=== PATIENT | male | born 1950 | race Caucasian/White ===

== ENCOUNTER → 2019-04-09 | Outpatient (CLI) | payer MEDICARE ==
--- NOTE | 2019-04-11 16:40 | PE ---
Nuclear medicine PET/CT HISTORY: Esophageal carcinoma, subsequent Patient received 12.4 mCi F-18 FDG intravenously in delayed scanning was performed from skull base to the mid thighs. Localization and attenuation correction CT scan was performed. Correlation to prior nuclear medicine PET/CT 01/12/2019 Neck and chest: There is multifocal punctate foci of increased attenuation present at the level of th e distal esophagus extending into the proximal stomach, there is associated soft tissue thickening at this level similar to prior exam. There is mild hypermetabolic uptake present at the level of the di stal esophagus and proximal stomach which is decreased as compared to prior exam, SUV is 4.1. There is no evident lung mass. No pleural or pericardial effusion. There are coronary artery calcific ations present. There is evidence of old granulomatous disease as on prior. No mediastinal, axillary, or hilar adenopathy, no supraclavicular adenopathy. Previously identified mediastinal no mild uptake has diminished in size and activity. ABDOMEN: Findings are stable. No suspicious hypermetabolic uptake. No evident liver mass or retroperi toneal adenopathy. Portal node seen on prior exam immediately adjacent to the lesser curvature of the stomach measures approximately 17 mm but does not show associated hypermetabolic uptake. There is no ascites. Osseous structures are stable. IMPRESSION: Positive treatment response
== END | disposition home or self-care (01) ==
LOC: RADPETMAIN 09:25
PROVIDERS: ATTEND Internal Medicine Hematology & Oncology
DX: C15.5 Malignant neoplasm of lower third of esophagus (principal); Z92.21 Personal history of antineoplastic chemotherapy
CPT/HCPCS: 78815; A9552

== ENCOUNTER → 2019-10-28 | Outpatient (CLI) | payer MEDICARE ==
--- NOTE | 2019-10-31 10:10 | PE ---
EXAMINATION TYPE: PET CT fusion skull to thigh DATE OF EXAM: 10/28/2019 CLINICAL HISTORY: 69 year-old male restaging esophageal cancer initially diagnosed in November 2018 status post chemoradiation in February 2019 and surgery April 2019. TECHNIQUE: Following the intravenous administration of 9.1 mCi of F-18 FDG, whole body images are p erformed from the skull base to the midthigh. Images are reviewed on the computer in the coronal, ax ial, and sagittal planes. Reconstructed rotating images are created on independent workstation and r eviewed on the computer. A localization and attenuation correction CT is performed in conjunction w ith the PET scan. Glucose level: 94 mg/dL COMPARISON: 04/09/2019 and 01/12/2019 FINDINGS: PET: Physiologic FDG uptake within the neck. Interval esophagectomy with gastric pull-through procedure. Scattered nonenlarged mediastinal lymph n odes measure up to 8 mm and show no abnormal uptake. Just above the level of the GE junction, focal area of moderate uptake is noted, max SUV 4.1 versus 4 .1, previously as well. Otherwise, physiologic FDG uptake within the chest. New focal volume loss and subpleural opacity posterior right lower lobe likely posttreatment change; no discrete FDG uptake. Average liver SUV 1.6. New postsurgical change along the epigastrium. Some mild uptake in this region likely postsurgical, m ax SUV 2.6. Dotted increased uptake along the course of the ureters compatible with excreting FDG. Otherwise, physiologic FDG uptake within the abdomen and pelvis. ATTENUATION CORRECTION CT: Moderate mucosal thickening ethmoid air cells. Mild within the left maxillary sinus. There seems to b e some fluid trapped within the inferior left mastoid air cells. No cervical lymphadenopathy by CT si ze criteria. Heart upper limits of normal in size without pericardial effusion. Extensive LAD calcifications are n oted. Aortic root is ectatic at 3.8 cm. Ascending aorta borderline ectatic at 3.6 cm. Conventional ar ch vessel branching anatomy. No cervical lymphadenopathy by CT size criteria. Calcified left hilar ly mph nodes compatible with prior granulomatous disease. No pleural effusion. Multiple calcified granulomas within the spleen. No dilated small bowel, free fluid, or free air. Sca ttered mild to moderate stool. No pericolonic inflammatory change. No mesenteric or retroperitoneal l ymphadenopathy. Mild circumferential bladder wall thickening. Prostate gland is enlarged measuring 6.0 cm wide. Phleb olith in the right side of the pelvis. No abnormal fluid collection the pelvis or pelvic lymphadenopa thy. Bones: Mild degenerative changes at the hips. Degenerative bridging bony ankylosis left SI joint. Fac et arthropathy and degenerative disc disease lower lumbar spine. No osseous destructive process. IMPRESSION: 1. Interval esophagectomy with gastric pull-through procedure. 2. Focal area of moderate FDG uptake just above the level of the GE junction, max SUV 4.1 versus 4.1, previously as well. Findings may relate to postsurgical change. Given the presence of this activity along the same region seen on prior PET/CT, consider short interval follow-up. 3. Otherwise, no evidence for metastatic disease. 4. New focal volume loss and opacity along the subpleural region of the posterior right lower lobe co uld represent posttreatment change. Correlate to exclude any symptoms of developing pneumonia. 5. Circumferential bladder wall thickening could represent chronic bladder hypertrophy or cystitis. P rostatomegaly at 6.0 cm wide.
== END | disposition home or self-care (01) ==
LOC: RADPETMAIN 09:41
PROVIDERS: ATTEND Internal Medicine Hematology & Oncology
DX: R91.8 Other nonspecific abnormal finding of lung field (principal); C15.5 Malignant neoplasm of lower third of esophagus; N40.0 Benign prostatic hyperplasia without lower urinary tract symptoms; Z90.49 Acquired absence of other specified parts of digestive tract; N32.89 Other specified disorders of bladder
CPT/HCPCS: 78815; A9552

== ENCOUNTER → 2020-04-27 | Outpatient (CLI) | payer MEDICARE ==
--- NOTE | 2020-04-27 11:55 | PE ---
EXAMINATION TYPE: PET CT fusion skull to thigh DATE OF EXAM: 04/27/2020 COMPARISON: Prior PET CTs October 28, 2019 and older studies. HISTORY: Distal esophageal cancer diagnosed November 2018 with surgery May 13, 2019, history of radi ation and chemotherapy prior to surgery. TECHNIQUE: Following the intravenous administration of 11.82 mCi of F-18 FDG, whole body images are performed from the skull base to the midthigh. Images are reviewed on the computer in the coronal, a xial, and sagittal planes. Reconstructed rotating images are created on independent workstation and reviewed on the computer. A noncontrast CT is performed in conjunction with the PET scan. SCAN: Subsequent Scan FINDINGS: SKULL BASE AND NECK: No new areas of suspicious hypermetabolic uptake. CHEST, MEDIASTINUM, AND HILAR REGION: Redemonstration of surgical changes from total esophagectomy an d gastric pull-up procedure. No new areas of suspicious hypermetabolic uptake. ABDOMEN AND PELVIS: No new areas of suspicious hypermetabolic uptake. Normal excretion is present. OSSEOUS STRUCTURES: No new areas of suspicious hypermetabolic uptake. OTHER CT: Mild calcified plaque bilateral carotid bulb level redemonstrated. Calcified left hilar lymph nodes or granulomas again seen. Scattered calcifications throughout the sp christopher. Findings consistent with product of old granulomatous disease. There is moderate coronary arter y calcification redemonstrated. Occasional scattered pelvic phleboliths. Slight scoliotic curvature. Moderate disc space narrowing L5-S1 level with vacuum disc phenomenon. IMPRESSION: No new areas of abnormal hypermetabolic uptake to suggest recurrent active neoplasm.
== END | disposition home or self-care (01) ==
LOC: RADPETMAIN 08:43
PROVIDERS: ATTEND Internal Medicine Hematology & Oncology
DX: C15.5 Malignant neoplasm of lower third of esophagus (principal)
CPT/HCPCS: 78815; A9552

== ENCOUNTER → 2021-04-19 | Outpatient (CLI) | payer MEDICARE ==
--- NOTE | 2021-04-19 13:05 | PE ---
EXAMINATION TYPE: PET CT fusion skull to thigh DATE OF EXAM: 04/19/2021 COMPARISON: Prior PET/CT April 27 2020 and older studies HISTORY: Distal esophageal cancer diagnosed November 2018 with surgery May 13, 2019, history of radi ation and chemotherapy prior to surgery. TECHNIQUE: Following the intravenous administration of 13.20 mCi of F-18 FDG, whole body images are performed from the skull base to the midthigh. Images are reviewed on the computer in the coronal, a xial, and sagittal planes. Reconstructed rotating images are created on independent workstation and reviewed on the computer. A localization and attenuation correction CT is performed in conjunction with the PET scan. Blood glucose level equals 87. SCAN: Subsequent Scan FINDINGS: SKULL BASE AND NECK: No new areas of suspicious hypermetabolic uptake. CHEST, MEDIASTINUM, AND HILAR REGION: Redemonstration of surgical changes from total esophagectomy an d gastric pull-up procedure. Mild uptake near the diaphragmatic hiatus and surgical clips axial image 149, Max SUV is 2.67. No additional areas of new abnormal hypermetabolic uptake. ABDOMEN AND PELVIS: No new areas of suspicious hypermetabolic uptake. Normal excretion is redemonstra jose including prominence just above left iliac vessel. OSSEOUS STRUCTURES: No new areas of suspicious hypermetabolic uptake. OTHER CT: Calcified left hilar lymph nodes or granulomas again seen. Scattered calcifications throughout the sp christopher are redemonstrated. Findings consistent with product of old granulomatous disease. There is mode rate coronary artery calcification redemonstrated. Occasional scattered pelvic phleboliths. Anterior upper abdominal midline defect redemonstrated. Slight scoliotic curvature redemonstrated. Moderate disc space narrowing L5-S1 level with vacuum disc phenomenon is redemonstrated. IMPRESSION: Only area of concern is new mild hypermetabolic uptake near surgical clips at level of di aphragmatic hiatus in the gastric pull-up. Consider direct visualization or short-term PET/CT follow- up in 3-6 months time to reassess.
== END | disposition home or self-care (01) ==
LOC: RADPETMAIN 09:33
PROVIDERS: ATTEND Internal Medicine Hematology & Oncology
DX: Z08 Encounter for follow-up examination after completed treatment for malignant neoplasm (principal); C15.5 Malignant neoplasm of lower third of esophagus; Z92.21 Personal history of antineoplastic chemotherapy; Z92.3 Personal history of irradiation
CPT/HCPCS: 78815; A9552

== ENCOUNTER → 2021-11-01 | Outpatient (CLI) | payer MEDICARE ==
--- NOTE | 2021-11-01 15:52 | PE ---
EXAMINATION TYPE: PET CT fusion skull to thigh DATE OF EXAM: 11/01/2021 COMPARISON: Prior PET/CT April 19, 2021 and older studies HISTORY: Distal esophageal cancer diagnosed November 2018 with surgery May 13, 2019, history of radi ation and chemotherapy prior to surgery. TECHNIQUE: Following the intravenous administration of 12.65 mCi of F-18 FDG, whole body images are performed from the skull base to the midthigh. Images are reviewed on the computer in the coronal, a xial, and sagittal planes. Reconstructed rotating images are created on independent workstation and reviewed on the computer. A localization and attenuation correction CT is performed in conjunction with the PET scan. Blood glucose level equals 92 SCAN: Subsequent Scan FINDINGS: SKULL BASE AND NECK: No new areas of suspicious hypermetabolic uptake. CHEST, MEDIASTINUM, AND HILAR REGION: Redemonstration of surgical changes from total esophagectomy an d gastric pull-up procedure. Mild uptake near the diaphragmatic hiatus and surgical clips axial image 135 slightly more prominent from most recent PET/CT where there is moderate wall thickening just abo ve the sutures, Max SUV is 3.54 versus 2.67 on prior. No additional areas of new abnormal hypermetabolic uptake. ABDOMEN AND PELVIS: No new areas of suspicious hypermetabolic uptake. Normal excretion is redemonstra jose including some uptake along the course of the bilateral ureters redemonstrated. OSSEOUS STRUCTURES: No new areas of suspicious hypermetabolic uptake. OTHER CT: Calcified anterior left hilar lymph nodes or benign granulomas again seen. Scattered calcifications t hroughout the spleen are redemonstrated. Findings consistent with product of old granulomatous diseas e. There is moderate to severe coronary artery calcification redemonstrated. Occasional scattered pelvic phleboliths. Anterior upper abdominal midline defect redemonstrated. Mild ly enlarged prostate bulging on bladder base redemonstrated. Slight scoliotic curvature redemonstrated. Moderate disc space narrowing L5-S1 level with vacuum disc phenomenon is redemonstrated. IMPRESSION: Only area of concern remains slightly more prominent mild hypermetabolic uptake area near surgical clips at level of diaphragmatic hiatus in the gastric pull-up. Consider direct visualizatio n to further evaluate.
== END | disposition home or self-care (01) ==
LOC: RADPETMAIN 09:39
PROVIDERS: ATTEND Internal Medicine Hematology & Oncology
DX: C15.5 Malignant neoplasm of lower third of esophagus (principal)
CPT/HCPCS: 78815; A9552

== ENCOUNTER → 2022-11-07 | Outpatient (CLI) | payer MEDICARE ==
--- NOTE | 2022-11-10 05:52 | PE ---
EXAMINATION TYPE: PET CT fusion skull to thigh DATE OF EXAM: 11/07/2022 COMPARISON: Most recent PET CT November 01, 2021 and older studies HISTORY: Esophageal cancer progress study. Originally diagnosed in 2019 completed radiation treatmen t February 2019. TECHNIQUE: Following the intravenous administration of 12.44 mCi of F-18 FDG, whole body images are performed from the skull base to the midthigh. Images are reviewed on the computer in the coronal, a xial, and sagittal planes. Reconstructed rotating images are created on independent workstation and reviewed on the computer. A localization and attenuation correction CT is performed in conjunction with the PET scan. Blood glucose level equals 85. SCAN: Subsequent Scan FINDINGS: SKULL BASE AND NECK: No new areas of suspicious hypermetabolic uptake. CHEST, MEDIASTINUM, AND HILAR REGION: Redemonstration of surgical changes from total esophagectomy an d gastric pull-up procedure. No abnormal hypermetabolic uptake near the sutures just above the diaphr agm on current study. No new areas of new abnormal hypermetabolic uptake. ABDOMEN AND PELVIS: No new areas of suspicious hypermetabolic uptake. Normal excretion is redemonstra jose including slightly more prominent uptake along the course of the bilateral ureters redemonstrated . OSSEOUS STRUCTURES: No new areas of suspicious hypermetabolic uptake. OTHER CT: Calcified anterior left hilar lymph nodes or benign granulomas again seen. Scattered calcifications t hroughout the spleen are redemonstrated. Findings consistent with product of old granulomatous diseas e. There is moderate to severe coronary artery calcification redemonstrated. Occasional scattered pelvic phleboliths. Anterior upper abdominal midline defect redemonstrated. Enla rged prostate bulging on bladder base redemonstrated. Slight scoliotic curvature redemonstrated. Moderate disc space narrowing L5-S1 level with vacuum disc phenomenon is redemonstrated. IMPRESSION: No abnormal hypermetabolic uptake to suggest active residual neoplasm or new metastatic n eoplasm on current study.
== END | disposition home or self-care (01) ==
LOC: RADPETMAIN 09:27
PROVIDERS: ATTEND Internal Medicine Hematology & Oncology
DX: C15.5 Malignant neoplasm of lower third of esophagus (principal); Z92.3 Personal history of irradiation
CPT/HCPCS: 78815; A9552

== ENCOUNTER 2024-01-01 14:59 | Inpatient (IN) | payer MEDICARE ==
[2024-01-01] MEDS ORDERED: NITROGLYCERIN SL TABS 0.4 MG TAB SUBLINGUAL PRN (15:11)
--- NOTE | 2024-01-01 15:11 | ED ---
General Adult HPI - General Chief complaint: Arrhythmia/Palpitations Stated complaint: Chest pain Time Seen by Provider: 01/01/24 15:04 Source: patient, EMS, RN notes reviewed Mode of arrival: EMS Limitations: no limitations - History of Present Illness Initial comments: Patient is a 73-year-old male present to the emergency department as a transfer from [place]. Patient was seen there with chest tightness. 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 Patient is on chemotherapy for this. Patient was there a couple days ago diagnosed with pneumonia and returned today with worsening symptoms. Patient found to have elevated troponin and EKG changes as he was sent here. Chest discomfort is described as tightness. Patient did receive administered Zosyn prior to transfer. Cultures were done. Patient is on heparin drip. - Related Data Allergies Allergy/AdvReac Type Severity Reaction Status Date / Time No Known Allergies Allergy Verified 01/01/24 15:04 Review of Systems ROS Statement: Those systems with pertinent positive or pertinent negative responses have been documented in the HPI. ROS Other: All systems not noted in ROS Statement are negative. Constitutional: Denies: fever Eyes: Denies: eye pain Respiratory: Reports: dyspnea Cardiovascular: Reports: chest pain Past Medical History Past Medical History: Cancer Additional Past Medical History / Comment(s): esophageal cancer, pre stage of leukemia Smoking Status: Former smoker Past Alcohol Use History: None Reported Past Drug Use History: None Reported General Exam Limitations: no limitations General appearance: alert, in no apparent distress Head exam: Present: normocephalic Eye exam: Present: normal appearance Neck exam: Present: normal inspection Respiratory exam: Present: normal lung sounds bilaterally Cardiovascular Exam: Present: regular rate, normal rhythm, normal heart sounds Expanded Peripheral pulses: 2+: Radial (R), Radial (L), Posterior Tibialis (R), Posterior Tibialis (L) GI/Abdominal exam: Present: soft. Absent: tenderness Extremities exam: Present: normal inspection Neurological exam: Present: alert Psychiatric exam: Present: normal affect, normal mood Skin exam: Present: normal color Course Vital Signs 01/01/24 15:00 Temperature 100 F H Pulse Rate 91 Respiratory 18 Rate Blood Pressure 114/73 O2 Sat by Pulse 98 Oximetry EKG Findings - EKG Results: EKG: interpreted by ERMD (Inferior ST elevation), sinus rhythm, normal axis, normal QRS Medical Decision Making - Medical Decision Making Was pt. sent in by a medical professional or institution (, [facility], [employer], urgent care, hospital, or long-term...) When possible be specific @ -Patient was sent from [place] Did you speak to anyone other than the patient for history (EMS, parent, family, police, friend...)? What history was obtained from this source @ -I did speak with transferring physician Dr. Mercado as well as transportation crew with [employer] Did you review nursing and triage notes (agree or disagree)? Why? @ -I reviewed and agree with nursing and triage notes Were old charts reviewed (outside hosp., previous admission, EMS record, old EKG, old radiological studies, urgent care reports/EKG's, long-term records)? Report findings @ -Chart reviewed from [facility] Differential Diagnosis (chest pain, altered mental status, abdominal pain women, abdominal pain men, vaginal bleeding, weakness, fever, dyspnea, syncope, headache, dizziness, GI bleed, back pain, seizure, CVA, palpatations, mental health, musculoskeletal)? @ -[facility] differential chest differential Chest Pain: Stable Angina, Unstable Angina, STEMI, NSTEMI Aortic Dissection, Pneumothorax, Musculoskeletal, Esophageal Spasm GERD, Cholecystitis, Pancreatitis, Zoster, this is not meant to be an all-inclusive list. EKG interpreted by me (3pts min.). @ -As above X-rays interpreted by me (1pt min.). @ -None done CT interpreted by me (1pt min.). @ -None done U/S interpreted by me (1pt. min.). @ -None done What testing was considered but not performed or refused? (CT, X-rays, U/S, labs)? Why? @ -None What meds were considered but not given or refused? Why? @ -None Did you discuss the management of the patient with other professionals (professionals i.e. , [facility], [employer], lab, RT, psych nurse, child welfare social worker, electrical appliance servicer, teacher, electronic warfare officer, geriatric case manager)? Give summary @ -Case also discussed with Dr. Vincent who is in the emergency department and will take patient to [facility]. Case also discussed with Dr. Andrade who will admit covering hospital call Was smoking cessation discussed for >3mins.? @ -No Was critical care preformed (if so, how long)? @ -20 minutes critical care Were there social determinants of health that impacted care today? How? (Homelessness, low income, unemployed, alcoholism, drug addiction, transportation, low edu. Level, literacy, decrease access to med. care, group home, rehab)? @ -No Was there de-escalation of care discussed even if they declined (Discuss DNR or withdrawal of care, Hospice)? DNR status @ -No What co-morbidities impacted this encounter? (DM, HTN, Smoking, COPD, CAD, Cancer, CVA, ARF, Chemo, Hep., AIDS, mental health diagnosis, sleep apnea, morbid obesity)? @ -Leukemia on chemotherapy Was patient admitted / discharged? Hospital course, mention meds given and route, prescriptions, significant lab abnormalities, going to OR and other pertinent info. @ -Patient presents as a transfer from [place] with concern for neutropenic pneumonia as well as myocardial infarction. Patient is going to the [facility] at this time Undiagnosed new problem with uncertain prognosis? @ -No Drug Therapy requiring intensive monitoring for toxicity (Heparin, Nitro, Insulin, Cardizem)? @ -Heparin drip Were any procedures done? @ -No Diagnosis/symptom? @ -Neutropenic pneumonia. Myocardial infarction Acute, or Chronic, or Acute on Chronic? @ -Acute, acute Uncomplicated (without systemic symptoms) or Complicated (systemic symptoms)? @ -Default Side effects of treatment? @ -No Exacerbation, Progression, or Severe Exacerbation? @ -No Poses a threat to life or bodily function? How? (Chest pain, USA, CT, pneumonia, PE, COPD, DKA, ARF, appy, cholecystitis, CVA, Diverticulitis, Homicidal, Suicidal, threat to staff... and all critical care pts) @ -Threat to pulmonary and cardiac function as well as life Disposition Clinical Impression: Myocardial infarct, Neutropenia, Pneumonia Disposition: ADMITTED IP TO THIS [facility] Condition: Critical Is patient prescribed a controlled substance at d/c from ED?: No Referrals: None,Stated [REFERRING] - 1-2 days Time of Disposition: 15:09
[2024-01-01] MEDS ORDERED: PNEUMONIA PROTOCOL UTILIZED 1 EACH MISC PO PRN (15:14)
[2024-01-01] MEDS ORDERED: VERAPAMIL 2.5 MG/ML 2 ML AMP ONE (15:15)
[2024-01-01] MEDS ORDERED: LIDOCAINE 1% INJ 10MG/ML (20 ML MDV) ONE (15:15)
[2024-01-01] MEDS ORDERED: fentaNYL (PF) 50 MCG/ML 2 ML AMP ONE (15:28)
[2024-01-01] MEDS: VERAPAMIL SYRINGE (5 MG/10 ML) INTRAARTER ONE (15:28)
[2024-01-01] MEDS: LIDOCAINE 1% INJ 10MG/ML (30 ML VIAL-PF) SQ ONE (15:28)
[2024-01-01] MEDS ORDERED: HEPARIN SODIUM 1,000 UN/ML (10ML VL) ONE (15:29)
[2024-01-01 15:30] LABS: Partial Thromboplastin Time 28.5 sec (22.0-30.0)
[2024-01-01] MEDS: fentaNYL (PF) 50 MCG/ML 2 ML AMP IVP ONE (15:30)
[2024-01-01] MEDS: MIDAZOLAM 2 MG/2 ML VIAL IVP ONE ×2 (15:30→15:48)
[2024-01-01] MEDS: HEPARIN SODIUM 1,000 UN/ML (10ML VL) IVP ONE (15:36)
[2024-01-01] MEDS: IOPAMIDOL-370 200ML BTL INJ ONE (16:01)
[2024-01-01] MEDS: SODIUM CHLORIDE 0.9% 1,000 ML IV ONE (16:02)
[2024-01-01] MEDS ORDERED: RX INFO: IV CONTRAST WAS GIVEN 1 EACH MISC MISCELLANE PRN ×2 (16:50→16:52)
--- NOTE | 2024-01-01 17:14 | P.CRDCN ---
History of Present Illness Consult date: 01/01/24 History of present illness: HISTORY OF PRESENTING ILLNESS Octavio is a 73-year-old male with past medical history of esophageal cancer s/p surgery. Since beginning of 2023, patient has been diagnosed for AML and is under chemotherapy treatment with Dr. Simon. He denies any prior cardiovascular history. Patient presented to [facility] with substernal chest pressure on Thursday. At that time he was discharged from the ER as his ECG and troponin were within normal range. This morning he presented to [facility] again with substernal chest pressure-like symptoms. This time he had elevation of troponin with high-sensitivity troponin measured at 1000. His ECG showed subtle ST elevations in lead III with reciprocal changes in V1 and V2. Due to these findings, patient was transferred to [facility]. I was notified by ER physician at [facility] about this transfer. I advised that if patient has STEMI he should be given tPA. ER physician did not think tPA was appropriate as patient is chest pain-free. Patient was also found to have neutropenia with WBC count of 0.4. For his neutropenic fever he was initially being referred to [facility] but because of signs of cardiac ischemia NSTEMI, he was transferred to [facility]. Patient was immediately evaluated when arrived at [facility] ER. Repeat ECG showed subtle ST elevations in lead III with reciprocal changes in V1 and V2. Bedside echocardiogram showed preserved LV systolic function with subtle basal inferior wall hypokinesia. His hemoglobin was 12, platelet 190. His creatinine was 1.1. A chest x-ray did not show significant pulmonary congestion. He did not appear in congestive heart failure. He was in normal sinus rhythm. Denies any prior history of stroke. He denies any concerns of bleeding diathesis. He denies any history of smoking, recreational drug use marijuana use or alcohol use REVIEW OF SYSTEMS 14 point review of system is negative except what is mentioned above in HPI. PHYSICAL EXAMINATION Vital signs reviewed. Head: Normocephalic. Eyes: Sclerae nonicteric. Neck: Brisk carotid upstroke, no jugular venous distention. Lungs: Clear to auscultation. Heart: Regular rate and rhythm, S1-S2, no S3, no murmur or rub. Abdomen: Soft nontender, positive bowel sounds. Extremities: No edema, intact distal pulses. Neuro: Alert, oritented, no focal deficits. Detailed neuro exam was not performed. ASSESSMENT Inferior STEMI AML on chemotherapy Prior history of esophageal cancer s/p surgery PLAN Plan for cardiac catheterization procedure. Risk factors including stroke NM and emergent need for cardiac surgery because of vascular cardiac injury was discussed. Patient agreed to all these risk factors and wanted to proceed with a cardiac catheterization procedure. Further recommendations to follow cath results Kavon Vincent MD, FACC, RPVI Thank you for allowing [facility] to participate in this patient's care. Feel free to reach out in case of any followup questions. Past Medical History Past Medical History: Cancer Additional Past Medical History / Comment(s): esophageal cancer, pre stage of leukemia Smoking Status: Former smoker Past Alcohol Use History: None Reported Past Drug Use History: None Reported Medications and Allergies Allergies Allergy/AdvReac Type Severity Reaction Status Date / Time No Known Allergies Allergy Verified 01/01/24 15:04 Physical Exam Vitals: Vital Signs Temp Pulse Pulse Resp BP Pulse Ox 01/01/24 15:04 74 01/01/24 15:00 100 F H 91 18 114/73 98 Intake and Output 01/01/24 01/01/24 01/01/24 06:59 14:59 22:59 Intake Total 100 Balance 100 Intake: IV 100 Other: Weight 86.183 kg Results Cardiac Enzymes 01/01/24 Range/Units 15:12 Troponin I 1.210 H* (0.000-0.034) ng/mL Coagulation 01/01/24 Range/Units 15:12 APTT 28.5 (22.0-30.0) sec Current Medications Generic Name Dose Route Start Last Admin Trade Name Freq PRN Reason Stop Dose Admin Aspirin 325 mg 01/02/24 09:00 Aspirin 325 Mg Tab PO DAILY VERN Heparin Sodium/Sodium Chloride 250 mls @ 10 mls/hr 01/01/24 15:15 25,000 unit/ Sodium Chloride IV .Q24H VERN Protocol 11.603 UNITS/KG/HR Azithromycin 500 mg/ Sodium 250 mls @ 250 mls/hr 01/02/24 09:00 Chloride IVPB 01/03/24 09:59 DAILY VERN Protocol Piperacillin Sod/Tazobactam 100 mls @ 25 mls/hr 01/01/24 16:00 Sod 3.375 gm/ Sodium Chloride IVPB 01/06/24 16:01 Q8HR [facility] Protocol Sodium Chloride 1,000 mls @ 75 mls/hr 01/01/24 16:20 Saline 0.9% IV 01/02/24 00:21 .[id number] [facility] Miscellaneous Information 1 each 01/01/24 15:14 Pneumonia Protocol Utilized 1 Each Misc PO ONCE PRN Per Protocol Miscellaneous Information 1 each 01/01/24 16:50 Rx Info: Iv Contrast Was Given 1 Each Misc MISCELLANE 01/03/24 16:50 DAILY PRN Per Protocol Miscellaneous Information 1 each 01/01/24 16:52 Rx Info: Iv Contrast Was Given 1 Each Misc MISCELLANE 01/03/24 16:53 DAILY PRN Per Protocol Nitroglycerin 0.4 mg 01/01/24 15:11 Nitroglycerin Sl Tabs 0.4 Mg Tab SUBLINGUAL Q5M PRN Chest Pain Intake and Output 01/01/24 01/01/24 01/01/24 06:59 14:59 22:59 Intake Total 100 Balance 100 Intake: IV 100 Other: Weight 86.183 kg Patient Weight 01/02/24 06:59 Weight 86.183 kg
--- NOTE | 2024-01-01 17:30 | P.CARDCATH ---
Date of Procedure: 01/01/24 Description of Procedure: DIAGNOSTIC CORONARY ANGIOGRAPHY and LEFT HEART CATH REPORT PROCEDURES PERFORMED: Left heart catheterization Selective coronary angiography Moderate conscious sedation 25 mins [Ultrasound assisted] Right radial access INDICATION: [Unstable angina] CONSENT: I have explained the procedural steps of above-mentioned procedures in layman's terms to the patient. I discussed the risks (including but not limited to stroke, emergent vascular or cardiac surgery or ), benefits and alternative therapies for the above-mentioned procedure. I discussed the risks of sedation/analgesia and blood product administration (if indicated). The patient has indicated understanding and acceptance of these risks. Conscious Sedation: Patient's ECG, heart rate, blood pressure, pulse oximetry were monitored throughout the duration of procedure under my direct supervision. [2] mg Versed and [50] mg Fentanyl were used for induction of moderate conscious sedation. Total duration of moderate concious sedation [25] minutes. Technical details Access: Right radial access Contrast used: Isovue 80 mL Radiation: Cumulative air kerma 270 mGy Blood thinners: 4000 units IV heparin intraoperatively. Blood loss: Less than 20 mL Complications: None PROCEDURE: After explaining the risks, benefits and alternatives of the above mentioned procedures in detail to the patient, informed consent was obtained. Patient was taken to the catheterization lab, prepped and draped in usual sterile fashion using universal precuations. Barbow and elder test were performed to confirm adequate perfusion to fingers. Ultrasound was used to identify the radial artery. 1% lidocaine was infiltrated over the right radial artery. A 6-[place] sheath was placed and secured in the right radial artery using modified Seldinger technique. The sheath was flushed and 5 mg verapamil was administered intra-arterially. J tipped wire was advanced under fluoroscopic guidance. Due to significant tortuosity in the subclavian artery, the J-wire had a tendency of slipping into right internal mammary artery. The JR4 catheter was advanced over the J-wire to direct the wire and the aorta. There was significant tortuosity at the junction of right subclavian artery and the aortic arch. With the help of the JR4 catheter, the wire was maneuvered into the ascending aorta. Once the wire tip reached aortic root 4000 units of IV heparin was given. Over the wire JR4 diagnostic catheter was advanced. The wire in place the catheter was manipulated to cross the aortic valve and entered into LV under fluoroscopy guidance. The wire was removed and the catheter was flushed. LV pressures were obtained and pullback was performed under fluoroscopy. Catheter was manipulated to selectively engage the right coronary ostium. Right coronary angiography was performed in different angiographic projections. The JR4 diagnostic catheter was exchanged for a JL3.5 diagnostic catheter over the J-wire. The 5 [place] JL 3.5 diagnostic catheter could not enter ascending aorta and was getting stuck at the junction of right subclavian artery and aortic arch. The catheter was removed and exchanged for a CLS guide 3.5. The guide was advanced over the wire to selectively engage the left coronary ostium. The wire was removed, catheter was flushed and manipulated under fluoroscopy to selectively engaged the left coronary ostium. Left coronary angioplasty was performed in different angiographic projections. Catheter was removed over the wire. Radial sheath was flushed. The right radial sheath was removed and a TR band was placed with excellent patent hemostasis was achieved. The patient tolerated the procedure well. Patient was transported back to the post catheterization holding area in stable condition. Angiographic images were reviewed in detail. HEMODYNAMICS: Aortic Pressure: 92/47 mmHg. LV pressure: 94/5 mmHg. LVEDP 9 mmHg. There was no significant gradient across the aortic valve. SELECTIVE CORONARY ARTERIOGRAPHY: LEFT MAIN: Left main is large caliber and medium length. It bifurcates into LAD and LCx. No significant disease angiographically. LEFT ANTERIOR DESCENDING CORONARY ARTERY: LAD is a large caliber vessel which wraps around to the apex. Proximal and mid LAD appears angiographically normal with mild luminal irregularities. Distal LAD has 20 to 30% eccentric disease with mild luminal regularities. LAD gives rise to small diagonal branches appears angiographically normal. LEFT CIRCUMFLEX CORONARY ARTERY: It is co-dominant vessel. LCx is large caliber vessel. Proximal LCx has mild luminal irregularities. It gives rise to a large OM1 branch. Origin of OM is very tortuous and appears to have 20% ostial disease. After giving OM1 branch, mid LCx is large caliber and appears angiographically normal. Distally it gives small OM branches and PL branch. PL branch is a small 1.5 mm vessel and appears to have 100% occlusion in the proximal portion with YANIV 0 flow. RIGHT CORONARY ARTERY: Co-dominant vessel. RCA is moderate caliber vessel. Proximal and mid RCA appears angiographically normal. Distally RCA gives PDA branch which appears angiographically normal. Proximal RCA gives a large RV marginal branch which appears angiographically normal. IMPRESSION: Inferior STEMI 100% occlusion of small 1.5 mm posterolateral branch with YANIV 0 flow. This vessel is small and very distal not amenable for intervention. Normal LVEDP PLAN: Aggressive risk factor modification per most recent ACC/AHA guidelines. 125 cc/h for 4 hours normal saline Aspirin 81 mg Lipitor 40 mg IV heparin for 48 hours for medical management. Ideally we would like to do dual antiplatelet therapy with aspirin and Plavix. Patient is currently going through chemotherapy for AML and is at increased risk of having anemia and bleeding with dual antiplatelet therapy. For now we will continue patient on aspirin 81 mg daily. Performing Physician Kavon Vincent MD, FACC, RPVI Thank you for allowing [facility] to participate in this patient's care. Feel free to reach out in case of any followup questions.
[2024-01-01 18:31] LABS: INR 1.1 (<1.2); Prothrombin Time 11.8 sec (10.0-12.5)
[2024-01-01] MEDS: AZITHROMYCIN 500 MG in SODIUM CHLORIDE 0.9% 250 ML IVPB STA (18:53)
[2024-01-01] MEDS: PIPERACILLIN-TAZOBACTAM 3.375 GM in SODIUM CHLORIDE 0.9% 100 ML IVPB SCH (18:53)
[2024-01-01] MEDS: carvediloL 3.125 MG TAB PO SCH (18:54)
[2024-01-01] MEDS: SODIUM CHLORIDE 0.9% 1,000 ML IV SCH (18:54)
[2024-01-01] MEDS: HEPARIN SOD,PORK IN 0.45% NACL 25,000 UNIT in 0.45% NACL 1 250ML.BAG IV SCH (18:55)
[2024-01-01 19:37] LABS: HGB 11.7 gm/dL (13.0-17.5); Hypochromasia Slight; MCHC 30.9 g/dL (31.0-37.0); MCV 93.9 fL (80.0-100.0); Mean Platelet Volume 8.3; Platelet Count 207 k/uL (150-450); RBC 4.04 m/uL (4.30-5.90); RDW 15.5 % (11.5-15.5)
[2024-01-01 20:22] LABS: Poikilocytosis (M) Present
[2024-01-01 20:25] LABS: WBC 0.8 k/uL (3.8-10.6)
[2024-01-01] MEDS: ATORVASTATIN 40 MG TAB PO SCH (20:26)
[2024-01-02] MEDS: HEPARIN SODIUM 1,000 UN/ML (10ML VL) IV PRN (01:47)
[2024-01-02] MEDS: PIPERACILLIN-TAZOBACTAM 3.375 GM in SODIUM CHLORIDE 0.9% 100 ML IVPB SCH (03:05)
[2024-01-02] MEDS: ACETAMINOPHEN TAB 325 MG TAB PO PRN (03:08)
[2024-01-02 03:11] LABS: INR 1.1 (<1.2); Prothrombin Time 12.2 sec (10.0-12.5)
[2024-01-02] MEDS: ASPIRIN 81 MG PO SCH (07:41)
[2024-01-02] MEDS: HEPARIN SOD,PORK IN 0.45% NACL 25,000 UNIT in 0.45% NACL 1 250ML.BAG IV SCH (07:53)
[2024-01-02] MEDS ORDERED: ASPIRIN 325 MG TAB PO SCH (09:00)
[2024-01-02] MEDS: AZITHROMYCIN 500 MG in SODIUM CHLORIDE 0.9% 250 ML IVPB SCH (10:15)
[2024-01-02 11:24] LABS: Anisocytosis Slight; HCT 37.4 % (39.0-53.0); MCH 29.3 pg (25.0-35.0); MCV 91.6 fL (80.0-100.0); Mean Platelet Volume 8.2; Platelet Count 180 k/uL (150-450); RBC 4.08 m/uL (4.30-5.90); RDW 16.1 % (11.5-15.5)
[2024-01-02 12:20] LABS: Lymphocytes # (M) 0.52 k/uL (1.0-4.8); Monocytes # (M) 0.22 k/uL (0-1.0); Neutrophils # (M) 0.26 k/uL (1.3-7.7); Neutrophils % (M) 26 %; Nucleated Red Blood Cells 0 /100 WBC (0-0); Total Cells Counted 100
[2024-01-02 12:21] LABS: Anisocytosis (M) Present; Crenated RBC Present; Poikilocytosis (M) Present
--- NOTE | 2024-01-02 13:30 | P.HPIM ---
History of Present Illness H&P Date: 01/02/24 History of present illness; patient is 73-year-old gentleman with past medical history significant for esophageal cancer, AML who was a transfer from [facility] for chest pain. Patient initially presented to [facility] on Thursday with similar symptoms of chest pain, at that time patient was evaluated, since EKG was not concerning and tropes were negative, patient was discharged home on antibiotics for pneumonia. Patient again presented to [facility] with chest pain this morning at which time his tropes were elevated and patient was transferred to [facility] for emergent cardiac cath Initial lab work done in the ER showed WBC 2.8, hemoglobin 9.7, platelet count 207, EKG done in the ER showed ST segment elevation in lead III and T wave inversion in V1 and V2 Patient admitted to internal medicine service REVIEW OF SYSTEMS: CONSTITUTIONAL: No fever, no malaise, no fatigue. HEENT: No recent visual problems or hearing problems. Denied any sore throat. CARDIOVASCULAR: As mentioned above PULMONARY: No shortness of breath, no cough, no hemoptysis. GASTROINTESTINAL: No diarrhea, no nausea, no vomiting, no abdominal pain. NEUROLOGICAL: No headaches, no weakness, no numbness. HEMATOLOGICAL: Denies any bleeding or petechiae. GENITOURINARY: Denies any burning micturition, frequency, or urgency. MUSCULOSKELETAL/RHEUMATOLOGICAL: Denies any joint pain, swelling, or any muscle pain. ENDOCRINE: Denies any polyuria or polydipsia. The rest of the 14-point review of systems is negative. PHYSICAL EXAMINATION: GENERAL: The patient is alert and oriented x3, not in any acute distress. Well developed, well nourished. HEENT: Pupils are round and equally reacting to light. EOMI. No scleral icterus. No conjunctival pallor. Normocephalic, atraumatic. No pharyngeal erythema. No thyromegaly. CARDIOVASCULAR: S1 and S2 present. No murmurs, rubs, or gallops. PULMONARY: Chest is clear to auscultation, no wheezing or crackles. ABDOMEN: Soft, nontender, nondistended, normoactive bowel sounds. No palpable organomegaly. MUSCULOSKELETAL: No joint swelling or deformity. EXTREMITIES: No cyanosis, clubbing, or pedal edema. NEUROLOGICAL: Gross neurological examination did not reveal any focal deficits. SKIN: No rashes. Assessment and plan Acute ST elevation [place] Bacterial pneumonia Neutropenia AML History of esophageal cancer Monitor vital signs Monitor CBC Monitor CMP Continue telemetry monitoring Continue aspirin, Lipitor Continue pharmacy to dose heparin Continue Coreg Continue Zosyn and azithromycin S/p cardiac cath showing 100% occlusion of small 1.5 mm posterolateral branch with YANIV 0 flow. This vessel is small and very distal not amenable for intervention. Cardiology following, recommend medical management Consult hematology oncology for neutropenia Consult ID Labs and medication were reviewed.. Continue same treatment. Continue with symptomatic treatment. Resume home medication. Monitor labs and vitals. DVT and GI prophylaxis. Further recommendations as per clinical course of the patient Dictation was produced using [employer] dictation software. please excuse any grammatical, word or spelling errors. Past Medical History Past Medical History: Cancer, Prostate Disorder Additional Past Medical History / Comment(s): esophageal cancer, pre stage of leukemia History of Any Multi-Drug Resistant Organisms: None Reported Smoking Status: Never smoker Past Alcohol Use History: None Reported Past Drug Use History: None Reported Medications and Allergies Home Medications Medication Instructions Recorded Confirmed Type Acyclovir [Zovirax] 400 mg PO BID 01/01/24 01/01/24 History Azacitidine(Unknown Dose) 1 dose IV DIRECTED 01/01/24 01/01/24 History Fluticasone Nasal [place] [Flonase 2 spr EA NOSTRIL DAILY 01/01/24 01/01/24 History Nasal Lamont] Loratadine [Claritin] 10 mg PO DAILY 01/01/24 01/01/24 History Multivitamins, Thera [Multivitamin 1 tab PO DAILY 01/01/24 01/01/24 History (formulary)] Ondansetron [Zofran] 4 mg PO Q4H PRN 01/01/24 01/01/24 History Pantoprazole [Protonix] 40 mg PO DAILY 01/01/24 01/01/24 History Posaconazole 300 mg PO DAILY 01/01/24 01/01/24 History Tamsulosin [Flomax] 0.4 mg PO DAILY 01/01/24 01/01/24 History Venetoclax [Venclexta] 100 mg PO DIRECTED 01/01/24 01/01/24 History Allergies Allergy/AdvReac Type Severity Reaction Status Date / Time No Known Allergies Allergy Verified 01/01/24 15:04 Physical Exam Vitals: Vital Signs Temp Pulse Pulse Pulse Resp BP BP 01/02/24 07:27 99.2 F 81 18 107/56 01/02/24 04:45 98.5 F 01/02/24 03:37 100.3 F H 89 14 117/57 01/01/24 23:39 100.1 F H 99 20 125/74 01/01/24 20:06 96 121/75 01/01/24 20:00 96 01/01/24 19:23 99.5 F 95 16 118/69 01/01/24 19:15 99 126/72 01/01/24 18:52 103 H 122/77 01/01/24 18:39 98.3 F 101 H 18 131/77 01/01/24 17:36 98 16 135/72 01/01/24 17:06 96 16 01/01/24 16:51 98 16 01/01/24 16:36 96 16 01/01/24 16:21 96 16 133/75 01/01/24 15:04 74 01/01/24 15:00 100 F H 91 18 114/73 Pulse Ox 01/02/24 07:27 97 01/02/24 04:45 01/02/24 03:37 93 L 01/01/24 23:39 95 01/01/24 20:06 95 01/01/24 20:00 01/01/24 19:23 96 01/01/24 19:15 93 L 01/01/24 18:52 96 01/01/24 18:39 97 01/01/24 17:36 96 01/01/24 17:06 96 01/01/24 16:51 96 01/01/24 16:36 96 01/01/24 16:21 96 01/01/24 15:04 01/01/24 15:00 98 Intake and Output 01/01/24 01/02/24 01/02/24 22:59 06:59 14:59 Intake Total 320 67.833 148 Output Total 200 Balance 120 67.833 148 Intake: IV 200 30 Invasive Line 1 10 Invasive Line 2 10 Invasive Line 3 10 Intake, IV Titration 67.833 Amount Heparin Sod,Pork in 0.45% 67.833 NaCl 25,000 unit In 0.45 % NaCl 1 250ml.bag @ 11. 603 UNITS/KG/HR 10 mls/hr IV .Q24H [facility] Rx#: [id number] Oral 120 118 Output: Urine 200 Other: Weight 86.183 kg 88.8 kg Results CBC & Chem 7: 01/01/24 19:15 Labs: Abnormal Lab Results - Last 24 Hours (Table) 01/01/24 01/01/24 01/01/24 Range/Units 15:12 19:15 19:15 WBC 0.8 L* (3.8-10.6) k/uL RBC 4.04 L (4.30-5.90) m/uL Hgb 11.7 L (13.0-17.5) gm/dL Hct 38.0 L (39.0-53.0) % MCHC 30.9 L (31.0-37.0) g/dL Troponin I 1.210 H* 0.649 H* (0.000-0.034) ng/mL Thrombosis Risk Factor Assmnt - Choose All That Apply Any of the Below Risk Factors Present?: No Each Risk Factor Represents 3 Points: Age 75 years or older Thrombosis Risk Factor Assessment Total Risk Factor Score: 3 Thrombosis Risk Factor Assessment Level: Moderate Risk
--- NOTE | 2024-01-02 13:39 | XR ---
EXAMINATION TYPE: XR chest 2V DATE OF EXAM: 01/02/2024 6:47 AM CLINICAL INDICATION:Male, 73 years old with history of pneumonia; [facility] COMPARISON: None TECHNIQUE: XR chest 2V. Frontal and lateral views of the chest.. FINDINGS: Lines/Tubes/Devices: EKG leads overlie the chest. No indwelling lines are seen. Heart/mediastinum: Heart size upper normal. The aorta appears tortuous, a finding usually associated with either atherosclerosis or systemic hypertension. Pulmonary vascularity: Not increased, Lungs/Pleura: Lungs appear hyperinflated with coarsening of interstitium suggesting possible backgrou nd COPD. Minimal bibasilar scarring or atelectasis. No consolidation, sizable effusion, or pneumothor ax is seen. Musculoskeletal: Mild degenerative changes without evidence of acute bony pathology. Other findings: None. IMPRESSION: No focal lung consolidation is seen. Follow-up as clinically warranted.
--- NOTE | 2024-01-02 14:01 | CA ---
Transthoracic Echo Report Name: Bruce Merrill Age: 73 Gender: M : 1950 Exam Date: 01/02/2024 09:54 Exam Location: [facility] Ht (in): 73 Wt (lb): 190 Ordering Physician: Kavon Vincent MD ([email or web address]) Attending/Referring Phys: Wood Piler Anum Aceves RDCS Procedure CPT: Indications: STEMI, ques inf wall hypokinesia Cardiac Hx: Technical Quality: Good Contrast 1: Total Dose (mL): Contrast 2: Total Dose (mL): MEASUREMENTS (Male / Female) Normal Values 2D ECHO LV Diastolic Diameter PLAX 4.5 cm 4.2 - 5.9 / 3.9 - 5.3 cm LV Systolic Diameter PLAX 3.1 cm IVS Diastolic Thickness 1.2 cm 0.6 - 1.0 / 0.6 - 0.9 cm LVPW Diastolic Thickness 1.2 cm 0.6 - 1.0 / 0.6 - 0.9 cm LV Relative Wall Thickness 0.5 RV Internal Dim ED PLAX 2.1 cm LA Systolic Diameter LX 2.6 cm 3.0 - 4.0 / 2.7 - 3.8 cm LV Diastolic Volume MOD BP 109.0 cm??? 67 - 155 / 56 - 104 cm??? LV Systolic Volume MOD BP 41.5 cm??? 22 - 58 / 19 - 49 cm??? LV Ejection Fraction MOD BP 61.9 % >= 55 % LV Cardiac Index MOD BP 2555.2 cm???/min???m??? LV Diastolic Volume MOD 4C 136.0 cm??? LV Systolic Volume MOD 4C 42.3 cm??? LV Ejection Fraction MOD 4C 68.9 % LV Cardiac Index MOD 4C 3546.9 cm???/min???m??? LV Diastolic Length 4C 8.3 cm LV Systolic Length 4C 6.7 cm LV Diastolic Volume MOD 2C 82.0 cm??? LV Systolic Volume MOD 2C 38.7 cm??? LV Ejection Fraction MOD 2C 52.8 % LV Cardiac Index MOD 2C 1637.5 cm???/min???m??? LV Diastolic Length 2C 7.7 cm LV Systolic Length 2C 7.1 cm M-MODE Aortic Root Diameter MM 3.9 cm LA Systolic Diameter MM 2.7 cm LA Ao Ratio MM 0.7 AV Cusp Separation MM 2.5 cm DOPPLER AI Peak Velocity 441.0 cm/s AI Peak Gradient 77.8 mmHg AI Pressure Half Time 484.1 ms Mitral E Point Velocity 101.5 cm/s Mitral A Point Velocity 83.7 cm/s Mitral E to A Ratio 1.2 MV Deceleration Time 283.1 ms MV E' Velocity 5.5 cm/s Mitral E to MV E' Ratio 18.4 TR Peak Velocity 230.9 cm/s TR Peak Gradient 21.3 mmHg Right Ventricular Systolic Press 31.4 mmHg FINDINGS Left Ventricle Left ventricular ejection fraction is estimated at 55-60 %. Mildly increased septal wall thickness. Left ventricular cavity size normal. Small basal inferoseptal wall hypokinesia Right Ventricle Normal right ventricular size and function. Right ventricular systolic pressure within normal limits. Right Atrium Mild right atrial dilatation. Left Atrium Mild left atrial dilatation. Mitral Valve Structurally normal mitral valve. Mild mitral regurgitation. Aortic Valve Trileaflet aortic valve. Mild aortic regurgitation. No aortic stenosis. Tricuspid Valve Structurally normal tricuspid valve. Mild tricuspid regurgitation. Pulmonic Valve Structurally normal pulmonic valve. Trace pulmonic regurgitation. No pulmonic stenosis. Pericardium No pericardial or pleural effusion. Aorta Mildly dilated aortic annulus, 3.9cm. CONCLUSIONS Left ventricular ejection fraction is estimated at 55-60 %. Small basal inferoseptal wall hypokinesia. Concentric LVH Mild biatrial dilatation Mild aortic regurgitation, mild MR No Pericardial effusion Previewed by: Dr Kavon Vincent (Electronically Signed) Final Date: 02 January 2024 14:00
[2024-01-02] MEDS: TAMSULOSIN 0.4 MG CAP.ER.24H PO SCH (14:18)
--- NOTE | 2024-01-02 15:25 | P.CONS ---
History of Present Illness - Reason for Consult Consult date: 01/02/24 leukemia Requesting physician: Sage Andrade - Chief Complaint chest pain - History of Present Illness Mr. 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 Presented to OSH ED, found to have elevated troponins and transferred to [facility] ER where he was found to have ST elevations, went to catheterization laboratory technician. We were consulted for leukemia. Was febrile as well, 100 deg here in ED after having blood cultures drawn and given antibiotics at OSH ED. Also pancytopenic, with severe neutropenia. Onc History: Bruce follows with Dr. Simon. He presented with RUQ pain while visiting son in [place], he had EGD on 12/12/18 revealing distal Esophageal partially obstructing mass at 36-37 cm frim incisors, lesion ended above GE junction. Biop sy revealed Invasive Adenocarcinoma , poorly differentiated, with signet ring features. The patient was seen at Thoracic surgery at [facility] (Dr Sweeney), PET scan done on 12/29/18 revealed marked uptake of 10.1 in distal Esophagus, a lelt tracheal LN (1cm) with SUV of 3.1 was also noted. He had EUS at [facility] revealed T3N2 disease. Case was discussed at Multidisciplinary Thoracic tumor board, Neoadjuvant Chemoradiation advised. The patient denies Dysphagia, able to tolerate regular diet, no anoexia or weight loss. 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 Father had Prostate cancer. 03/17/19: Tolerating concurrent Radiation/Chemotherapy well, fully active, no dysphagia. 05/04/19: Completed concurrent therapy, well tolerated. 06/09/19: Had Esophagectomy 05/07/19: No residual Ca, [address] + (1-4). He now has wound vac, tired, eating regular diet 07/26/19: Feels well, much stronger after iron infusion, will go to [place] for winter soon. 11/02/19: Doing well, daining weight, no dysphagia, chest pain or SOB, fully active. 01/31/20: Feels well, no dysphagia or odynophagia, no abdominal pain or weight loss. 05/08/20: Feels well, asymptomatic. 11/06/20: Feels well, totally asymptomatic, fully active 04/23/21: Feels well, asymptomatic. Mild uptake (SUV 2.76) at surgical anstamosis 11/05/21: Feels well, will have ventral hernia Sx at [facility] soon. Had MRCP at [facility] Aug 2021: cystic lesion in Pancreas not suspicious. PET Scan (11/08) negative. 05/09/22: Feels well, asymptomatic, had ventral hernia repain at [facility]. 11/12/22: Feels well, asymptomatic, had hital hernia repair at [facility] > good clinical results 09/02/23: was diagnosed with High grade MDS (RAEB-2) after he was foun to have pancytopenia following R thigh cellulitis. CBC revealed pancytopenia > he was evaluated at [facility], had Bone marrow study on 08/14/23 revealing Myeloid neoplasm with 15% blasts, he is requiring transfusion support. Will meet with Dr Kaufman on 09/08/23 to discuss therapeutic options. NGS study pending Had abnormal PET Scan: Mediastinal LN Bx revealed necrotic LN W/O neoplasm. 10/07/23: Seen by CYNTHIA Ngo in office. Patient has been receiving weekly blood draws at [facility] ordered by vehicle washer Dr. Kaufman at [facility]. Patient stated that his uric acid on Thursday was in the low 8 range but cannot recall the exact value. Labs have been requested from [facility]. Patient was instructed by Dr. Kaufman to begin allopurinol on day 1 of treatment, however due to elevated uric acid instructed patient to begin allopurinol 300 mg daily today. Patient instructed on warning signs and symptoms that would prompt further evaluation. Will redraw tumor lysis labs next Thursday at [facility]. Patient has already been prescribed antifungal and antiviral medications. 10/12/23: C1D1 of V/V 10/27/23: Tolerated Ventoclax/Vidaza well, feels stronger, denies any side effects 11/09/23: C2D1 of V/V 11/24/23: Seen by Dr. Simon. Doing well. BMB results discussed, good response. Continue with treatment as scheduled 12/07/23: C3D1 of V/V 12/22/23: Seen by CYNTHIA Ngo in office. Doing well. Patient continues on prophylactic medications. Will start patient on allopurinol 300 mg daily days 1 through 14 for each cycle as uric acid 7.5. Continue regimen without dose adjustments. Past Medical History Past Medical History: Cancer, Prostate Disorder Additional Past Medical History / Comment(s): esophageal cancer, pre stage of leukemia History of Any Multi-Drug Resistant Organisms: None Reported Smoking Status: Never smoker Past Alcohol Use History: None Reported Past Drug Use History: None Reported Medications and Allergies Home Medications Medication Instructions Recorded Confirmed Type Acyclovir [Zovirax] 400 mg PO BID 01/01/24 01/01/24 History Azacitidine(Unknown Dose) 1 dose IV DIRECTED 01/01/24 01/01/24 History Fluticasone Nasal [place] [Flonase 2 spr EA NOSTRIL DAILY 01/01/24 01/01/24 History Nasal [place]] Loratadine [Claritin] 10 mg PO DAILY 01/01/24 01/01/24 History Multivitamins, Thera [Multivitamin 1 tab PO DAILY 01/01/24 01/01/24 History (formulary)] Ondansetron [Zofran] 4 mg PO Q4H PRN 01/01/24 01/01/24 History Pantoprazole [Protonix] 40 mg PO DAILY 01/01/24 01/01/24 History Posaconazole 300 mg PO DAILY 01/01/24 01/01/24 History Tamsulosin [Flomax] 0.4 mg PO DAILY 01/01/24 01/01/24 History Venetoclax [Venclexta] 100 mg PO DIRECTED 01/01/24 01/01/24 History Allergies Allergy/AdvReac Type Severity Reaction Status Date / Time No Known Allergies Allergy Verified 01/01/24 15:04 Physical Exam Vitals: Vital Signs Temp Pulse Pulse Pulse Resp BP BP 01/02/24 07:27 99.2 F 81 18 107/56 01/02/24 04:45 98.5 F 01/02/24 03:37 100.3 F H 89 14 117/57 01/01/24 23:39 100.1 F H 99 20 125/74 01/01/24 20:06 96 121/75 01/01/24 20:00 96 01/01/24 19:23 99.5 F 95 16 118/69 01/01/24 19:15 99 126/72 01/01/24 18:52 103 H 122/77 01/01/24 18:39 98.3 F 101 H 18 131/77 01/01/24 17:36 98 16 135/72 01/01/24 17:06 96 16 01/01/24 16:51 98 16 01/01/24 16:36 96 16 01/01/24 16:21 96 16 133/75 01/01/24 15:04 74 01/01/24 15:00 100 F H 91 18 114/73 Pulse Ox 01/02/24 07:27 97 01/02/24 04:45 01/02/24 03:37 93 L 01/01/24 23:39 95 01/01/24 20:06 95 01/01/24 20:00 01/01/24 19:23 96 01/01/24 19:15 93 L 01/01/24 18:52 96 01/01/24 18:39 97 01/01/24 17:36 96 01/01/24 17:06 96 01/01/24 16:51 96 01/01/24 16:36 96 01/01/24 16:21 96 01/01/24 15:04 01/01/24 15:00 98 Intake and Output 01/01/24 01/02/24 01/02/24 22:59 06:59 14:59 Intake Total 320 67.833 148 Output Total 200 Balance 120 67.833 148 Intake: IV 200 30 Invasive Line 1 10 Invasive Line 2 10 Invasive Line 3 10 Intake, IV Titration 67.833 Amount Heparin Sod,Pork in 0.45% 67.833 NaCl 25,000 unit In 0.45 % NaCl 1 250ml.bag @ 11. 603 UNITS/KG/HR 10 mls/hr IV .Q24H [facility] Rx#: [id number] Oral 120 118 Output: Urine 200 Other: Voiding Method Toilet Weight 86.183 kg 88.8 kg Patient is sitting up in the chair, in no acute distress, no respiratory distress, on room air, regular heart rate. No jaundice. Mucosa moist. Results CBC & Chem 7: 01/02/24 11:11 Labs: Abnormal Lab Results - Last 24 Hours (Table) 01/01/24 01/01/24 01/01/24 Range/Units 15:12 19:15 19:15 WBC 0.8 L* (3.8-10.6) k/uL RBC 4.04 L (4.30-5.90) m/uL Hgb 11.7 L (13.0-17.5) gm/dL Hct 38.0 L (39.0-53.0) % MCHC 30.9 L (31.0-37.0) g/dL Troponin I 1.210 H* 0.649 H* (0.000-0.034) ng/mL Chest x-ray: report reviewed Assessment and Plan Assessment: 1. STEMI 2. AML 3. Severe neutropenia due to chemotherapy 4. Neutropenic fever Plan: Mr. Merrill is a very pleasant 73-year-old gentleman with a history of esophageal cancer status post chemo RT followed by resection in 2018, subsequently developed AML in 08/2023 status post 3 cycles of venetoclax with videza, who is here for chest pain. Found to have fevers, neutropenia, and elevated troponin. Transferred to [facility] where he was found to have a STEMI, went to the Appeals Nurse. We were consulted for febrile neutropenia and his history of AML with p ancytopenia. -Monitor CBC, transfusion as needed, has mild anemia and normal plt now so no need for transfusions however if Hgb/plt drop will need irradiated PRBC and platelets to maintain Hgb >7, plt >50 while on AC -Antibiotics, await cultures from outside ER -ID consult -No G-CSF -Hold chemotherapy, he was scheduled to start cycle 4 on 01/04/2024, however pt/ state that this was to be delayed by [address] Kaufman at to allow his neutropenia to recover; now also needs to be held for neutropenic fever Discussed with patient and his and they are agreeable to plan. All of their questions were answered.
--- NOTE | 2024-01-02 16:04 | P.PN ---
Subjective Progress Note Date: 01/02/24 Progress note January 02, 2024 Patient is doing well from cardiovascular standpoint today. Report that he has not had any chest pains chest pressure like he presented to the hospital with. He does report some chest pain when he takes a deep breath. BP 115/61, heart rates 94 bpm, CXR shows no significant congestion or consolidation in the lung chung with mild scarring ECG from today morning does appear to look better as compared to the one from yesterday especially lead III with less ST elevation. HISTORY OF PRESENTING ILLNESS Octavio is a 73-year-old male with past medical history of esophageal cancer s/p surgery. Since beginning of 2023, patient has been diagnosed for AML and is under chemotherapy treatment with Dr. Simon. He denies any prior cardiovascular history. Patient presented to [place] ER with substernal chest pressure on Thursday. At that time he was discharged from the ER as his ECG and troponin were within normal range. This morning he presented to [place] ER again with substernal chest pressure-like symptoms. This time he had elevation of troponin with high-sensitivity troponin measured at 1000. His ECG showed subtle ST elevations in lead III with reciprocal changes in V1 and V2. Due to these findings, patient was transferred to [facility]. I was notified by ER physician at [place] about this transfer. I advised that if patient has STEMI he should be given tPA. ER physician did not think tPA was appropriate as patient is chest pain-free. Patient was also found to have neutropenia with WBC count of 0.4. For his neutropenic fever he was initially being referred to [facility] but because of signs of cardiac ischemia NSTEMI, he was transferred to [facility]. Patient was immediately evaluated when arrived at [facility] ER. Repeat ECG showed subtle ST elevations in lead III with reciprocal changes in V1 and V2. Bedside echocardiogram showed preserved LV systolic function with subtle basal inferior wall hypokinesia. His hemoglobin was 12, platelet 190. His creatinine was 1.1. A chest x-ray did not show significant pulmonary congestion. He did not appear in congestive heart failure. He was in normal sinus rhythm. Denies any prior history of stroke. He denies any concerns of bleeding diathesis. He denies any history of smoking, recreational drug use marijuana use or alcohol use REVIEW OF SYSTEMS 14 point review of system is negative except what is mentioned above in HPI. PHYSICAL EXAMINATION Vital signs reviewed. Head: Normocephalic. Eyes: Sclerae nonicteric. Neck: Brisk carotid upstroke, no jugular venous distention. Lungs: Clear to auscultation. Heart: Regular rate and rhythm, S1-S2, no S3, no murmur or rub. Abdomen: Soft nontender, positive bowel sounds. Extremities: No edema, intact distal pulses. Neuro: Alert, oritented, no focal deficits. Detailed neuro exam was not performed. ASSESSMENT Inferior STEMI 100% occlusion of small 1.5 mm posterolateral branch with YANIV 0 flow. This vessel is small and very distal not amenable for intervention. Neutropenia AML on chemotherapy Prior history of esophageal cancer s/p surgery Cardiac testing ' Echocardiogram showed an EF of 55 to 60%, small area of basal inferoseptal wall hypokinesia, mild concentric LVH, mild MR no pericardial effusion PLAN Continue medical management with 48 hours of IV heparin which will complete tomorrow morning. Continue aspirin 81 mg daily. Ideally I would like to start him on aspirin and Plavix for at least 6 months for his recent STEMI. His hemoglobin is stable with no concerns of bleeding. Will appreciate hematology oncology input on starting dual antiplatelet therapy. Continue Lipitor, coreg 3.125 mg BID Kavon Vincent MD, FACC, RPVI Thank you for allowing [facility] to participate in this patient's care. Feel free to reach out in case of any followup questions. Objective - Vital Signs Vital signs: Vital Signs Temp 98.2 F 01/02/24 12:33 Pulse 94 01/02/24 12:33 Resp 18 01/02/24 12:33 BP 115/61 01/02/24 12:33 Pulse Ox 94 L 01/02/24 12:33 FiO2 Intake & Output 01/01/24 01/02/24 01/02/24 18:59 06:59 18:59 Intake Total 320 67.833 403.155 Output Total 200 Balance 120 67.833 403.155 Weight 86.183 kg 88.8 kg Intake: IV 200 30 Invasive Line 1 10 Invasive Line 2 10 Invasive Line 3 10 Intake, IV Titration 67.833 137.155 Amount Heparin Sod,Pork in 0.45% 67.833 137.155 NaCl 25,000 unit In 0.45 % NaCl 1 250ml.bag @ 11. 603 UNITS/KG/HR 10 mls/hr IV .Q24H [facility] Rx#: [id number] Oral 120 236 Output: Urine 200 Other: Voiding Method Toilet # Voids 2 - Labs CBC & Chem 7: 01/02/24 11:11 Labs: Abnormal Lab Results - Last 24 Hours (Table) 01/01/24 01/01/24 01/01/24 Range/Units 15:12 19:15 19:15 WBC 0.8 L* (3.8-10.6) k/uL RBC 4.04 L (4.30-5.90) m/uL Hgb 11.7 L (13.0-17.5) gm/dL Hct 38.0 L (39.0-53.0) % MCHC 30.9 L (31.0-37.0) g/dL RDW (11.5-15.5) % Neutrophils # (Manual) (1.3-7.7) k/uL Lymphocytes # (Manual) (1.0-4.8) k/uL Troponin I 1.210 H* 0.649 H* (0.000-0.034) ng/mL 01/02/24 Range/Units 11:11 WBC 1.0 L* (3.8-10.6) k/uL RBC 4.08 L (4.30-5.90) m/uL Hgb 12.0 L (13.0-17.5) gm/dL Hct 37.4 L (39.0-53.0) % MCHC (31.0-37.0) g/dL RDW 16.1 H (11.5-15.5) % Neutrophils # (Manual) 0.26 L* (1.3-7.7) k/uL Lymphocytes # (Manual) 0.52 L (1.0-4.8) k/uL Troponin I (0.000-0.034) ng/mL
--- NOTE | 2024-01-02 18:47 | P.CNPUL ---
History of Present Illness Consult date: 01/02/24 Reason for consult: dyspnea, chest pain History of present illness: This is a 73-year-old male patient with history of AML and previous history of esophageal adenocarcinoma post resection with gastric wall with subsequent chemoradiation therapy. The patient got transferred to us from an outside hospital for suspected acute myocardial infarction. The patient had positive troponins. EKG also showed ST segment changes. The patient was taken to an emergent cardiac catheterization for suspected acute ST segment elevation myocardial infarction. The patient was found to have ST segment elevation in the inferior leads. Echocardiogram showed a preserved LV function and there was concern of a possible anteroseptal wall hypokinesis. At that point, the cardiac catheterization showed 100% occlusion of the small 1.5 mm posterior lateral bra nch and this was not amenable for intervention. The patient had normal left ventricular end-diastolic pressure. The patient was subjected to dual antiplatelet therapy including aspirin and Plavix. Currently the patient is free of any chest pain. On room air oxygen. He is blood work is showing n eutropenia with a white cell count of 1 with a hemoglobin of 12.0 and a platelet count of 180. Coagulation profile is essentially within normal limits. Chemistry is still pending. Chest x-ray showed some scarring in the lung bases lungs being hyperinflated. No focal consolidation or airspace disease. Echocardiogram done this morning showed a preserved LV function with a normal ejection fraction and small basal inferior septal wall hypokinesis. No significant valvular heart disease. Mild aortic regurgitation mild regurgitation was noted. At this point in time, the patient is on room air oxygen. He was covered with broad-spectrum antibiotics suspecting a pneumonia. Clinically however, the patient has no significant cough sputum production chest tightness or wheezing. He is currently running a temperature of 100.3 max with subsequent drop in the temperature down to 99.9. Cultures were sent and the results are still pending for now. In terms of his AML, the patient is currentl y on a combination of venetoclax/Vidaza Review of Systems Constitutional: Reports fatigue, Reports fever Eyes: denies as per HPI, denies blurred vision, denies bulging eye, denies decreased vision, denies diplopia, denies discharge, denies dry eye, denies irritation, denies itching, denies pain, denies photophobia, denies loss of per ipheral vision, denies loss of vision, denies tunnel vision/blind spots Ears: deny: decreased hearing, ear discharge, earache, tinnitus Ears, nose, mouth and throat: Reports as per HPI Breasts: absent: as per HPI, gynecomastia Cardiovascular: Reports chest pain Respiratory: Reports as per HPI Gastrointestinal: Reports heartburn, Reports indigestion Genitourinary: Reports as per HPI Musculoskeletal: Reports as per HPI Musculoskeletal: absent: ankle pain, ankle stiffness, ankle swelling, as per HPI, elbow pain, elbow stiffness, elbow swelling, foot pain, foot stiffness, foot swelling, hand pain, hand stiffness, hand swelling, hip pain, hip stiffness, hip swelling, knee pain, knee stiffness, knee swelling, shoulder pain, shoulder stiffness, shoulder swelling, wrist pain, wrist stiffness, wrist swelling Integumentary: Reports as per HPI Neurological: Reports as per HPI Psychiatric: Reports as per HPI Endocrine: Reports as per HPI Hematologic/Lymphatic: Reports as per HPI Allergic/Immunologic: Reports as per HPI Past Medical History Past Medical History: Cancer, Prostate Disorder Additional Past Medical History / Comment(s): esophageal cancer, AML History of Any Multi-Drug Resistant Organisms: None Reported Smoking Status: Never smoker Past Alcohol Use History: None Reported Past Drug Use History: None Reported Medications and Allergies Home Medications Medication Instructions Recorded Confirmed Type Acyclovir [Zovirax] 400 mg PO BID 01/01/24 01/01/24 History Azacitidine(Unknown Dose) 1 dose IV DIRECTED 01/01/24 01/01/24 History Fluticasone Nasal [place] [Flonase 2 spr EA NOSTRIL DAILY 01/01/24 01/01/24 History Nasal [place]] Loratadine [Claritin] 10 mg PO DAILY 01/01/24 01/01/24 History Multivitamins, Thera [Multivitamin 1 tab PO DAILY 01/01/24 01/01/24 History (formulary)] Ondansetron [Zofran] 4 mg PO Q4H PRN 01/01/24 01/01/24 History Pantoprazole [Protonix] 40 mg PO DAILY 01/01/24 01/01/24 History Posaconazole 300 mg PO DAILY 01/01/24 01/01/24 History Tamsulosin [Flomax] 0.4 mg PO DAILY 01/01/24 01/01/24 History Venetoclax [Venclexta] 100 mg PO DIRECTED 01/01/24 01/01/24 History Allergies Allergy/AdvReac Type Severity Reaction Status Date / Time No Known Allergies Allergy Verified 01/01/24 15:04 Physical Exam Vitals: Vital Signs Temp Pulse Pulse Resp BP Pulse Ox 01/02/24 18:10 99.9 F H 01/02/24 16:54 99.9 F H 81 18 130/68 94 L 01/02/24 12:33 98.2 F 94 18 115/61 94 L 01/02/24 07:27 99.2 F 81 18 107/56 97 01/02/24 04:45 98.5 F 01/02/24 03:37 100.3 F H 89 14 117/57 93 L 01/01/24 23:39 100.1 F H 99 20 125/74 95 01/01/24 20:06 96 121/75 95 01/01/24 20:00 96 01/01/24 19:23 99.5 F 95 16 118/69 96 01/01/24 19:15 99 126/72 93 L 01/01/24 18:52 103 H 122/77 96 Intake and Output 01/02/24 01/02/24 01/02/24 06:59 14:59 22:59 Intake Total 67.833 403.155 163.012 Balance 67.833 403.155 163.012 Intake: IV 30 Invasive Line 1 10 Invasive Line 2 10 Invasive Line 3 10 Intake, IV Titration 67.833 137.155 45.012 Amount Heparin Sod,Pork in 0.45% 67.833 137.155 45.012 NaCl 25,000 unit In 0.45 % NaCl 1 250ml.bag @ 11. 603 UNITS/KG/HR 10 mls/hr IV .Q24H [facility] Rx#: [id number] Oral 236 118 Other: Voiding Method Toilet # Voids 2 Weight 88.8 kg GENERAL: The patient is alert and oriented x3, not in any acute distress. Well developed, well nourished. HEENT: Pupils are round and equally reacting to light. EOMI. No scleral icterus. No conjunctival pallor. Normocephalic, atraumatic. No pharyngeal erythema. No thyromegaly. CARDIOVASCULAR: S1 and S2 present. No murmurs, rubs, or gallops. PULMONARY: Chest is clear to auscultation, no wheezing or crackles. ABDOMEN: Soft, nontender, nondistended, normoactive bowel sounds. No palpable organomegaly. MUSCULOSKELETAL: No joint swelling or deformity. EXTREMITIES: No cyanosis, clubbing, or pedal edema. NEUROLOGICAL: Gross neurological examination did not reveal any focal deficits. SKIN: No rashes. Results - Laboratory Findings CBC and BMP: 01/02/24 11:11 PT/INR, D-dimer PT 12.2 sec (10.0-12.5) 01/02/24 00:37 INR 1.1 (<1.2) 01/02/24 00:37 Abnormal lab findings: Abnormal Labs 01/01/24 01/01/24 01/01/24 15:12 19:15 19:15 WBC 0.8 L* RBC 4.04 L Hgb 11.7 L Hct 38.0 L MCHC 30.9 L RDW Neutrophils # (Manual) Lymphocytes # (Manual) Troponin I 1.210 H* 0.649 H* 01/02/24 11:11 WBC 1.0 L* RBC 4.08 L Hgb 12.0 L Hct 37.4 L MCHC RDW 16.1 H Neutrophils # (Manual) 0.26 L* Lymphocytes # (Manual) 0.52 L Troponin I - Diagnostic Findings Chest x-ray: image reviewed Assessment and Plan Plan: Acute ST segment elevation myocardial infarction involving the inferior wall. Cardiac catheterization was completed and the patient was found to have 100% occlusion of a small 1.5 mm posterior lateral branch with a YANIV 0 flow. No intervention was done and the patient was started on a combination of aspirin and Plavix. Currently free of any chest pain. Hemodynamically stable. Echocardiogram shows a preserved LV function. Neutropenic fever, currently under investigation AML, currently on a combination of venetoclax/Vidaza and the patient is also receiving posaconazole 300 mg p.o. daily and Zovirax 5 mg p.o. twice a day. Neutropenia Previous history of esophageal adenocarcinoma s/p resection followed by chemoradiation therapy Chronic radiation change in lung base bilaterally Plan Obtain blood cultures Monitor white cell count The patient is scheduled to undergo another cycle of treatment with venetoclax and Vidaza and upon hematology oncology recommendations to be delayed by another 2 weeks to allow his neutropenia to recover Continue posaconazole Continue Valtrex IV Zosyn and Zithromax for now Check procalcitonin level Continue aspirin and Plavix Continue Coreg Hemodynamically stable Will continue to follow ID consultation
[2024-01-02] MEDS: POSACONAZOLE 100 MG PO SCH ×2 (19:29)
[2024-01-02] MEDS: ACYCLOVIR 200 MG CAP PO SCH (19:59)
[2024-01-02] MEDS ORDERED: ACYCLOVIR 400 MG/10 ML CUP PO SCH (21:00)
--- NOTE | 2024-01-02 22:53 | P.CONS ---
History of Present Illness - Reason for Consult Consult date: 01/02/24 - History of Present Illness Patient is a 73-year-old male with a past medical history significant for esophageal cancer currently on neoadjuvant chemotherapy and recent diagnosis of AML patient currently presented to the [facility] for evaluation of chest tightness symptoms started the day of presentation to the hospital the patient also have a cough mild to moderate intensity mostly dry in nature denies any hemoptysis denies any nausea no vomiting no abdominal pain and no diarrhea patient apparently was noticed to have elevated troponin subsequently transferred to [facility] at this facility the patient did have a low-grade fever of 100.3 F and the patient noticed to have low white count 0.8 patient did have urine for Legionella antigen that was negative chest x-ray no focal lung consolidation seen no UA has been done patient has been started on Zosyn infectious disease was consulted for further management of antibiotic therapy Past Medical History Past Medical History: Cancer, Prostate Disorder Additional Past Medical History / Comment(s): esophageal cancer, pre stage of leukemia History of Any Multi-Drug Resistant Organisms: None Reported Smoking Status: Never smoker Past Alcohol Use History: None Reported Past Drug Use History: None Reported Medications and Allergies Home Medications Medication Instructions Recorded Confirmed Type Acyclovir [Zovirax] 400 mg PO BID 01/01/24 01/01/24 History Azacitidine(Unknown Dose) 1 dose IV DIRECTED 01/01/24 01/01/24 History Fluticasone Nasal Floyd [Flonase 2 spr EA NOSTRIL DAILY 01/01/24 01/01/24 History Nasal Floyd] Loratadine [Claritin] 10 mg PO DAILY 01/01/24 01/01/24 History Multivitamins, Thera [Multivitamin 1 tab PO DAILY 01/01/24 01/01/24 History (formulary)] Ondansetron [Zofran] 4 mg PO Q4H PRN 01/01/24 01/01/24 History Pantoprazole [Protonix] 40 mg PO DAILY 01/01/24 01/01/24 History Posaconazole 300 mg PO DAILY 01/01/24 01/01/24 History Tamsulosin [Flomax] 0.4 mg PO DAILY 01/01/24 01/01/24 History Venetoclax [Venclexta] 100 mg PO DIRECTED 01/01/24 01/01/24 History Allergies Allergy/AdvReac Type Severity Reaction Status Date / Time No Known Allergies Allergy Verified 01/01/24 15:04 Physical Exam Vitals: Vital Signs Temp Pulse Pulse Pulse Resp BP BP 01/02/24 07:27 99.2 F 81 18 107/56 01/02/24 04:45 98.5 F 01/02/24 03:37 100.3 F H 89 14 117/57 01/01/24 23:39 100.1 F H 99 20 125/74 01/01/24 20:06 96 121/75 01/01/24 20:00 96 01/01/24 19:23 99.5 F 95 16 118/69 01/01/24 19:15 99 126/72 01/01/24 18:52 103 H 122/77 01/01/24 18:39 98.3 F 101 H 18 131/77 01/01/24 17:36 98 16 135/72 01/01/24 17:06 96 16 01/01/24 16:51 98 16 01/01/24 16:36 96 16 01/01/24 16:21 96 16 133/75 01/01/24 15:04 74 01/01/24 15:00 100 F H 91 18 114/73 Pulse Ox 01/02/24 07:27 97 01/02/24 04:45 01/02/24 03:37 93 L 01/01/24 23:39 95 01/01/24 20:06 95 01/01/24 20:00 01/01/24 19:23 96 01/01/24 19:15 93 L 01/01/24 18:52 96 01/01/24 18:39 97 01/01/24 17:36 96 01/01/24 17:06 96 01/01/24 16:51 96 01/01/24 16:36 96 01/01/24 16:21 96 01/01/24 15:04 01/01/24 15:00 98 Intake and Output 01/01/24 01/02/24 01/02/24 22:59 06:59 14:59 Intake Total 320 67.833 148 Output Total 200 Balance 120 67.833 148 Intake: IV 200 30 Invasive Line 1 10 Invasive Line 2 10 Invasive Line 3 10 Intake, IV Titration 67.833 Amount Heparin Sod,Pork in 0.45% 67.833 NaCl 25,000 unit In 0.45 % NaCl 1 250ml.bag @ 11. 603 UNITS/KG/HR 10 mls/hr IV .Q24H [facility] Rx#: [id number] Oral 120 118 Output: Urine 200 Other: Voiding Method Toilet Weight 86.183 kg 88.8 kg Results CBC & Chem 7: 01/02/24 11:11 Labs: Abnormal Lab Results - Last 24 Hours (Table) 01/01/24 01/01/24 01/01/24 Range/Units 15:12 19:15 19:15 WBC 0.8 L* (3.8-10.6) k/uL RBC 4.04 L (4.30-5.90) m/uL Hgb 11.7 L (13.0-17.5) gm/dL Hct 38.0 L (39.0-53.0) % MCHC 30.9 L (31.0-37.0) g/dL Troponin I 1.210 H* 0.649 H* (0.000-0.034) ng/mL Assessment and Plan Plan: 1patient with presented to the hospital with chest pain and this patient noted to have elevated troponin patient also have a low-grade fever some her respiratory symptoms concerning for possible pneumonia however chest x-ray was negative for any consolidation patient abdominal soft on clinical examination no evidence of any cellulitis or joint swelling 2we will check a urine culture check a influenza as well as COVID PCR 3-continue with empiric Zosyn while waiting for the culture to finalize We will follow on clinical condition and cultures to further adjust medication if needed Thank you for this consultation we will follow the patient along with you Dictation was produced using [employer] dictation software. please excuse any grammatical, word or spelling errors. Time with Patient: Greater than 30
[2024-01-03 02:36] LABS: Appearance,Urine Turbid (Clear); Bilirubin,Urine Negative (Negative); Blood,Urine Trace (Negative); Color,Urine Light Yellow; Glucose,Urine (UA) Negative (Negative); Ketones,Urine Negative (Negative); Leukocyte Esterase,Urine Negative (Negative); Nitrite,Urine Negative (Negative); PH, Urine 5.5 (5.0-8.0); Protein,Urine 1+ (Negative); Specific Gravity,Urine 1.019 (1.001-1.035); Urobilinogen,Urine 0.2 mg/dL (<2.0)
[2024-01-03 02:37] LABS: Amorphous Sediment,Urine Few /hpf; RBC,Urine 5 /hpf (0-5); Uric Acid Crystals,Urine Moderate /hpf; WBC,Urine 3 /hpf (0-5)
[2024-01-03 02:38] LABS: Bacteria,Urine Occasional /hpf; Granular Casts,Urine 1 /lpf (0); Hyaline Casts,Urine 2 /lpf (0-2)
[2024-01-03 08:29] LABS: Chol/HDL Ratio 1.82 Ratio; LDL Cholesterol,Calculated 39.9 mg/dL (0.0-131.0); VLDL Calculation 12.38 mg/dL (5.00-40.00)
[2024-01-03 09:56] LABS: ALT 41 U/L (4-49); AST 28 U/L (17-59); African American GFR (CKD) >90 (>60 ml/min/1.73 sqM); Albumin 2.5 g/dL (3.5-5.0); Alkaline Phosphatase 171 U/L (38-126); Anion Gap 9 mmol/L; Blood Urea Nitrogen 15 mg/dL (9-20); Calcium 7.8 mg/dL (8.4-10.2); Carbon Dioxide 20 mmol/L (22-30); Chloride 106 mmol/L (98-107); Glucose 123 mg/dL (74-99); Non-African American GFR(CKD) 86 (>60 ml/min/1.73 sqM); Potassium 3.2 mmol/L (3.5-5.1); Sodium 135 mmol/L (137-145); Total Bilirubin 0.7 mg/dL (0.2-1.3); Total Protein 4.9 g/dL (6.3-8.2)
[2024-01-03 10:01] LABS: Anisocytosis Slight; HCT 33.2 % (39.0-53.0); HGB 10.6 gm/dL (13.0-17.5); MCH 29.2 pg (25.0-35.0); MCHC 32.1 g/dL (31.0-37.0); Mean Platelet Volume 8.8; Platelet Count 184 k/uL (150-450); RBC 3.65 m/uL (4.30-5.90); WBC 1.7 k/uL (3.8-10.6)
[2024-01-03 10:34] LABS: C Reactive Protein 31.9 mg/dL (<1.0)
[2024-01-03 10:39] LABS: Band Neutrophils % 3 %; Lymphocytes # (M) 0.85 k/uL (1.0-4.8); Monocytes # (M) 0.29 k/uL (0-1.0); Neutrophils % (M) 30 %; Nucleated Red Blood Cells 0 /100 WBC (0-0); Total Cells Counted 100
[2024-01-03] MEDS: POTASSIUM CHLORIDE ER 20 MEQ TAB.ER PO STA (11:41)
--- NOTE | 2024-01-03 12:21 | P.PN ---
Subjective Progress Note Date: 01/03/24 This is a 73-year-old male patient with history of AML and previous history of esophageal adenocarcinoma post resection with gastric wall with subsequent chemoradiation therapy. The patient got transferred to us from an outside hospital for suspected acute myocardial infarction. The patient had positive troponins. EKG also showed ST segment changes. The patient was taken to an emergent cardiac catheterization for suspected acute ST segment elevation myocardial infarction. The patient was found to have ST segment elevation in the inferior leads. Echocardiogram showed a preserved LV function and there was concern of a possible anteroseptal wall hypokinesis. At that point, the cardiac catheterization showed 100% occlusion of the small 1.5 mm posterior lateral branch and this was not amenable for intervention. The patient had normal left ventricular end-diastolic pressure. The patient was subjected to dual antiplatelet therapy including aspirin and Plavix. Currently the patient is sushila e of any chest pain. On room air oxygen. He is blood work is showing neutropenia with a white cell count of 1 with a hemoglobin of 12.0 and a platelet count of 180. Coagulation profile is essentially within normal limits. Chemistry is still pending. Chest x-ray showed some scarring in the lung bases lungs being hyperinflated. No focal consolidation or airspace disease. Echocardiogram done this morning showed a preserved LV function with a normal ejection fraction and small basal inferior septal wall hypokinesis. No significant valvular heart disease. Mild aortic regurgitation mild reg urgitation was noted. At this point in time, the patient is on room air oxygen. He was covered with broad-spectrum antibiotics suspecting a pneumonia. Clinically however, the patient has no significant cough sputum production chest tightness or wheezing. He is currently running a temperature of 100.3 max with subsequent drop in the temperature down to 99.9. Cultures were sent and the results are still pending for now. In terms of his AML, the patient is currently on a combination of venetoclax/Vidaza I am seeing the patient for a follow-up. The patient is doing well. No specific complaints. His white cell count is improved compared to yesterday is currently up to 1.7. Note that his procalcitonin level was elevated and based on that the patient was started on broad-spectrum antibiotics. Cultures are still pending for now. Currently he is afebrile although the patient was spi shana temperatures earlier. Pulse ox 95% on room air oxygen. No chest pain. No respiratory distress. Hemoglobin is at 10.6 with a platelet count of 184. Electrolytes are all within normal limits and a potassium level needs to be replaced at 3.2. BUN is 15 with a creatinine of 0.8. UA was negative for any infection. The viral screen was negative. Objective - Vital Signs Vital signs: Vital Signs Temp 98.9 F 01/03/24 09:04 Pulse 77 01/03/24 09:04 Resp 16 01/03/24 09:04 BP 117/67 01/03/24 09:04 Pulse Ox 95 01/03/24 09:04 FiO2 Intake & Output 01/02/24 01/03/24 01/03/24 18:59 06:59 18:59 Intake Total 566.167 250.000 240 Balance 566.167 250.000 240 Weight 89.4 kg Intake: IV 30 Invasive Line 1 10 Invasive Line 2 10 Invasive Line 3 10 Intake, IV Titration 182.167 250.000 Amount Heparin Sod,Pork in 0.45% 182.167 250.000 NaCl 25,000 unit In 0.45 % NaCl 1 250ml.bag @ 11. 603 UNITS/KG/HR 10 mls/hr IV .Q24H [facility] Rx#: [id number] Oral 354 240 Other: Voiding Method Toilet Toilet # Voids 2 - Exam GENERAL: The patient is alert and oriented x3, not in any acute distress. Well developed, well nourished. HEENT: Pupils are round and equally reacting to light. EOMI. No scleral icterus. No conjunctival pallor. Normocephalic, atraumatic. No pharyngeal erythema. No thyromegaly. CARDIOVASCULAR: S1 and S2 present. No murmurs, rubs, or gallops. PULMONARY: Chest is clear to auscultation, no wheezing or crackles. ABDOMEN: Soft, nontender, nondistended, normoactive bowel sounds. No palpable organomegaly. MUSCULOSKELETAL: No joint swelling or deformity. EXTREMITIES: No cyanosis, clubbing, or pedal edema. NEUROLOGICAL: Gross neurological examination did not reveal any focal deficits. - Labs CBC & Chem 7: 01/03/24 09:27 01/03/24 09:27 Labs: Abnormal Lab Results - Last 24 Hours (Table) 01/01/24 01/02/24 01/02/24 Range/Units 15:12 11:11 14:17 WBC 1.0 L* (3.8-10.6) k/uL RBC 4.08 L (4.30-5.90) m/uL Hgb 12.0 L (13.0-17.5) gm/dL Hct 37.4 L (39.0-53.0) % RDW 16.1 H (11.5-15.5) % Neutrophils # (Manual) 0.26 L* (1.3-7.7) k/uL Lymphocytes # (Manual) 0.52 L (1.0-4.8) k/uL APTT (22.0-30.0) sec HDL Cholesterol 63.70 H (40.00-60.00) mg/dL Procalcitonin 3.74 H (0.02-0.09) ng/mL Urine Protein (Negative) Urine Blood (Negative) Uric Acid Crystals (None) /hpf Amorphous Sediment (None) /hpf Urine Bacteria (None) /hpf 01/02/24 01/03/24 01/03/24 Range/Units 18:47 01:14 01:30 WBC (3.8-10.6) k/uL RBC (4.30-5.90) m/uL Hgb (13.0-17.5) gm/dL Hct (39.0-53.0) % RDW (11.5-15.5) % Neutrophils # (Manual) (1.3-7.7) k/uL Lymphocytes # (Manual) (1.0-4.8) k/uL APTT 30.2 H 35.8 H (22.0-30.0) sec HDL Cholesterol (40.00-60.00) mg/dL Procalcitonin (0.02-0.09) ng/mL Urine Protein 1+ H (Negative) Urine Blood Trace H (Negative) Uric Acid Crystals Moderate H (None) /hpf Amorphous Sediment Few H (None) /hpf Urine Bacteria Occasional H (None) /hpf Assessment and Plan Plan: Acute ST segment elevation myocardial infarction involving the inferior wall. Cardiac catheterization was completed and the patient was found to have 100% occlusion of a small 1.5 mm posterior lateral branch with a YANIV 0 flow. No intervention was done and the patient was started on a combination of aspirin and Plavix. Currently free of any chest pain. Hemodynamically stable. Echocardiogram shows a preserved LV function. Neutropenic fever, currently under investigation, white cell count is improving and is currently up to 1.7 AML, currently on a combination of venetoclax/Vidaza and the patient is also receiving posaconazole 300 mg p.o. daily and Zovirax 5 mg p.o. twice a day. 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
--- NOTE | 2024-01-03 12:35 | P.PN ---
Subjective Progress Note Date: 01/03/24 patient is 73-year-old gentleman with past medical history significant for esophageal cancer, AML who was a transfer from [facility] for chest pain. Patient initially presented to [facility] on Thursday with similar symptoms of chest pain, at that time patient was evaluated, since EKG was not concerning and tropes were negative, patient was discharged home on antibiotics for pneumonia. Patient again presented to [facility] with chest pain this morning at which time his tropes were elevated and patient was transferred to [facility] for emergent cardiac cath Initial lab work done in the ER showed WBC 2.8, hemoglobin 9.7, platelet count 207, EKG done in the ER showed ST segment elevation in lead III and T wave inversion in V1 and V2 Patient admitted to internal medicine service 01/02. Patient seen and examined. Continues to be afebrile. Denies any shortness of breath. REVIEW OF SYSTEMS: CONSTITUTIONAL: No fever, no malaise,. CARDIOVASCULAR: No chest pain, no palpitations, no syncope. PULMONARY: No shortness of breath, no cough, GASTROINTESTINAL: No diarrhea, no nausea, no vomiting, no abdominal pain. NEUROLOGICAL: No headaches, no weakness, PHYSICAL EXAMINATION: GENERAL: The patient is alert and oriented x3, not in any acute distress. Well developed, well nourished. HEENT: Pupils are round and equally reacting to light. EOMI. No scleral icterus. No conjunctival pallor. Normocephalic, atraumatic. No pharyngeal erythema. No thyromegaly. CARDIOVASCULAR: S1 and S2 present. No murmurs, rubs, or gallops. PULMONARY: Chest is clear to auscultation, no wheezing or crackles. ABDOMEN: Soft, nontender, nondistended, normoactive bowel sounds. No palpable organomegaly. MUSCULOSKELETAL: No joint swelling or deformity. EXTREMITIES: No cyanosis, clubbing, or pedal edema. NEUROLOGICAL: Gross neurological examination did not reveal any focal deficits. SKIN: No rashes. Assessment and plan Acute ST elevation PA Bacterial pneumonia Neutropenia AML History of esophageal cancer Monitor vital signs Monitor CBC Monitor CMP Continue telemetry monitoring Continue aspirin, Lipitor Continue pharmacy to dose heparin Continue Coreg Continue Zosyn and azithromycin S/p cardiac cath showing 100% occlusion of small 1.5 mm posterolateral branch with YANIV 0 flow. This vessel is small and very distal not amenable for intervention. Cardiology following, recommend medical management Hematology oncology following, recommended holding off chemotherapy,however if Hgb/plt drop will need irradiated PRBC and platelets to maintain Hgb >7, plt >50 while on AC ID following Pulmonary following Labs and medication were reviewed.. Continue same treatment. Continue with symptomatic treatment. Resume home medication. Monitor labs and vitals. DVT and GI prophylaxis. Further recommendations as per clinical course of the patient Dictation was produced using [employer] dictation software. please excuse any grammatical, word or spelling errors. Objective - Vital Signs Vital signs: Vital Signs Temp 98.9 F 01/03/24 09:04 Pulse 77 01/03/24 09:04 Resp 16 01/03/24 09:04 BP 117/67 01/03/24 09:04 Pulse Ox 95 01/03/24 09:04 FiO2 Intake & Output 01/02/24 01/03/24 01/03/24 18:59 06:59 18:59 Intake Total 566.167 250.000 250 Balance 566.167 250.000 250 Weight 89.4 kg Intake: IV 30 10 Invasive Line 1 10 10 Invasive Line 2 10 Invasive Line 3 10 Intake, IV Titration 182.167 250.000 Amount Heparin Sod,Pork in 0.45% 182.167 250.000 NaCl 25,000 unit In 0.45 % NaCl 1 250ml.bag @ 11. 603 UNITS/KG/HR 10 mls/hr IV .Q24H [facility] Rx#: [id number] Oral 354 240 Other: Voiding Method Toilet Toilet Toilet # Voids 2 - Labs CBC & Chem 7: 01/03/24 09:27 01/03/24 09:27 Labs: Abnormal Lab Results - Last 24 Hours (Table) 01/01/24 01/02/24 01/02/24 Range/Units 15:12 11:11 14:17 WBC 1.0 L* (3.8-10.6) k/uL RBC 4.08 L (4.30-5.90) m/uL Hgb 12.0 L (13.0-17.5) gm/dL Hct 37.4 L (39.0-53.0) % RDW 16.1 H (11.5-15.5) % Neutrophils # (Manual) 0.26 L* (1.3-7.7) k/uL Lymphocytes # (Manual) 0.52 L (1.0-4.8) k/uL APTT (22.0-30.0) sec HDL Cholesterol 63.70 H (40.00-60.00) mg/dL Procalcitonin 3.74 H (0.02-0.09) ng/mL Urine Protein (Negative) Urine Blood (Negative) Uric Acid Crystals (None) /hpf Amorphous Sediment (None) /hpf Urine Bacteria (None) /hpf 01/02/24 01/03/24 01/03/24 Range/Units 18:47 01:14 01:30 WBC (3.8-10.6) k/uL RBC (4.30-5.90) m/uL Hgb (13.0-17.5) gm/dL Hct (39.0-53.0) % RDW (11.5-15.5) % Neutrophils # (Manual) (1.3-7.7) k/uL Lymphocytes # (Manual) (1.0-4.8) k/uL APTT 30.2 H 35.8 H (22.0-30.0) sec HDL Cholesterol (40.00-60.00) mg/dL Procalcitonin (0.02-0.09) ng/mL Urine Protein 1+ H (Negative) Urine Blood Trace H (Negative) Uric Acid Crystals Moderate H (None) /hpf Amorphous Sediment Few H (None) /hpf Urine Bacteria Occasional H (None) /hpf 01/03/24 01/03/24 Range/Units 09:27 09:27 WBC 1.7 L (3.8-10.6) k/uL RBC 3.65 L (4.30-5.90) m/uL Hgb 10.6 L (13.0-17.5) gm/dL Hct 33.2 L (39.0-53.0) % RDW 16.0 H (11.5-15.5) % Neutrophils # (Manual) (1.3-7.7) k/uL Lymphocytes # (Manual) (1.0-4.8) k/uL APTT 30.2 H (22.0-30.0) sec HDL Cholesterol (40.00-60.00) mg/dL Procalcitonin (0.02-0.09) ng/mL Urine Protein (Negative) Urine Blood (Negative) Uric Acid Crystals (None) /hpf Amorphous Sediment (None) /hpf Urine Bacteria (None) /hpf
--- NOTE | 2024-01-03 13:33 | P.PN ---
Subjective Progress Note Date: 01/03/24 Principal diagnosis: Reason for follow-up is febrile neutropenia Patient is a 73-year-old male with a past medical history significant for esophageal cancer currently on neoadjuvant chemotherapy and recent diagnosis of AML patient initially presented to outside facility concerning for chest pain and cough noticed to have elevated troponin for the patient was transferred to [facility] also have a low-grade fever chest x-ray negative. On today's evaluation that is 01/03/2024,the patient did have improvement in his fever pattern last temperature was 99.9 last evening and the patient is afebrile since then, patient is on room air not requiring supplemental oxygen and denies any shortness of breath no chest pain or cough.Patient denies having any nausea or vomiting, no abdominal pain and no diarrhea has been reported. Patient white count is up to 1.7, creatinine 0.84 CRP is 31.9 procalcitonin 3.74 urine is negative influenza RSV COVID testing was negative Objective - Vital Signs Vital signs: Vital Signs Temp 98.8 F 01/03/24 11:00 Pulse 61 01/03/24 11:00 Resp 18 01/03/24 11:00 BP 105/63 01/03/24 11:00 Pulse Ox 95 01/03/24 11:00 FiO2 Intake & Output 01/02/24 01/03/24 01/03/24 18:59 06:59 18:59 Intake Total 566.167 250.000 395.917 Balance 566.167 250.000 395.917 Weight 89.4 kg Intake: IV 30 10 Invasive Line 1 10 10 Invasive Line 2 10 Invasive Line 3 10 Intake, IV Titration 182.167 250.000 27.917 Amount Heparin Sod,Pork in 0.45% 182.167 250.000 27.917 NaCl 25,000 unit In 0.45 % NaCl 1 250ml.bag @ 11. 603 UNITS/KG/HR 10 mls/hr IV .Q24H [facility] Rx#: [id number] Oral 354 358 Other: Voiding Method Toilet Toilet Toilet # Voids 2 - Exam GENERAL DESCRIPTION: An elderly male up in the chair in no distress RESPIRATORY SYSTEM: Unlabored breathing , decreased breath sounds at bases HEART: S1 S2 regular rate and rhythm , ABDOMEN: Soft , no tenderness EXTREMITIES: No edema feet - Labs CBC & Chem 7: 01/03/24 09:27 01/03/24 09:27 Labs: Abnormal Lab Results - Last 24 Hours (Table) 01/01/24 01/02/24 01/02/24 Range/Units 15:12 14:17 18:47 WBC (3.8-10.6) k/uL RBC (4.30-5.90) m/uL Hgb (13.0-17.5) gm/dL Hct (39.0-53.0) % RDW (11.5-15.5) % Neutrophils # (Manual) (1.3-7.7) k/uL Lymphocytes # (Manual) (1.0-4.8) k/uL APTT 30.2 H (22.0-30.0) sec Sodium (137-145) mmol/L Potassium (3.5-5.1) mmol/L Carbon Dioxide (22-30) mmol/L Glucose (74-99) mg/dL Calcium (8.4-10.2) mg/dL Alkaline Phosphatase (38-126) U/L C-Reactive Protein (<1.0) mg/dL Total Protein (6.3-8.2) g/dL Albumin (3.5-5.0) g/dL HDL Cholesterol 63.70 H (40.00-60.00) mg/dL Procalcitonin 3.74 H (0.02-0.09) ng/mL Urine Protein (Negative) Urine Blood (Negative) Uric Acid Crystals (None) /hpf Amorphous Sediment (None) /hpf Urine Bacteria (None) /hpf 01/03/24 01/03/24 01/03/24 Range/Units 01:14 01:30 09:27 WBC 1.7 L (3.8-10.6) k/uL RBC 3.65 L (4.30-5.90) m/uL Hgb 10.6 L (13.0-17.5) gm/dL Hct 33.2 L (39.0-53.0) % RDW 16.0 H (11.5-15.5) % Neutrophils # (Manual) 0.50 L (1.3-7.7) k/uL Lymphocytes # (Manual) 0.85 L (1.0-4.8) k/uL APTT 35.8 H (22.0-30.0) sec Sodium (137-145) mmol/L Potassium (3.5-5.1) mmol/L Carbon Dioxide (22-30) mmol/L Glucose (74-99) mg/dL Calcium (8.4-10.2) mg/dL Alkaline Phosphatase (38-126) U/L C-Reactive Protein (<1.0) mg/dL Total Protein (6.3-8.2) g/dL Albumin (3.5-5.0) g/dL HDL Cholesterol (40.00-60.00) mg/dL Procalcitonin (0.02-0.09) ng/mL Urine Protein 1+ H (Negative) Urine Blood Trace H (Negative) Uric Acid Crystals Moderate H (None) /hpf Amorphous Sediment Few H (None) /hpf Urine Bacteria Occasional H (None) /hpf 01/03/24 01/03/24 Range/Units 09:27 09:27 WBC (3.8-10.6) k/uL RBC (4.30-5.90) m/uL Hgb (13.0-17.5) gm/dL Hct (39.0-53.0) % RDW (11.5-15.5) % Neutrophils # (Manual) (1.3-7.7) k/uL Lymphocytes # (Manual) (1.0-4.8) k/uL APTT 30.2 H (22.0-30.0) sec Sodium 135 L (137-145) mmol/L Potassium 3.2 L (3.5-5.1) mmol/L Carbon Dioxide 20 L (22-30) mmol/L Glucose 123 H (74-99) mg/dL Calcium 7.8 L (8.4-10.2) mg/dL Alkaline Phosphatase 171 H (38-126) U/L C-Reactive Protein 31.9 H (<1.0) mg/dL Total Protein 4.9 L (6.3-8.2) g/dL Albumin 2.5 L (3.5-5.0) g/dL HDL Cholesterol (40.00-60.00) mg/dL Procalcitonin (0.02-0.09) ng/mL Urine Protein (Negative) Urine Blood (Negative) Uric Acid Crystals (None) /hpf Amorphous Sediment (None) /hpf Urine Bacteria (None) /hpf Assessment and Plan (1) Febrile neutropenia Current Visit: Yes Status: Acute Code(s): D70.9 - NEUTROPENIA, UNSPECIFIED; R50.81 - FEVER PRESENTING WITH CONDITIONS CLASSIFIED ELSEWHERE SNOMED Code(s): 503203407 Plan: 1patient with presented to the hospital with chest pain and this patient noted to have elevated troponin patient also have a low-grade fever some her respiratory symptoms concerning for possible pneumonia however chest x-ray was negative for any consolidation patient abdominal soft on clinical examination no evidence of any cellulitis or joint swelling 2patient did have a negative influenza as well as COVID PCR, urine for Legionella antigen negative did have elevated CRP and a procalcitonin 3-patient to continue with empiric Zosyn while waiting for the culture to finalize Question concern answered Dictation was produced using [employer] dictation software. please excuse any grammatical, word or spelling errors. Time with Patient: Less than 30
[2024-01-03] MEDS: CLOPIDOGREL 75 MG TAB PO SCH (16:20)
[2024-01-03] MEDS: LACTOBACILLUS ACIDOPHILUS/PECT 1 EACH CAPSULE PO SCH (16:20)
--- NOTE | 2024-01-03 20:08 | P.PN ---
Subjective Progress Note Date: 01/03/24 Progress note January 02, 2024 Patient is doing well from cardiovascular standpoint today. Report that he has not had any chest pains chest pressure like he presented to the hospital with. He does report some chest pain when he takes a deep breath. BP 115/61, heart rates 94 bpm, CXR shows no significant congestion or consolidation in the lung chung with mild scarring ECG from today morning does appear to look better as compared to the one from yesterday especially lead III with less ST elevation. January 03, 2024 BP 118/62, heart rate 90 bpm, sinus rhythm Patient's WBC is improving to 1.7. Hemoglobin is stable around 10. No signs of active bleeding on IV heparin. HISTORY OF PRESENTING ILLNESS Octavio is a 73-year-old male with past medical history of esophageal cancer s/p surgery. Since beginning of 2023, patient has been diagnosed for AML and is under chemotherapy treatment with Dr. Simon. He denies any prior cardiovascular history. Patient presented to [facility] with substernal c hest pressure on Thursday. At that time he was discharged from the ER as his ECG and troponin were within normal range. This morning he presented to [facility] again with substernal chest pressure-like symptoms. This time he had elevation of troponin with high-sensitivity troponin measured at 1000. His ECG showed subtle ST elevations in lead III with reciprocal changes in V1 and V2. Due to these findings, patient was transferred to [facility]. I was notified by ER physician at [facility] about this transfer. I advised that if patient has STEMI he should be given tPA. ER physician did not think tPA was appropriate as patient is chest pain-free. Patient was also found to have neutropenia with WBC count of 0.4. For his neutropenic fever he was initially being referred to [facility] but because of signs of cardiac ischemia NSTEMI, he was transferred to [facility]. Patient was immediately evaluated when arrived at [facility]. Repeat ECG showed subtle ST elevations in lead III with reciprocal changes in V1 and V2. Bedside echocardiogram showed preserved LV systolic function with subtle basal inferior wall hypokinesia. His hemoglobin was 12, platelet 190. His creatinine was 1.1. A chest x-ray did not show significant pulmonary congestion. He did not appear in congestive heart failure. He was in normal s inus rhythm. Denies any prior history of stroke. He denies any concerns of bleeding diathesis. He denies any history of smoking, recreational drug use marijuana use or alcohol use REVIEW OF SYSTEMS 14 point review of system is negative except what is mentioned above in HPI. PHYSICAL EXAMINATION Vital signs reviewed. Head: Normocephalic. Eyes: Sclerae nonicteric. Neck: Brisk carotid upstroke, no jugular venous distention. Lungs: Clear to auscultation. Heart: Regular rate and rhythm, S1-S2, no S3, no murmur or rub. Abdomen: Soft nontender, positive bowel sounds. Extremities: No edema, intact distal pulses. Neuro: Alert, oritented, no focal deficits. Detailed neuro exam was not performed. ASSESSMENT Inferior STEMI 100% occlusion of small 1.5 mm posterolateral branch with YANIV 0 flow. This vessel is small and very distal not amenable for intervention. Neutropenia AML on chemotherapy Prior history of esophageal cancer s/p surgery Cardiac testing ' Echocardiogram showed an EF of 55 to 60%, small area of basal inferoseptal wall hypokinesia, mild concentric LVH, mild MR no pericardial effusion PLAN Patient has completed 48 hours of IV heparin. I will discontinue IV heparin and start him on dual antiplatelet therapy. Would appreciate recommendations from hematology oncology team to to make sure they are okay with dual antiplatelet therapy considering his history of AML. Continue Lipitor, coreg 3.125 mg BID Patient is stable from cardiovascular standpoint. Anticipate discharge in next 24 hours. Objective - Vital Signs Vital signs: Vital Signs Temp 98.6 F 01/03/24 17:33 Pulse 71 01/03/24 16:19 Resp 18 01/03/24 16:19 BP 132/72 01/03/24 16:19 Pulse Ox 95 01/03/24 16:19 FiO2 Intake & Output 01/03/24 01/03/24 01/04/24 06:59 18:59 06:59 Intake Total 250.000 523.917 Balance 250.000 523.917 Weight 89.4 kg Intake: IV 20 Invasive Line 1 20 Intake, IV Titration 250.000 27.917 Amount Heparin Sod,Pork in 0.45% 250.000 27.917 NaCl 25,000 unit In 0.45 % NaCl 1 250ml.bag @ 11. 603 UNITS/KG/HR 10 mls/hr IV .Q24H [facility] Rx#: [id number] Oral 476 Other: Voiding Method Toilet Toilet # Voids 2 - Labs CBC & Chem 7: 01/03/24 09:27 01/03/24 09:27 Labs: Abnormal Lab Results - Last 24 Hours (Table) 01/01/24 01/02/24 01/03/24 Range/Units 15:12 14:17 01:14 WBC (3.8-10.6) k/uL RBC (4.30-5.90) m/uL Hgb (13.0-17.5) gm/dL Hct (39.0-53.0) % RDW (11.5-15.5) % Neutrophils # (Manual) (1.3-7.7) k/uL Lymphocytes # (Manual) (1.0-4.8) k/uL APTT 35.8 H (22.0-30.0) sec Sodium (137-145) mmol/L Potassium (3.5-5.1) mmol/L Carbon Dioxide (22-30) mmol/L Glucose (74-99) mg/dL Calcium (8.4-10.2) mg/dL Alkaline Phosphatase (38-126) U/L C-Reactive Protein (<1.0) mg/dL Total Protein (6.3-8.2) g/dL Albumin (3.5-5.0) g/dL HDL Cholesterol 63.70 H (40.00-60.00) mg/dL Procalcitonin 3.74 H (0.02-0.09) ng/mL Urine Protein (Negative) Urine Blood (Negative) Uric Acid Crystals (None) /hpf Amorphous Sediment (None) /hpf Urine Bacteria (None) /hpf 01/03/24 01/03/24 01/03/24 Range/Units 01:30 09:27 09:27 WBC 1.7 L (3.8-10.6) k/uL RBC 3.65 L (4.30-5.90) m/uL Hgb 10.6 L (13.0-17.5) gm/dL Hct 33.2 L (39.0-53.0) % RDW 16.0 H (11.5-15.5) % Neutrophils # (Manual) 0.50 L (1.3-7.7) k/uL Lymphocytes # (Manual) 0.85 L (1.0-4.8) k/uL APTT (22.0-30.0) sec Sodium 135 L (137-145) mmol/L Potassium 3.2 L (3.5-5.1) mmol/L Carbon Dioxide 20 L (22-30) mmol/L Glucose 123 H (74-99) mg/dL Calcium 7.8 L (8.4-10.2) mg/dL Alkaline Phosphatase 171 H (38-126) U/L C-Reactive Protein 31.9 H (<1.0) mg/dL Total Protein 4.9 L (6.3-8.2) g/dL Albumin 2.5 L (3.5-5.0) g/dL HDL Cholesterol (40.00-60.00) mg/dL Procalcitonin (0.02-0.09) ng/mL Urine Protein 1+ H (Negative) Urine Blood Trace H (Negative) Uric Acid Crystals Moderate H (None) /hpf Amorphous Sediment Few H (None) /hpf Urine Bacteria Occasional H (None) /hpf 01/03/24 01/03/24 Range/Units 09:27 16:56 WBC (3.8-10.6) k/uL RBC (4.30-5.90) m/uL Hgb (13.0-17.5) gm/dL Hct (39.0-53.0) % RDW (11.5-15.5) % Neutrophils # (Manual) (1.3-7.7) k/uL Lymphocytes # (Manual) (1.0-4.8) k/uL APTT 30.2 H 42.6 H (22.0-30.0) sec Sodium (137-145) mmol/L Potassium (3.5-5.1) mmol/L Carbon Dioxide (22-30) mmol/L Glucose (74-99) mg/dL Calcium (8.4-10.2) mg/dL Alkaline Phosphatase (38-126) U/L C-Reactive Protein (<1.0) mg/dL Total Protein (6.3-8.2) g/dL Albumin (3.5-5.0) g/dL HDL Cholesterol (40.00-60.00) mg/dL Procalcitonin (0.02-0.09) ng/mL Urine Protein (Negative) Urine Blood (Negative) Uric Acid Crystals (None) /hpf Amorphous Sediment (None) /hpf Urine Bacteria (None) /hpf
[2024-01-04 09:51] LABS: ALT 70 U/L (4-49); AST 60 U/L (17-59); African American GFR (CKD) >90 (>60 ml/min/1.73 sqM); Albumin 2.4 g/dL (3.5-5.0); Alkaline Phosphatase 193 U/L (38-126); Anion Gap 5 mmol/L; Blood Urea Nitrogen 12 mg/dL (9-20); Carbon Dioxide 21 mmol/L (22-30); Chloride 111 mmol/L (98-107); Glucose 139 mg/dL (74-99); Non-African American GFR(CKD) >90 (>60 ml/min/1.73 sqM); Potassium 3.1 mmol/L (3.5-5.1); Sodium 137 mmol/L (137-145); Total Bilirubin 0.6 mg/dL (0.2-1.3)
[2024-01-04 09:53] LABS: Anisocytosis Slight; HCT 33.9 % (39.0-53.0); HGB 10.8 gm/dL (13.0-17.5); MCH 29.1 pg (25.0-35.0); MCHC 31.9 g/dL (31.0-37.0); MCV 91.4 fL (80.0-100.0); Mean Platelet Volume 8.8; Platelet Count 177 k/uL (150-450); RBC 3.71 m/uL (4.30-5.90); RDW 16.1 % (11.5-15.5); WBC 2.4 k/uL (3.8-10.6)
[2024-01-04] MEDS: POTASSIUM CHLORIDE ER 20 MEQ TAB.ER PO SCH (11:49)
[2024-01-04 12:41] LABS: Band Neutrophils % 2 %; Lymphocytes # (M) 0.79 k/uL (1.0-4.8); Neutrophils % (M) 44 %; Nucleated Red Blood Cells 0 /100 WBC (0-0); Total Cells Counted 100
[2024-01-04 12:42] LABS: Crenated RBC Present; Poikilocytosis (M) Present
--- NOTE | 2024-01-04 13:01 | P.PN ---
Subjective Progress Note Date: 01/04/24 patient is 73-year-old gentleman with past medical history significant for esophageal cancer, AML who was a transfer from [facility] for chest pain. Patient initially presented to [facility] on Thursday with similar symptoms of chest pain, at that time patient was evaluated, since EKG was not concerning and tropes were negative, patient was discharged home on antibiotics for pneumonia. Patient again presented to [facility] with chest pain this morning at which time his tropes were elevated and patient was transferred to [facility] for emergent cardiac cath Initial lab work done in the ER showed WBC 2.8, hemoglobin 9.7, platelet count 207, EKG done in the ER showed ST segment elevation in lead III and T wave inversion in V1 and V2 Patient admitted to internal medicine service 01/02. Patient seen and examined. Continues to be afebrile. Denies any shortness of breath. 01/03. Patient seen and examined. Shortness of breath is improved. Denies any fever or chills. REVIEW OF SYSTEMS: CONSTITUTIONAL: No fever, no malaise,. CARDIOVASCULAR: No chest pain, no palpitations, no syncope. PULMONARY: No shortness of breath, no cough, GASTROINTESTINAL: No diarrhea, no nausea, no vomiting, no abdominal pain. NEUROLOGICAL: No headaches, no weakness, PHYSICAL EXAMINATION: GENERAL: The patient is alert and oriented x3, not in any acute distress. Well developed, well nourished. HEENT: Pupils are round and equally reacting to light. EOMI. No scleral icterus. No conjunctival pallor. Normocephalic, atraumatic. No pharyngeal erythema. No thyromegaly. CARDIOVASCULAR: S1 and S2 present. No murmurs, rubs, or gallops. PULMONARY: Chest is clear to auscultation, no wheezing or crackles. ABDOMEN: Soft, nontender, nondistended, normoactive bowel sounds. No palpable organomegaly. MUSCULOSKELETAL: No joint swelling or deformity. EXTREMITIES: No cyanosis, clubbing, or pedal edema. NEUROLOGICAL: Gross neurological examination did not reveal any focal deficits. SKIN: No rashes. Assessment and plan Acute ST elevation RI Bacterial pneumonia Neutropenia AML History of esophageal cancer Monitor vital signs Monitor CBC Monitor CMP Continue telemetry monitoring Continue aspirin, Plavix Lipitor Continue Coreg Continue Zosyn S/p cardiac cath showing 100% occlusion of small 1.5 mm posterolateral branch with YANIV 0 flow. This vessel is small and very distal not amenable for intervention. Cardiology following, recommend medical management Hematology oncology following, recommended holding off chemotherapy,however if Hgb/plt drop will need irradiated PRBC and platelets to maintain Hgb >7, plt >50 while on AC ID following Pulmonary following Labs and medication were reviewed.. Continue same treatment. Continue with symptomatic treatment. Resume home medication. Monitor labs and vitals. DVT and GI prophylaxis. Further recommendations as per clinical course of the patient Dictation was produced using [employer] dictation software. please excuse any grammatical, word or spelling errors. Objective - Vital Signs Vital signs: Vital Signs Temp 97.9 F 01/04/24 08:00 Pulse 63 01/04/24 08:00 Resp 20 01/04/24 08:00 BP 131/72 01/04/24 08:00 Pulse Ox 96 01/04/24 08:00 FiO2 Intake & Output 01/03/24 01/04/24 01/04/24 18:59 06:59 18:59 Intake Total 523.917 20 Balance 523.917 20 Intake: IV 20 20 Invasive Line 1 20 20 Intake, IV Titration 27.917 Amount Heparin Sod,Pork in 0.45% 27.917 NaCl 25,000 unit In 0.45 % NaCl 1 250ml.bag @ 11. 603 UNITS/KG/HR 10 mls/hr IV .Q24H [facility] Rx#: [id number] Oral 476 Other: Voiding Method Toilet Toilet # Voids 2 1 - Labs CBC & Chem 7: 01/04/24 09:03 01/04/24 09:03 Labs: Abnormal Lab Results - Last 24 Hours (Table) 01/03/24 01/03/24 01/04/24 Range/Units 09:27 16:56 09:03 WBC 2.4 L (3.8-10.6) k/uL RBC 3.71 L (4.30-5.90) m/uL Hgb 10.8 L (13.0-17.5) gm/dL Hct 33.9 L (39.0-53.0) % RDW 16.1 H (11.5-15.5) % APTT 42.6 H (22.0-30.0) sec Potassium (3.5-5.1) mmol/L Chloride (98-107) mmol/L Carbon Dioxide (22-30) mmol/L Glucose (74-99) mg/dL Calcium (8.4-10.2) mg/dL AST (17-59) U/L ALT (4-49) U/L Alkaline Phosphatase (38-126) U/L Total Protein (6.3-8.2) g/dL Albumin (3.5-5.0) g/dL Procalcitonin 2.70 H (0.02-0.09) ng/mL 01/04/24 Range/Units 09:03 WBC (3.8-10.6) k/uL RBC (4.30-5.90) m/uL Hgb (13.0-17.5) gm/dL Hct (39.0-53.0) % RDW (11.5-15.5) % APTT (22.0-30.0) sec Potassium 3.1 L (3.5-5.1) mmol/L Chloride 111 H (98-107) mmol/L Carbon Dioxide 21 L (22-30) mmol/L Glucose 139 H (74-99) mg/dL Calcium 8.0 L (8.4-10.2) mg/dL AST 60 H (17-59) U/L ALT 70 H (4-49) U/L Alkaline Phosphatase 193 H (38-126) U/L Total Protein 5.0 L (6.3-8.2) g/dL Albumin 2.4 L (3.5-5.0) g/dL Procalcitonin (0.02-0.09) ng/mL
--- NOTE | 2024-01-04 13:03 | P.PN ---
Subjective Progress Note Date: 01/04/24 HISTORY OF PRESENTING ILLNESS Octavio is a 73-year-old male with past medical history of esophageal cancer s/p surgery. Since beginning of 2023, patient has been diagnosed for AML and is under chemotherapy treatment with Dr. Simon. He denies any prior cardiovascular history. Patient presented to [facility] with substernal chest pressure on Thursday. At that time he was discharged from the ER as his ECG and troponin were within normal range. This morning he presented to [facility] ER again with substernal chest pressure-like symptoms. This time he had elevation of troponin with high-sensitivity troponin measured at 1000. His ECG showed subtle ST elevations in lead III with reciprocal changes in V1 and V2. Due to these findings, patient was transferred to [facility]. I was notified by ER physician at [facility] about this transfer. I advised that if patient has STEMI he should be given tPA. ER physician did not think tPA was appropriate as patient is chest pain-free. Patient was also found to have neutropenia with WBC count of 0.4. For his neutropenic fever he was initially being referred to [facility] but because of signs of cardiac ischemia NSTEMI, he was transferred to [facility]. Patient was immediately evaluated when arrived at [facility] ER. Repeat ECG showed subtle ST elevations in lead III with reciprocal changes in V1 and V2. Bedside echocardiogram showed preserved LV systolic function with subtle basal inferior wall hypokinesia. His hemoglobin was 12, platelet 190. His creatinine was 1.1. A chest x-ray did not show significant pulmonary congestion. He did not appear in congestive heart failure. He was in normal sinus rhythm. Denies any prior history of stroke. He denies any concerns of bleeding diathesis. He denies any history of smoking, recreational drug use marijuana use or alcohol use January 02, 2024 Patient is doing well from cardiovascular standpoint today. Report that he has not had any chest pains chest pressure like he presented to the hospital with. He does report some chest pain when he takes a deep breath. BP 115/61, heart rates 94 bpm, CXR shows no significant congestion or consolidation in the lung chung with mild scarring ECG from today morning does appear to look better as compared to the one from yesterday especially lead III with less ST elevation. January 03, 2024 BP 118/62, heart rate 90 bpm, sinus rhythm Patient's WBC is improving to 1.7. Hemoglobin is stable around 10. No signs of active bleeding on IV heparin. 01/03 Patient states that he had a good night. No chest pain no shortness of breath. Blood pressure 129/75, heart rate in the 60s, pulse ox 96% on room air. Repeat blood work reveals WBC 2.4, hemoglobin 10.8. Potassium 3.1 and has been replaced, creatinine 0.74. AST 60, ALT 70, alkaline phosphatase 193. Patient is followed by infectious disease regarding possible pneumonia on empiric Zosyn. Yesterday, IV heparin was discontinued and patient continued on dual antiplatelet therapy. Echocardiogram reveals EF of 55 to 60%. Concentric left ventricular hypertrophy. Mild aortic regurgitation, mild MR. PHYSICAL EXAMINATION Vital signs reviewed. Head: Normocephalic. Eyes: Sclerae nonicteric. Neck: Brisk carotid upstroke, no jugular venous distention. Lungs: Clear to auscultation. Heart: Regular rate and rhythm, S1-S2, no S3, no murmur or rub. Abdomen: Soft nontender, positive bowel sounds. Extremities: No edema, intact distal pulses. Neuro: Alert, oritented, no focal deficits. Detailed neuro exam was not performed. ASSESSMENT Inferior STEMI 100% occlusion of small 1.5 mm posterolateral branch with YANIV 0 flow. This vessel is small and very distal not amenable for intervention. Neutropenia AML on chemotherapy Prior history of esophageal cancer s/p surgery PLAN Would appreciate recommendations from hematology oncology team to to make sure they are okay with dual antiplatelet therapy considering his history of AML. Continue Lipitor, coreg 3.125 mg BID Patient is stable from cardiovascular standpoint. Follow-up with Dr. Vincent in 1 week. Nurse practitioner note has been reviewed, I agree with documented findings and plan of care. Patient was seen and examined. Objective - Vital Signs Vital signs: Vital Signs Temp 97.9 F 01/04/24 08:00 Pulse 63 01/04/24 08:00 Resp 20 01/04/24 08:00 BP 131/72 01/04/24 08:00 Pulse Ox 96 01/04/24 08:00 FiO2 Intake & Output 01/03/24 01/04/24 01/04/24 18:59 06:59 18:59 Intake Total 523.917 20 Balance 523.917 20 Intake: IV 20 20 Invasive Line 1 20 20 Intake, IV Titration 27.917 Amount Heparin Sod,Pork in 0.45% 27.917 NaCl 25,000 unit In 0.45 % NaCl 1 250ml.bag @ 11. 603 UNITS/KG/HR 10 mls/hr IV .Q24H [facility] Rx#: [id number] Oral 476 Other: Voiding Method Toilet Toilet # Voids 2 1 - Labs CBC & Chem 7: 01/04/24 09:03 01/04/24 09:03 Labs: Abnormal Lab Results - Last 24 Hours (Table) 01/03/24 01/03/24 01/03/24 Range/Units 09:27 09:27 09:27 WBC 1.7 L (3.8-10.6) k/uL RBC 3.65 L (4.30-5.90) m/uL Hgb 10.6 L (13.0-17.5) gm/dL Hct 33.2 L (39.0-53.0) % RDW 16.0 H (11.5-15.5) % Neutrophils # (Manual) 0.50 L (1.3-7.7) k/uL Lymphocytes # (Manual) 0.85 L (1.0-4.8) k/uL APTT 30.2 H (22.0-30.0) sec Sodium 135 L (137-145) mmol/L Potassium 3.2 L (3.5-5.1) mmol/L Carbon Dioxide 20 L (22-30) mmol/L Glucose 123 H (74-99) mg/dL Calcium 7.8 L (8.4-10.2) mg/dL Alkaline Phosphatase 171 H (38-126) U/L C-Reactive Protein 31.9 H (<1.0) mg/dL Total Protein 4.9 L (6.3-8.2) g/dL Albumin 2.5 L (3.5-5.0) g/dL Procalcitonin (0.02-0.09) ng/mL 01/03/24 01/03/24 Range/Units 09:27 16:56 WBC (3.8-10.6) k/uL RBC (4.30-5.90) m/uL Hgb (13.0-17.5) gm/dL Hct (39.0-53.0) % RDW (11.5-15.5) % Neutrophils # (Manual) (1.3-7.7) k/uL Lymphocytes # (Manual) (1.0-4.8) k/uL APTT 42.6 H (22.0-30.0) sec Sodium (137-145) mmol/L Potassium (3.5-5.1) mmol/L Carbon Dioxide (22-30) mmol/L Glucose (74-99) mg/dL Calcium (8.4-10.2) mg/dL Alkaline Phosphatase (38-126) U/L C-Reactive Protein (<1.0) mg/dL Total Protein (6.3-8.2) g/dL Albumin (3.5-5.0) g/dL Procalcitonin 2.70 H (0.02-0.09) ng/mL
--- NOTE | 2024-01-04 14:17 | P.PN ---
Subjective Progress Note Date: 01/04/24 Principal diagnosis: Neutropenic fever This is a 73-year-old male patient with history of AML and previous history of esophageal adenocarcinoma post resection with gastric wall with subsequent chemoradiation therapy. The patient got transferred to us from an outside hospital for suspected acute myocardial infarction. The patient had positive troponins. EKG also showed ST segment changes. The patient was taken to an emergent cardiac catheterization for suspected acute ST segment elevation myocardial infarction. The patient was found to have ST segment elevation in the inferior leads. Echocardiogram showed a preserved LV function and there was concern of a possible anteroseptal wall hypokinesis. At that point, the cardiac catheterization showed 100% occlusion of the small 1.5 mm posterior lateral branch and this was not amenable for intervention. The patient had normal left ventricular end-diastolic pressure. The patient was subjected to dual antiplatelet therapy including aspirin and Plavix. Currently the patient is free of any chest pain. On room air oxygen. He is blood work is showing neutropenia with a white cell count of 1 with a hemoglobin of 12.0 and a platelet count of 180. Coagulation profile is essentially within normal limits. Chemistry is still pending. Chest x-ray showed some scarring in the lung bases lungs being hyperinflated. No focal consolidation or airspace disease. Echocardiogram done this morning showed a preserved LV function with a normal ejection fraction and small basal inferior septal wall hypokinesis. No signi ficant valvular heart disease. Mild aortic regurgitation mild regurgitation was noted. At this point in time, the patient is on room air oxygen. He was covered with broad-spectrum antibiotics suspecting a pneumonia. Clinically however, the patient has no significant cough sputum production chest tightness or wheezing. He is currently running a temperature of 100.3 max with subsequent drop in the temperature down to 99.9. Cultures were sent and the results are still pending for now. In terms of his AML, the patient is currently on a combination of venetoclax/Vidaza I am seeing the patient for a follow-up. The patient is doing well. No specific complaints. His white cell count is improved compared to yesterday is currently up to 1.7. Note that his procalcitonin level was elevated and based on that the patient was started on broad-spectrum antibiotics. Cultures are still pending for now. Currently he is afebrile although the patient was spiking temperatures earlier. Pulse ox 95% on room air oxygen. No chest pain. No respiratory distress. Hemoglobin is at 10.6 with a platelet count of 184. Electrolytes are all within normal limits and a potassium level needs to be r eplaced at 3.2. BUN is 15 with a creatinine of 0.8. UA was negative for any infection. The viral screen was negative. Evaluated on 01/04/2024, patient is doing well, has no active pulmonary symptoms no cough no shortness of breath. Patient was admitted with acute ST elevation myocardial infarction and neutropenic fever patient was recently diagnosed with AML. His white count today is 2.4 hemoglobin is 10.8 platelets are 44,000, all improving. Basic metabolic profile is normal except for low potassium of 3.1. Posterior lateral branch. Patient is on chemotherapy for AML Objective - Vital Signs Vital signs: Vital Signs Temp 98 F 01/04/24 11:20 Pulse 63 01/04/24 11:20 Resp 20 01/04/24 11:20 BP 129/75 01/04/24 11:20 Pulse Ox 96 01/04/24 11:20 FiO2 Intake & Output 01/03/24 01/04/24 01/04/24 18:59 06:59 18:59 Intake Total 523.917 20 118 Balance 523.917 20 118 Intake: IV 20 20 Invasive Line 1 20 20 Intake, IV Titration 27.917 Amount Heparin Sod,Pork in 0.45% 27.917 NaCl 25,000 unit In 0.45 % NaCl 1 250ml.bag @ 11. 603 UNITS/KG/HR 10 mls/hr IV .Q24H [facility] Rx#: [id number] Oral 476 118 Other: Voiding Method Toilet Toilet # Voids 2 1 - Exam General: The patient is awake and alert, in no distress, and does not appear acutely ill. Skin: Skin is warm and dry and no rashes or lesions are noted. Eye: Pupils are equal, round and reactive to light, extra-ocular movements are intact; there is normal conjunctiva bilaterally. Ears, nose, mouth and throat: There are moist mucous membranes and no oral lesions. Neck: The neck is supple, there is no tenderness or JVD. Cardiovascular: There is a regular rate and rhythm. No murmur, rub or gallop is appreciated. Respiratory: Clear throughout no crackles rhonchi or wheezes Gastrointestinal: Soft, non-distended, non-tender abdomen without masses or organomegaly noted. There is no rebound or guarding present. Bowel sounds are unremarkable. Back: There is no tenderness to palpation in the midline. There is no obvious deformity. Musculoskeletal: Normal ROM, no tenderness, There is no pedal edema. There is no calf tenderness or swelling. No cords were appreciated. Neurological: CN II-XII intact, Cranial nerves III through XII are intact. There are no obvious motor or sensory deficits. Coordination appears grossly intact. Speech is normal. Psychiatric: Cooperative, appropriate mood & affect, normal judgment. - Labs CBC & Chem 7: 01/04/24 09:03 01/04/24 09:03 Labs: Abnormal Lab Results - Last 24 Hours (Table) 01/03/24 01/03/24 01/04/24 Range/Units 09:27 16:56 09:03 WBC 2.4 L (3.8-10.6) k/uL RBC 3.71 L (4.30-5.90) m/uL Hgb 10.8 L (13.0-17.5) gm/dL Hct 33.9 L (39.0-53.0) % RDW 16.1 H (11.5-15.5) % Neutrophils # (Manual) 1.10 L (1.3-7.7) k/uL Lymphocytes # (Manual) 0.79 L (1.0-4.8) k/uL APTT 42.6 H (22.0-30.0) sec Potassium (3.5-5.1) mmol/L Chloride (98-107) mmol/L Carbon Dioxide (22-30) mmol/L Glucose (74-99) mg/dL Calcium (8.4-10.2) mg/dL AST (17-59) U/L ALT (4-49) U/L Alkaline Phosphatase (38-126) U/L Total Protein (6.3-8.2) g/dL Albumin (3.5-5.0) g/dL Procalcitonin 2.70 H (0.02-0.09) ng/mL 01/04/24 Range/Units 09:03 WBC (3.8-10.6) k/uL RBC (4.30-5.90) m/uL Hgb (13.0-17.5) gm/dL Hct (39.0-53.0) % RDW (11.5-15.5) % Neutrophils # (Manual) (1.3-7.7) k/uL Lymphocytes # (Manual) (1.0-4.8) k/uL APTT (22.0-30.0) sec Potassium 3.1 L (3.5-5.1) mmol/L Chloride 111 H (98-107) mmol/L Carbon Dioxide 21 L (22-30) mmol/L Glucose 139 H (74-99) mg/dL Calcium 8.0 L (8.4-10.2) mg/dL AST 60 H (17-59) U/L ALT 70 H (4-49) U/L Alkaline Phosphatase 193 H (38-126) U/L Total Protein 5.0 L (6.3-8.2) g/dL Albumin 2.4 L (3.5-5.0) g/dL Procalcitonin (0.02-0.09) ng/mL Assessment and Plan Assessment: Impression: Acute ST elevation myocardial infarction, status postcardiac catheterization but no intervention Neutropenic fever AML currently on combination of venetoclax/Vidaza also receiving posaconazole 300 mg p.o. daily and Zovirax 5 mg p.o. twice a day. 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 Time with Patient: Less than 30
--- NOTE | 2024-01-05 07:12 | P.PN ---
Subjective Progress Note Date: 01/04/24 At today's visit patient is resting comfortably in bedside chair, spouse at bedside. Patient reports significant improvement in symptoms since admission. Denies chest pain shortness of breath. Patient is afebrile. White counts improving, today WBC 2.4, ANC 1.1. Hemoglobin 10.8, platelets 177,000 Objective - Vital Signs Vital signs: Vital Signs Temp 98 F 01/04/24 11:20 Pulse 63 01/04/24 11:20 Resp 20 01/04/24 11:20 BP 129/75 01/04/24 11:20 Pulse Ox 96 01/04/24 11:20 FiO2 Intake & Output 01/03/24 01/04/24 01/04/24 18:59 06:59 18:59 Intake Total 523.917 20 Balance 523.917 20 Intake: IV 20 20 Invasive Line 1 20 20 Intake, IV Titration 27.917 Amount Heparin Sod,Pork in 0.45% 27.917 NaCl 25,000 unit In 0.45 % NaCl 1 250ml.bag @ 11. 603 UNITS/KG/HR 10 mls/hr IV .Q24H [facility] Rx#: [id number] Oral 476 Other: Voiding Method Toilet Toilet # Voids 2 1 - Constitutional General appearance: Present: average body habitus, no acute distress - EENT Eyes: Present: anicteric sclerae, EOMI ENT: Present: hearing grossly normal - Respiratory Details: breathing is even and unlabored - Cardiovascular Details: well perfused - Neurologic Neurologic: Present: CNII-XII intact - Musculoskeletal Musculoskeletal: Present: strength equal bilaterally - Psychiatric Psychiatric: Present: A&O x's 3 - Labs CBC & Chem 7: 01/04/24 09:03 01/04/24 09:03 Labs: Abnormal Lab Results - Last 24 Hours (Table) 01/03/24 01/03/24 01/04/24 Range/Units 09:27 16:56 09:03 WBC 2.4 L (3.8-10.6) k/uL RBC 3.71 L (4.30-5.90) m/uL Hgb 10.8 L (13.0-17.5) gm/dL Hct 33.9 L (39.0-53.0) % RDW 16.1 H (11.5-15.5) % Neutrophils # (Manual) 1.10 L (1.3-7.7) k/uL Lymphocytes # (Manual) 0.79 L (1.0-4.8) k/uL APTT 42.6 H (22.0-30.0) sec Potassium (3.5-5.1) mmol/L Chloride (98-107) mmol/L Carbon Dioxide (22-30) mmol/L Glucose (74-99) mg/dL Calcium (8.4-10.2) mg/dL AST (17-59) U/L ALT (4-49) U/L Alkaline Phosphatase (38-126) U/L Total Protein (6.3-8.2) g/dL Albumin (3.5-5.0) g/dL Procalcitonin 2.70 H (0.02-0.09) ng/mL 01/04/24 Range/Units 09:03 WBC (3.8-10.6) k/uL RBC (4.30-5.90) m/uL Hgb (13.0-17.5) gm/dL Hct (39.0-53.0) % RDW (11.5-15.5) % Neutrophils # (Manual) (1.3-7.7) k/uL Lymphocytes # (Manual) (1.0-4.8) k/uL APTT (22.0-30.0) sec Potassium 3.1 L (3.5-5.1) mmol/L Chloride 111 H (98-107) mmol/L Carbon Dioxide 21 L (22-30) mmol/L Glucose 139 H (74-99) mg/dL Calcium 8.0 L (8.4-10.2) mg/dL AST 60 H (17-59) U/L ALT 70 H (4-49) U/L Alkaline Phosphatase 193 H (38-126) U/L Total Protein 5.0 L (6.3-8.2) g/dL Albumin 2.4 L (3.5-5.0) g/dL Procalcitonin (0.02-0.09) ng/mL Assessment and Plan (1) Febrile neutropenia Current Visit: Yes Status: Acute Code(s): D70.9 - NEUTROPENIA, UNSPECIFIED; R50.81 - FEVER PRESENTING WITH CONDITIONS CLASSIFIED ELSEWHERE SNOMED Code(s): 236296020 (2) Myocardial infarct Current Visit: Yes Status: Acute Code(s): I21.9 - ACUTE MYOCARDIAL INFARCTION, UNSPECIFIED SNOMED Code(s): 73627743 Plan: Mr. Merrill is a very pleasant 73-year-old gentleman with a history of esophageal cancer status post chemo RT followed by resection in 2019, subsequently developed AML in 08/2023 status post 3 cycles of venetoclax with videza, who is here for chest pain. Found to have fevers, neutropenia, and elevated troponin. Transferred to [facility] where he was found to have a STEMI, went to the Insurance Administrator. We were consulted for febrile neutropenia and his history of AML with pancytopenia. -Monitor CBC, transfusion as needed, has mild anemia and normal plt now so no need for transfusions however if Hgb/plt drop will need irradiated PRBC and platelets to maintain Hgb >7, plt >50 while on AC -Continues on antibiotics, ID following -No G-CSF at this time -Hold chemotherapy, he was scheduled to start cycle 4 on 01/04/2024, however pt/ state that this was to be delayed by [address] Kaufman at to allow his neutropenia to recover; now also needs to be held due to neutropenic fever -White counts improving, afebrile x 48 hrs -He has f/u with Dr. Kaufman on 01/15/24, with plans to restart tx on 01/17 Discussed with patient and his and they are agreeable to plan. All of their questions were answered.
--- NOTE | 2024-01-05 08:54 | P.PN ---
Subjective Progress Note Date: 01/04/24 Principal diagnosis: Reason for follow-up is febrile neutropenia Patient is a 73-year-old male with a past medical history significant for esophageal cancer currently on neoadjuvant chemotherapy and recent diagnosis of AML patient initially presented to outside facility concerning for chest pain and cough noticed to have elevated troponin for the patient was transferred to [facility] also have a low-grade fever chest x-ray negative. On today's evaluation that is 01/04/2024, the patient continues to be afebrile, the patient is on room air and breathing comfortably, the Pt denies having any chest pain or cough, the patient denies having any abdominal pain no vomiting or any diarrhea, mention feeling better. Patient white count is up to 2.4 creatinine 0.74 procalcitonin was 2.70 Objective - Vital Signs Vital signs: Vital Signs Temp 98 F 01/04/24 11:20 Pulse 63 01/04/24 11:20 Resp 20 01/04/24 11:20 BP 129/75 01/04/24 11:20 Pulse Ox 96 01/04/24 11:20 FiO2 Intake & Output 01/03/24 01/04/24 01/04/24 18:59 06:59 18:59 Intake Total 523.917 20 Balance 523.917 20 Intake: IV 20 20 Invasive Line 1 20 20 Intake, IV Titration 27.917 Amount Heparin Sod,Pork in 0.45% 27.917 NaCl 25,000 unit In 0.45 % NaCl 1 250ml.bag @ 11. 603 UNITS/KG/HR 10 mls/hr IV .Q24H [facility] Rx#: [id number] Oral 476 Other: Voiding Method Toilet Toilet # Voids 2 1 - Exam GENERAL DESCRIPTION: An elderly male up in the chair in no distress RESPIRATORY SYSTEM: Unlabored breathing , decreased breath sounds at bases HEART: S1 S2 regular rate and rhythm , ABDOMEN: Soft , no tenderness EXTREMITIES: No edema feet - Labs CBC & Chem 7: 01/04/24 09:03 01/04/24 09:03 Labs: Abnormal Lab Results - Last 24 Hours (Table) 01/03/24 01/03/24 01/04/24 Range/Units 09:27 16:56 09:03 WBC 2.4 L (3.8-10.6) k/uL RBC 3.71 L (4.30-5.90) m/uL Hgb 10.8 L (13.0-17.5) gm/dL Hct 33.9 L (39.0-53.0) % RDW 16.1 H (11.5-15.5) % Neutrophils # (Manual) 1.10 L (1.3-7.7) k/uL Lymphocytes # (Manual) 0.79 L (1.0-4.8) k/uL APTT 42.6 H (22.0-30.0) sec Potassium (3.5-5.1) mmol/L Chloride (98-107) mmol/L Carbon Dioxide (22-30) mmol/L Glucose (74-99) mg/dL Calcium (8.4-10.2) mg/dL AST (17-59) U/L ALT (4-49) U/L Alkaline Phosphatase (38-126) U/L Total Protein (6.3-8.2) g/dL Albumin (3.5-5.0) g/dL Procalcitonin 2.70 H (0.02-0.09) ng/mL 01/04/24 Range/Units 09:03 WBC (3.8-10.6) k/uL RBC (4.30-5.90) m/uL Hgb (13.0-17.5) gm/dL Hct (39.0-53.0) % RDW (11.5-15.5) % Neutrophils # (Manual) (1.3-7.7) k/uL Lymphocytes # (Manual) (1.0-4.8) k/uL APTT (22.0-30.0) sec Potassium 3.1 L (3.5-5.1) mmol/L Chloride 111 H (98-107) mmol/L Carbon Dioxide 21 L (22-30) mmol/L Glucose 139 H (74-99) mg/dL Calcium 8.0 L (8.4-10.2) mg/dL AST 60 H (17-59) U/L ALT 70 H (4-49) U/L Alkaline Phosphatase 193 H (38-126) U/L Total Protein 5.0 L (6.3-8.2) g/dL Albumin 2.4 L (3.5-5.0) g/dL Procalcitonin (0.02-0.09) ng/mL Assessment and Plan (1) Febrile neutropenia Current Visit: Yes Status: Acute Code(s): D70.9 - NEUTROPENIA, UNSPECIFIED; R50.81 - FEVER PRESENTING WITH CONDITIONS CLASSIFIED ELSEWHERE SNOMED Code(s): 511504719 Plan: 1patient with presented to the hospital with chest pain and this patient noted to have elevated troponin patient also have a low-grade fever some her respiratory symptoms concerning for possible pneumonia however chest x-ray was negative for any consolidation patient abdominal soft on clinical examination no evidence of any cellulitis or joint swelling 2patient did have a negative influenza as well as COVID PCR, urine for Legionella antigen negative did have elevated CRP and a procalcitonin 3-patient did have resolution of his fever, patient to continue with empiric Zosyn and monitor clinical course closely Dictation was produced using [employer] dictation software. please excuse any grammatical, word or spelling errors. Time with Patient: Less than 30
[2024-01-05 11:52] VITALS: BP 157/84; PULSE 61; RESP 20; TEMP 97.8
--- NOTE | 2024-01-05 11:54 | P.DS ---
Providers Date of admission: 01/01/24 15:13 Expected date of discharge: 01/05/24 Attending physician: Sage Andrade Consults: 01/01/24 15:11 Consult Physician Urgent Consulting Provider: Dominick Simon Consult Reason/Comments: Leukemia Do you want consulting provider notified?: Yes Consult Physician Urgent Consulting Provider: Silvia Jorgensen Consult Reason/Comments: Neutropenic, pneumonia Do you want consulting provider notified?: Yes Consult Physician Urgent Consulting Provider: Kavon Vincent Consult Reason/Comments: mi Do you want consulting provider notified?: Already Contacted 01/02/24 10:17 Consult Physician Routine Consulting Provider: Margareth Yancey Consult Reason/Comments: Neutropenia, pneumonia Do you want consulting provider notified?: Yes Primary care physician: Igor Lisa MD Hospital Course: Discharge diagnoses; Acute ST elevation [place] Bacterial pneumonia Neutropenia AML History of esophageal cancer Hospital course; patient is 73-year-old gentleman with past medical history significant for esophageal cancer, AML who was a transfer from [facility] for chest pain. Patient initially presented to [facility] on Thursday with similar symptoms of chest pain, at that time patient was evaluated, since EKG was not concerning and tropes were negative, patient was discharged home on antibiotics for pneumonia. Patient again presented to [facility] with chest pain this morning at which time his tropes were elevated and patient was transferred to [facility] for emergent cardiac cath Initial lab work done in the ER showed WBC 2.8, hemoglobin 9.7, platelet count 207, EKG done in the ER showed ST segment elevation in lead III and T wave inversion in V1 and V2 Patient admitted to internal medicine service 01/02. Patient seen and examined. Continues to be afebrile. Denies any shortness of breath. S/p cardiac cath showing 100% occlusion of small 1.5 mm posterolateral branch with YANIV 0 flow. This vessel is small and very distal not amenable for intervention. Cardiology following, recommend medical management 01/03. Patient seen and examined. Shortness of breath is improved. Denies any fever or chills. 01/04. Patient seen and examined. ID recommended starting patient on Avelox 400 mg daily for 5 more days. Cardiology recommend discharging patient on aspirin and Plavix. Hematology oncology were okay with keeping patient on dual antiplatelet medications. Outpatient follow-up with PCP and cardiology PHYSICAL EXAMINATION: GENERAL: The patient is alert and oriented x3, not in any acute distress. Well developed, well nourished. HEENT: Pupils are round and equally reacting to light. EOMI. No scleral icterus. No conjunctival pallor. Normocephalic, atraumatic. No pharyngeal erythema. No thyromegaly. CARDIOVASCULAR: S1 and S2 present. No murmurs, rubs, or gallops. PULMONARY: Chest is clear to auscultation, no wheezing or crackles. ABDOMEN: Soft, nontender, nondistended, normoactive bowel sounds. No palpable organomegaly. MUSCULOSKELETAL: No joint swelling or deformity. EXTREMITIES: No cyanosis, clubbing, or pedal edema. NEUROLOGICAL: Gross neurological examination did not reveal any focal deficits. SKIN: No rashes. Dictation was produced using [employer] dictation software. please excuse any grammatical, word or spelling errors. Patient Condition at Discharge: Good Plan - Discharge Summary Discharge Rx Participant: No New Discharge Prescriptions: New Aspirin 81 mg PO DAILY #30 tab Moxifloxacin HCl [Avelox] 400 mg PO DAILY 5 Days #5 tab carvediloL [Coreg] 3.125 mg PO BID-W/MEALS 30 Days #60 tab Nitroglycerin Sl Tabs [Nitrostat] 0.4 mg SUBLINGUAL Q5M PRN #30 tab PRN Reason: Chest Pain Clopidogrel [Plavix] 75 mg PO DAILY #30 tab Atorvastatin [Lipitor] 40 mg PO HS #30 tab Continue Tamsulosin [Flomax] 0.4 mg PO DAILY Pantoprazole [Protonix] 40 mg PO DAILY Multivitamins, Thera [Multivitamin (formulary)] 1 tab PO DAILY Loratadine [Claritin] 10 mg PO DAILY Venetoclax [Venclexta] 100 mg PO DIRECTED Azacitidine Infusion 159 mg IV DIRECTED Ondansetron [Zofran] 4 mg PO Q4H PRN PRN Reason: Nausea Fluticasone Nasal Lavelle [Flonase Nasal Lavelle] 2 spr EA NOSTRIL DAILY Posaconazole 300 mg PO DAILY Acyclovir [Zovirax] 400 mg PO BID Discharge Medication List Acyclovir [Zovirax] 400 mg PO BID 01/01/24 [History] Fluticasone Nasal Lavelle [Flonase Nasal Lavelle] 2 spr EA NOSTRIL DAILY 01/01/24 [History] Loratadine [Claritin] 10 mg PO DAILY 01/01/24 [History] Multivitamins, Thera [Multivitamin (formulary)] 1 tab PO DAILY 01/01/24 [History] Ondansetron [Zofran] 4 mg PO Q4H PRN 01/01/24 [History] Pantoprazole [Protonix] 40 mg PO DAILY 01/01/24 [History] Posaconazole 300 mg PO DAILY 01/01/24 [History] Tamsulosin [Flomax] 0.4 mg PO DAILY 01/01/24 [History] Venetoclax [Venclexta] 100 mg PO DIRECTED 01/01/24 [History] Azacitidine Infusion 159 mg IV DIRECTED 01/04/24 [History] Aspirin 81 mg PO DAILY #30 tab 01/05/24 [Rx] Atorvastatin [Lipitor] 40 mg PO HS #30 tab 01/05/24 [Rx] Clopidogrel [Plavix] 75 mg PO DAILY #30 tab 01/05/24 [Rx] Moxifloxacin HCl [Avelox] 400 mg PO DAILY 5 Days #5 tab 01/05/24 [Rx] Nitroglycerin Sl Tabs [Nitrostat] 0.4 mg SUBLINGUAL Q5M PRN #30 tab 01/05/24 [Rx] carvediloL [Coreg] 3.125 mg PO BID-W/MEALS 30 Days #60 tab 01/05/24 [Rx] Follow up Appointment(s)/Referral(s): Kavon Vincent MD [Medical Doctor] - 1 Week None,Stated [REFERRING] - 1-2 days Discharge Disposition: HOME SELF-CARE
[2024-01-05 12:12] LABS: HCT 34.1 % (39.0-53.0); HGB 10.9 gm/dL (13.0-17.5); Hypochromasia Slight; MCH 29.8 pg (25.0-35.0); MCHC 31.9 g/dL (31.0-37.0); MCV 93.5 fL (80.0-100.0); Mean Platelet Volume 8.3; Platelet Count 215 k/uL (150-450); RBC 3.64 m/uL (4.30-5.90); WBC 3.7 k/uL (3.8-10.6)
--- NOTE | 2024-01-05 12:53 | P.PN ---
Subjective Progress Note Date: 01/05/24 Principal diagnosis: Neutropenic fever This is a 73-year-old male patient with history of AML and previous history of esophageal adenocarcinoma post resection with gastric wall with subsequent chemoradiation therapy. The patient got transferred to us from an outside hospital for suspected acute myocardial infarction. The patient had positive troponins. EKG also showed ST segment changes. The patient was taken to an emergent cardiac catheterization for suspected acute ST segment elevation myocardial infarction. The patient was found to have ST segment elevation in the inferior leads. Echocardiogram showed a preserved LV function and there was concern of a possible anteroseptal wall hypokinesis. At that point, the cardiac catheterization showed 100% occlusion of the small 1.5 mm posterior lateral branch and this was not amenable for intervention. The patient had normal left ventricular end-diastolic pressure. The patient was subjected to dual antiplatelet therapy including aspirin and Plavix. Currently the patient is free of any chest pain. On room air oxygen. He is blood work is showing neutropenia with a white cell count of 1 with a hemoglobin of 12.0 and a platelet count of 180. Coagulation profile is essentially within normal limits. Chemistry is still pending. Chest x-ray showed some scarring in the lung bases lungs being hyperinflated. No focal consolidation or airspace disease. Echocardiogram done this morning showed a preserved LV function with a normal ejection fraction and small basal inferior septal wall hypokinesis. No signi ficant valvular heart disease. Mild aortic regurgitation mild regurgitation was noted. At this point in time, the patient is on room air oxygen. He was covered with broad-spectrum antibiotics suspecting a pneumonia. Clinically however, the patient has no significant cough sputum production chest tightness or wheezing. He is currently running a temperature of 100.3 max with subsequent drop in the temperature down to 99.9. Cultures were sent and the results are still pending for now. In terms of his AML, the patient is currently on a combination of venetoclax/Vidaza I am seeing the patient for a follow-up. The patient is doing well. No specific complaints. His white cell count is improved compared to yesterday is currently up to 1.7. Note that his procalcitonin level was elevated and based on that the patient was started on broad-spectrum antibiotics. Cultures are still pending for now. Currently he is afebrile although the patient was spiking temperatures earlier. Pulse ox 95% on room air oxygen. No chest pain. No respiratory distress. Hemoglobin is at 10.6 with a platelet count of 184. Electrolytes are all within normal limits and a potassium level needs to be r eplaced at 3.2. BUN is 15 with a creatinine of 0.8. UA was negative for any infection. The viral screen was negative. Evaluated on 01/04/2024, patient is doing well, has no active pulmonary symptoms no cough no shortness of breath. Patient was admitted with acute ST elevation myocardial infarction and neutropenic fever patient was recently diagnosed with AML. His white count today is 2.4 hemoglobin is 10.8 platelets are 44,000, all improving. Basic metabolic profile is normal except for low potassium of 3.1. Posterior lateral branch. Patient is on chemotherapy for AML Patient was evaluated today on 01/05/2024, patient is doing great, asymptomatic, feels almost back to his baseline. WBC count today is up to 3.7 hemoglobin 10.9 platelets are 215, patient is recovering nicely from his pancytopenia. Patient could be considered for discharge planning today, he has no active pulmonary symptoms, no nausea no vomiting no abdominal pain and no diarrhea Objective - Vital Signs Vital signs: Vital Signs Temp 97.8 F 01/05/24 11:03 Pulse 61 01/05/24 11:03 Resp 20 01/05/24 11:03 BP 157/84 01/05/24 11:03 Pulse Ox 97 01/05/24 11:03 FiO2 Intake & Output 01/04/24 01/05/24 01/05/24 18:59 06:59 18:59 Intake Total 298 118 Balance 298 118 Intake: Intake, IV Titration 180 Amount Piperacillin-Tazobactam 3 100 .375 gm In Sodium Chloride 0.9% 100 ml @ 25 mls/hr IVPB Q8H [facility] Rx#: [id number] Sodium Chloride 0.9% 1, 80 000 ml @ 0 mls/hr IV .STK -[facility] Rx#:[id number] Oral 118 118 Other: Voiding Method Toilet Toilet # Voids 1 - Exam General: The patient is awake and alert, in no distress, and does not appear acutely ill. Skin: Skin is warm and dry and no rashes or lesions are noted. Eye: Pupils are equal, round and reactive to light, extra-ocular movements are intact; there is normal conjunctiva bilaterally. Ears, nose, mouth and throat: There are moist mucous membranes and no oral lesions. Neck: The neck is supple, there is no tenderness or JVD. Cardiovascular: There is a regular rate and rhythm. No murmur, rub or gallop is appreciated. Respiratory: Clear throughout no crackles rhonchi or wheezes Gastrointestinal: Soft, non-distended, non-tender abdomen without masses or organomegaly noted. There is no rebound or guarding present. Bowel sounds are unremarkable. Back: There is no tenderness to palpation in the midline. There is no obvious deformity. Musculoskeletal: Normal ROM, no tenderness, There is no pedal edema. There is no calf tenderness or swelling. No cords were appreciated. Neurological: CN II-XII intact, Cranial nerves III through XII are intact. There are no obvious motor or sensory deficits. Coordination appears grossly intact. Speech is normal. Psychiatric: Cooperative, appropriate mood & affect, normal judgment. - Labs CBC & Chem 7: 01/05/24 11:28 01/04/24 09:03 Labs: Abnormal Lab Results - Last 24 Hours (Table) 01/05/24 Range/Units 11:28 WBC 3.7 L (3.8-10.6) k/uL RBC 3.64 L (4.30-5.90) m/uL Hgb 10.9 L (13.0-17.5) gm/dL Hct 34.1 L (39.0-53.0) % RDW 16.0 H (11.5-15.5) % Assessment and Plan Assessment: Impression: Acute ST elevation myocardial infarction, status postcardiac catheterization but no intervention Neutropenic fever AML currently on combination of venetoclax/Vidaza also receiving posaconazole 300 mg p.o. daily and Zovirax 5 mg p.o. twice a day. 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 Consider discharge planning if cleared by other consultants on the case. Will continue to follow. Time with Patient: Less than 30
[2024-01-05 13:02] LABS: Nucleated Red Blood Cells 0 /100 WBC (0-0)
[2024-01-05 13:08] LABS: Band Neutrophils % 4 %; Eosinophils # (M) 0.04 k/uL (0-0.7); Lymphocytes # (M) 1.15 k/uL (1.0-4.8); Metamyelocytes # (M) 0.11 k/uL (0); Metamyelocytes % 3 %; Monocytes # (M) 0.67 k/uL (0-1.0); Myelocytes # (M) 0.07 k/uL (0); Myelocytes % 2 %; Neutrophils % (M) 44 %; Total Cells Counted 200
== END 2024-01-05 15:17 | disposition home or self-care (01) | DRG 280 ==
LOC: EC 14:59 → 1SOBS 15:13 → 2SICU 15:24 → 3SCARD 16:05
PROVIDERS: ADMIT Internal Medicine; ATTEND Internal Medicine
PROC: B2111ZZ Fluoroscopy of Multiple Coronary Arteries using Low Osmolar Contrast (ICD-10-PCS; principal; 2024-01-01 15:11)
PROC: 4A023N7 Measurement of Cardiac Sampling and Pressure, Left Heart, Percutaneous Approach (ICD-10-PCS; principal; 2024-01-01 15:11)
DX: I21.19 ST elevation (STEMI) myocardial infarction involving other coronary artery of inferior wall (principal); J15.9 Unspecified bacterial pneumonia; C92.00 Acute myeloblastic leukemia, not having achieved remission; D61.818 Other pancytopenia; D70.1 Agranulocytosis secondary to cancer chemotherapy; T45.1X5A Adverse effect of antineoplastic and immunosuppressive drugs, initial encounter; I51.7 Cardiomegaly; R50.81 Fever presenting with conditions classified elsewhere; Z85.028 Personal history of other malignant neoplasm of stomach; Z85.01 Personal history of malignant neoplasm of esophagus; Z79.899 Other long term (current) drug therapy
CPT/HCPCS: 36415; 71046; 76937; 80053; 80061; 81001; 84145; 84484; 85025; 85610; 85730; 86140; 87449; 87636; 93306; 93458; 96374; 99285

== ENCOUNTER 2024-06-27 19:55 | Inpatient (IN) | payer MEDICARE ==
[2024-06-27] MEDS ORDERED: VANCOMYCIN IV PER PHARMACY 1 EACH MISC MISCELLANE PRN (19:59)
[2024-06-27] MEDS: CEFEPIME 2 GM in SODIUM CHLORIDE 0.9% 100 ML IVPB STA (20:13)
--- NOTE | 2024-06-27 20:14 | ED ---
General Adult HPI - General Chief complaint: Shortness of Breath Stated complaint: SOB Time Seen by Provider: 06/27/24 19:56 Source: patient, EMS Mode of arrival: EMS - History of Present Illness Initial comments: Patient is a 74 rhythm with past medical hx leukemia, currently undergoing chemotherapy presenting as a transfer from [facility] today for pancytopenia and neutropenic fever. Patient had reported there today due to abnormal outpatient labs where he was noted to have platelets at 11 and was noted to be neutropenic. Initially patient was post to get a blood transfusion as well as platelets however became febrile, temp 103 degrees, prior to blood products being given. An IV was unable to be obtained so patient was given a dose of IM Rocephin, oral Tylenol and sent to this emergency department. The patient states that he has had fatigue and some exertional shortness of breath recently but otherwise denies shortness of breath currently, current dizziness, headache, sore throat, cough, hemoptysis, abdominal pain, nausea vomiting or diarrhea, black or bloody stools. He does have small bruises on his the dorsal aspect of his hands, otherwise no gingival bleeding. Does note frequent nosebleeds last was last night. Is not currently on anticoagulation that was previously on Plavix up until 3 weeks ago due to history of CAD. Has noted some nasal congestion. Viral testing at referring facility was negative. A CT chest without contrast was performed did not show any obvious consolidations. - Related Data Home Medications Medication Instructions Recorded Confirmed Acyclovir [Zovirax] 400 mg PO BID 01/01/24 06/27/24 Fluticasone Nasal [place] [Flonase 2 spr EA NOSTRIL DAILY 01/01/24 06/27/24 Nasal [place]] Loratadine [Claritin] 10 mg PO DAILY 01/01/24 06/27/24 Multivitamins, Thera [Multivitamin 1 tab PO DAILY 01/01/24 06/27/24 (formulary)] Ondansetron [Zofran] 4 mg PO Q4H PRN 01/01/24 06/27/24 Pantoprazole [Protonix] 40 mg PO BID 01/01/24 06/27/24 Posaconazole 300 mg PO DAILY 01/01/24 06/27/24 Tamsulosin [Flomax] 0.4 mg PO DAILY 01/01/24 06/27/24 Atorvastatin [Lipitor] 40 mg PO DAILY 06/27/24 06/27/24 Potassium Chloride ER [K-Dur 10] 10 meq PO DAILY 06/27/24 06/27/24 Vit C/E/Zn/Coppr/Lutein/Zeaxan 1 cap PO DAILY 06/27/24 06/27/24 [Preservision Areds 2 Softgel] carvediloL [Coreg] 3.125 mg PO DAILY 06/27/24 06/27/24 Previous Rx's Medication Instructions Recorded Nitroglycerin Sl Tabs [Nitrostat] 0.4 mg SUBLINGUAL Q5M PRN #30 tab 01/05/24 Allergies Allergy/AdvReac Type Severity Reaction Status Date / Time No Known Allergies Allergy Verified 06/27/24 20:49 Review of Systems ROS Statement: Those systems with pertinent positive or pertinent negative responses have been documented in the HPI. ROS Other: All systems not noted in ROS Statement are negative. Past Medical History Past Medical History: Cancer, Prostate Disorder Additional Past Medical History / Comment(s): esophageal cancer, leukemia History of Any Multi-Drug Resistant Organisms: None Reported Past Surgical History: Heart Catheterization With Stent, Hernia Repair Additional Past Surgical History / Comment(s): gastric pull-through surgery Smoking Status: Never smoker Past Alcohol Use History: None Reported Past Drug Use History: None Reported General Exam - General Exam Comments Initial Comments: PE: CONSTITUTIONAL: No apparent distress, well appearing SKIN: Warm, dry, no jaundice, hives or petechiae. Few small bruises on the dorsal aspect of his hands, no large hematomas or petechiae EYES: Pupils are equally round, extraocular movements intact without nystagmus, clear conjunctiva, non-icteric sclera HENT: Normocephalic, atraumatic, moist mucus membranes, oropharynx clear without exudates, no tympanic erythema, no cervical lymphadenopathy NECK: , Full range of motion, normal appearance PULMONARY: Clear to auscultation without wheezes, rhonchi, or rales, normal excursion, no accessory muscle use and no stridor CARDIOVASCULAR: Regular rate, rhythm, normal S1 and S2. No appreciated murmurs, rubs or gallops. Strong radial pulses with intact distal perfusion. No lower extremity edema GASTROINTESTINAL: Soft, active bowel sounds throughout, non-tender, non- distended, no palpable masses, no rebound or guarding. No hepatosplenomegaly MUSCULOSKELETAL: Extremities have no gross deformity, no edema, redness, or swelling. No calf swelling NEUROLOGIC:_a/o x 3, GCS 15, normal mentation and speech. Moves all extremities x 4 without motor or sensory deficit PSYCHIATRIC:_normal mood and affect, thought process is clear and linear Course Vital Signs 06/27/24 06/27/24 06/27/24 19:56 22:55 23:20 Temperature 99.2 F 102.9 F H Pulse Rate 68 80 Respiratory 16 16 Rate Blood Pressure 102/55 125/70 O2 Sat by Pulse 98 98 Oximetry 06/27/24 06/27/24 06/27/24 23:25 23:35 23:55 Temperature 102.9 F H 102.6 F H 103.1 F H Pulse Rate 87 82 82 Respiratory 22 18 18 Rate Blood Pressure 145/75 142/75 145/75 O2 Sat by Pulse Oximetry EKG Findings - EKG Comments: EKG Findings:: Sinus rhythm, rate 65 bpm, HI interval 176, QRS duration 96 ms, QT/QTc 450/466 ms, normal axis, no ST elevations or depressions, no arrhythmia, QT interval noted to be prolonged Medical Decision Making - Medical Decision Making Was pt. sent in by a medical professional or institution (, PA, W[employer] INSPECTOR, urgent care, hospital, or fci...) When possible be specific Patient was sent in from [facility] Did you speak to anyone other than the patient for history (EMS, parent, family, police, friend...)? What history was obtained from this source Spoke with EMS personnel/patient's son Did you review nursing and triage notes (agree or disagree)? Why? @ -I reviewed and agree with nursing and triage notes Were old charts reviewed (outside hosp., previous admission, EMS record, old EKG, old radiological studies, urgent care reports/EKG's, fci records)? Report findings @ -Medical records reviewed, reviewed records sent with patient, CT chest without contrast was done which did not show any acute process, viral testing negative. Outpatient labs drawn this morning showed platelets of 11 Differential Diagnosis (chest pain, altered mental status, abdominal pain women, abdominal pain men, vaginal bleeding, weakness, fever, dyspnea, syncope, headache, dizziness, GI bleed, back pain, seizure, CVA, palpatations, mental health, musculoskeletal)? @Differential Fever: Pneumonia, viral URI, endocarditis, myocarditis, pericarditis, pulmonary embolism, neutropenic fever, this is not meant to be an all-inclusive list. EKG interpreted by me (3pts min.). @ -As above X-rays interpreted by me (1pt min.). @ -None done CT interpreted by me (1pt min.). @ -No evidence of large vessel or submassive PE, no lobar consolidations U/S interpreted by me (1pt. min.). @ -None done What testing was considered but not performed or refused? (CT, X-rays, U/S, labs)? Why? @ -None What meds were considered but not given or refused? Why? @ -None Did you discuss the management of the patient with other professionals (professionals i.e. , PA, [employer] INSPECTOR, lab, RT, psych nurse, group social worker, tax intern, teacher, medical scientific officer, caser up)? Give summary @ -No Was smoking cessation discussed for >3mins.? @ -No Was critical care preformed (if so, how long)? @ Yes , neutropenic fever, pancytopenia Were there social determinants of health that impacted care today? How? (Homelessness, low income, unemployed, alcoholism, drug addiction, transportation, low edu. Level, literacy, decrease access to med. care, senior living, rehab)? @ -No Was there de-escalation of care discussed even if they declined (Discuss DNR or withdrawal of care, Hospice)? @ -No What co-morbidities impacted this encounter? (DM, HTN, Smoking, COPD, CAD, Cancer, CVA, ARF, Chemo, Hep., AIDS, mental health diagnosis, sleep apnea, morbid obesity)? CAD, leukemia Was patient admitted / discharged? Hospital course, mention meds given and route, prescriptions, significant lab abnormalities, going to OR and other pertinent info. @Admission This is a pleasant 74-year-old gentleman presenting after being transferred from [facility] for pancytopenia and fever, concerns for neutropenic fever. Patient seen and assessed on arrival, well-appearing, comfortable in no acute distress. Physical exam as above. Blood culture was added given blood culture shortness, CRP, comprehensive labs, D-dimer given patient's history of cancer, shortness of breath and recently taken off of Plavix. Ordered cefepime vancomycin. Anticipate admissionon EKG so 1G magnesium was ordered. Potassium slightly low at 3.4, sodium 132 calcium 7.8, ionized calcium ordered as patient is receiving blood and could potentially require potassium replacmeent. Platelets 5, Hcg 6.7. Ordered 2 units PRBC and 1 unit platelets. D-dimer elevated, CT PE scan ordered. Updated patient and to findings thus far and plan of care, they are agreeable with plan, all questions answered. Case discussed with ANIVAL Salgado, kindly accepts patient for admission. Pt admitted in stable condition. CT PE study negative for PE, does show some increased mediastinal and right sided lymphadenopathy. Undiagnosed new problem with uncertain prognosis? @ -No Drug Therapy requiring intensive monitoring for toxicity (Heparin, Nitro, Insulin, Cardizem)? @ -No Were any procedures done? @ -No Diagnosis/symptom? @Febrile neutropenia, pancytopenia Acute, or Chronic, or Acute on Chronic? @ -Acute Uncomplicated (without systemic symptoms) or Complicated (systemic symptoms)? @ -Complicated Side effects of treatment? Yes, side effects of chemotherapy Exacerbation, Progression, or Severe Exacerbation? @ -No Poses a threat to life or bodily function? How? (Chest pain, USA, DC, pneumonia, PE, COPD, DKA, ARF, appy, cholecystitis, CVA, Diverticulitis, Homicidal, Suicidal, threat to staff... and all critical care pts) @Yes, could progress to sepsis and septic shock - Lab Data Result diagrams: 06/27/24 20:10 06/27/24 20:10 Lab Results 06/27/24 06/27/24 06/27/24 Range/Units 20:02 20:10 20:10 WBC 0.5 L* (3.8-10.6) k/uL RBC 1.97 L (4.30-5.90) m/uL Hgb 6.7 L* (13.0-17.5) gm/dL Hct 19.2 L* (39.0-53.0) % MCV 97.7 (80.0-100.0) fL MCH 34.1 (25.0-35.0) pg MCHC 34.9 (31.0-37.0) g/dL RDW 16.5 H (11.5-15.5) % Plt Count 5 L* (150-450) k/uL MPV 9.7 Neutrophils # [employer] INS[employer]OR Differential Comment Manual Slide Review Performed Anisocytosis Slight Macrocytosis Slight Ovalocytes Present PT (10.0-12.5) sec INR (<1.2) APTT (22.0-30.0) sec D-Dimer (<0.60) mg/L FEU Sodium 132 L (137-145) mmol/L Potassium 3.4 L (3.5-5.1) mmol/L Chloride 106 (98-107) mmol/L Carbon Dioxide 20 L (22-30) mmol/L Anion Gap 6 mmol/L BUN 22 H (9-20) mg/dL Creatinine 1.07 (0.66-1.25) mg/dL Est GFR (CKD-EPI)AfAm 78 (>60 ml/min/1.73 sqM) Est GFR (CKD-EPI)NonAf 68 (>60 ml/min/1.73 sqM) Glucose 117 H (74-99) mg/dL Plasma Lactic Acid Miguel (0.7-2.0) mmol/L Calcium 7.8 L (8.4-10.2) mg/dL Total Bilirubin 0.8 (0.2-1.3) mg/dL AST 24 (17-59) U/L ALT 26 (4-49) U/L Alkaline Phosphatase 111 (38-126) U/L C-Reactive Protein 16.7 H (<1.0) mg/dL Total Protein 5.5 L (6.3-8.2) g/dL Albumin 3.0 L (3.5-5.0) g/dL Urine Color Urine Appearance (Clear) Urine pH (5.0-8.0) Ur Specific [place] (1.001-1.035) Urine Protein (Negative) Urine Glucose (UA) (Negative) Urine Ketones (Negative) Urine Blood (Negative) Urine Nitrite (Negative) Urine Bilirubin (Negative) Urine Urobilinogen (<2.0) mg/dL Ur Leukocyte Esterase (Negative) Influenza Type A (PCR) (Not Detectd) Influenza Type B (PCR) (Not Detectd) RSV (PCR) (Not Detectd) SARS-CoV-2 (PCR) (Not Detectd) Blood Type O Positive Blood Type Confirm Blood Type Recheck No Previous Record Bld Type Recheck Status CABO Indicated Antibody Screen NEGATIVE Crossmatch See Detail Spec Expiration Date 06/30/2024 - 230106/27/24 06/27/24 06/27/24 Range/Units 20:10 20:10 20:21 WBC (3.8-10.6) k/uL RBC (4.30-5.90) m/uL Hgb (13.0-17.5) gm/dL Hct (39.0-53.0) % MCV (80.0-100.0) fL MCH (25.0-35.0) pg MCHC (31.0-37.0) g/dL RDW (11.5-15.5) % Plt Count (150-450) k/uL MPV Neutrophils # Differential Comment Manual Slide Review Anisocytosis Macrocytosis Ovalocytes PT 11.3 (10.0-12.5) sec INR 1.0 (<1.2) APTT 28.8 (22.0-30.0) sec D-Dimer 0.79 H (<0.60) mg/L FEU Sodium (137-145) mmol/L Potassium (3.5-5.1) mmol/L Chloride (98-107) mmol/L Carbon Dioxide (22-30) mmol/L Anion Gap mmol/L BUN (9-20) mg/dL Creatinine (0.66-1.25) mg/dL Est GFR (CKD-EPI)AfAm (>60 ml/min/1.73 sqM) Est GFR (CKD-EPI)NonAf (>60 ml/min/1.73 sqM) Glucose (74-99) mg/dL Plasma Lactic Acid Miguel 0.9 (0.7-2.0) mmol/L Calcium (8.4-10.2) mg/dL Total Bilirubin (0.2-1.3) mg/dL AST (17-59) U/L ALT (4-49) U/L Alkaline Phosphatase (38-126) U/L C-Reactive Protein (<1.0) mg/dL Total Protein (6.3-8.2) g/dL Albumin (3.5-5.0) g/dL Urine Color Urine Appearance (Clear) Urine pH (5.0-8.0) Ur Specific [place] (1.001-1.035) Urine Protein (Negative) Urine Glucose (UA) (Negative) Urine Ketones (Negative) Urine Blood (Negative) Urine Nitrite (Negative) Urine Bilirubin (Negative) Urine Urobilinogen (<2.0) mg/dL Ur Leukocyte Esterase (Negative) Influenza Type A (PCR) (Not Detectd) Influenza Type B (PCR) (Not Detectd) RSV (PCR) (Not Detectd) SARS-CoV-2 (PCR) (Not Detectd) Blood Type Blood Type Confirm O Positive Blood Type Recheck Bld Type Recheck Status Antibody Screen Crossmatch Spec Expiration Date 06/27/24 06/27/24 Range/Units 20:33 21:13 WBC (3.8-10.6) k/uL RBC (4.30-5.90) m/uL Hgb (13.0-17.5) gm/dL Hct (39.0-53.0) % MCV (80.0-100.0) fL MCH (25.0-35.0) pg MCHC (31.0-37.0) g/dL RDW (11.5-15.5) % Plt Count (150-450) k/uL MPV Neutrophils # Differential Comment Manual Slide Review Anisocytosis Macrocytosis Ovalocytes PT (10.0-12.5) sec INR (<1.2) APTT (22.0-30.0) sec D-Dimer (<0.60) mg/L FEU Sodium (137-145) mmol/L Potassium (3.5-5.1) mmol/L Chloride (98-107) mmol/L Carbon Dioxide (22-30) mmol/L Anion Gap mmol/L BUN (9-20) mg/dL Creatinine (0.66-1.25) mg/dL Est GFR (CKD-EPI)AfAm (>60 ml/min/1.73 sqM) Est GFR (CKD-EPI)NonAf (>60 ml/min/1.73 sqM) Glucose (74-99) mg/dL Plasma Lactic Acid Miguel (0.7-2.0) mmol/L Calcium (8.4-10.2) mg/dL Total Bilirubin (0.2-1.3) mg/dL AST (17-59) U/L ALT (4-49) U/L Alkaline Phosphatase (38-126) U/L C-Reactive Protein (<1.0) mg/dL Total Protein (6.3-8.2) g/dL Albumin (3.5-5.0) g/dL Urine Color Light Yellow Urine Appearance Clear (Clear) Urine pH 5.5 (5.0-8.0) Ur Specific [place] 1.018 (1.001-1.035) Urine Protein Trace H (Negative) Urine Glucose (UA) Negative (Negative) Urine Ketones Negative (Negative) Urine Blood Negative (Negative) Urine Nitrite Negative (Negative) Urine Bilirubin Negative (Negative) Urine Urobilinogen <2.0 (<2.0) mg/dL Ur Leukocyte Esterase Negative (Negative) Influenza Type A (PCR) Not Detected (Not Detectd) Influenza Type B (PCR) Not Detected (Not Detectd) RSV (PCR) Not Detected (Not Detectd) SARS-CoV-2 (PCR) Not Detected (Not Detectd) Blood Type Blood Type Confirm Blood Type Recheck Bld Type Recheck Status Antibody Screen Crossmatch Spec Expiration Date Disposition Clinical Impression: Febrile neutropenia, Mediastinal lymphadenopathy, Hilar lymphadenopathy, Pancreatic cyst Disposition: ADMITTED IP TO THIS [facility] Condition: Stable
[2024-06-27 20:24] LABS: Anisocytosis Slight; MCH 34.1 pg (25.0-35.0); MCHC 34.9 g/dL (31.0-37.0); MCV 97.7 fL (80.0-100.0); Macrocytosis Slight; Mean Platelet Volume 9.7; RBC 1.97 m/uL (4.30-5.90); RDW 16.5 % (11.5-15.5)
[2024-06-27 20:35] LABS: WBC 0.5 k/uL (3.8-10.6)
[2024-06-27 20:36] LABS: HCT 19.2 % (39.0-53.0); HGB 6.7 gm/dL (13.0-17.5)
[2024-06-27 20:39] LABS: Partial Thromboplastin Time 28.8 sec (22.0-30.0); Prothrombin Time 11.3 sec (10.0-12.5)
[2024-06-27 20:43] LABS: ALT 26 U/L (4-49); AST 24 U/L (17-59); African American GFR (CKD) 78 (>60 ml/min/1.73 sqM); Alkaline Phosphatase 111 U/L (38-126); Anion Gap 6 mmol/L; Blood Urea Nitrogen 22 mg/dL (9-20); Calcium 7.8 mg/dL (8.4-10.2); Carbon Dioxide 20 mmol/L (22-30); Chloride 106 mmol/L (98-107); Glucose 117 mg/dL (74-99); Non-African American GFR(CKD) 68 (>60 ml/min/1.73 sqM); Potassium 3.4 mmol/L (3.5-5.1); Sodium 132 mmol/L (137-145); Total Bilirubin 0.8 mg/dL (0.2-1.3); Total Protein 5.5 g/dL (6.3-8.2)
[2024-06-27 20:58] LABS: Ovalocytes Present; Platelet Count 5 k/uL (150-450)
[2024-06-27] MEDS: SODIUM CHLORIDE 0.9% 1,000 ML IV ONE (21:12)
[2024-06-27] MEDS: VANCOMYCIN 1,500 MG in SODIUM CHLORIDE 0.9% 500 ML 500 ML IVPB ONE (21:12)
[2024-06-27 21:18] LABS: C Reactive Protein 16.7 mg/dL (<1.0)
[2024-06-27 21:23] LABS: Appearance,Urine Clear (Clear); Bilirubin,Urine Negative (Negative); Blood,Urine Negative (Negative); Color,Urine Light Yellow; Glucose,Urine (UA) Negative (Negative); Ketones,Urine Negative (Negative); Leukocyte Esterase,Urine Negative (Negative); Nitrite,Urine Negative (Negative); PH, Urine 5.5 (5.0-8.0); Protein,Urine Trace (Negative); Specific Gravity,Urine 1.018 (1.001-1.035); Urobilinogen,Urine <2.0 mg/dL (<2.0)
[2024-06-27] MEDS ORDERED: NITROGLYCERIN SL TABS 0.4 MG TAB SUBLINGUAL PRN (21:50)
[2024-06-27] MEDS ORDERED: ONDANSETRON 4 MG TAB PO PRN (21:50)
[2024-06-27] MEDS ORDERED: ALPRAZolam 0.25 MG TAB PO PRN (21:52)
[2024-06-27] MEDS ORDERED: CALCIUM CARBONATE 500 MG CHEWABLE PO PRN (21:52)
[2024-06-27] MEDS ORDERED: HYDROmorphone 1 MG/ML 1 ML SYRINGE IVP PRN (21:52)
[2024-06-27] MEDS ORDERED: traMADol 50 MG TAB PO PRN (21:52)
[2024-06-27] MEDS ORDERED: NALOXONE 0.4 MG/ML 1 ML VIAL IV PRN (21:52)
[2024-06-27] MEDS ORDERED: MAG HYDROX/AL HYDROX/SIMETH 30 ML CUP PO PRN (21:52)
[2024-06-27] MEDS: POTASSIUM BICARBONATE/CIT AC 20 MEQ TABLET.EFF PO ONE (22:22)
[2024-06-27] MEDS: MAGNESIUM SULFATE-D5W PMX 1 GM in DEXTROSE/WATER 1 100ML.BAG IVPB ONE (22:23)
--- NOTE | 2024-06-27 22:44 | CT ---
EXAMINATION TYPE: CT chest angio for PE CT DLP: 311 mGycm, Automated exposure control for dose reduction was used. DATE OF EXAM: 06/27/2024 9:46 PM COMPARISON: Outside CT chest 01/01/2024. PET/CT 11/07/2022.. CLINICAL INDICATION:Male, 74 years old with history of shortness of breath, positive dimer, hx esopha geal CA; leukemia/fever TECHNIQUE/CONTRAST: CTA scan of the thorax is performed with IV Contrast, patient injected with 100ml mL of Isovue 370, M IP images are created and reviewed these are created on a separate workstation.. FINDINGS: Pulmonary Artery: There is no evidence for a filling defect within the pulmonary vasculature to sugge st acute pulmonary embolism. The main pulmonary artery measures at the upper limits of normal at 3.0 cm in transverse dimension Lungs/Pleura: Scattered areas of atelectasis/scarring in the right upper and right lower lobes. Calci fied granuloma is seen in the left upper lobe. No pleural effusions or pneumothorax.. Airway: Large airways are patent. Heart: Heart is within normal limits for size. Vasculature: No evidence of aortic aneurysm. Mediastinum: There is redemonstration of esophagectomy with gastric pull-up surgical changes. There i s a soft tissue mass/lymph node noted abutting the esophagus with calcifications. This overall seems similar in appearance when compared with the outside chest CT from 01/01/2024. Multiple enlarged lymph nodes are seen in the mediastinum and right hilum with the most conspicuous of these measuring 14 mm and 17 mm in short axis respectively. Granulomatous changes are seen within the left hilum. Musculoskeletal: No acute osseous abnormalities. Multilevel degenerative changes of the spine. Soft Tissues/lymph nodes: Unremarkable. Lower neck: No significant findings. Upper Abdomen: Granulomatous changes are noted within the spleen. There is a cystic focus seen at the body/tail junction measuring approximately 12 mm. Retrospectively this was visualized on the PET/CT in reference. This did not demonstrate significant FDG activity. IMPRESSION: 1. No evidence of pulmonary embolism. 2. Mediastinal and right hilar lymphadenopathy appears slightly more conspicuous when compared to the CT chest from 01/01/2024. Findings may be reactive or related to patient's known disease. Correlate w ith clinical evaluation. 3. 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 Correlate with any known disease otherwise further characterization with nonemergent MRCP/MRI pancreas with IV contrast is rec ommended. 4. Sequela of granulomatous disease in the thorax and visualized abdomen. 5. Postsurgical changes. [facility], , 06/27/2024 10:42 PM
[2024-06-27] MEDS: ACETAMINOPHEN TAB 325 MG TAB PO PRN (23:32)
[2024-06-28] MEDS: SODIUM CHLORIDE 0.9% 1,000 ML IV SCH (01:47)
[2024-06-28 06:47] LABS: Anisocytosis Slight; HCT 20.3 % (39.0-53.0); MCH 33.5 pg (25.0-35.0); MCV 98.7 fL (80.0-100.0); Macrocytosis Slight; Mean Platelet Volume 8.7; RBC 2.05 m/uL (4.30-5.90)
[2024-06-28] MEDS: VANCOMYCIN 1,500 MG in SODIUM CHLORIDE 0.9% 500 ML 500 ML IVPB SCH (06:48)
[2024-06-28 07:06] LABS: African American GFR (CKD) >90 (>60 ml/min/1.73 sqM); Anion Gap 8 mmol/L; Blood Urea Nitrogen 18 mg/dL (9-20); Calcium 7.9 mg/dL (8.4-10.2); Carbon Dioxide 22 mmol/L (22-30); Chloride 106 mmol/L (98-107); Glucose 116 mg/dL (74-99); Non-African American GFR(CKD) 78 (>60 ml/min/1.73 sqM); Potassium 3.5 mmol/L (3.5-5.1); Sodium 136 mmol/L (137-145)
[2024-06-28 07:07] LABS: HGB 6.9 gm/dL (13.0-17.5); Platelet Count 9 k/uL (150-450); WBC 0.3 k/uL (3.8-10.6)
[2024-06-28 07:47] LABS: Poikilocytosis (M) Present
[2024-06-28] MEDS: ATORVASTATIN 40 MG TAB PO SCH (09:23)
[2024-06-28] MEDS: PANTOPRAZOLE 40 MG TABLET PO SCH (09:23)
[2024-06-28] MEDS: MULTIVITAMINS, THERA 1 EACH TAB PO SCH (09:23)
[2024-06-28] MEDS: VIT A,C & E-LUTEIN-MINERALS 1 EACH TAB PO SCH (09:23)
[2024-06-28] MEDS: ACYCLOVIR 200 MG CAP PO SCH (09:23)
[2024-06-28] MEDS: POTASSIUM CHLORIDE ER 10 MEQ TAB.ER.PRT PO SCH (09:23)
[2024-06-28] MEDS: TAMSULOSIN 0.4 MG CAP.ER.24H PO SCH (09:23)
[2024-06-28] MEDS: carvediloL 3.125 MG TAB PO SCH (09:23)
[2024-06-28] MEDS: LORATADINE 10 MG TAB PO SCH (09:23)
[2024-06-28] MEDS: POSACONAZOLE 100 MG PO SCH (09:24)
[2024-06-28] MEDS: FLUTICASONE NASAL 50MCG/SPRAY 16GM BTL EA NOSTRIL SCH (11:59)
[2024-06-28 12:38] LABS: Anisocytosis Slight; HCT 21.6 % (39.0-53.0); HGB 7.7 gm/dL (13.0-17.5); MCH 33.4 pg (25.0-35.0); MCHC 35.6 g/dL (31.0-37.0); Mean Platelet Volume 7.9; RBC 2.29 m/uL (4.30-5.90); RDW 17.4 % (11.5-15.5)
[2024-06-28 12:44] LABS: Platelet Count 7 k/uL (150-450); WBC 0.3 k/uL (3.8-10.6)
[2024-06-28 12:47] LABS: ALT 25 U/L (4-49); AST 22 U/L (17-59); African American GFR (CKD) >90 (>60 ml/min/1.73 sqM); Albumin 2.7 g/dL (3.5-5.0); Alkaline Phosphatase 98 U/L (38-126); Anion Gap 7 mmol/L; Blood Urea Nitrogen 16 mg/dL (9-20); Calcium 7.6 mg/dL (8.4-10.2); Carbon Dioxide 22 mmol/L (22-30); Chloride 107 mmol/L (98-107); Glucose 113 mg/dL (74-99); Non-African American GFR(CKD) 89 (>60 ml/min/1.73 sqM); Potassium 3.6 mmol/L (3.5-5.1); Sodium 136 mmol/L (137-145); Total Bilirubin 1.1 mg/dL (0.2-1.3)
[2024-06-28 13:01] LABS: Anisocytosis (M) Present
--- NOTE | 2024-06-28 13:30 | P.HPIM ---
History of Present Illness H&P Date: 06/28/24 This is a 74-year-old male history of AML currently undergoing chemotherapy with his last transfusion 1 week ago. Patient was sent from [facility] secondary to pancytopenia and neutropenic fever. Patient reported there secondary to abnormal outpatient labs. Patient was initially going to get a blood transfusion however he did develop a fever of 103.1 and for that reason he was sent down to the hospital for further evaluation. Patient does report feeling some fatigue and exertional shortness of breath but otherwise no other acute complaints. He denies any nausea vomiting or diarrhea has not been having any black or bloody stools. Patient reports no cough shortness of breath. He does state that last night he did feel the fever and chills. Was recently on Plavix but was taken off of it 3 weeks ago. Blood work reveals a white blood cell count of 0.5, RBC 1.97, hemoglobin 6.7, platelet count of 5. Sodium level of 132, potassium 3.4, BUN of 22, creatinine 1.07. D-dimer was elevated at 0.79. Urinalysis is not suggestive of any infection. Viral panel was negative for influenza RSV and COVID. Septic workup started. He was given a 1 L fluid bolus. Chest CT angiography completed which reveals no evidence of pulmonary embolism. There is mediastinal and the right hilar lymphadenopathy appears slightly more conspicuous when compared to the CT chest from January 31, 2024. Cystic focus in the pancreas which may represent a sidebranch IPMN correlate with any known disease and further characterize with nonemergent MRCP/MRI pancreas with IV contrast is recommended. Sequela of granulomatous disease in the thorax and visualized abdomen. Postsurgical changes. There is no suspicious consolidation. patient had blood cultures taken and was started on empiric antibiotic coverage with IV cefepime IV vancomycin. He has been resumed on his oral acyclovir which is a home medication. He is admitted to the hospital under general medicine with a consult placed to oncology and infectious disease. Initially was admitted to the cardiac stepdown unit however he did rec eive blood products hemoglobin is now 7.7 no evidence for any active bleeding and patient can be downgraded to the oncology unit. REVIEW OF SYSTEMS: CONSTITUTIONAL: Reports fever, no malaise, no fatigue. HEENT: No recent visual problems or hearing problems. Denied any sore throat. CARDIOVASCULAR: No chest pain, orthopnea, PND, no palpitations, no syncope. PULMONARY: No shortness of breath, no cough, no hemoptysis. GASTROINTESTINAL: No diarrhea, no nausea, no vomiting, no abdominal pain. NEUROLOGICAL: No headaches, no weakness, no numbness. HEMATOLOGICAL: Denies any bleeding or petechiae. GENITOURINARY: Denies any burning micturition, frequency, or urgency. MUSCULOSKELETAL/RHEUMATOLOGICAL: Denies any joint pain, swelling, or any muscle pain. ENDOCRINE: Denies any polyuria or polydipsia. The rest of the 14-point review of systems is negative. PHYSICAL EXAMINATION: GENERAL: The patient is alert and oriented x3, not in any acute distress. Well developed, well nourished. HEENT: Pupils are round and equally reacting to light. EOMI. No scleral icterus. No conjunctival pallor. Normocephalic, atraumatic. No pharyngeal erythema. No thyromegaly. CARDIOVASCULAR: S1 and S2 present. No murmurs, rubs, or gallops. PULMONARY: Chest is clear to auscultation, no wheezing or crackles. ABDOMEN: Soft, nontender, nondistended, normoactive bowel sounds. No palpable organomegaly. MUSCULOSKELETAL: No joint swelling or deformity. EXTREMITIES: No cyanosis, clubbing, or pedal edema. NEUROLOGICAL: Gross neurological examination did not reveal any focal deficits. SKIN: No rashes. Assessment and plan Fever likely from severe neutropenia however need to rule out underlying infect ion/sepsis. Neutropenia secondary to chemotherapy History of AML currently undergoing chemotherapy History of coronary artery disease with prior PCI History of esophageal cancer Hypovolemic hyponatremia improving with IV fluids Hypokalemia GI prophylaxis Full Code Plan Resume appropriate home medications Continue normal saline Status post 2 units of PRBC and 1 unit of platelets Monitor Blood cell counts, Oncology and ID consultation Continue empiric antibiotics Check a procalcitonin level Down graded to the 5North The impression and plan of care has been dictated by Monica Kearney Nurse Practitioner as directed. Dr. Brad MD I have performed a history and physical examination and medical decision making of this patient, discussed the same with the dictator, and agree with the dictators assessment and plan as written, documented as a scribe. Based on total visit time, I have performed more than 50% of this visit. Past Medical History Past Medical History: Cancer, Prostate Disorder Additional Past Medical History / Comment(s): esophageal cancer, leukemia History of Any Multi-Drug Resistant Organisms: None Reported Past Surgical History: Heart Catheterization With Stent, Hernia Repair Additional Past Surgical History / Comment(s): gastric pull-through surgery Smoking Status: Never smoker Past Alcohol Use History: None Reported Past Drug Use History: None Reported Medications and Allergies Home Medications Medication Instructions Recorded Confirmed Type Acyclovir [Zovirax] 400 mg PO BID 01/01/24 06/27/24 History Fluticasone Nasal Rachel [Flonase 2 spr EA NOSTRIL DAILY 01/01/24 06/27/24 History Nasal Rachel] Loratadine [Claritin] 10 mg PO DAILY 01/01/24 06/27/24 History Multivitamins, Thera [Multivitamin 1 tab PO DAILY 01/01/24 06/27/24 History (formulary)] Ondansetron [Zofran] 4 mg PO Q4H PRN 01/01/24 06/27/24 History Pantoprazole [Protonix] 40 mg PO BID 01/01/24 06/27/24 History Posaconazole 300 mg PO DAILY 01/01/24 06/27/24 History Tamsulosin [Flomax] 0.4 mg PO DAILY 01/01/24 06/27/24 History Nitroglycerin Sl Tabs [Nitrostat] 0.4 mg SUBLINGUAL Q5M PRN #30 tab 01/05/24 06/27/24 Rx Atorvastatin [Lipitor] 40 mg PO DAILY 06/27/24 06/27/24 History Potassium Chloride ER [K-Dur 10] 10 meq PO DAILY 06/27/24 06/27/24 History Vit C/E/Zn/Coppr/Lutein/Zeaxan 1 cap PO DAILY 06/27/24 06/27/24 History [Preservision Areds 2 Softgel] carvediloL [Coreg] 3.125 mg PO DAILY 06/27/24 06/27/24 History Allergies Allergy/AdvReac Type Severity Reaction Status Date / Time No Known Allergies Allergy Verified 06/27/24 20:49 Physical Exam Vitals: Vital Signs Temp Pulse Resp BP Pulse Ox 06/28/24 11:30 99.4 F 61 16 120/69 97 06/28/24 10:30 99.6 F 70 18 110/69 98 06/28/24 09:58 99.9 F H 72 18 118/64 98 06/28/24 08:58 71 18 115/65 98 06/28/24 08:14 68 18 128/68 97 06/28/24 07:58 66 18 124/71 98 06/28/24 07:27 66 18 114/71 99 06/28/24 07:07 98.0 F 67 16 108/61 06/28/24 06:57 99.0 F 68 16 111/69 100 06/28/24 05:15 98.6 F 68 14 98/62 06/28/24 04:22 98.5 F 64 16 85/68 06/28/24 04:13 98.5 F 68 16 114/56 06/28/24 03:15 98 F 67 14 116/67 06/28/24 02:35 98.8 F 67 15 109/61 96 06/28/24 01:20 101.3 F H 77 18 106/51 96 06/27/24 23:55 103.1 F H 82 18 145/75 06/27/24 23:35 102.6 F H 82 18 142/75 06/27/24 23:25 102.9 F H 87 22 145/75 06/27/24 23:20 102.9 F H 06/27/24 22:55 80 16 125/70 98 06/27/24 19:56 99.2 F 68 16 102/55 98 Intake and Output 06/27/24 06/28/24 06/28/24 22:59 06:59 14:59 Intake Total 651 275 Balance 651 275 Intake: Blood Product 651 275 Platelet Pheresis Pas 341 Psoralen Unit [id number] Rc As-1 Unit 310 [id number] Rc Pheresis 2 As3 Unit 0 275 [id number] Other: # Voids 4 Weight 86.183 kg Results CBC & Chem 7: 06/28/24 12:24 06/28/24 12:24 Labs: Abnormal Lab Results - Last 24 Hours (Table) 06/27/24 06/27/24 06/27/24 Range/Units 20:02 20:10 20:10 WBC 0.5 L* (3.8-10.6) k/uL RBC 1.97 L (4.30-5.90) m/uL Hgb 6.7 L* (13.0-17.5) gm/dL Hct 19.2 L* (39.0-53.0) % RDW 16.5 H (11.5-15.5) % Plt Count 5 L* (150-450) k/uL D-Dimer (<0.60) mg/L FEU Sodium 132 L (137-145) mmol/L Potassium 3.4 L (3.5-5.1) mmol/L Carbon Dioxide 20 L (22-30) mmol/L BUN 22 H (9-20) mg/dL Glucose 117 H (74-99) mg/dL Calcium 7.8 L (8.4-10.2) mg/dL C-Reactive Protein 16.7 H (<1.0) mg/dL Total Protein 5.5 L (6.3-8.2) g/dL Albumin 3.0 L (3.5-5.0) g/dL Urine Protein (Negative) Crossmatch See Detail 06/27/24 06/27/24 06/28/24 Range/Units 20:10 21:13 05:34 WBC (3.8-10.6) k/uL RBC (4.30-5.90) m/uL Hgb (13.0-17.5) gm/dL Hct (39.0-53.0) % RDW (11.5-15.5) % Plt Count (150-450) k/uL D-Dimer 0.79 H (<0.60) mg/L FEU Sodium 136 L (137-145) mmol/L Potassium (3.5-5.1) mmol/L Carbon Dioxide (22-30) mmol/L BUN (9-20) mg/dL Glucose 116 H (74-99) mg/dL Calcium 7.9 L (8.4-10.2) mg/dL C-Reactive Protein (<1.0) mg/dL Total Protein (6.3-8.2) g/dL Albumin (3.5-5.0) g/dL Urine Protein Trace H (Negative) Crossmatch 06/28/24 Range/Units 05:34 WBC 0.3 L* (3.8-10.6) k/uL RBC 2.05 L (4.30-5.90) m/uL Hgb 6.9 L* (13.0-17.5) gm/dL Hct 20.3 L (39.0-53.0) % RDW 17.0 H (11.5-15.5) % Plt Count 9 L* D (150-450) k/uL D-Dimer (<0.60) mg/L FEU Sodium (137-145) mmol/L Potassium (3.5-5.1) mmol/L Carbon Dioxide (22-30) mmol/L BUN (9-20) mg/dL Glucose (74-99) mg/dL Calcium (8.4-10.2) mg/dL C-Reactive Protein (<1.0) mg/dL Total Protein (6.3-8.2) g/dL Albumin (3.5-5.0) g/dL Urine Protein (Negative) Crossmatch Assessment and Plan Time with Patient: Greater than 30
[2024-06-28] MEDS: CEFEPIME 2 GM in SODIUM CHLORIDE 0.9% 100 ML IVPB SCH (15:09)
--- NOTE | 2024-06-28 18:35 | P.CONS ---
History of Present Illness - Reason for Consult Consult date: 06/28/24 febrile neutropenia Requesting physician: Tara Estrada - Chief Complaint fever - History of Present Illness Patient is a 74 year old male with a history of esophageal cancer and MDS. He follows with Dr. Deepak Simon. Patient presented with RUQ pain while visiting son in [place], he had EGD on 12/12/18 revealing distal Esophageal partially obstructing mass at 36-37 cm frim incisors, lesion ended above GE junction. Biopsy revealed Invasive Adenocarcinoma , poorly dfferentiated, with signet ring features. The patient was seen at Thoracic surgery at [facility] (Dr Sweeney), PET scan done on 12/29/18 revealed marked uptake of 10.1 in distal Esophagus, a lelt tracheal LN (1cm) with SUV of 3.1 was also noted. He had EUS at [facility] which revealed T3N2 disease. Case was discussed at Multidisciplinary Thoracic tumor board, Neoadjuvant Chemoradiation advised. Had Esophagectomy 05/07/19: No residual Ca, [address] + (1-4). Earlier this year, patient was diagnosed with high grade MDS (RAEB-2) after he was found to have pancytopenia following right thigh cellulitis. CBC revealed pancytopenia > he was evaluated at [facility], had Bone marrow study on 08/14/23 revealing Myeloid neoplasm with 15% blasts. Met with Dr. Kaufman at [facility] who recommended Vidaza and venclexta. Patient has continued on the same, completeing last cycle on 06/07/24. Currently on his two weeks off of venclexta. Patient has been tolerating treatment well. Bone marrow biopsy obtained in 03/2024 showing complete response. Patient presented to the emergency room for fever. Tmax upon admission is 103.1. Patient reports he began to have a fever at home yesterday. He does report he began having a cough a couple weeks ago but cough has since improved. Denies nausea vomiting, skin changes, and urinary symptoms. Denies episodes of acute bleeding. His daily aspirin was held a couple weeks ago in clinic due to thrombocytopenia. Patient has been started on vancomycin and cefepime. Viral panel and urinalysis negative. Blood cultures pending. Upon admit WBC 0.5, hemoglobin 6.7, platelets 5000. Patient has received 2 units PRBCs, and 1 dose of platelets, repeat CBC showing hemoglobin 7.7, platelets 7000. D-dimer elevated at 0.79, CTA chest was subsequently obtained which was negative for pulmonary embolism. Mediastinal and right hilar lymphadenopathy appears slightly more conspicuous compared to prior CT chest in 01/01/2024. 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 Sequela of granulomatous disease in the thorax and visualized abdomen. Review of Systems 10 point ROS is negative except as stated in the HPI Past Medical History Past Medical History: Cancer, Prostate Disorder Additional Past Medical History / Comment(s): esophageal cancer, leukemia History of Any Multi-Drug Resistant Organisms: None Reported Past Surgical History: Heart Catheterization With Stent, Hernia Repair Additional Past Surgical History / Comment(s): gastric pull-through surgery Smoking Status: Never smoker Past Alcohol Use History: None Reported Past Drug Use History: None Reported Medications and Allergies Home Medications Medication Instructions Recorded Confirmed Type Acyclovir [Zovirax] 400 mg PO BID 01/01/24 06/27/24 History Fluticasone Nasal Wilson [Flonase 2 spr EA NOSTRIL DAILY 01/01/24 06/27/24 History Nasal Wilson] Loratadine [Claritin] 10 mg PO DAILY 01/01/24 06/27/24 History Multivitamins, Thera [Multivitamin 1 tab PO DAILY 01/01/24 06/27/24 History (formulary)] Ondansetron [Zofran] 4 mg PO Q4H PRN 01/01/24 06/27/24 History Pantoprazole [Protonix] 40 mg PO BID 01/01/24 06/27/24 History Posaconazole 300 mg PO DAILY 01/01/24 06/27/24 History Tamsulosin [Flomax] 0.4 mg PO DAILY 01/01/24 06/27/24 History Nitroglycerin Sl Tabs [Nitrostat] 0.4 mg SUBLINGUAL Q5M PRN #30 tab 01/05/24 06/27/24 Rx Atorvastatin [Lipitor] 40 mg PO DAILY 06/27/24 06/27/24 History Potassium Chloride ER [K-Dur 10] 10 meq PO DAILY 06/27/24 06/27/24 History Vit C/E/Zn/Coppr/Lutein/Zeaxan 1 cap PO DAILY 06/27/24 06/27/24 History [Preservision Areds 2 Softgel] carvediloL [Coreg] 3.125 mg PO DAILY 06/27/24 06/27/24 History Allergies Allergy/AdvReac Type Severity Reaction Status Date / Time No Known Allergies Allergy Verified 06/27/24 20:49 Physical Exam Vitals: Vital Signs Temp Pulse Resp BP Pulse Ox 06/28/24 11:30 99.4 F 61 16 120/69 97 06/28/24 10:30 99.6 F 70 18 110/69 98 06/28/24 09:58 99.9 F H 72 18 118/64 98 06/28/24 08:58 71 18 115/65 98 06/28/24 08:14 68 18 128/68 97 06/28/24 07:58 66 18 124/71 98 06/28/24 07:27 66 18 114/71 99 06/28/24 07:07 98.0 F 67 16 108/61 06/28/24 06:57 99.0 F 68 16 111/69 100 06/28/24 05:15 98.6 F 68 14 98/62 06/28/24 04:22 98.5 F 64 16 85/68 06/28/24 04:13 98.5 F 68 16 114/56 06/28/24 03:15 98 F 67 14 116/67 06/28/24 02:35 98.8 F 67 15 109/61 96 06/28/24 01:20 101.3 F H 77 18 106/51 96 06/27/24 23:55 103.1 F H 82 18 145/75 06/27/24 23:35 102.6 F H 82 18 142/75 06/27/24 23:25 102.9 F H 87 22 145/75 06/27/24 23:20 102.9 F H 06/27/24 22:55 80 16 125/70 98 06/27/24 19:56 99.2 F 68 16 102/55 98 Intake and Output 06/27/24 06/28/24 06/28/24 22:59 06:59 14:59 Intake Total 651 275 Balance 651 275 Intake: Blood Product 651 275 Platelet Pheresis Pas 341 Psoralen Unit [id number] Rc As-1 Unit 310 [id number] Rc Pheresis 2 As3 Unit 0 275 [id number] Other: # Voids 4 Weight 86.183 kg - Constitutional General appearance: average body habitus, no acute distress - EENT Eyes: anicteric sclerae, EOMI ENT: hearing grossly normal - Respiratory Respiratory: bilateral: CTA - Cardiovascular Rhythm: regular - Gastrointestinal General gastrointestinal: soft, no tenderness - Integumentary Integumentary: no cyanotic, no jaundiced, pale - Neurologic Neurologic: CNII-XII intact - Psychiatric Psychiatric: A&O x's 3 Results CBC & Chem 7: 06/28/24 12:24 06/28/24 12: Labs: Abnormal Lab Results - Last 24 Hours (Table) 06/27/24 06/27/24 06/27/24 Range/Units 20:02 20:10 20:10 WBC 0.5 L* (3.8-10.6) k/uL RBC 1.97 L (4.30-5.90) m/uL Hgb 6.7 L* (13.0-17.5) gm/dL Hct 19.2 L* (39.0-53.0) % RDW 16.5 H (11.5-15.5) % Plt Count 5 L* (150-450) k/uL D-Dimer (<0.60) mg/L FEU Sodium 132 L (137-145) mmol/L Potassium 3.4 L (3.5-5.1) mmol/L Carbon Dioxide 20 L (22-30) mmol/L BUN 22 H (9-20) mg/dL Glucose 117 H (74-99) mg/dL Calcium 7.8 L (8.4-10.2) mg/dL C-Reactive Protein 16.7 H (<1.0) mg/dL Total Protein 5.5 L (6.3-8.2) g/dL Albumin 3.0 L (3.5-5.0) g/dL Urine Protein (Negative) Crossmatch See Detail 06/27/24 06/27/24 06/28/24 Range/Units 20:10 21:13 05:34 WBC (3.8-10.6) k/uL RBC (4.30-5.90) m/uL Hgb (13.0-17.5) gm/dL Hct (39.0-53.0) % RDW (11.5-15.5) % Plt Count (150-450) k/uL D-Dimer 0.79 H (<0.60) mg/L FEU Sodium 136 L (137-145) mmol/L Potassium (3.5-5.1) mmol/L Carbon Dioxide (22-30) mmol/L BUN (9-20) mg/dL Glucose 116 H (74-99) mg/dL Calcium 7.9 L (8.4-10.2) mg/dL C-Reactive Protein (<1.0) mg/dL Total Protein (6.3-8.2) g/dL Albumin (3.5-5.0) g/dL Urine Protein Trace H (Negative) Crossmatch 06/28/24 Range/Units 05:34 WBC 0.3 L* (3.8-10.6) k/uL RBC 2.05 L (4.30-5.90) m/uL Hgb 6.9 L* (13.0-17.5) gm/dL Hct 20.3 L (39.0-53.0) % RDW 17.0 H (11.5-15.5) % Plt Count 9 L* D (150-450) k/uL D-Dimer (<0.60) mg/L FEU Sodium (137-145) mmol/L Potassium (3.5-5.1) mmol/L Carbon Dioxide (22-30) mmol/L BUN (9-20) mg/dL Glucose (74-99) mg/dL Calcium (8.4-10.2) mg/dL C-Reactive Protein (<1.0) mg/dL Total Protein (6.3-8.2) g/dL Albumin (3.5-5.0) g/dL Urine Protein (Negative) Crossmatch CT scan - chest: report reviewed Assessment and Plan (1) MDS (myelodysplastic syndrome), high grade Current Visit: Yes Status: Acute Priority: High Code(s): D46.Z - OTHER MYELODYSPLASTIC SYNDROMES SNOMED Code(s): 288197100 (2) Pancytopenia Current Visit: Yes Status: Acute Priority: High Code(s): D61.818 - OTHER PANCYTOPENIA SNOMED Code(s): 384852391 (3) Febrile neutropenia Current Visit: Yes Status: Acute Priority: High Code(s): D70.9 - NEUTROPENIA, UNSPECIFIED; R50.81 - FEVER PRESENTING WITH CONDITIONS CLASSIFIED ELSEWHERE SNOMED Code(s): 060131799 Plan: Febrile neutropenia: Patient presented to the emergency room for fever. Tmax upon admission is 103.1. He does report he began having a cough a couple weeks ago but cough has since improved. Denies nausea vomiting, skin changes, and urinary symptoms. -Patient has been started on vancomycin and cefepime. Viral panel and urinalysis negative. Blood cultures pending. CTA chest showing no evidence of pneumonia -WBC 0.5. No G-CSF at this time. If fever persists or blood culture positive will start G-CSF MDS, pancytopenia: -Oncology history as dictated in the HPI -Currently on treatment with Vidaza and venclexta, completing last cycle on 06/07/24. Currently on his two weeks off of venclexta. -Bone marrow biopsy obtained in 03/2024 showing complete response -Pancytopenia secondary to MDS, superimposed by chemo effects -S/p 2 units PRBCs, and 1 dose of platelets, repeat CBC showing hemoglobin 7.7, platelets 7000. Additional dose of plts ordered. Denies episodes of acute bleeding. -CBC daily. Transfuse with irradiated blood products for hgb <7 and for plts < 10,000 or if symptomatic Doctor attests: I performed a history and physical examination of this patient, developed impression and plan of care. Discussed with dictator. I agree with dictators note, documented as a scribe.
--- NOTE | 2024-06-28 22:51 | P.CONS ---
History of Present Illness - Reason for Consult Consult date: 06/28/24 Fever Requesting physician: Monica Kearney - Chief Complaint Fever abnormal labs x 1 day - History of Present Illness Patient is a 74-year-old male with a past medical history significant for esophageal cancer AML currently undergoing chemotherapy patient initially evaluated in the hospital after the patient was noticed to have low blood count on an outpatient lab testing he was found to have a fever the and the patient subsequently has been transferred to [facility] for further evaluation patient complaining of feeling weak and no energy also complaining of some shortness of breath on exertion but denies having any chest pain no cough no URI symptoms no nausea no vomiting no abdominal pain or any diarrhea on presentation to the hospital patient did have a fever of 102.9 F patient was not tachycardic hypotensive or hypoxic and no need for supplemental oxygen he did have a white count of 0.5 related count was 5 D-dimer 0.79 creatinine is normal liver enzymes are normal elevated CRP UA has been negative influenza RSV COVID testing negat mojgan patient did have a CT angiogram of the chest no evidence of PE midsternal and right hilar lymphadenopathy appears slightly more conspicuous patient has been started on vancomycin and cefepime infectious disease was consulted for further management of antibiotic therapy Review of Systems Positive point and negatives has been mentioned in the HPI, complete review of systems was performed and all other systems are negative Past Medical History Past Medical History: Cancer, Prostate Disorder Additional Past Medical History / Comment(s): esophageal cancer, leukemia History of Any Multi-Drug Resistant Organisms: None Reported Past Surgical History: Heart Catheterization With Stent, Hernia Repair Additional Past Surgical History / Comment(s): gastric pull-through surgery Smoking Status: Never smoker Past Alcohol Use History: None Reported Past Drug Use History: None Reported Medications and Allergies Home Medications Medication Instructions Recorded Confirmed Type Acyclovir [Zovirax] 400 mg PO BID 01/01/24 06/27/24 History Fluticasone Nasal Vincent [Flonase 2 spr EA NOSTRIL DAILY 01/01/24 06/27/24 History Nasal Vincent] Loratadine [Claritin] 10 mg PO DAILY 01/01/24 06/27/24 History Multivitamins, Thera [Multivitamin 1 tab PO DAILY 01/01/24 06/27/24 History (formulary)] Ondansetron [Zofran] 4 mg PO Q4H PRN 01/01/24 06/27/24 History Pantoprazole [Protonix] 40 mg PO BID 01/01/24 06/27/24 History Posaconazole 300 mg PO DAILY 01/01/24 06/27/24 History Tamsulosin [Flomax] 0.4 mg PO DAILY 01/01/24 06/27/24 History Nitroglycerin Sl Tabs [Nitrostat] 0.4 mg SUBLINGUAL Q5M PRN #30 tab 01/05/24 06/27/24 Rx Atorvastatin [Lipitor] 40 mg PO DAILY 06/27/24 06/27/24 History Potassium Chloride ER [K-Dur 10] 10 meq PO DAILY 06/27/24 06/27/24 History Vit C/E/Zn/Coppr/Lutein/Zeaxan 1 cap PO DAILY 06/27/24 06/27/24 History [Preservision Areds 2 Softgel] carvediloL [Coreg] 3.125 mg PO DAILY 06/27/24 06/27/24 History Allergies Allergy/AdvReac Type Severity Reaction Status Date / Time No Known Allergies Allergy Verified 06/27/24 20:49 Physical Exam Vitals: Vital Signs Temp Pulse Resp BP Pulse Ox 06/28/24 11:30 99.4 F 61 16 120/69 97 06/28/24 10:30 99.6 F 70 18 110/69 98 06/28/24 09:58 99.9 F H 72 18 118/64 98 06/28/24 08:58 71 18 115/65 98 06/28/24 08:14 68 18 128/68 97 06/28/24 07:58 66 18 124/71 98 06/28/24 07:27 66 18 114/71 99 06/28/24 07:07 98.0 F 67 16 108/61 06/28/24 06:57 99.0 F 68 16 111/69 100 06/28/24 05:15 98.6 F 68 14 98/62 06/28/24 04:22 98.5 F 64 16 85/68 06/28/24 04:13 98.5 F 68 16 114/56 06/28/24 03:15 98 F 67 14 116/67 06/28/24 02:35 98.8 F 67 15 109/61 96 06/28/24 01:20 101.3 F H 77 18 106/51 96 06/27/24 23:55 103.1 F H 82 18 145/75 06/27/24 23:35 102.6 F H 82 18 142/75 06/27/24 23:25 102.9 F H 87 22 145/75 06/27/24 23:20 102.9 F H 06/27/24 22:55 80 16 125/70 98 06/27/24 19:56 99.2 F 68 16 102/55 98 Intake and Output 06/27/24 06/28/24 06/28/24 22:59 06:59 14:59 Intake Total 651 275 Balance 651 275 Intake: Blood Product 651 275 Platelet Pheresis Pas 341 Psoralen Unit [id number] Rc As-1 Unit 310 [id number] Rc Pheresis 2 As3 Unit 0 275 [id number] Other: # Voids 4 Weight 86.183 kg GENERAL DESCRIPTION: Elderly male lying in bed, no distress. No tachypnea or accessory muscle of respiration use. HEENT: Shows Pallor , no scleral icterus. Oral mucous membrane is dry. No pharyngeal erythema or thrush NECK: Trachea central, no thyromegaly. LUNGS: Unlabored breathing. Clear to auscultation anteriorly. No wheeze or crackle. HEART: S1, S2, regular rate and rhythm. No loud murmur ABDOMEN: Soft, no tenderness , guarding or rigidity, EXTREMITIES: No edema of feet. SKIN: No rash, no masses palpable. NEUROLOGICAL: The patient is awake, alert, oriented x3, mood and affect normal. Results CBC & Chem 7: 06/29/24 05:49 06/29/24 05:49 Labs: Abnormal Lab Results - Last 24 Hours (Table) 06/27/24 06/27/24 06/27/24 Range/Units 20:02 20:10 20:10 WBC 0.5 L* (3.8-10.6) k/uL RBC 1.97 L (4.30-5.90) m/uL Hgb 6.7 L* (13.0-17.5) gm/dL Hct 19.2 L* (39.0-53.0) % RDW 16.5 H (11.5-15.5) % Plt Count 5 L* (150-450) k/uL D-Dimer (<0.60) mg/L FEU Sodium 132 L (137-145) mmol/L Potassium 3.4 L (3.5-5.1) mmol/L Carbon Dioxide 20 L (22-30) mmol/L BUN 22 H (9-20) mg/dL Glucose 117 H (74-99) mg/dL Calcium 7.8 L (8.4-10.2) mg/dL C-Reactive Protein 16.7 H (<1.0) mg/dL Total Protein 5.5 L (6.3-8.2) g/dL Albumin 3.0 L (3.5-5.0) g/dL Urine Protein (Negative) Crossmatch See Detail 06/27/24 06/27/24 06/28/24 Range/Units 20:10 21:13 05:34 WBC (3.8-10.6) k/uL RBC (4.30-5.90) m/uL Hgb (13.0-17.5) gm/dL Hct (39.0-53.0) % RDW (11.5-15.5) % Plt Count (150-450) k/uL D-Dimer 0.79 H (<0.60) mg/L FEU Sodium 136 L (137-145) mmol/L Potassium (3.5-5.1) mmol/L Carbon Dioxide (22-30) mmol/L BUN (9-20) mg/dL Glucose 116 H (74-99) mg/dL Calcium 7.9 L (8.4-10.2) mg/dL C-Reactive Protein (<1.0) mg/dL Total Protein (6.3-8.2) g/dL Albumin (3.5-5.0) g/dL Urine Protein Trace H (Negative) Crossmatch 06/28/24 06/28/24 06/28/24 Range/Units 05:34 12:24 12:24 WBC 0.3 L* 0.3 L* (3.8-10.6) k/uL RBC 2.05 L 2.29 L (4.30-5.90) m/uL Hgb 6.9 L* 7.7 L (13.0-17.5) gm/dL Hct 20.3 L 21.6 L (39.0-53.0) % RDW 17.0 H 17.4 H (11.5-15.5) % Plt Count 9 L* D 7 L* (150-450) k/uL D-Dimer (<0.60) mg/L FEU Sodium 136 L (137-145) mmol/L Potassium (3.5-5.1) mmol/L Carbon Dioxide (22-30) mmol/L BUN (9-20) mg/dL Glucose 113 H (74-99) mg/dL Calcium 7.6 L (8.4-10.2) mg/dL C-Reactive Protein (<1.0) mg/dL Total Protein 5.0 L (6.3-8.2) g/dL Albumin 2.7 L (3.5-5.0) g/dL Urine Protein (Negative) Crossmatch Assessment and Plan (1) Febrile neutropenia Current Visit: Yes Status: Acute Priority: High Code(s): D70.9 - NEUTROPENIA, UNSPECIFIED; R50.81 - FEVER PRESENTING WITH CONDITIONS CLASSIFIED ELSEWHERE SNOMED Code(s): 422067762 Plan: 1patient presented to hospital with abnormal labs this patient who did have low white count as well as platelet count patient with a history of AML currently on chemotherapy through peripheral IV patient do not have any ports or central lines and did have a high-grade fever, initial workup for infectious etiology has been negative patient did have a CT abdominal chest did not show any consolidation urine has been negative abdominal soft clinical examination. 2patient will be empirically treated with vancomycin pharmacy to dose while watching his kidney function and cefepime pending culture finalization and improvement white count. Question concern answered. We will follow on clinical condition and cultures to further adjust medication if needed Thank you for this consultation we will follow the patient along with you Dictation was produced using [employer] dictation software. please excuse any grammatical, word or spelling errors. Time with Patient: Greater than 30
[2024-06-29] MEDS: VANCOMYCIN 1,500 MG in SODIUM CHLORIDE 0.9% 500 ML 500 ML IVPB SCH (06:47)
[2024-06-29 07:54] LABS: Anisocytosis Slight; HCT 21.1 % (39.0-53.0); HGB 7.1 gm/dL (13.0-17.5); MCH 32.5 pg (25.0-35.0); MCHC 33.8 g/dL (31.0-37.0); MCV 96.1 fL (80.0-100.0); Macrocytosis Slight; Mean Platelet Volume 9.4; RBC 2.19 m/uL (4.30-5.90); RDW 18.2 % (11.5-15.5)
[2024-06-29 08:00] LABS: WBC 0.4 k/uL (3.8-10.6)
[2024-06-29 08:01] LABS: Platelet Count 12 k/uL (150-450)
[2024-06-29 08:13] LABS: ALT 30 U/L (4-49); AST 23 U/L (17-59); African American GFR (CKD) >90 (>60 ml/min/1.73 sqM); Albumin 2.5 g/dL (3.5-5.0); Alkaline Phosphatase 106 U/L (38-126); Anion Gap 6 mmol/L; Blood Urea Nitrogen 16 mg/dL (9-20); Calcium 7.8 mg/dL (8.4-10.2); Carbon Dioxide 23 mmol/L (22-30); Chloride 108 mmol/L (98-107); Glucose 107 mg/dL (74-99); Non-African American GFR(CKD) 83 (>60 ml/min/1.73 sqM); Potassium 3.3 mmol/L (3.5-5.1); Sodium 137 mmol/L (137-145); Total Bilirubin 0.8 mg/dL (0.2-1.3); Total Protein 4.8 g/dL (6.3-8.2)
[2024-06-29 08:46] LABS: Poikilocytosis (M) Present
--- NOTE | 2024-06-29 12:11 | P.PN ---
Subjective Progress Note Date: 06/29/24 Principal diagnosis: Reason for follow-up is febrile neutropenia Patient is a 74-year-old male with a past medical history significant for esophageal cancer AML currently undergoing chemotherapy patient initially evaluated in the hospital after the patient was noticed to have low blood count on an outpatient lab testing he was found to have a fever the and the patient subsequently has been transferred to [facility]. On today's evaluation that is 06/29/2024,the patient fever pattern has improved last temperature of 99.9 at 3 AM afebrile since then patient is currently breathing comfortably on room air no chest pain shortness of breath or cough no nausea vomiting no abdominal pain or diarrhea. Patient did have a white count of 0.4 creatinine 0.90 cultures currently pending Objective - Vital Signs Vital signs: Vital Signs Temp 98.9 F 06/29/24 08:42 Pulse 65 06/29/24 08:42 Resp 18 06/29/24 08:42 BP 101/51 06/29/24 08:42 Pulse Ox 95 06/29/24 08:42 FiO2 Intake & Output 06/28/24 06/29/24 06/29/24 18:59 06:59 18:59 Intake Total 275 507 Balance 275 507 Weight 86 kg Intake: Oral 240 Blood Product 275 267 Platelet Pheresis Pas 267 Psoralen Unit [id number] Rc Pheresis 2 As3 Unit 275 [id number] Other: # Voids 1 - Exam GENERAL DESCRIPTION: An elderly male lying in bed in no distress RESPIRATORY SYSTEM: Unlabored breathing , decreased breath sounds at bases HEART: S1 S2 regular rate and rhythm , ABDOMEN: Soft , no tenderness EXTREMITIES: No edema feet - Labs CBC & Chem 7: 06/29/24 05:49 06/29/24 05:49 Labs: Abnormal Lab Results - Last 24 Hours (Table) 06/28/24 06/28/24 06/28/24 Range/Units 12:24 12: 16:24 WBC 0.3 L* (3.8-10.6) k/uL RBC 2.29 L (4.30-5.90) m/uL Hgb 7.7 L (13.0-17.5) gm/dL Hct 21.6 L (39.0-53.0) % RDW 17.4 H (11.5-15.5) % Plt Count 7 L* (150-450) k/uL Sodium 136 L (137-145) mmol/L Potassium (3.5-5.1) mmol/L Chloride (98-107) mmol/L Glucose 113 H (74-99) mg/dL Hemoglobin A1c 6.2 H (<=6.0) % Calcium 7.6 L (8.4-10.2) mg/dL Total Protein 5.0 L (6.3-8.2) g/dL Albumin 2.7 L (3.5-5.0) g/dL 06/29/24 06/29/24 Range/Units 05:49 05:49 WBC 0.4 L* (3.8-10.6) k/uL RBC 2.19 L (4.30-5.90) m/uL Hgb 7.1 L (13.0-17.5) gm/dL Hct 21.1 L (39.0-53.0) % RDW 18.2 H (11.5-15.5) % Plt Count 12 L* D (150-450) k/uL Sodium (137-145) mmol/L Potassium 3.3 L (3.5-5.1) mmol/L Chloride 108 H (98-107) mmol/L Glucose 107 H (74-99) mg/dL Hemoglobin A1c (<=6.0) % Calcium 7.8 L (8.4-10.2) mg/dL Total Protein 4.8 L (6.3-8.2) g/dL Albumin 2.5 L (3.5-5.0) g/dL Microbiology - Last 24 Hours (Table) 06/27/24 20:10 Blood Culture - Preliminary Blood Assessment and Plan (1) Febrile neutropenia Current Visit: Yes Status: Acute Priority: High Code(s): D70.9 - NEUTROPENIA, UNSPECIFIED; R50.81 - FEVER PRESENTING WITH CONDITIONS CLASSIFIED ELSEWHERE SNOMED Code(s): 251431929 Plan: 1patient presented to hospital with abnormal labs this patient who did have low white count as well as platelet count patient with a history of AML currently on chemotherapy through peripheral IV patient do not have any ports or central lines and running a high-grade fever, initial workup for infectious etiology has been negative patient did have a CT abdominal chest did not show any consolidation urine has been negative abdominal soft clinical examination. 2patient did have improvement in his fever pattern white count still very low, patient treated with vancomycin pharmacy to dose while watching his kidney function and cefepime pending culture finalization and improvement white count. at the bedside, question concern answered. Dictation was produced using [employer] dictation software. please excuse any grammatical, word or spelling errors.
[2024-06-29] MEDS: POTASSIUM CHLORIDE ER 20 MEQ TAB.ER PO STA (12:30)
--- NOTE | 2024-06-29 14:47 | P.PN ---
Subjective Progress Note Date: 06/29/24 Reports overall feeling well. Denies n/v/d. Tolerating oral intake. Fever last night of 100.7, afebrile since. Blood culture negative thus far. Continues IV abx. S/p 2 units PRBCs and 2 doses plts. WBC 0.4, hgb 7.1, plt 12,000 Objective - Vital Signs Vital signs: Vital Signs Temp 98.9 F 06/29/24 08:42 Pulse 65 06/29/24 08:42 Resp 18 06/29/24 08:42 BP 101/51 06/29/24 08:42 Pulse Ox 95 06/29/24 08:42 FiO2 Intake & Output 06/28/24 06/29/24 06/29/24 18:59 06:59 18:59 Intake Total 275 507 Balance 275 507 Weight 86 kg Intake: Oral 240 Blood Product 275 267 Platelet Pheresis Pas 267 Psoralen Unit [id number] Rc Pheresis 2 As3 Unit 275 [id number] Other: # Voids 1 - Constitutional General appearance: Present: average body habitus, no acute distress - EENT Eyes: Present: anicteric sclerae, EOMI ENT: Present: hearing grossly normal - Respiratory Details: breathing is even and unlabored - Cardiovascular Details: skin warm and dry - Integumentary Integumentary: Present: pale. Absent: cyanotic - Neurologic Neurologic: Present: CNII-XII intact - Musculoskeletal Musculoskeletal: Present: strength equal bilaterally - Psychiatric Psychiatric: Present: A&O x's 3 - Labs CBC & Chem 7: 06/29/24 05:49 06/29/24 05:49 Labs: Abnormal Lab Results - Last 24 Hours (Table) 06/28/24 06/28/24 06/28/24 Range/Units 12:24 12:24 16:24 WBC 0.3 L* (3.8-10.6) k/uL RBC 2.29 L (4.30-5.90) m/uL Hgb 7.7 L (13.0-17.5) gm/dL Hct 21.6 L (39.0-53.0) % RDW 17.4 H (11.5-15.5) % Plt Count 7 L* (150-450) k/uL Sodium 136 L (137-145) mmol/L Potassium (3.5-5.1) mmol/L Chloride (98-107) mmol/L Glucose 113 H (74-99) mg/dL Hemoglobin A1c 6.2 H (<=6.0) % Calcium 7.6 L (8.4-10.2) mg/dL Total Protein 5.0 L (6.3-8.2) g/dL Albumin 2.7 L (3.5-5.0) g/dL 06/29/24 06/29/24 Range/Units 05:49 05:49 WBC 0.4 L* (3.8-10.6) k/uL RBC 2.19 L (4.30-5.90) m/uL Hgb 7.1 L (13.0-17.5) gm/dL Hct 21.1 L (39.0-53.0) % RDW 18.2 H (11.5-15.5) % Plt Count 12 L* D (150-450) k/uL Sodium (137-145) mmol/L Potassium 3.3 L (3.5-5.1) mmol/L Chloride 108 H (98-107) mmol/L Glucose 107 H (74-99) mg/dL Hemoglobin A1c (<=6.0) % Calcium 7.8 L (8.4-10.2) mg/dL Total Protein 4.8 L (6.3-8.2) g/dL Albumin 2.5 L (3.5-5.0) g/dL Microbiology - Last 24 Hours (Table) 06/27/24 20:10 Blood Culture - Preliminary Blood Assessment and Plan (1) MDS (myelodysplastic syndrome), high grade Current Visit: Yes Status: Acute Priority: High Code(s): D46.Z - OTHER MYELODYSPLASTIC SYNDROMES SNOMED Code(s): 639357969 (2) Pancytopenia Current Visit: Yes Status: Acute Priority: High Code(s): D61.818 - OTHER PANCYTOPENIA SNOMED Code(s): 685551807 (3) Febrile neutropenia Current Visit: Yes Status: Acute Priority: High Code(s): D70.9 - NEUTROPENIA, UNSPECIFIED; R50.81 - FEVER PRESENTING WITH CONDITIONS CLASSIFIED ELSEWHERE SNOMED Code(s): 691772305 Plan: Febrile neutropenia: Patient presented to the emergency room for fever. Tmax upon admission is 103.1. He does report he began having a cough a couple weeks ago but cough has since improved. Denies nausea vomiting, skin changes, and urinary symptoms. -Patient has been started on vancomycin and cefepime. Viral panel and urinalysis negative. Blood cultures negative thus far. CTA chest showing no evidence of pneumonia -Fever pattern improving -WBC 0.4. No G-CSF at this time MDS, pancytopenia: -Oncology history as dictated in the HPI -Currently on treatment with Vidaza and venclexta, completing last cycle on 06/07/24. Currently on his two weeks off of venclexta. -Bone marrow biopsy obtained in 03/2024 showing complete response -Pancytopenia secondary to MDS, superimposed by chemo effects -S/p 2 units PRBCs, and 2 dose of platelets. Today, CBC showing hemoglobin 7.1, platelets 12,000. Denies episodes of acute bleeding. -CBC daily. Transfuse with irradiated blood products for hgb <7 and for plts < 10,000 or if symptomatic
[2024-06-29] MEDS: VANCOMYCIN TROUGH DUE 1 EACH MISC MISCELLANE ONE (18:31)
[2024-06-29] MEDS: VANCOMYCIN 1,750 MG in SODIUM CHLORIDE 0.9% 500 ML 500 ML IVPB SCH (20:27)
--- NOTE | 2024-06-29 21:09 | P.PN ---
Subjective Progress Note Date: 06/29/24 This is a 74-year-old male history of AML currently undergoing chemotherapy with his last transfusion 1 week ago. Patient was sent from [facility] secondary to pancytopenia and neutropenic fever. Patient reported there secondary to abnormal outpatient labs. Patient was initially going to get a blood transfusion however he did develop a fever of 103.1 and for that reason he was sent down to the hospital for further evaluation. Patient does report feeling some fatigue and exertional shortness of breath but otherwise no other acute complaints. He denies any nausea vomiting or diarrhea has not been having any black or bloody stools. Patient reports no cough shortness of breath. He does state that last night he did feel the fever and chills. Was recently on Plavix but was taken off of it 3 weeks ago. Blood work reveals a white blood cell count of 0.5, RBC 1.97, hemoglobin 6.7, platelet count of 5. Sodium level of 132, potassium 3.4, BUN of 22, creatinine 1.07. D-dimer was elevated at 0.79. Urinalysis is not suggestive of any infection. Viral panel was negative for influenza RSV and COVID. Septic workup started. He was given a 1 L fluid bolus. Chest CT angiography completed which reveals no evidence of pulmonary embolism. There is mediastinal and the right hilar lymphadenopathy appears slightly more conspicuous when compared to the CT chest from January 31, 2024. C ystic focus in the pancreas which may represent a sidebranch IPMN correlate with any known disease and further characterize with nonemergent MRCP/MRI pancreas with IV contrast is recommended. Sequela of granulomatous disease in the thorax and visualized abdomen. Postsurgical changes. There is no suspicious consolidation. patient had blood cultures taken and was started on empiric antibiotic coverage with IV cefepime IV vancomycin. He has been resumed on his oral acyclovir which is a home medication. He is admitted to the hospital under general medicine with a consult placed to oncology and infectious disease. Initially was admitted to the cardiac stepdown unit however he did receive blood products hemoglobin is now 7.7 no evidence for any active bleeding and patient can be downgraded to the oncology unit. 06/29/2024 Patient is evaluated in follow-up on the medical floor. He is downgraded to the oncology unit currently pending a bed. No active bleeding noted. He received 2 units of packed red blood cells and 2 units of platelets yesterday with repeat hemoglobin of 7.1 and repeat platelet count of 12. His white blood cell count today 0.4 he remains in neutropenic precautions. Sodium level of 137 potassium of 3.3. Procalcitonin level was 0.49. Preliminary blood culture remains pending although negative at this time. ID following and patient continues on IV cefepime as well as IV vancomycin pending the final cultures. He remains febrile with a Tmax of 99.9 overnight. REVIEW OF SYSTEMS: CONSTITUTIONAL: Reports fever, no malaise, no fatigue. HEENT: No recent visual problems or hearing problems. Denied any sore throat. CARDIOVASCULAR: No chest pain, orthopnea, PND, no palpitations, no syncope. PULMONARY: No shortness of breath, no cough, no hemoptysis. GASTROINTESTINAL: No diarrhea, no nausea, no vomiting, no abdominal pain. NEUROLOGICAL: No headaches, no weakness, no numbness. PHYSICAL EXAMINATION: GENERAL: The patient is alert and oriented x3, not in any acute distress. Well developed, well nourished. HEENT: Pupils are round and equally reacting to light. EOMI. No scleral icterus. No conjunctival pallor. Normocephalic, atraumatic. No pharyngeal erythema. No thyromegaly. CARDIOVASCULAR: S1 and S2 present. No murmurs, rubs, or gallops. PULMONARY: Chest is clear to auscultation, no wheezing or crackles. ABDOMEN: Soft, nontender, nondistended, normoactive bowel sounds. No palpable organomegaly. MUSCULOSKELETAL: No joint swelling or deformity. EXTREMITIES: No cyanosis, clubbing, or pedal edema. NEUROLOGICAL: Gross neurological examination did not reveal any focal deficits. SKIN: No rashes. Assessment and plan Fever likely from severe neutropenia however need to rule out underlying infection/sepsis. Neutropenia secondary to chemotherapy History of AML currently undergoing chemotherapy History of coronary artery disease with prior PCI History of esophageal cancer Hypovolemic hyponatremia improving with IV fluids Hypokalemia GI prophylaxis Full Code Plan Resume appropriate home medications Continue normal saline Status post 2 units of PRBC and 2 unit of platelets Monitor Blood cell counts, Oncology and ID consultation Continue empiric antibiotics Down graded to the 5North Repeat blood work in the morning The impression and plan of care has been dictated by Monica Kearney, Nurse Practitioner as directed. Dr. Brad MD I have performed a history and physical examination and medical decision making of this patient, discussed the same with the dictator, and agree with the dictators assessment and plan as written, documented as a scribe. Based on total visit time, I have performed more than 50% of this visit. Objective - Vital Signs Vital signs: Vital Signs Temp 99.3 F 06/29/24 19:30 Pulse 69 06/29/24 19:30 Resp 12 06/29/24 19:30 BP 95/52 06/29/24 19:30 Pulse Ox 93 L 06/29/24 19:30 FiO2 Intake & Output 06/29/24 06/29/24 06/30/24 06:59 18:59 06:59 Intake Total 507 1960 Balance 507 1960 Weight 86 kg Intake: Intake, IV Titration 400 Amount Cefepime 2 gm In Sodium 100 Chloride 0.9% 100 ml @ 25 mls/hr IVPB Q8HR [facility] Rx# :[id number] Sodium Chloride 0.9% 1, 300 000 ml @ 75 mls/hr IV . [id number] VERN Rx#:[id number] Oral 240 1560 Blood Product 267 Platelet Pheresis Pas 267 Psoralen Unit [id number] Other: # Voids 1 5 - Labs CBC & Chem 7: 06/29/24 05:49 06/29/24 05:49 Labs: Abnormal Lab Results - Last 24 Hours (Table) 06/28/24 06/29/24 06/29/24 Range/Units 16:24 05:49 05:49 WBC 0.4 L* (3.8-10.6) k/uL RBC 2.19 L (4.30-5.90) m/uL Hgb 7.1 L (13.0-17.5) gm/dL Hct 21.1 L (39.0-53.0) % RDW 18.2 H (11.5-15.5) % Plt Count 12 L* D (150-450) k/uL Potassium 3.3 L (3.5-5.1) mmol/L Chloride 108 H (98-107) mmol/L Glucose 107 H (74-99) mg/dL Hemoglobin A1c 6.2 H (<=6.0) % Calcium 7.8 L (8.4-10.2) mg/dL Total Protein 4.8 L (6.3-8.2) g/dL Albumin 2.5 L (3.5-5.0) g/dL Microbiology - Last 24 Hours (Table) 06/27/24 20:10 Blood Culture - Preliminary Blood Assessment and Plan Time with Patient: Less than 30
[2024-06-30 06:52] LABS: African American GFR (CKD) >90 (>60 ml/min/1.73 sqM); Anion Gap 3 mmol/L; Blood Urea Nitrogen 14 mg/dL (9-20); Calcium 7.9 mg/dL (8.4-10.2); Carbon Dioxide 20 mmol/L (22-30); Chloride 110 mmol/L (98-107); Glucose 112 mg/dL (74-99); Non-African American GFR(CKD) 87 (>60 ml/min/1.73 sqM); Potassium 3.4 mmol/L (3.5-5.1); Sodium 133 mmol/L (137-145)
[2024-06-30 09:51] LABS: Basophils # (A) 0 X 10*3/uL (0.00-0.10); Basophils % (A) 0 %; Eosinophils # (A) 0.02 X 10*3/uL (0.04-0.35); Eosinophils % (A) 4.3 %; HCT 19.8 % (39.6-50.0); HGB 6.7 g/dL (13.0-17.0); Immature Grans, Automated 0 %; Immature Platelet Fraction 1.4 % (1.1-6.1); Lymphocytes % (A) 85.1 %; MCH 32.5 pg (27.0-32.0); MCHC 33.8 g/dL (32.0-37.0); MCV 96.1 FL (80.0-97.0); Monocytes # (A) 0.02 X 10*3/uL (0.20-1.00); Monocytes % (A) 4.3 %; NRBC Per 100 WBC 0 X 10*3/uL (0.00-0.01); Neutrophils # (A) 0.03 X 10*3/uL (1.80-7.70); Neutrophils % (A) 6.3 %; Platelet Count 7 X 10*3/uL (140-440); RBC 2.06 X 10*6/uL (4.40-5.60); RDW 16.9 % (11.5-14.5); WBC 0.47 X 10*3/uL (4.50-10.00)
[2024-06-30] MEDS: POTASSIUM CHLORIDE ER 20 MEQ TAB.ER PO SCH (10:33)
--- NOTE | 2024-06-30 12:37 | P.PN ---
Subjective Progress Note Date: 06/30/24 Principal diagnosis: Reason for follow-up is febrile neutropenia Patient is a 74-year-old male with a past medical history significant for esophageal cancer AML currently undergoing chemotherapy patient initially evaluated in the hospital after the patient was noticed to have low blood count on an outpatient lab testing he was found to have a fever the and the patient subsequently has been transferred to [facility]. On today's evaluation that is 06/30/2024,the patient remains to be afebrile, patient is on room air not requiring supplemental oxygen and denies any shortness of breath no chest pain he did have mild cough but not bringing up any sputum.Patient denies having any nausea or vomiting, no abdominal pain and no diarrhea has been reported patient white count 0.47 creatinine 0.80 likely to 15.6 blood cultures pending Objective - Vital Signs Vital signs: Vital Signs Temp 98.7 F 06/30/24 07:39 Pulse 65 06/30/24 07:39 Resp 16 06/30/24 07:39 BP 107/61 06/30/24 07:39 Pulse Ox 96 06/30/24 07:39 FiO2 Intake & Output 06/29/24 06/30/24 06/30/24 18:59 06:59 18:59 Intake Total 1960 540 Balance 1960 540 Intake: Intake, IV Titration 400 Amount Cefepime 2 gm In Sodium 100 Chloride 0.9% 100 ml @ 25 mls/hr IVPB Q8HR [facility] Rx# :[id number] Sodium Chloride 0.9% 1, 300 000 ml @ 75 mls/hr IV . [id number] [facility] Rx#:[id number] Oral 1560 540 Other: # Voids 5 # Bowel Movements 1 - Exam GENERAL DESCRIPTION: An elderly male lying in bed in no distress RESPIRATORY SYSTEM: Unlabored breathing , few coarse crackles at the right base HEART: S1 S2 regular rate and rhythm , ABDOMEN: Soft , no tenderness EXTREMITIES: No edema feet - Labs CBC & Chem 7: 06/30/24 05:38 06/30/24 05:38 Labs: Abnormal Lab Results - Last 24 Hours (Table) 06/27/24 06/30/24 06/30/24 Range/Units 20:02 05:38 05:38 WBC 0.47 A* (4.50-10.00) X 10*3/uL RBC 2.06 L (4.40-5.60) X 10*6/uL Hgb 6.7 A* (13.0-17.0) g/dL Hct 19.8 A* (39.6-50.0) % MCH 32.5 H (27.0-32.0) pg RDW 16.9 H (11.5-14.5) % Plt Count 7 A* (140-440) X 10*3/uL Neutrophils # 0.03 A* (1.80-7.70) X 10*3/uL Lymphocytes # 0.40 L (0.90-5.00) X 10*3/uL Monocytes # 0.02 L (0.20-1.00) X 10*3/uL Eosinophils # 0.02 L (0.04-0.35) X 10*3/uL Sodium 133 L (137-145) mmol/L Potassium 3.4 L (3.5-5.1) mmol/L Chloride 110 H (98-107) mmol/L Carbon Dioxide 20 L (22-30) mmol/L Glucose 112 H (74-99) mg/dL Calcium 7.9 L (8.4-10.2) mg/dL Crossmatch See Detail Microbiology - Last 24 Hours (Table) 06/27/24 20:10 Blood Culture - Preliminary Blood Assessment and Plan (1) Febrile neutropenia Current Visit: Yes Status: Acute Priority: High Code(s): D70.9 - NEUTROPENIA, UNSPECIFIED; R50.81 - FEVER PRESENTING WITH CONDITIONS CLASSIFIED ELSEWHERE SNOMED Code(s): 120264252 Plan: 1patient presented to hospital with abnormal labs this patient who did have low white count as well as platelet count patient with a history of AML currently on chemotherapy through peripheral IV patient do not have any ports or central lines and running a high-grade fever, initial workup for infectious etiology has been negative patient did have a CT abdominal chest did not show any cons olidation urine has been negative abdominal soft clinical examination. 2patient did have improvement in his fever pattern white count still very low did have some cough with few gross clinical at the right base procalcitonin is 0.49 possible pneumonia 3 patient will be treated with vancomycin pharmacy to dose while watching his kidney function and cefepime pending culture finalization and improvement white count. at the bedside, question concern answered. Dictation was produced using [employer] software. please excuse any grammatical, word or spelling errors. Time with Patient: Less than 30
--- NOTE | 2024-06-30 16:01 | P.PN ---
Subjective Progress Note Date: 06/30/24 Reports overall feeling well. Denies n/v/. Tolerating oral intake. Had one loose BM today. Denies abdominal pain. Has had intermittent fever, but fever pattern has improved. Blood culture negative at 48 hours. Continues IV abx. S/p 2 units PRBCs and 2 doses plts. Today WBC 0.47, hgb 6.7, plt 7,000. Additional unit of PRBCs and platelets ordered Objective - Vital Signs Vital signs: Vital Signs Temp 98.7 F 06/30/24 07:39 Pulse 65 06/30/24 07:39 Resp 16 06/30/24 07:39 BP 107/61 06/30/24 07:39 Pulse Ox 96 06/30/24 07:39 FiO2 Intake & Output 06/29/24 06/30/24 06/30/24 18:59 06:59 18:59 Intake Total 1960 540 Balance 1960 540 Intake: Intake, IV Titration 400 Amount Cefepime 2 gm In Sodium 100 Chloride 0.9% 100 ml @ 25 mls/hr IVPB Q8HR [facility] Rx# :[id number] Sodium Chloride 0.9% 1, 300 000 ml @ 75 mls/hr IV . [id number] [facility] Rx#:[id number] Oral 1560 540 Other: # Voids 5 # Bowel Movements 1 - Constitutional General appearance: Present: average body habitus, no acute distress - EENT Eyes: Present: anicteric sclerae, EOMI ENT: Present: hearing grossly normal - Respiratory Details: breathing is even and unlabored - Cardiovascular Details: skin warm and dry - Gastrointestinal General gastrointestinal: Present: soft. Absent: distended, tenderness - Integumentary Integumentary: Present: pale - Neurologic Neurologic: Present: CNII-XII intact - Psychiatric Psychiatric: Present: A&O x's 3 - Labs CBC & Chem 7: 06/30/24 05:38 06/30/24 05:38 Labs: Abnormal Lab Results - Last 24 Hours (Table) 06/30/24 06/30/24 Range/Units 05:38 05:38 WBC 0.47 A* (4.50-10.00) X 10*3/uL RBC 2.06 L (4.40-5.60) X 10*6/uL Hgb 6.7 A* (13.0-17.0) g/dL Hct 19.8 A* (39.6-50.0) % MCH 32.5 H (27.0-32.0) pg RDW 16.9 H (11.5-14.5) % Plt Count 7 A* (140-440) X 10*3/uL Neutrophils # 0.03 A* (1.80-7.70) X 10*3/uL Lymphocytes # 0.40 L (0.90-5.00) X 10*3/uL Monocytes # 0.02 L (0.20-1.00) X 10*3/uL Eosinophils # 0.02 L (0.04-0.35) X 10*3/uL Sodium 133 L (137-145) mmol/L Potassium 3.4 L (3.5-5.1) mmol/L Chloride 110 H (98-107) mmol/L Carbon Dioxide 20 L (22-30) mmol/L Glucose 112 H (74-99) mg/dL Calcium 7.9 L (8.4-10.2) mg/dL Microbiology - Last 24 Hours (Table) 06/27/24 20:10 Blood Culture - Preliminary Blood Assessment and Plan (1) MDS (myelodysplastic syndrome), high grade Current Visit: Yes Status: Acute Priority: High Code(s): D46.Z - OTHER MYELODYSPLASTIC SYNDROMES SNOMED Code(s): 651418145 (2) Pancytopenia Current Visit: Yes Status: Acute Priority: High Code(s): D61.818 - OTHER PANCYTOPENIA SNOMED Code(s): 221644986 (3) Febrile neutropenia Current Visit: Yes Status: Acute Priority: High Code(s): D70.9 - NEUTROPENIA, UNSPECIFIED; R50.81 - FEVER PRESENTING WITH CONDITIONS CLASSIFIED ELSEWHERE SNOMED Code(s): 577726025 Plan: Febrile neutropenia: Patient presented to the emergency room for fever. Tmax upon admission is 103.1. He does report he began having a cough a couple weeks ago but cough has since improved. Denies nausea vomiting, skin changes, and urinary symptoms. -Continues on vancomycin and cefepime. Viral panel and urinalysis negative. Blood cultures negative thus far. CTA chest showing no evidence of pneumonia -Intermittent fevers persisting, but fever pattern has improved -Had 1 loose BM today. No abdominal pain or n/v. Instructed pt that if he is having persisting loose stools or experiences watery diarrhea to let staff know so a stool specimen can be collected -WBC 0.47. No G-CSF at this time MDS, pancytopenia: -Oncology history as dictated in the HPI -Currently on treatment with Vidaza and venclexta, completing last cycle on 06/07/24. Currently on his two weeks off of venclexta. -Bone marrow biopsy obtained in 03/2024 showing complete response -Pancytopenia secondary to MDS, superimposed by chemo effects -S/p 2 units PRBCs, and 2 dose of platelets. Today, CBC showing hemoglobin 6.7, platelets 7,000. Additional unit of PRBCs and platelets ordered. No reported episodes of acute bleeding. -CBC daily. Transfuse with irradiated blood products for hgb <7 and for plts < 10,000 or if symptomatic
--- NOTE | 2024-06-30 17:52 | P.PN ---
Subjective Progress Note Date: 06/30/24 This is a 74-year-old male history of AML currently undergoing chemotherapy with his last transfusion 1 week ago. Patient was sent from [facility] secondary to pancytopenia and neutropenic fever. Patient reported there secondary to abnormal outpatient labs. Patient was initially going to get a blood transfusion however he did develop a fever of 103.1 and for that reason he was sent down to the hospital for further evaluation. Patient does report feeling some fatigue and exertional shortness of breath but otherwise no other acute complaints. He denies any nausea vomiting or diarrhea has not been having any black or bloody stools. Patient reports no cough shortness of breath. He does state that last night he did feel the fever and chills. Was recently on Plavix but was taken off of it 3 weeks ago. Blood work reveals a white blood cell count of 0.5, RBC 1.97, hemoglobin 6.7, platelet count of 5. Sodium level of 132, potassium 3.4, BUN of 22, creatinine 1.07. D-dimer was elevated at 0.79. Urinalysis is not suggestive of any infection. Viral panel was negative for influenza RSV and COVID. Septic workup started. He was given a 1 L fluid bolus. Chest CT angiography completed which reveals no evidence of pulmonary embolism. There is mediastinal and the right hilar lymphadenopathy appears slightly more conspicuous when compared to the CT chest from January 31, 2024. Cystic focus in the pancreas which may represent a sidebranch IPMN correlate with any known disease and further characterize with nonemergent MRCP/MRI pancreas with IV contrast is recommended. Sequela of granulomatous disease in the thorax and visualized abdomen. Postsurgical changes. There is no suspicious consolidation. patient had blood cultures taken and was started on empiric antibiotic coverage with IV cefepime IV vancomycin. He has been resumed on his oral acyclovir which is a home medication. He is admitted to the hospital under general medicine with a consult placed to oncology and infectious disease. Initially was admitted to the cardiac stepdown unit however he did receive blood products hemoglobin is now 7.7 no evidence for any active bleeding and patient can be downgraded to the oncology unit. 06/29/2024 Patient is evaluated in follow-up on the medical floor. He is downgraded to the oncology unit currently pending a bed. No active bleeding noted. He received 2 units of packed red blood cells and 2 units of platelets yesterday with repeat hemoglobin of 7.1 and repeat platelet count of 12. His white blood cell count today 0.4 he remains in neutropenic precautions. Sodium level of 137 potassium of 3.3. Procalcitonin level was 0.49. Preliminary blood culture remains pending although negative at this time. ID following and patient continues on IV cefepime as well as IV vancomycin pending the final cultures. He remains febrile with a Tmax of 99.9 overnight. 06/30/2024 Patient is seen in follow-up this morning with no active bleeding noted although counts noted to be extremely low with a hemoglobin of 6.7, platelets are 7 and awaiting to receive transfusion per oncology. White count is 0.47, sodium 133 with a potassium of 3.4 which will be replaced and creatinine is stable. Patient continues on antibiotics with infectious disease following and preliminary cultures have been negative for 48 hours. Patient is having low- grade temps and is on room air maintaining oxygen saturations above 95%. REVIEW OF SYSTEMS: CONSTITUTIONAL: Reports fever, no malaise, no fatigue. HEENT: No recent visual problems or hearing problems. Denied any sore throat. CARDIOVASCULAR: No chest pain, orthopnea, PND, no palpitations, no syncope. PULMONARY: No shortness of breath, no cough, no hemoptysis. GASTROINTESTINAL: No diarrhea, no nausea, no vomiting, no abdominal pain. NEUROLOGICAL: No headaches, no weakness, no numbness. PHYSICAL EXAMINATION: GENERAL: The patient is alert and oriented x3, not in any acute distress. Well developed, well nourished. Elderly appearing HEENT: Pupils are round and equally reacting to light. EOMI. No scleral icterus. No conjunctival pallor. Normocephalic, atraumatic. No pharyngeal erythema. No thyromegaly. CARDIOVASCULAR: S1 and S2 present. No murmurs, rubs, or gallops. PULMONARY: Chest is clear to auscultation, no wheezing or crackles. ABDOMEN: Soft, nontender, nondistended, normoactive bowel sounds. No palpable organomegaly. MUSCULOSKELETAL: No joint swelling or deformity. EXTREMITIES: No cyanosis, clubbing, or pedal edema. NEUROLOGICAL: Gross neurological examination did not reveal any focal deficits. SKIN: No rashes. Assessment and plan Fever likely from severe neutropenia however need to rule out underlying infection/sepsis. Neutropenia secondary to chemotherapy History of AML currently undergoing chemotherapy History of coronary artery disease with prior PCI History of esophageal cancer Hypovolemic hyponatremia improving with IV fluids Hypokalemia GI prophylaxis Full Code Plan Resume appropriate home medications Continue normal saline Status post 2 units of PRBC and 2 unit of platelets. Platelets ordered for count of 7 and a unit of PRBC is ordered for hemoglobin of 6.7 today Monitor Blood cell counts, and will follow-up with repeat labs Oncology and ID following as patient remains febrile with low-grade temps of 99.7. Continue empiric antibiotics while awaiting cultures to finalize. Blood cultures thus far have been negative for 48 hours We will continue to monitor closely Encouraged increase activity as tolerated The impression and plan of care has been dictated by Kate Grimm, Nurse Practitioner as directed. Dr. Brad MD I have performed a history and physical examination and medical decision making of this patient, discussed the same with the dictator, and agree with the dictators assessment and plan as written, documented as a scribe. Based on total visit time, I have performed more than 50% of this visit. Objective - Vital Signs Vital signs: Vital Signs Temp 98.7 F 06/30/24 07:39 Pulse 65 06/30/24 07:39 Resp 16 06/30/24 07:39 BP 107/61 06/30/24 07:39 Pulse Ox 96 06/30/24 07:39 FiO2 Intake & Output 06/29/24 06/30/24 06/30/24 18:59 06:59 18:59 Intake Total 1960 540 Balance 1960 540 Intake: Intake, IV Titration 400 Amount Cefepime 2 gm In Sodium 100 Chloride 0.9% 100 ml @ 25 mls/hr IVPB Q8HR [facility] Rx# :[id number] Sodium Chloride 0.9% 1, 300 000 ml @ 75 mls/hr IV . [id number] [facility] Rx#:[id number] Oral 1560 540 Other: # Voids 5 - Labs CBC & Chem 7: 06/30/24 05:38 06/30/24 05:38 Labs: Abnormal Lab Results - Last 24 Hours (Table) 06/30/24 06/30/24 Range/Units 05:38 05:38 WBC 0.47 A* (4.50-10.00) X 10*3/uL RBC 2.06 L (4.40-5.60) X 10*6/uL Hgb 6.7 A* (13.0-17.0) g/dL Hct 19.8 A* (39.6-50.0) % MCH 32.5 H (27.0-32.0) pg RDW 16.9 H (11.5-14.5) % Plt Count 7 A* (140-440) X 10*3/uL Neutrophils # 0.03 A* (1.80-7.70) X 10*3/uL Lymphocytes # 0.40 L (0.90-5.00) X 10*3/uL Monocytes # 0.02 L (0.20-1.00) X 10*3/uL Eosinophils # 0.02 L (0.04-0.35) X 10*3/uL Sodium 133 L (137-145) mmol/L Potassium 3.4 L (3.5-5.1) mmol/L Chloride 110 H (98-107) mmol/L Carbon Dioxide 20 L (22-30) mmol/L Glucose 112 H (74-99) mg/dL Calcium 7.9 L (8.4-10.2) mg/dL Microbiology - Last 24 Hours (Table) 06/27/24 20:10 Blood Culture - Preliminary Blood
[2024-07-01 08:35] VITALS: PULSE 62
[2024-07-01 09:30] LABS: Basophils # (A) 0 X 10*3/uL (0.00-0.10); Basophils % (A) 0 %; Eosinophils # (A) 0.03 X 10*3/uL (0.04-0.35); Eosinophils % (A) 6.3 %; HCT 21.4 % (39.6-50.0); HGB 7.3 g/dL (13.0-17.0); Immature Grans, Automated 0 %; Immature Platelet Fraction 1.2 % (1.1-6.1); Lymphocytes # (A) 0.38 X 10*3/uL (0.90-5.00); Lymphocytes % (A) 79.2 %; MCH 32.2 pg (27.0-32.0); MCHC 34.1 g/dL (32.0-37.0); MCV 94.3 FL (80.0-97.0); Mean Platelet Volume 13.1 FL (9.5-12.2); Monocytes # (A) 0.03 X 10*3/uL (0.20-1.00); Monocytes % (A) 6.3 %; NRBC Per 100 WBC 0 X 10*3/uL (0.00-0.01); Neutrophils # (A) 0.04 X 10*3/uL (1.80-7.70); Neutrophils % (A) 8.2 %; Platelet Count 15 X 10*3/uL (140-440); RBC 2.27 X 10*6/uL (4.40-5.60); RDW 17.1 % (11.5-14.5); WBC 0.48 X 10*3/uL (4.50-10.00)
[2024-07-01 10:59] LABS: Blood Urea Nitrogen 11.6 mg/dL (9.0-27.0); Calcium 7.7 mg/dL (8.7-10.3); Carbon Dioxide 21.6 mmol/L (21.6-31.8); Chloride 106 mmol/L (96-109); Glucose 110 mg/dL (70-110); Potassium 3.4 mmol/L (3.5-5.5); Sodium 138 mmol/L (135-145)
--- NOTE | 2024-07-01 12:01 | P.CRDCN ---
History of Present Illness Consult date: 07/01/24 Reason for Consult (text): Known to service, status post cath, evaluate cardiac medications History of present illness: This is a 74-year-old male patient of Dr. Vincent with past medical history of inferior STEMI 01/01/2024 status post cardiac catheterization with small posterior lateral branch 100% occlusion with YANIV 0 flow not amenable for i ntervention and opted for medical management, history of high-grade MDS. Patient presented to the emergency center on 06/27 due to fever with temperature max of 103.1, and has been diagnosed with febrile neutropenia. Patient is followed by oncology and infectious disease and maintained on IV antibiotics. We have been asked to evaluate patient for recent cardiac catheterization and medication alicia mmendations. Patient denies having any chest pain, no shortness of breath. Fevers are improved. He is status post transfusion of 3 units packed RBCs and 3 units platelets. Blood pressure 137/70, heart rate is in the 60s and 70s, pulse ox 94% on room air. -EKG: Sinus rhythm with no acute ST changes -CTA chest: No PE. Mediastinal and right hilar lymphadenopathy more conspicuous. Cystic focus in the pancreas. Granulomatous disease in the thorax and visualized abdomen. Postop changes -Laboratory studies: WBC 0.4, hemoglobin 7.3, platelet count 15. Sodium 138, potassium 3.4, creatinine 0.8. -Home cardiac medications: Atorvastatin 40 mg daily, Coreg 3.125 mg daily, Nitrostat as needed, K-Dur 10 mill equivalents daily. -Echocardiogram performed 01/02/2024 reveals EF of 55 to 60%, small basal inferior septal wall hypokinesia, concentric LVH, mild biatrial dilatation, mild aortic regurgitation, mild MR. No pericardial effusion. Review Of Systems: At the time of my exam: CONSTITUTIONAL: Denies fever or chills. Reports generalized weakness HEENT: Denies blurred vision, vision changes, or eye pain. Denies hemoptysis CARDIOVASCULAR: Denies chest pain. Denies orthopnea. Denies PND. Denies palpitations RESPIRATORY: Denies shortness of breath. GASTROINTESTINAL: Denies abdominal pain. Denies nausea or vomiting. HEMATOLOGIC: Denies bleeding disorders. GENITOURINARY: Denies any blood in urine. SKIN: Denies puritis. Denies rash. Physical examination: Gen: This is a 74-year-old male in no acute distress VS: reviewed HEENT: Head is atraumatic, normocephalic. Pupils equal, round. Sclerae is anicteric. NECK: Supple. No JVD. LUNGS: Clear to auscultation. No wheezes or rhonchi. No intercostal retractions. HEART: Regular rate and rhythm. No murmur. ABDOMEN: Soft No tenderness. EXTREMITIES: No pedal edema. No calf tenderness. NEUROLOGICAL: Patient is awake, alert and oriented x3. Assessment: Febrile neutropenia Pancytopenia Coronary artery disease Plan: Continue patient's home cardiac medications with the following recommendations Discontinue atorvastatin and can be resumed once blood counts are improved Do not resume Plavix Cardiology will sign off this case and follow on an as-needed basis. Please reconsult for any new concerns. Patient may follow-up in the office in one to [address] Vincent. Thank you kindly for this consultation. Nurse practitioner note has been reviewed, I agree with documented findings and plan of care. Patient was seen and examined. Past Medical History Past Medical History: Cancer, Prostate Disorder Additional Past Medical History / Comment(s): esophageal cancer, leukemia History of Any Multi-Drug Resistant Organisms: None Reported Past Surgical History: Heart Catheterization With Stent, Hernia Repair Additional Past Surgical History / Comment(s): gastric pull-through surgery Smoking Status: Never smoker Past Alcohol Use History: None Reported Past Drug Use History: None Reported Medications and Allergies Home Medications Medication Instructions Recorded Confirmed Type Acyclovir [Zovirax] 400 mg PO BID 01/01/24 06/27/24 History Fluticasone Nasal [place] [Flonase 2 spr EA NOSTRIL DAILY 01/01/24 06/27/24 History Nasal [place]] Loratadine [Claritin] 10 mg PO DAILY 01/01/24 06/27/24 History Multivitamins, Thera [Multivitamin 1 tab PO DAILY 01/01/24 06/27/24 History (formulary)] Ondansetron [Zofran] 4 mg PO Q4H PRN 01/01/24 06/27/24 History Pantoprazole [Protonix] 40 mg PO BID 01/01/24 06/27/24 History Posaconazole 300 mg PO DAILY 01/01/24 06/27/24 History Tamsulosin [Flomax] 0.4 mg PO DAILY 01/01/24 06/27/24 History Nitroglycerin Sl Tabs [Nitrostat] 0.4 mg SUBLINGUAL Q5M PRN #30 tab 01/05/24 06/27/24 Rx Atorvastatin [Lipitor] 40 mg PO DAILY 06/27/24 06/27/24 History Potassium Chloride ER [K-Dur 10] 10 meq PO DAILY 06/27/24 06/27/24 History Vit C/E/Zn/Coppr/Lutein/Zeaxan 1 cap PO DAILY 06/27/24 06/27/24 History [Preservision Areds 2 Softgel] carvediloL [Coreg] 3.125 mg PO DAILY 06/27/24 06/27/24 History Allergies Allergy/AdvReac Type Severity Reaction Status Date / Time No Known Allergies Allergy Verified 06/27/24 20:49 Physical Exam Vitals: Vital Signs Temp Pulse Pulse Resp BP BP Pulse Ox 07/01/24 07:40 98.3 F 62 16 137/70 94 L 07/01/24 02:00 98.8 F 65 16 124/67 93 L 06/30/24 20:00 99.8 F H 71 16 128/75 95 06/30/24 19:35 99.6 F 68 14 116/63 94 L 06/30/24 17:04 99.4 F 70 16 143/72 95 06/30/24 16:44 99.7 F H 67 16 126/68 96 06/30/24 15:00 99.7 F H 67 16 112/60 06/30/24 13:47 99.1 F 68 16 125/67 96 06/30/24 13:27 98.7 F 65 17 121/66 96 Intake and Output 06/30/24 07/01/24 07/01/24 22:59 06:59 14:59 Intake Total 647 590 Balance 647 590 Intake: Oral 590 Blood Product 647 Platelet Pheresis Pas 337 Psoralen Unit [id number] Rc Irr As1 Unit 310 [id number] Other: # Voids 1 4 Results 07/01/24 06:06 07/01/24 06:06 CBC 07/01/24 Range/Units 06:06 WBC 0.48 A* (4.50-10.00) X 10*3/uL RBC 2.27 L (4.40-5.60) X 10*6/uL Hgb 7.3 L (13.0-17.0) g/dL Hct 21.4 L (39.6-50.0) % Plt Count 15 A* (140-440) X 10*3/uL Comprehensive Metabolic Panel 07/01/24 Range/Units 06:06 Sodium 138 (135-145) mmol/L Potassium 3.4 L (3.5-5.5) mmol/L Chloride 106 (96-109) mmol/L Carbon Dioxide 21.6 (21.6-31.8) mmol/L BUN 11.6 (9.0-27.0) mg/dL Creatinine 0.8 (0.6-1.5) mg/dL Glucose 110 (70-110) mg/dL Calcium 7.7 L (8.7-10.3) mg/dL Current Medications Generic Name Dose Route Start Last Admin Trade Name Freq PRN Reason Stop Dose Admin Acetaminophen 650 mg 06/27/24 21:52 06/29/24 17:08 Acetaminophen Tab 325 Mg Tab PO 650 mg Q6HR PRN Administration Mild Pain or Fever > 100.5 Acyclovir 400 mg 06/28/24 09:00 07/01/24 09:31 Acyclovir 200 Mg Cap PO 400 mg BID VERN Administration Al Hydroxide/Mg Hydroxide 15 ml 06/27/24 21:52 Mag Hydrox/Al Hydrox/Simeth 30 Ml Cup PO Q6HR PRN Indigestion Alprazolam 0.25 mg 06/27/24 21:52 Alprazolam 0.25 Mg Tab PO Q6HR PRN Anxiety Calcium Carbonate/Glycine 1,000 mg 06/27/24 21:52 Calcium Carbonate 500 Mg Chewable PO Q4HR PRN Dyspepsia Carvedilol 3.125 mg 06/28/24 09:00 07/01/24 09:32 Carvedilol 3.125 Mg Tab PO 3.125 mg DAILY VERN Administration Fluticasone Propionate 2 spray 06/28/24 09:00 07/01/24 09:32 Fluticasone Nasal 50mcg/[place] 16gm Btl EA NOSTRIL 2 spray DAILY VERN Administration Hydromorphone HCl 1 mg 06/27/24 21:52 Hydromorphone 1 Mg/Ml 1 Ml Syringe IVP Q3HR PRN Severe Pain (Scale 7 to 10) Sodium Chloride 1,000 mls @ 75 mls/hr 06/27/24 22:00 06/30/24 21:39 Saline 0.9% IV 75 mls/hr .[id number] VERN Administration Cefepime HCl 2 gm/ Sodium 100 mls @ 25 mls/hr 06/28/24 16:00 07/01/24 09:31 Chloride IVPB 25 mls/hr Q8HR VERN Administration Protocol Vancomycin HCl 1,750 mg/ 500 mls @ 167 mls/hr 06/29/24 20:00 07/01/24 09:31 Sodium Chloride IVPB 167 mls/hr Q12H VERN Administration Loratadine 10 mg 06/28/24 09:00 07/01/24 09:32 Loratadine 10 Mg Tab PO 10 mg DAILY VERN Administration Miscellaneous Information 0 each 07/02/24 07:00 Vancomycin Trough Due 1 Each Misc MISCELLANE 07/02/24 07:01 DIRECTED ONE Multivitamins 1 each 06/28/24 09:00 07/01/24 09:32 Multivitamins, Thera 1 Each Tab PO 1 each DAILY VERN Administration Multivitamins/Minerals 1 each 06/28/24 09:00 07/01/24 09:33 Vit A,C & X-[id number]-[id number] 1 Each Tab PO 1 each DAILY VERN Administration Naloxone HCl 0.2 mg 06/27/24 21:52 Naloxone 0.4 Mg/Ml 1 Ml Vial IV Q2M PRN Opioid Reversal Nitroglycerin 0.4 mg 06/27/24 21:50 Nitroglycerin Sl Tabs 0.4 Mg Tab SUBLINGUAL Q5M PRN Chest Pain Non-Formulary Medication 300 mg 06/28/24 09:00 06/30/24 10:35 Posaconazole [Posaconazole] PO Not Given DAILY VERN Ondansetron HCl 4 mg 06/27/24 21:50 Ondansetron 4 Mg Tab PO Q4H PRN Nausea Pantoprazole Sodium 40 mg 06/28/24 09:00 07/01/24 09:32 Pantoprazole 40 Mg Tablet PO 40 mg BID VERN Administration Potassium Chloride 20 meq 06/30/24 10:15 07/01/24 09:32 Potassium Chloride Er 20 Meq Tab.Er PO 20 meq DAILY VERN Administration Tamsulosin HCl 0.4 mg 06/28/24 09:00 07/01/24 09:33 Tamsulosin 0.4 Mg Cap.Er.24h PO 0.4 mg DAILY VERN Administration Tramadol HCl 50 mg 06/27/24 21:52 Tramadol 50 Mg Tab PO Q6H PRN Moderate Pain (Scale 4 to 6) Intake and Output 06/30/24 07/01/24 07/01/24 22:59 06:59 14:59 Intake Total 647 590 Balance 647 590 Intake: Oral 590 Blood Product 647 Platelet Pheresis Pas 337 Psoralen Unit [id number] Rc Irr As1 Unit 310 [id number] Other: # Voids 1 4 07/01/24 06:06 07/01/24 06:06
--- NOTE | 2024-07-01 13:35 | P.DS ---
Providers Date of admission: 06/27/24 21:56 Attending physician: Brenda Henrandes Consults: 06/27/24 21:52 Consult Physician Routine Consulting Provider: Deepak Simon Consult Reason/Comments: Febrile Neutropenia Do you want consulting provider notified?: Yes, Notify in am 06/28/24 12:31 Consult Physician Routine Consulting Provider: Margareth Yancey Consult Reason/Comments: Fever Do you want consulting provider notified?: Yes 06/30/24 11:58 Consult Physician Routine Consulting Provider: Kavon Vincent Consult Reason/Comments: known to service, s/p cath, eval cardiac meds Do you want consulting provider notified?: Yes Primary care physician: Igor Lisa MD Hospital Course: Final Diagnosis Fever likely from severe neutropenia however need to rule out underlying infection/sepsis. Neutropenia secondary to chemotherapy History of AML currently undergoing chemotherapy History of coronary artery disease with prior PCI History of esophageal cancer Hypovolemic hyponatremia improving with IV fluids Hypokalemia Discharge Disposition Patient is stable for discharge home. Cleared by all consultations including cardiology, infectious disease and oncology. Cardiology recommending to stay off the plavix on discharge. Patient to also discontinue the atorvastatin until blood counts are better. Complete course of oral antibiotics with PO avelox for the next 7 days. Follow up with oncology in the office. Follow up with Dr Vincent in 1 to 2 weeks. Follow up with Dr. Yancey. Follow up with PCP Dr. Igor Lisa. Repeat blood work 3 to 4 days. Hospital Course This is a 74-year-old male history of AML currently undergoing chemotherapy with his last transfusion 1 week ago. Patient was sent from [facility] secondary to pancytopenia and neutropenic fever. Patient reported there secondary to abnormal outpatient labs. Patient was initially going to get a blood transfusion however he did develop a fever of 103.1 and for that reason he was sent down to the hospital for further evaluation. Patient does report feeling some fatigue and exertional shortness of breath but otherwise no other acute complaints. He denies any nausea vomiting or diarrhea has not been having any black or bloody stools. Patient reports no cough shortness of breath. He does state that last night he did feel the fever and chills. Was recently on Plavix but was taken off of it 3 weeks ago. Blood work reveals a white blood cell count of 0.5, RBC 1.97, hemoglobin 6.7, platelet count of 5. Sodium level of 132, potassium 3.4, BUN of 22, creatinine 1.07. D-dimer was elevated at 0.79. Urinalysis is not suggestive of any infection. Viral panel was negative for influenza RSV and COVID. Septic workup started. He was given a 1 L fluid bolus. Chest CT angiography completed which reveals no evidence of pulmonary embolism. There is mediastinal and the right hilar lymphadenopathy appears slightly more conspicuous when compared to the CT chest from January 31, 2024. Cystic focus in the pancreas which may represent a sidebranch IPMN correlate with any known disease and further characterize with nonemergent MRCP/MRI pancreas with IV contrast is recommended. Sequela of granulomatous disease in the thorax and visualized abdomen. Postsurgical changes. There is no suspicious consolidation. patient had blood cultures taken and was started on empiric antibiotic coverage with IV cefepime IV vancomycin. He has been resumed on his oral acyclovir which is a home medication. He is admitted to the hospital under general medicine with a consult placed to oncology and infectious disease. Oatient was monitored closely and no signs of active bleeding. His fever has resolved and the septic work up has been negative. He did have some nasal congestion along with the fever and may have had a mild upper respiratory infection of viral etiology. He will continue course of oral antibiotics with 7 days of avelox on discharge per infectious disease. He has received 3 units of platelets and 3 units of PRBC. Most recent blood work reveals WBC 0.48, hgb 7.3, platelet count of 15. Neutrophils 0.04. Sodium 138, potassium 3.4, BUN 11.6, creatinine 0.8. Reports no chest pain or shortness of breath. No nausea vomiting or diarrhea. Lungs are clear. Hemodynamically stable an cleared for discharge home. Please see medication reconciliation for a list of current medications. Thank you for allowing us to participate in the care of this patient. The impression and plan of care has been dictated by Monica Kearney, Nurse Practitioner as directed. Dr. Brad MD I have performed a history and physical examination and medical decision making of this patient, discussed the same with the dictator, and agree with the dictators assessment and plan as written, documented as a scribe. Based on total visit time, I have performed more than 50% of this visit. Patient Condition at Discharge: Stable Plan - Discharge Summary Discharge Rx Participant: No New Discharge Prescriptions: New Moxifloxacin HCl [Avelox] 400 mg PO DAILY 7 Days #7 tab Continue Tamsulosin [Flomax] 0.4 mg PO DAILY Pantoprazole [Protonix] 40 mg PO BID Multivitamins, Thera [Multivitamin (formulary)] 1 tab PO DAILY Loratadine [Claritin] 10 mg PO DAILY Nitroglycerin Sl Tabs [Nitrostat] 0.4 mg SUBLINGUAL Q5M PRN #30 tab PRN Reason: Chest Pain carvediloL [Coreg] 3.125 mg PO DAILY Potassium Chloride ER [K-Dur 10] 10 meq PO DAILY Ondansetron [Zofran] 4 mg PO Q4H PRN PRN Reason: Nausea Fluticasone Nasal [place] [Flonase Nasal [place]] 2 spr EA NOSTRIL DAILY Posaconazole 300 mg PO DAILY Acyclovir [Zovirax] 400 mg PO BID Vit C/E/Zn/Coppr/Lutein/Zeaxan [Preservision Areds 2 Softgel] 1 cap PO DAILY Discontinued Atorvastatin [Lipitor] 40 mg PO DAILY Discharge Medication List Acyclovir [Zovirax] 400 mg PO BID 01/01/24 [History] Fluticasone Nasal [place] [Flonase Nasal [place]] 2 spr EA NOSTRIL DAILY 01/01/24 [History] Loratadine [Claritin] 10 mg PO DAILY 01/01/24 [History] Multivitamins, Thera [Multivitamin (formulary)] 1 tab PO DAILY 01/01/24 [History] Ondansetron [Zofran] 4 mg PO Q4H PRN 01/01/24 [History] Pantoprazole [Protonix] 40 mg PO BID 01/01/24 [History] Posaconazole 300 mg PO DAILY 01/01/24 [History] Tamsulosin [Flomax] 0.4 mg PO DAILY 01/01/24 [History] Nitroglycerin Sl Tabs [Nitrostat] 0.4 mg SUBLINGUAL Q5M PRN #30 tab 01/05/24 [Rx] Potassium Chloride ER [K-Dur 10] 10 meq PO DAILY 06/27/24 [History] Vit C/E/Zn/Coppr/Lutein/Zeaxan [Preservision Areds 2 Softgel] 1 cap PO DAILY 06/27/24 [History] carvediloL [Coreg] 3.125 mg PO DAILY 06/27/24 [History] Moxifloxacin HCl [Avelox] 400 mg PO DAILY 7 Days #7 tab 07/01/24 [Rx] Follow up Appointment(s)/Referral(s): Kavon Vincent MD [Medical Doctor] - 2 Weeks Igor Lisa MD [Primary Care Provider] - 1-2 days Deepak Simon MD [STAFF PHYSICIAN] - 1 Week Ambulatory/Diagnostic Orders: Complete Blood Count w/diff [LAB.AMB] Time Frame: 3 Days, Location: None Selected Activity/Diet/Wound Care/Special Instructions: Discontinue atorvastatin on discharge until counts better. Do not continue on plavix.. Continue oral antibiotics for the next 7 days Discharge Disposition: HOME SELF-CARE
[2024-07-01 13:50] VITALS: BP 118/63; RESP 15; TEMP 98.4
--- NOTE | 2024-07-01 14:37 | P.PN ---
Subjective Progress Note Date: 07/01/24 Reports overall feeling well. Denies n/v/d and abd pain. Tolerating oral intake. No fever x 36 hours. Blood culture negative at 72 hours. Continues IV abx. S/p 3 units PRBCs and 3 doses plts. Today WBC 0.48, hgb 7.3, plt 15,000. Denies episodes of acute bleeding Objective - Vital Signs Vital signs: Vital Signs Temp 98.3 F 07/01/24 07:40 Pulse 62 07/01/24 07:40 Resp 16 07/01/24 07:40 BP 137/70 07/01/24 07:40 Pulse Ox 94 L 07/01/24 07:40 FiO2 Intake & Output 06/30/24 07/01/24 07/01/24 18:59 06:59 18:59 Intake Total 337 900 Balance 337 900 Intake: Oral 590 Blood Product 337 310 Platelet Pheresis Pas 337 Psoralen Unit [id number] Rc Irr As1 Unit 0 310 [id number] Other: # Voids 1 4 # Bowel Movements 1 - Constitutional General appearance: Present: average body habitus, no acute distress - EENT Eyes: Present: anicteric sclerae, EOMI - Respiratory Details: breathing is even and unlabored - Cardiovascular Details: skin warm and dry - Integumentary Integumentary: Present: pale. Absent: cyanotic, jaundiced - Musculoskeletal Musculoskeletal: Present: strength equal bilaterally - Psychiatric Psychiatric: Present: A&O x's 3 - Labs CBC & Chem 7: 07/01/24 06:06 07/01/24 06:06 Labs: Abnormal Lab Results - Last 24 Hours (Table) 06/27/24 07/01/24 07/01/24 Range/Units 20:02 06:06 06:06 WBC 0.48 A* (4.50-10.00) X 10*3/uL RBC 2.27 L (4.40-5.60) X 10*6/uL Hgb 7.3 L (13.0-17.0) g/dL Hct 21.4 L (39.6-50.0) % MCH 32.2 H (27.0-32.0) pg RDW 17.1 H (11.5-14.5) % Plt Count 15 A* (140-440) X 10*3/uL MPV 13.1 H (9.5-12.2) FL Neutrophils # 0.04 A* (1.80-7.70) X 10*3/uL Lymphocytes # 0.38 L (0.90-5.00) X 10*3/uL Monocytes # 0.03 L (0.20-1.00) X 10*3/uL Eosinophils # 0.03 L (0.04-0.35) X 10*3/uL Potassium 3.4 L (3.5-5.5) mmol/L Calcium 7.7 L (8.7-10.3) mg/dL Crossmatch See Detail Microbiology - Last 24 Hours (Table) 06/27/24 20:10 Blood Culture - Preliminary Blood Assessment and Plan (1) MDS (myelodysplastic syndrome), high grade Current Visit: Yes Status: Acute Priority: High Code(s): D46.Z - OTHER MYELODYSPLASTIC SYNDROMES SNOMED Code(s): 356654267 (2) Pancytopenia Current Visit: Yes Status: Acute Priority: High Code(s): D61.818 - OTHER PANCYTOPENIA SNOMED Code(s): 946071648 (3) Febrile neutropenia Current Visit: Yes Status: Acute Priority: High Code(s): D70.9 - NEUTROPENIA, UNSPECIFIED; R50.81 - FEVER PRESENTING WITH CONDITIONS CLASSIFIED ELSEWHERE SNOMED Code(s): 082113571 Plan: Febrile neutropenia: Patient presented to the emergency room for fever. Tmax upon admission is 103.1. He does report he began having a cough a couple weeks ago but cough has since improved. Denies nausea vomiting diarrhea, skin changes, and urinary symptoms. -Continues on vancomycin and cefepime. Viral panel and urinalysis negative. Blood cultures negative at 72 hours. CTA chest showing no evidence of pneumonia -Fever pattern has improved, no fever x 36 hours -WBC 0.48. No G-CSF at this time -ID following MDS, pancytopenia: -Oncology history as dictated in the HPI -Currently on treatment with Vidaza and venclexta, completing last cycle on 06/07/24. Currently on his two weeks off of venclexta. -Bone marrow biopsy obtained in 03/2024 showing complete response -Pancytopenia secondary to MDS, superimposed by chemo effects -S/p 3 units PRBCs, and 3 doses of platelets since admit. Today, CBC showing h emoglobin 7.3, platelets 15,000. -Transfuse with irradiated blood products for hgb <7 and for plts < 10,000 or if symptomatic -Will schedule outpt CBC rechecks twice weekly. Scheduled for next cycle of Vidaza on 07/18 Discussed POC with admitting team. Pt cleared for discharge from hem/onc standp oint, once cleared by ID and admitting service
--- NOTE | 2024-07-01 15:46 | P.PN ---
Subjective Progress Note Date: 07/01/24 Principal diagnosis: Reason for follow-up is febrile neutropenia Patient is a 74-year-old male with a past medical history significant for esophageal cancer AML currently undergoing chemotherapy patient initially evaluated in the hospital after the patient was noticed to have low blood count on an outpatient lab testing he was found to have a fever the and the patient subsequently has been transferred to [facility]. On today's evaluation that is 07/01/2024, the patient did have improvement in his fever pattern and the patient has been afebrile this morning the patient is feeling better breathing comfortably P denies having chest pain did have a cough not bring up any sputum no nausea vomiting no abdominal pain or diarrhea. The patient did have white count 0.48, creatinine 0.8 blood culture have been negative so far Objective - Vital Signs Vital signs: Vital Signs Temp 98.3 F 07/01/24 07:40 Pulse 62 07/01/24 07:40 Resp 16 07/01/24 07:40 BP 137/70 07/01/24 07:40 Pulse Ox 94 L 07/01/24 07:40 FiO2 Intake & Output 06/30/24 07/01/24 07/01/24 18:59 06:59 18:59 Intake Total 337 900 Balance 337 900 Intake: Oral 590 Blood Product 337 310 Platelet Pheresis Pas 337 Psoralen Unit [id number] Rc Irr As1 Unit 0 310 [id number] Other: # Voids 1 4 # Bowel Movements 1 - Exam GENERAL DESCRIPTION: An elderly male lying in bed in no distress RESPIRATORY SYSTEM: Unlabored breathing , few coarse crackles at the right base HEART: S1 S2 regular rate and rhythm , ABDOMEN: Soft , no tenderness EXTREMITIES: No edema feet - Labs CBC & Chem 7: 07/01/24 06:06 07/01/24 06:06 Labs: Abnormal Lab Results - Last 24 Hours (Table) 06/27/24 07/01/24 07/01/24 Range/Units 20:02 06:06 06:06 WBC 0.48 A* (4.50-10.00) X 10*3/uL RBC 2.27 L (4.40-5.60) X 10*6/uL Hgb 7.3 L (13.0-17.0) g/dL Hct 21.4 L (39.6-50.0) % MCH 32.2 H (27.0-32.0) pg RDW 17.1 H (11.5-14.5) % Plt Count 15 A* (140-440) X 10*3/uL MPV 13.1 H (9.5-12.2) FL Neutrophils # 0.04 A* (1.80-7.70) X 10*3/uL Lymphocytes # 0.38 L (0.90-5.00) X 10*3/uL Monocytes # 0.03 L (0.20-1.00) X 10*3/uL Eosinophils # 0.03 L (0.04-0.35) X 10*3/uL Potassium 3.4 L (3.5-5.5) mmol/L Calcium 7.7 L (8.7-10.3) mg/dL Crossmatch See Detail Microbiology - Last 24 Hours (Table) 06/27/24 20:10 Blood Culture - Preliminary Blood Assessment and Plan (1) Febrile neutropenia Status: Acute Priority: High Code(s): D70.9 - NEUTROPENIA, UNSPECIFIED; R50.81 - FEVER PRESENTING WITH CONDITIONS CLASSIFIED ELSEWHERE SNOMED Code(s): 203912514 (2) Pneumonia Status: Acute Code(s): J18.9 - PNEUMONIA, UNSPECIFIED ORGANISM SNOMED Code(s): 852894727 Plan: 1patient presented to hospital with abnormal labs this patient who did have low white count as well as platelet count patient with a history of AML currently on chemotherapy through peripheral IV patient do not have any ports or central lines and running a high-grade fever, initial workup for infectious etiology has been negative patient did have a CT abdominal chest did not show any consolidation urine has been negative abdominal soft clinical examination. 2patient did have improvement in his fever pattern white count still very low did have some cough with few coarse crackles at the right base procalcitonin is 0.49 possible pneumonia 3 patient has shown clinical improvement and the patient has been cleared for discharge by oncology we will consider a 7-day course of oral Avelox on discharge discussed with ADMINISTRATIVE DIRECTOR for admitting team Dictation was produced using [employer] dictation software. please excuse any grammatical, word or spelling errors. Time with Patient: Less than 30
[2024-07-02] MEDS ORDERED: VANCOMYCIN TROUGH DUE 1 EACH MISC MISCELLANE ONE (07:00)
--- NOTE | 2024-07-04 14:45 | CDI ---
Documentation Clarification Form Date: 07/04/2024 02:31:43 PM From: Татьяна Madrid Phone: Admit Date: 06/27/2024 09:56:00 PM Patient Name: Bruce Merrill Visit Number: [id number] Discharge Date: 07/01/2024 03:18:00 PM ATTENTION: The Clinical Documentation Specialists (CDI) and [facility] Coding Staff appreciate your assistance in clarifying documentation. Please respond to the clarification below the line at the bottom and electronically sign. The CDI & [facility] Coding staff will review the response and follow-up if needed. Please note: Queries are made part of the Legal Health Record. If you have any questions, please contact the author of this message via ITS. Doctor/Provider: Margareth Yancey There is documentation of Pneumonia in 07/01/2024 Additional clarification is requested. History/Risk Factors: his is a 74-year-old male history ofAMLcurrently undergoingchemotherapywith his lasttransfusion1 week ago. Patient was sent from [facility] secondary topancytopeniaandneutropenic fever. Patient reported there secondary toabnormaloutpatient labs. Patient was initially going to get a blood transfusionhowever he did develop afeverof 103.1 and for that reason he was sent down to the hospital for furtherevaluation. Clinical Indicators: consult Febrile neutropenia: Patient presented to the emergency room forfever.Tmax upon admission is 103.1.He does report he began having acougha couple weeks ago butcoughhas since improved. Deniesnausea vomiting, skin changes, and urinary symptoms. -Patient has been started on vancomycin and cefepime.Viralpanel and urinalysisnegative. Blood cultures pending.CTAchest showingno evidence of pneumonia -WBC 0.5.No G-CSF at this time. Iffeverpersists or blood culture positive will start G-CSF pn 06/30 -2patient did have improvement in his fever pattern white count still very low did have some cough with few gross clinical at the right base procalcitonin is 0.49 possiblepneumonia Pn 07/01 -CTA chest showing no evidence ofpneumonia-Fever pattern has improved, no fever x 36 hours -WBC 0.48. Pn -2patient did have improvement in his fever pattern white count still very low did have some cough with few coarse crackles at the right base procalcitonin is 0.49 possiblepneumonia On 07/01 DS -He did have some nasal congestionalong with thefeverand may have had a mildupper respiratory infectionofviraletiology. He will continue course of oral antibiotics with 7 days of avelox on discharge perinfectious disease Treatment: 7-day course of oral Avelox on discharge Can you please clarify If Pneumonia is present? [ ] No, Pneumonia is not present [ x ] Yes, Pneumonia is present [ ] Other, please specify [ ] Unable to determine (Template Last Revised: September 2020) MTDD
== END 2024-07-01 15:18 | disposition home or self-care (01) | DRG 808 ==
LOC: EC 19:55 → 3SCARD 21:56 → 5NMEDONC 06-28 13:34 → 3SCARD 06-28 13:42 → 5NMEDONC 06-29 13:44
PROVIDERS: ADMIT Hospitalist; ATTEND Hospitalist
PROC: 30233N1 Transfusion of Nonautologous Red Blood Cells into Peripheral Vein, Percutaneous Approach (ICD-10-PCS; principal; 2024-06-27)
PROC: 6A550Z2 Pheresis of Platelets, Single (ICD-10-PCS; 2024-06-28)
PROC: 30233R1 Transfusion of Nonautologous Platelets into Peripheral Vein, Percutaneous Approach (ICD-10-PCS; 2024-06-28)
DX: D61.810 Antineoplastic chemotherapy induced pancytopenia (principal); J18.9 Pneumonia, unspecified organism; D46.22 Refractory anemia with excess of blasts 2; E87.1 Hypo-osmolality and hyponatremia; D46.Z Other myelodysplastic syndromes; R50.81 Fever presenting with conditions classified elsewhere; T45.1X5A Adverse effect of antineoplastic and immunosuppressive drugs, initial encounter; E87.6 Hypokalemia; I25.10 Atherosclerotic heart disease of native coronary artery without angina pectoris; D71 Functional disorders of polymorphonuclear neutrophils; E86.1 Hypovolemia; I25.2 Old myocardial infarction; Z79.899 Other long term (current) drug therapy; Z85.6 Personal history of leukemia; Z98.61 Coronary angioplasty status
CPT/HCPCS: 36415; 36430; 71275; 80048; 80053; 80202; 81003; 82330; 83036; 83605; 84145; 85025; 85379; 85610; 85730; 86140; 86850; 86900; 86901; 86920; 87040; 87636; 93005; 96361; 96365; 96366; 96367; 96368; 99285

== ENCOUNTER 2024-07-11 10:57 | Inpatient (IN) | payer MEDICARE ==
[2024-07-11 11:22] LABS: MCH 32.9 pg (25.0-35.0); Mean Platelet Volume 7.5; RBC 1.16 m/uL (4.30-5.90)
--- NOTE | 2024-07-11 11:25 | ED ---
General Adult HPI - General Chief complaint: Recheck/Abnormal Lab/Rx Stated complaint: weakness Time Seen by Provider: 07/11/24 11:00 Source: patient, family, RN notes reviewed, old records reviewed Mode of arrival: EMS Limitations: no limitations - History of Present Illness Initial comments: 74-year-old male presenting for from [facility] with anemia, pancytopenia. Hemoglobin was 3.6 with history of chronic anemia baseline around 7. Patient received 2 units of packed RBCs last week. 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 Patient was transferred for transfusion and hematology evaluation. Patient has no complaints while at rest. He states he is weak and short of breath with exertion. He denies any dark stool or current bleeding. Denies fever. - Related Data Home Medications Medication Instructions Recorded Confirmed Acyclovir [Zovirax] 400 mg PO BID 01/01/24 07/11/24 Fluticasone Nasal [place] [Flonase 2 spr EA NOSTRIL DAILY 01/01/24 07/11/24 Nasal [place]] Loratadine [Claritin] 10 mg PO DAILY 01/01/24 07/11/24 Ondansetron [Zofran] 4 mg PO Q4H PRN 01/01/24 07/11/24 Pantoprazole [Protonix] 40 mg PO BID 01/01/24 07/11/24 Posaconazole 300 mg PO W/BRKFST 01/01/24 07/11/24 Tamsulosin [Flomax] 0.4 mg PO DAILY 01/01/24 07/11/24 Potassium Chloride ER [K-Dur 10] 10 meq PO DAILY 06/27/24 07/11/24 Vit C/E/Zn/Coppr/Lutein/Zeaxan 1 cap PO BID 06/27/24 07/11/24 [Preservision Areds 2 Softgel] Multivit-Min/FA/Lycopen/Lutein 1 tab PO DAILY 07/11/24 07/11/24 [Centrum Silver Tablet] Previous Rx's Medication Instructions Recorded Nitroglycerin Sl Tabs [Nitrostat] 0.4 mg SUBLINGUAL Q5M PRN #30 tab 01/05/24 Allergies Allergy/AdvReac Type Severity Reaction Status Date / Time No Known Allergies Allergy Verified 07/11/24 11:52 Review of Systems ROS Statement: Those systems with pertinent positive or pertinent negative responses have been documented in the HPI. ROS Other: All systems not noted in ROS Statement are negative. Past Medical History Past Medical History: Cancer, Prostate Disorder Additional Past Medical History / Comment(s): esophageal cancer, leukemia History of Any Multi-Drug Resistant Organisms: None Reported Past Surgical History: Heart Catheterization With Stent, Hernia Repair Additional Past Surgical History / Comment(s): gastric pull-through surgery Smoking Status: Never smoker General Exam Limitations: no limitations General appearance: alert, in no apparent distress Head exam: Present: atraumatic, normocephalic Eye exam: Present: normal appearance, PERRL ENT exam: Present: normal exam Neck exam: Present: normal inspection. Absent: tenderness, meningismus Respiratory exam: Present: normal lung sounds bilaterally. Absent: respiratory distress, wheezes Cardiovascular Exam: Present: regular rate, normal rhythm GI/Abdominal exam: Present: soft. Absent: distended, tenderness, guarding Extremities exam: Present: normal inspection Neurological exam: Present: alert, oriented X3, CN II-XII intact. Absent: motor sensory deficit Psychiatric exam: Present: normal affect, normal mood Skin exam: Present: warm, dry, pallor Course Vital Signs 07/11/24 11:00 Temperature 98.4 F Pulse Rate 91 Respiratory 18 Rate Blood Pressure 108/55 O2 Sat by Pulse 99 Oximetry Medical Decision Making - Medical Decision Making Was pt. sent in by a medical professional or institution (KARLA Adam, [employer]SF[employer], urgent care, hospital, or custodial...) When possible be specific @ -No Did you speak to anyone other than the patient for history (EMS, parent, family, police, friend...)? What history was obtained from this source @ -No Did you review nursing and triage notes (agree or disagree)? Why? @ -I reviewed and agree with nursing and triage notes Were old charts reviewed (outside hosp., previous admission, EMS record, old EKG, old radiological studies, urgent care reports/EKG's, custodial records)? Report findings @ -No old charts were reviewed Differential Weakness: Hypoglycemia, shock, sepsis, hyponatremia, anemia, infection, CO, ETOH, adverse medicine reaction, overdose, stroke, this is not meant to be an all-inclusive list. EKG interpreted by me (3pts min.). @Sinus rhythm rate of 88, UT interval 169, QRS duration 92, QTc [address] segmen t elevation. X-rays interpreted by me (1pt min.). @ -None done CT interpreted by me (1pt min.). @ -None done U/S interpreted by me (1pt. min.). @ -None done What testing was considered but not performed or refused? (CT, X-rays, U/S, labs)? Why? @ -None What meds were considered but not given or refused? Why? @ -None Did you discuss the management of the patient with other professionals (chemo aviles i.e. , PA, [employer] O[employer], lab, RT, psych nurse, oncology social work, bottle hop, teacher, air crew officer, corrections caseworker)? Give summary @Dr. Quiroz, Dr. Hatfield, and Marya covering for oncology Was smoking cessation discussed for >3mins.? @ -No Was critical care preformed (if so, how long)? @ -Yes, 35 minutes Were there social determinants of health that impacted care today? How? (Homelessness, low income, unemployed, alcoholism, drug addiction, transportation, low edu. Level, literacy, decrease access to med. care, residential, rehab)? @ -No Was there de-escalation of care discussed even if they declined (Discuss DNR or withdrawal of care, Hospice)? DNR status @ -No What co-morbidities impacted this encounter? (DM, HTN, Smoking, COPD, CAD, Cancer, CVA, ARF, Chemo, Hep., AIDS, mental health diagnosis, sleep apnea, morbid obesity)? @ -[MDS, AML Was patient admitted / discharged? Hospital course, mention meds given and route, prescriptions, significant lab abnormalities, going to OR and other pertinent info. @ -74-year-old male transferred with pancytopenia, profound anemia. Repeat hemoglobin 3.8 as well as leukopenia and thrombocytopenia. I did discuss case with the admitting doctor Dr. Hatfield and with Marya covering for hematology oncology. Patient admitted to the ICU with pancytopenia, symptomatic anemia Undiagnosed new problem with uncertain prognosis? @ -[No Drug Therapy requiring intensive monitoring for toxicity (Heparin, Nitro, Insulin, Cardizem)? @ -No Were any procedures done? @ -No Diagnosis/symptom? @ -Pancytopenia, symptomatic anemia Acute, or Chronic, or Acute on Chronic? @Acute on chronic Uncomplicated (without systemic symptoms) or Complicated (systemic symptoms)? @ -Default Side effects of treatment? @ -No Exacerbation, Progression, or Severe Exacerbation? @ -No Poses a threat to life or bodily function? How? (Chest pain, USA, CO, pneumonia, PE, COPD, DKA, ARF, appy, cholecystitis, CVA, Diverticulitis, Homicidal, Suicidal, threat to staff... and all critical care pts) @ -Yes, hemorrhagic shock, neutropenic fever, sepsis - Lab Data Result diagrams: 07/11/24 11:07 07/11/24 11:07 Lab Results 07/11/24 07/11/24 07/11/24 Range/Units 11:07 11:07 11:07 WBC 0.9 L* (3.8-10.6) k/uL RBC 1.16 L (4.30-5.90) m/uL Hgb 3.8 L* D (13.0-17.5) gm/dL Hct 10.9 L* (39.0-53.0) % MCV 94.0 (80.0-100.0) fL MCH 32.9 (25.0-35.0) pg MCHC 35.0 (31.0-37.0) g/dL RDW 16.0 H (11.5-15.5) % Plt Count 5 L* D (150-450) k/uL MPV 7.5 Differential Comment Poikilocytosis (manual Present Anisocytosis (manual) Present PT 10.8 (10.0-12.5) sec INR 1.0 (<1.2) APTT 20.5 L (22.0-30.0) sec Sodium 136 L (137-145) mmol/L Potassium 4.0 (3.5-5.1) mmol/L Chloride 110 H (98-107) mmol/L Carbon Dioxide 22 (22-30) mmol/L Anion Gap 4 mmol/L BUN 44 H (9-20) mg/dL Creatinine 0.83 (0.66-1.25) mg/dL Est GFR (CKD-EPI)AfAm >90 (>60 ml/min/1.73 sqM) Est GFR (CKD-EPI)NonAf 86 (>60 ml/min/1.73 sqM) Glucose 114 H (74-99) mg/dL Calcium 7.9 L (8.4-10.2) mg/dL Total Bilirubin 0.4 (0.2-1.3) mg/dL AST 24 (17-59) U/L ALT 36 (4-49) U/L Alkaline Phosphatase 111 (38-126) U/L Total Protein 4.8 L (6.3-8.2) g/dL Albumin 2.5 L (3.5-5.0) g/dL Blood Type Blood Type Recheck Bld Type Recheck Status Antibody Screen Crossmatch Spec Expiration Date 07/11/24 Range/Units 11:19 WBC (3.8-10.6) k/uL RBC (4.30-5.90) m/uL Hgb (13.0-17.5) gm/dL Hct (39.0-53.0) % MCV (80.0-100.0) fL MCH (25.0-35.0) pg MCHC (31.0-37.0) g/dL RDW (11.5-15.5) % Plt Count (150-450) k/uL MPV Differential Comment Poikilocytosis (manual Anisocytosis (manual) PT (10.0-12.5) sec INR (<1.2) APTT (22.0-30.0) sec Sodium (137-145) mmol/L Potassium (3.5-5.1) mmol/L Chloride (98-107) mmol/L Carbon Dioxide (22-30) mmol/L Anion Gap mmol/L BUN (9-20) mg/dL Creatinine (0.66-1.25) mg/dL Est GFR (CKD-EPI)AfAm (>60 ml/min/1.73 sqM) Est GFR (CKD-EPI)NonAf (>60 ml/min/1.73 sqM) Glucose (74-99) mg/dL Calcium (8.4-10.2) mg/dL Total Bilirubin (0.2-1.3) mg/dL AST (17-59) U/L ALT (4-49) U/L Alkaline Phosphatase (38-126) U/L Total Protein (6.3-8.2) g/dL Albumin (3.5-5.0) g/dL Blood Type O Positive Blood Type Recheck O Pos Bld Type Recheck Status No Antibody Screen NEGATIVE Crossmatch See Detail Spec Expiration Date 07/14/20242318 Critical Care Time Critical Care Time: Yes Total Critical Care Time: 35 Disposition Clinical Impression: MDS (myelodysplastic syndrome), high grade, Pancytopenia, Anemia Disposition: ADMITTED IP TO THIS HOSP Condition: Stable Is patient prescribed a controlled substance at d/c from ED?: No Time of Disposition: 12:44
[2024-07-11 11:35] LABS: HCT 10.9 % (39.0-53.0); HGB 3.8 gm/dL (13.0-17.5); WBC 0.9 k/uL (3.8-10.6)
[2024-07-11] MEDS ORDERED: NALOXONE 0.4 MG/ML 1 ML VIAL IV PRN (11:52)
[2024-07-11 11:54] LABS: ALT 36 U/L (4-49); AST 24 U/L (17-59); African American GFR (CKD) >90 (>60 ml/min/1.73 sqM); Albumin 2.5 g/dL (3.5-5.0); Alkaline Phosphatase 111 U/L (38-126); Anion Gap 4 mmol/L; Blood Urea Nitrogen 44 mg/dL (9-20); Calcium 7.9 mg/dL (8.4-10.2); Carbon Dioxide 22 mmol/L (22-30); Chloride 110 mmol/L (98-107); Glucose 114 mg/dL (74-99); Non-African American GFR(CKD) 86 (>60 ml/min/1.73 sqM); Sodium 136 mmol/L (137-145); Total Bilirubin 0.4 mg/dL (0.2-1.3); Total Protein 4.8 g/dL (6.3-8.2)
[2024-07-11 11:55] LABS: Prothrombin Time 10.8 sec (10.0-12.5)
[2024-07-11 11:57] LABS: Platelet Count 5 k/uL (150-450)
[2024-07-11 11:58] LABS: Anisocytosis (M) Present; Poikilocytosis (M) Present
[2024-07-11 12:02] LABS: Partial Thromboplastin Time 20.5 sec (22.0-30.0)
--- NOTE | 2024-07-11 12:06 | P.HPIM ---
History of Present Illness This is a pleasant 74 years old male with past medical history of AML. He follow-up with his oncologist josesito Borden whom he last saw him about 2 weeks ago. Patient is s/p 6 or 7 cycles of chemotherapy as per patient and at bedside, his last cycle of therapy was on May 30, 2024. He presents to [facility] with lightheadedness for 2 to 3 days associated with exertional dyspnea He denies shortness of breath at rest, no chest pain or abdominal pain. No other GI/GI symptoms. No fever or chills. No headache dizziness weakness or numbness Patient feels generally weak He denies smoking alcohol or illicit drugs. On admission his WBC is 0.9, hemoglobin 3.8 and hematocrit 10.9. Platelet count is not present in our labs but reviewing the [facility] it was 4K. At [facility] WBC was 0.7 and hemoglobin 3.6. Glucose 124, creatinine 0.8, BUN 41, chloride 112, bicarb is 21, sodium 141, potassium 3.8 Liver enzymes not elevated and bilirubin 0.3 No imaging studies. Review of Systems Review of systems CONSTITUTIONAL: No fever, no malaise, no fatigue. HEENT: No recent visual problems or hearing problems. Denied any sore throat. CARDIOVASCULAR: No orthopnea, PND, no palpitations, no syncope. PULMONARY: no cough, no hemoptysis. GASTROINTESTINAL: No diarrhea, no nausea, no vomiting, no abdominal pain. Normoactive bowel sounds. NEUROLOGICAL: No headaches, no weakness, no numbness. HEMATOLOGICAL: Denies any bleeding or petechiae. GENITOURINARY: Denies any burning micturition, frequency, or urgency. MUSCULOSKELETAL/RHEUMATOLOGICAL: Denies any joint pain, swelling, or any muscle pain. ENDOCRINE: Denies any polyuria or polydipsia. Past Medical History Past Medical History: Cancer, Prostate Disorder Additional Past Medical History / Comment(s): esophageal cancer, leukemia History of Any Multi-Drug Resistant Organisms: None Reported Past Surgical History: Heart Catheterization With Stent, Hernia Repair Additional Past Surgical History / Comment(s): gastric pull-through surgery Smoking Status: Never smoker Medications and Allergies Home Medications Medication Instructions Recorded Confirmed Type Acyclovir [Zovirax] 400 mg PO BID 01/01/24 07/08/24 History Fluticasone Nasal [place] [Flonase 2 spr EA NOSTRIL DAILY 01/01/24 07/08/24 History Nasal [place]] Loratadine [Claritin] 10 mg PO DAILY 01/01/24 07/08/24 History Multivitamins, Thera [Multivitamin 1 tab PO DAILY 01/01/24 07/08/24 History (formulary)] Ondansetron [Zofran] 4 mg PO Q4H PRN 01/01/24 07/08/24 History Pantoprazole [Protonix] 40 mg PO BID 01/01/24 07/08/24 History Posaconazole 300 mg PO DAILY 01/01/24 07/08/24 History Tamsulosin [Flomax] 0.4 mg PO DAILY 01/01/24 07/08/24 History Nitroglycerin Sl Tabs [Nitrostat] 0.4 mg SUBLINGUAL Q5M PRN #30 tab 01/05/24 07/08/24 Rx Potassium Chloride ER [K-Dur 10] 10 meq PO DAILY 06/27/24 07/08/24 History Vit C/E/Zn/Coppr/Lutein/Zeaxan 1 cap PO DAILY 06/27/24 07/08/24 History [Preservision Areds 2 Softgel] carvediloL [Coreg] 3.125 mg PO DAILY 06/27/24 07/08/24 History Moxifloxacin HCl [Avelox] 400 mg PO DAILY 7 Days #7 tab 07/01/24 07/08/24 Rx Allergies Allergy/AdvReac Type Severity Reaction Status Date / Time No Known Allergies Allergy Verified 07/11/24 11:52 Physical Exam Vitals: Vital Signs Temp Pulse Resp BP Pulse Ox 07/11/24 11:00 98.4 F 91 18 108/55 99 Intake and Output 07/10/24 07/11/24 07/11/24 22:59 06:59 14:59 Other: Weight 86.183 kg -GENERAL: The patient is alert and oriented x3, not in any acute distress. Well developed, well nourished. Pale and weak HEENT: Pupils are round and equally reacting to light. EOMI. No scleral icterus. No conjunctival pallor. Normocephalic, atraumatic. No pharyngeal erythema. No thyromegaly. CARDIOVASCULAR: S1 and S2 present. No murmurs, rubs, or gallops. PULMONARY: Chest is clear to auscultation, no wheezing , no crackles. ABDOMEN: Soft, nontender, nondistended, normoactive bowel sounds. No palpable organomegaly. MUSCULOSKELETAL: No joint swelling or deformity. EXTREMITIES: No cyanosis, clubbing, or pedal edema. NEUROLOGICAL: Gross neurological examination did not reveal any focal deficits. SKIN: No rashes. no petechiae. Results CBC & Chem 7: 07/11/24 11:07 07/11/24 11:07 Labs: Abnormal Lab Results - Last 24 Hours (Table) 07/11/24 07/11/24 Range/Units 11:07 11:07 WBC 0.9 L* (3.8-10.6) k/uL RBC 1.16 L (4.30-5.90) m/uL Hgb 3.8 L* D (13.0-17.5) gm/dL Hct 10.9 L* (39.0-53.0) % RDW 16.0 H (11.5-15.5) % Plt Count 5 L* D (150-450) k/uL Sodium 136 L (137-145) mmol/L Chloride 110 H (98-107) mmol/L BUN 44 H (9-20) mg/dL Glucose 114 H (74-99) mg/dL Calcium 7.9 L (8.4-10.2) mg/dL Total Protein 4.8 L (6.3-8.2) g/dL Albumin 2.5 L (3.5-5.0) g/dL Assessment and Plan Assessment: Severe anemia and thrombocytopenia, requiring blood transfusion AML, s/p chemotherapy 6-7 cycle last 1 was on 05/30/2024 Benign prostatic hypertrophy Coronary artery disease status post stent Plan: Patient will get blood and platelet transfusion Monitor hemoglobin and platelet count Hematology/oncology consult Further recommendation based on clinical course GI prophylaxis: Pepcid DVT prophylaxis: Mechanical, no anticoagulation because of severe anemia and thrombocytopenia Prognosis is guarded
--- NOTE | 2024-07-11 13:35 | XR ---
EXAMINATION TYPE: XR chest 2V DATE OF EXAM: 07/11/2024 12:20 PM COMPARISON: Chest radiographs from 01/02/2024e CLINICAL INDICATION: Male, 74 years old with history of sob; [facility] TECHNIQUE: XR chest 2V Frontal and lateral views of the chest. FINDINGS: Lungs/Pleura: There is no evidence of pleural effusion, focal consolidation, or pneumothorax. Pulmonary vascularity: Unremarkable. Heart/mediastinum: Cardiomediastinal silhouette is unremarkable. Hiatal hernia projects over the medi astinum. Musculoskeletal: No acute osseous pathology. IMPRESSION: 1. No evidence for acute process. 2. COPD changes. [facility], , 07/11/2024 1:33 PM
[2024-07-11 14:36] LABS: Glucose,Whole Blood 125 mg/dL (70-110)
--- NOTE | 2024-07-11 16:00 | P.CNPUL ---
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 He also has AML and has been on a combination of venetoclax/Vidaza and received posaconazole and remains on acyclovir. Recently had been having issues with pancytopenia and has a chronic anemia baseline of around 7. He was having increasing shortness of breath and was seen and [facility]. Hemoglobin reported at 2.6. He was transferred here for further treatment. White count 0.9. Hemoglobin 3.8. Platelets 5000. Sodium 136. Potassium 4.0. Bicarb 22. BUN 44. Creatinine 0.83. Glucose 114. Chest x-ray revealed no acute pulmonary process. Two units of irradiated packed red blood cells have been ordered. He was transferred to the intensive care unit for further monitoring. He is currently sitting up in bed. Awake and alert in no acute distress. He is quite pale. He is maintaining good O2 saturations in the high 90s on room air. He is afebrile. Hemodynamically stable. No shortness of breath at rest. No other complaints. Review of Systems REVIEW OF SYSTEMS: CONSTITUTIONAL: Denies any recent significant weight loss or weight gain. EYES: Denies change in vision. EARS, NOSE, MOUTH, THROAT: Denies headaches, denies sore throat. CARDIOVASCULAR: Denies chest pain, palpitations or syncopal episodes. RESPIRATORY: Positive for shortness of breath, no cough, congestion or hemoptysis. GASTROINTESTINAL: Denies change in appetite, denies abdominal pain GENITOURINARY: Denies hematuria, denies infections. MUSKULOSKELETAL: Denies pain, denies swelling. INTEGUMENTARY: Denies rash, denies eczema. NEUROLOGICAL: Denies recent memory loss, no recent seizure activity. PSYCHIATRIC: Denies anxiety, denies depression. HEMATOLOGIC/LYMPHATIC: Positive for anemia, denies enlarged lymph nodes. Past Medical History Past Medical History: Cancer, Prostate Disorder Additional Past Medical History / Comment(s): esophageal cancer, leukemia History of Any Multi-Drug Resistant Organisms: None Reported Past Surgical History: Heart Catheterization With Stent, Hernia Repair Additional Past Surgical History / Comment(s): gastric pull-through surgery Smoking Status: Never smoker Medications and Allergies Home Medications Medication Instructions Recorded Confirmed Type Acyclovir [Zovirax] 400 mg PO BID 01/01/24 07/11/24 History Fluticasone Nasal [place] [Flonase 2 spr EA NOSTRIL DAILY 01/01/24 07/11/24 History Nasal [place]] Loratadine [Claritin] 10 mg PO DAILY 01/01/24 07/11/24 History Ondansetron [Zofran] 4 mg PO Q4H PRN 01/01/24 07/11/24 History Pantoprazole [Protonix] 40 mg PO BID 01/01/24 07/11/24 History Posaconazole 300 mg PO W/BRKFST 01/01/24 07/11/24 History Tamsulosin [Flomax] 0.4 mg PO DAILY 01/01/24 07/11/24 History Nitroglycerin Sl Tabs [Nitrostat] 0.4 mg SUBLINGUAL Q5M PRN #30 tab 01/05/24 07/11/24 Rx Potassium Chloride ER [K-Dur 10] 10 meq PO DAILY 06/27/24 07/11/24 History Vit C/E/Zn/Coppr/Lutein/Zeaxan 1 cap PO BID 06/27/24 07/11/24 History [Preservision Areds 2 Softgel] Multivit-Min/FA/Lycopen/Lutein 1 tab PO DAILY 07/11/24 07/11/24 History [Centrum Silver Tablet] Allergies Allergy/AdvReac Type Severity Reaction Status Date / Time No Known Allergies Allergy Verified 07/11/24 11:52 Physical Exam Vitals: Vital Signs Temp Pulse Resp BP Pulse Ox 07/11/24 15:00 80 14 103/60 100 07/11/24 14:45 97.7 F 81 16 114/63 97 07/11/24 14:34 97.7 F 82 18 114/63 97 07/11/24 14:13 98.1 F 85 18 102/55 100 07/11/24 14:03 98.1 F 86 17 100/58 100 07/11/24 11:00 98.4 F 91 18 108/55 99 Intake and Output 07/11/24 07/11/24 07/11/24 06:59 14:59 22:59 Intake Total 0 0 Balance 0 0 Intake: Intake, IV Titration 0 Amount Sodium Chloride 0.9% 1, 0 000 ml @ 75 mls/hr IV . [id number] [facility] Rx#:[id number] Blood Product 0 Rc Irr As1 Unit 0 [id number] Other: Weight 86.183 kg GENERAL EXAM: Alert, very pale, pleasant 74-year-old man, on room air, comfortable in no apparent distress. HEAD: Normocephalic. EYES: Normal reaction of pupils, equal size. NOSE: Clear with pink turbinates. THROAT: No erythema or exudates. NECK: No masses, no JVD. CHEST: No chest wall deformity. LUNGS: Equal air entry with no crackles, wheeze, rhonchi or dullness. CVS: S1 and S2 normal with no audible murmur, regular rhythm. ABDOMEN: No hepatosplenomegaly, normal bowel sounds, no guarding or rigidity. SPINE: No scoliosis or deformity SKIN: No rashes CENTRAL NERVOUS SYSTEM: No focal deficits, tone is normal in all 4 extremities. EXTREMITIES: There is no peripheral edema. No clubbing, no cyanosis. Peripheral pulses are intact. Results - Laboratory Findings CBC and BMP: 07/11/24 11:07 07/11/24 11:07 PT/INR, D-dimer PT 10.8 sec (10.0-12.5) 07/11/24 11:07 INR 1.0 (<1.2) 07/11/24 11:07 Abnormal lab findings: Abnormal Labs 07/11/24 07/11/24 07/11/24 11:07 11:07 11:07 WBC 0.9 L* RBC 1.16 L Hgb 3.8 L* D Hct 10.9 L* RDW 16.0 H Plt Count 5 L* D APTT 20.5 L Sodium 136 L Chloride 110 H BUN 44 H Glucose 114 H POC Glucose (mg/dL) Calcium 7.9 L Total Protein 4.8 L Albumin 2.5 L Crossmatch 07/11/24 07/11/24 11:19 14:34 WBC RBC Hgb Hct RDW Plt Count APTT Sodium Chloride BUN Glucose POC Glucose (mg/dL) 125 H Calcium Total Protein Albumin Crossmatch See Detail - Diagnostic Findings Chest x-ray: image reviewed Assessment and Plan Assessment: Acute pancytopenia in a patient with a known history of AML receiving chemotherapy, previously on venetoclax/Vidaza History of esophageal adenocarcinoma post resection with gastric wall and subsequent chemoradiation therapy History of acute myocardial infarction in December 2023, treated medically History of coronary artery disease with previous stent placement Benign prostatic hyperplasia Plan: The patient was seen and evaluated Chest x-ray, labs and medications reviewed To receive 2 units of irradiated packed red blood cells Medical oncology consult May need empiric antibiotics Currently stable and on room air Monitor closely in the intensive care unit We will continue to follow make further recommendations based on his clinical status I have personally seen and examined the patient, performed the documentation and the assessment and plan as written. Number of minutes spent on the visit: 20 Dictation was produced using [employer] dictation software. Please excuse any grammatical, word or spelling errors.
[2024-07-11] MEDS: SODIUM CHLORIDE 0.9% 1,000 ML IV SCH (18:13)
[2024-07-11 20:52] LABS: MCH 32.4 pg (25.0-35.0); MCHC 34.7 g/dL (31.0-37.0); MCV 93.3 fL (80.0-100.0); Mean Platelet Volume 9.3; RBC 1.57 m/uL (4.30-5.90); RDW 15.4 % (11.5-15.5)
[2024-07-11] MEDS ORDERED: ONDANSETRON 4 MG TAB PO PRN (21:28)
[2024-07-11] MEDS ORDERED: NITROGLYCERIN SL TABS 0.4 MG TAB SUBLINGUAL PRN (21:28)
[2024-07-11] MEDS: POTASSIUM CHLORIDE ER 10 MEQ TAB.ER.PRT PO SCH (21:31)
[2024-07-11] MEDS: ACYCLOVIR 200 MG CAP PO SCH (21:31)
[2024-07-11 21:33] LABS: WBC 0.9 k/uL (3.8-10.6)
[2024-07-11 21:34] LABS: Platelet Count 6 k/uL (150-450)
[2024-07-11 21:37] LABS: HCT 14.6 % (39.0-53.0); HGB 5.1 gm/dL (13.0-17.5)
[2024-07-11 22:54] LABS: Anisocytosis (M) Present
[2024-07-11] MEDS: FUROSEMIDE 10 MG/ML 2 ML VIAL IV ONE (23:20)
[2024-07-12 04:19] LABS: African American GFR (CKD) >90 (>60 ml/min/1.73 sqM); Anion Gap 2 mmol/L; Blood Urea Nitrogen 39 mg/dL (9-20); Calcium 7.8 mg/dL (8.4-10.2); Carbon Dioxide 22 mmol/L (22-30); Chloride 113 mmol/L (98-107); Glucose 118 mg/dL (74-99); Non-African American GFR(CKD) 89 (>60 ml/min/1.73 sqM); Potassium 3.7 mmol/L (3.5-5.1); Sodium 137 mmol/L (137-145)
[2024-07-12 04:37] LABS: MCH 31.9 pg (25.0-35.0); MCHC 34.1 g/dL (31.0-37.0); MCV 93.7 fL (80.0-100.0); Mean Platelet Volume 8.8; RBC 1.61 m/uL (4.30-5.90); RDW 15.5 % (11.5-15.5)
[2024-07-12 04:42] LABS: WBC 0.8 k/uL (3.8-10.6)
[2024-07-12 04:44] LABS: HCT 15.1 % (39.0-53.0); HGB 5.1 gm/dL (13.0-17.5); Platelet Count 33 k/uL (150-450)
[2024-07-12] MEDS: PANTOPRAZOLE 40 MG TABLET PO SCH (06:30)
[2024-07-12] MEDS: FLUTICASONE NASAL 50MCG/SPRAY 16GM BTL EA NOSTRIL SCH (08:36)
[2024-07-12] MEDS: TAMSULOSIN 0.4 MG CAP.ER.24H PO SCH (08:36)
--- NOTE | 2024-07-12 09:23 | P.PN ---
Subjective This is a pleasant 74 years old male with past medical history of AML. He follow-up with his oncologist josesito Borden whom he last saw him about 2 weeks ago. Patient is s/p 6 or 7 cycles of chemotherapy as per patient and at bedside, his last cycle of therapy was on May 30, 2024. He presents to [facility] with lightheadedness for 2 to 3 days associated with exertional dyspnea He denies shortness of breath at rest, no chest pain or abdominal pain. No other GI/GI symptoms. No fever or chills. No headache dizziness weakness or numbness Patient feels generally weak He denies smoking alcohol or illicit drugs. On admission his WBC is 0.9, hemoglobin 3.8 and hematocrit 10.9. Platelet count is not present in our labs but reviewing the [facility] it was 4K. At [facility] WBC was 0.7 and hemoglobin 3.6. Glucose 124, creatinine 0.8, BUN 41, chloride 112, bicarb is 21, sodium 141, potassium 3.8 Liver enzymes not elevated and bilirubin 0.3 No imaging studies. 07/12 Patient feels better and stronger No more lightheaded He has good appetite Currently staying in bed but feels he can move. Patient asked to ask for help otherwise Afebrile and vital stable His WBC 0.8, he hemoglobin improved to 5.1 and platelet count improved to 33. He is status post 2 days of irradiated blood. He is continued on normal saline at 75 mL/h Objective - Vital Signs Vital signs: Vital Signs Temp 97.4 F L 07/12/24 08:00 Pulse 74 07/12/24 09:00 Resp 23 07/12/24 09:00 BP 102/63 07/12/24 09:00 Pulse Ox 98 07/12/24 09:00 FiO2 Intake & Output 07/11/24 07/12/24 07/12/24 18:59 06:59 18:59 Intake Total 530 1965 150 Output Total 575 5640 600 Balance -45 315 -450 Weight 86.183 kg 87.9 kg Intake: IV 900 150 Sodium Chloride 0.9% 1, 900 150 000 ml @ 75 mls/hr IV . [id number] [facility] Rx#:[id number] Intake, IV Titration 0 75 Amount Sodium Chloride 0.9% 1, 0 75 000 ml @ 75 mls/hr IV . [id number] [facility] Rx#:[id number] Oral 120 Blood Product 360 990 Platelet Pheresis Pas 338 Psoralen Unit [id number] Platelet Pheresis Pas 371 Psoralen Unit [id number] Rc Irr As1 Unit 310 [id number] Rc Pheres Irrad As 3 281 Unit [id number] Rc Pheresis Irrad As 3 50 Unit [id number] Other 50 Rc Irr As1 Unit 50 [id number] Output: Urine 575 1650 600 Other: Voiding Method Urinal Urinal Urinal # Voids 1 - Exam GENERAL: The patient is alert and oriented x3, not in any acute distress. Well developed, well nourished. HEENT: Pupils are round and equally reacting to light. EOMI. No scleral icterus. No conjunctival pallor. Normocephalic, atraumatic. No pharyngeal erythema. No thyromegaly. CARDIOVASCULAR: S1 and S2 present. No murmurs, rubs, or gallops. PULMONARY: Chest is clear to auscultation, no wheezing , no crackles. ABDOMEN: Soft, nontender, nondistended, normoactive bowel sounds. No palpable organomegaly. MUSCULOSKELETAL: No joint swelling or deformity. EXTREMITIES: No cyanosis, clubbing, or pedal edema. NEUROLOGICAL: Gross neurological examination did not reveal any focal deficits. SKIN: No rashes. no petechiae. - Labs CBC & Chem 7: 07/12/24 03:27 07/12/24 03:27 Labs: Abnormal Lab Results - Last 24 Hours (Table) 07/11/24 07/11/24 07/11/24 Range/Units 11:07 11:07 11:07 WBC 0.9 L* (3.8-10.6) k/uL RBC 1.16 L (4.30-5.90) m/uL Hgb 3.8 L* D (13.0-17.5) gm/dL Hct 10.9 L* (39.0-53.0) % RDW 16.0 H (11.5-15.5) % Plt Count 5 L* D (150-450) k/uL APTT 20.5 L (22.0-30.0) sec Sodium 136 L (137-145) mmol/L Chloride 110 H (98-107) mmol/L BUN 44 H (9-20) mg/dL Glucose 114 H (74-99) mg/dL POC Glucose (mg/dL) (70-110) mg/dL Calcium 7.9 L (8.4-10.2) mg/dL Total Protein 4.8 L (6.3-8.2) g/dL Albumin 2.5 L (3.5-5.0) g/dL Crossmatch 07/11/24 07/11/24 07/11/24 Range/Units 11:19 14:34 20:12 WBC 0.9 L* (3.8-10.6) k/uL RBC 1.57 L (4.30-5.90) m/uL Hgb 5.1 L* (13.0-17.5) gm/dL Hct 14.6 L* (39.0-53.0) % RDW (11.5-15.5) % Plt Count 6 L* (150-450) k/uL APTT (22.0-30.0) sec Sodium (137-145) mmol/L Chloride (98-107) mmol/L BUN (9-20) mg/dL Glucose (74-99) mg/dL POC Glucose (mg/dL) 125 H (70-110) mg/dL Calcium (8.4-10.2) mg/dL Total Protein (6.3-8.2) g/dL Albumin (3.5-5.0) g/dL Crossmatch See Detail 07/12/24 07/12/24 Range/Units 03:27 03:27 WBC 0.8 L* (3.8-10.6) k/uL RBC 1.61 L (4.30-5.90) m/uL Hgb 5.1 L* (13.0-17.5) gm/dL Hct 15.1 L* (39.0-53.0) % RDW (11.5-15.5) % Plt Count 33 L D (150-450) k/uL APTT (22.0-30.0) sec Sodium (137-145) mmol/L Chloride 113 H (98-107) mmol/L BUN 39 H (9-20) mg/dL Glucose 118 H (74-99) mg/dL POC Glucose (mg/dL) (70-110) mg/dL Calcium 7.8 L (8.4-10.2) mg/dL Total Protein (6.3-8.2) g/dL Albumin (3.5-5.0) g/dL Crossmatch Assessment and Plan Assessment: Severe anemia and thrombocytopenia, requiring blood transfusion AML, s/p chemotherapy 6-7 cycle last 1 was on 05/30/2024 Benign prostatic hypertrophy Coronary artery disease status post stent Plan: Patient is a status post blood and platelet transfusion on 07/11 Monitor hemoglobin and platelet count Hematology/oncology consult Further recommendation based on clinical course GI prophylaxis: Pepcid DVT prophylaxis: Mechanical, no anticoagulation because of severe anemia and thrombocytopenia Prognosis is guarded
--- NOTE | 2024-07-12 11:52 | P.PN ---
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 He also has AML and has been on a combination of venetocl ax/Vidaza and received posaconazole and remains on acyclovir. Recently had been having issues with pancytopenia and has a chronic anemia baseline of around 7. He was having increasing shortness of breath and was seen and [facility]. Hemoglobin reported at 2.6. He was transferred here for further treatment. White count 0.9. Hemoglobin 3.8. Platelets 5000. Sodium 136. Potassium 4.0. Bicarb 22. BUN 44. Creatinine 0.83. Glucose 114. Chest x-ray revealed no acute pulmonary process. Two units of irradiated packed red blood cells have been ordered. He was transferred to the intensive care unit for further monitoring. He is currently sitting up in bed. Awake and alert in no acute distress. He is quite pale. He is maintaining good O2 saturations in the high 90s on room air. He is afebrile. Hemodynamically stable. No shortness of breath at rest. No other complaints. Today on 07/12/2024, remains in the ICU, patient received so far 3 units of packed RBCs and 2 units of platelets, he is to receive 2 more units of packed RBCs today. Clinically the patient is doing well, does not seem to be in any distress. WBC count today is 0.8 hemoglobin is 5.1 platelets are 33,000's basic metabolic profile and renal profile are normal. Objective - Vital Signs Vital signs: Vital Signs Temp 97.8 F 07/12/24 11:33 Pulse 73 07/12/24 11:33 Resp 18 07/12/24 11:33 BP 108/65 07/12/24 11:33 Pulse Ox 99 07/12/24 11:13 FiO2 Intake & Output 07/11/24 07/12/24 07/12/24 18:59 06:59 18:59 Intake Total 530 1965 225 Output Total 573 9040 800 Balance -45 315 -575 Weight 86.183 kg 87.9 kg Intake: IV 900 225 Sodium Chloride 0.9% 1, 900 225 000 ml @ 75 mls/hr IV . [id number] [facility] Rx#:[id number] Intake, IV Titration 0 75 Amount Sodium Chloride 0.9% 1, 0 75 000 ml @ 75 mls/hr IV . [id number] [facility] Rx#:[id number] Oral 120 Blood Product 360 990 0 Platelet Pheresis Pas 338 Psoralen Unit [id number] Platelet Pheresis Pas 371 Psoralen Unit [id number] Rc Irr As1 Unit 310 [id number] Rc Irr As1 Unit 0 [id number] Rc Pheres Irrad As 3 281 Unit [id number] Rc Pheresis Irrad As 3 50 Unit [id number] Other 50 Rc Irr As1 Unit 50 [id number] Output: Urine 575 1650 800 Other: Voiding Method Urinal Urinal Urinal # Voids 1 - Exam GENERAL: Revealed 74-year-old white male in no distress, extremely pleasant HEENT: Pupils are round and equally reacting to light. EOMI. No scleral icterus. No conjunctival pallor. Normocephalic, atraumatic. No pharyngeal erythema. No thyromegaly. CARDIOVASCULAR: S1 and S2 present. No murmurs, rubs, or gallops. PULMONARY: Symmetrical chest expansion clear throughout no crackles rhonchi or wheezes ABDOMEN: Soft, nontender, nondistended, normoactive bowel sounds. No palpable organomegaly. MUSCULOSKELETAL: No joint swelling or deformity. EXTREMITIES: No cyanosis, clubbing, or pedal edema. NEUROLOGICAL: Alert oriented x 3 no gross focal deficit SKIN: No rashes. no petechiae. - Labs CBC & Chem 7: 07/12/24 03:27 07/12/24 03:27 Labs: Abnormal Lab Results - Last 24 Hours (Table) 07/11/24 07/11/24 07/11/24 Range/Units 11:07 11:07 11:07 WBC (3.8-10.6) k/uL RBC (4.30-5.90) m/uL Hgb (13.0-17.5) gm/dL Hct (39.0-53.0) % Plt Count 5 L* D (150-450) k/uL APTT 20.5 L (22.0-30.0) sec Sodium 136 L (137-145) mmol/L Chloride 110 H (98-107) mmol/L BUN 44 H (9-20) mg/dL Glucose 114 H (74-99) mg/dL POC Glucose (mg/dL) (70-110) mg/dL Calcium 7.9 L (8.4-10.2) mg/dL Total Protein 4.8 L (6.3-8.2) g/dL Albumin 2.5 L (3.5-5.0) g/dL Crossmatch 07/11/24 07/11/24 07/11/24 Range/Units 11:19 14:34 20:12 WBC 0.9 L* (3.8-10.6) k/uL RBC 1.57 L (4.30-5.90) m/uL Hgb 5.1 L* (13.0-17.5) gm/dL Hct 14.6 L* (39.0-53.0) % Plt Count 6 L* (150-450) k/uL APTT (22.0-30.0) sec Sodium (137-145) mmol/L Chloride (98-107) mmol/L BUN (9-20) mg/dL Glucose (74-99) mg/dL POC Glucose (mg/dL) 125 H (70-110) mg/dL Calcium (8.4-10.2) mg/dL Total Protein (6.3-8.2) g/dL Albumin (3.5-5.0) g/dL Crossmatch See Detail 07/12/24 07/12/24 Range/Units 03:27 03:27 WBC 0.8 L* (3.8-10.6) k/uL RBC 1.61 L (4.30-5.90) m/uL Hgb 5.1 L* (13.0-17.5) gm/dL Hct 15.1 L* (39.0-53.0) % Plt Count 33 L D (150-450) k/uL APTT (22.0-30.0) sec Sodium (137-145) mmol/L Chloride 113 H (98-107) mmol/L BUN 39 H (9-20) mg/dL Glucose 118 H (74-99) mg/dL POC Glucose (mg/dL) (70-110) mg/dL Calcium 7.8 L (8.4-10.2) mg/dL Total Protein (6.3-8.2) g/dL Albumin (3.5-5.0) g/dL Crossmatch Assessment and Plan Assessment: Impression: Acute pancytopenia in a patient with a known history of AML receiving chemotherapy, previously on venetoclax/Vidaza History of esophageal adenocarcinoma post resection with gastric wall and subsequent chemoradiation therapy History of acute myocardial infarction in December 2023, treated medically History of coronary artery disease with previous stent placement Benign prostatic hyperplasia Plan: Present supportive care measures 2 more units of irradiated packed RBCs are pending Continue present medications and continue to monitor daily CBCs and daily labs Could consider transferring the patient out of the ICU to an oncology bed Patient to be seen by oncology today, Will continue to follow Time with Patient: Less than 30
[2024-07-12 12:21] LABS: Reticulocyte % 1.5 % (0.5-2.0)
--- NOTE | 2024-07-12 13:45 | P.CONS ---
History of Present Illness - Reason for Consult Consult date: 07/12/24 MDS with excess blasts 2 - Chief Complaint Lightheadedness, Dyspnea on exertion - History of Present Illness Mr. 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 He had been having 2 to 3 days of exertional dyspnea and lightheadedness. Labs at [facility] were significant for WBC 0.7, hemoglobin 3.6, platelets 4000. Upon arrival to [facility], CBC was significant for WBC 0.9, hemoglobin 3.8 (MCV 94), platelets 5000. CMP noted elevated BUN at 44 with creatinine 0.83, which is at his baseline. He was otherwise hemodynamically stable and afebrile with systolic blood pressures ranging from the 90s to 100s. He has received a total of 2 units of irradiated pheresis platelets along with 3 units of irradiated packed red blood cells. Repeat CBC on today's consultation revealed WBC 0.8, hemoglobin 5.1, platelets 33. 2 additional units of packed red blood cells have been ordered and are currently pending. He was recently hospitalized for febrile neutropenia from 06/28/2024 through 07/01/2024. Infectious workup at that time was not remarkable. He did require 3 units of packed red blood cells on that admission. He was discharged on mo xifloxacin, that was completed on 07/08/2024. His last cycle of Vidaza was completed on 06/07/2024 and has been off of Venclexta since 06/14/2024 . He did have a bone marrow biopsy in March 2024 revealing no residual blasts. Clinically, he feels improved since admission and denies any new signs or symptoms including no melena, hematochezia, bright blood per rectum, or bleeding diathesis. He denies any fevers, chills, or lymphadenopathy. Review of Systems 14 point view systems conducted pertinent positives and negatives as noted per HPI Past Medical History Past Medical History: Cancer, Prostate Disorder Additional Past Medical History / Comment(s): esophageal cancer, leukemia History of Any Multi-Drug Resistant Organisms: None Reported Past Surgical History: Heart Catheterization With Stent, Hernia Repair Additional Past Surgical History / Comment(s): gastric pull-through surgery Past Anesthesia/Blood Transfusion Reactions: No Reported Reaction Smoking Status: Never smoker Medications and Allergies Home Medications Medication Instructions Recorded Confirmed Type Acyclovir [Zovirax] 400 mg PO BID 01/01/24 07/11/24 History Fluticasone Nasal [place] [Flonase 2 spr EA NOSTRIL DAILY 01/01/24 07/11/24 History Nasal [place]] Loratadine [Claritin] 10 mg PO DAILY 01/01/24 07/11/24 History Ondansetron [Zofran] 4 mg PO Q4H PRN 01/01/24 07/11/24 History Pantoprazole [Protonix] 40 mg PO BID 01/01/24 07/11/24 History Posaconazole 300 mg PO W/BRKFST 01/01/24 07/11/24 History Tamsulosin [Flomax] 0.4 mg PO DAILY 01/01/24 07/11/24 History Nitroglycerin Sl Tabs [Nitrostat] 0.4 mg SUBLINGUAL Q5M PRN #30 tab 01/05/24 07/11/24 Rx Potassium Chloride ER [K-Dur 10] 10 meq PO DAILY 06/27/24 07/11/24 History Vit C/E/Zn/Coppr/Lutein/Zeaxan 1 cap PO BID 06/27/24 07/11/24 History [Preservision Areds 2 Softgel] Multivit-Min/FA/Lycopen/Lutein 1 tab PO DAILY 07/11/24 07/11/24 History [Centrum Silver Tablet] Allergies Allergy/AdvReac Type Severity Reaction Status Date / Time No Known Allergies Allergy Verified 07/11/24 11:52 Physical Exam Vitals: Vital Signs Temp Pulse Resp BP Pulse Ox 07/12/24 09:00 74 23 102/63 98 07/12/24 08:00 97.4 F L 71 12 91/61 96 07/12/24 07:00 70 11 L 97/61 98 07/12/24 06:00 68 16 97/65 98 07/12/24 05:00 69 12 107/73 99 07/12/24 04:00 98 F 70 12 153/80 98 07/12/24 03:00 68 11 L 106/60 98 07/12/24 02:21 73 14 104/61 99 07/12/24 02:00 72 12 100/59 95 07/12/24 01:00 76 6 L 101/60 98 07/12/24 00:00 97.8 F 90 16 106/61 96 07/11/24 23:40 97.8 F 90 18 102/63 96 07/11/24 23:30 98 F 85 16 97/58 95 07/11/24 23:15 98 F 80 16 99/54 96 07/11/24 23:00 76 12 94/55 96 07/11/24 22:55 98 F 76 16 94/55 97 07/11/24 22:45 98 F 78 12 99/60 95 07/11/24 22:35 98 F 75 16 96/61 97 07/11/24 22:25 98.2 F 73 16 100/59 96 07/11/24 22:15 98.2 F 75 18 104/63 96 07/11/24 22:00 78 12 100/55 97 07/11/24 21:00 74 109/66 95 07/11/24 20:00 98.1 F 73 13 111/63 97 07/11/24 19:00 84 18 101/61 99 07/11/24 18:01 98.3 F 89 16 107/61 100 07/11/24 18:00 89 18 107/61 100 07/11/24 17:00 80 16 106/64 98 07/11/24 16:45 99.2 F 80 16 104/64 99 07/11/24 16:30 78 16 108/65 98 07/11/24 16:25 98.1 F 80 18 104/64 99 07/11/24 16:15 98.8 F 80 18 120/62 96 07/11/24 16:02 98.8 F 81 18 120/62 97 07/11/24 16:00 98.8 F 90 16 104/57 97 07/11/24 15:45 78 16 101/60 100 07/11/24 15:30 79 16 102/58 97 07/11/24 15:15 83 14 91/54 100 07/11/24 15:00 80 14 103/60 100 07/11/24 14:45 97.7 F 81 16 114/63 97 07/11/24 14:34 97.7 F 82 18 114/63 97 07/11/24 14:13 98.1 F 85 18 102/55 100 07/11/24 14:03 98.1 F 86 17 100/58 100 07/11/24 11:00 98.4 F 91 18 108/55 99 Intake and Output 07/11/24 07/12/24 07/12/24 22:59 06:59 14:59 Intake Total 1168 1327 150 Output Total 1275 950 600 Balance -107 377 -450 Intake: IV 225 675 150 Sodium Chloride 0.9% 1, 225 675 150 000 ml @ 75 mls/hr IV . [id number] [facility] Rx#:[id number] Intake, IV Titration 75 Amount Sodium Chloride 0.9% 1, 75 000 ml @ 75 mls/hr IV . [id number] [facility] Rx#:[id number] Oral 120 Blood Product 698 652 Platelet Pheresis Pas 338 Psoralen Unit [id number] Platelet Pheresis Pas 0 371 Psoralen Unit [id number] Rc Irr As1 Unit 310 [id number] Rc Pheres Irrad As 3 281 Unit [id number] Rc Pheresis Irrad As 3 50 Unit [id number] Other 50 Rc Irr As1 Unit 50 [id number] Output: Urine 1275 950 600 Other: Voiding Method Urinal Urinal Urinal # Voids 1 1 Weight 86.183 kg 87.9 kg - Constitutional General appearance: cooperative, no acute distress - EENT Pale mucous membranes - Respiratory Respiratory: bilateral: CTA - Cardiovascular Rhythm: regular Heart sounds: normal: S1, S2 - Gastrointestinal General gastrointestinal: no distended, normal bowel sounds, soft, no tenderness - Integumentary Integumentary: pale - Neurologic Neurologic: CNII-XII intact - Psychiatric Psychiatric: A&O x's 3, appropriate affect Results CBC & Chem 7: 07/12/24 03:27 07/12/24 03:27 Labs: Abnormal Lab Results - Last 24 Hours (Table) 07/11/24 07/11/24 07/11/24 Range/Units 11:07 11:07 11:07 WBC 0.9 L* (3.8-10.6) k/uL RBC 1.16 L (4.30-5.90) m/uL Hgb 3.8 L* D (13.0-17.5) gm/dL Hct 10.9 L* (39.0-53.0) % RDW 16.0 H (11.5-15.5) % Plt Count 5 L* D (150-450) k/uL APTT 20.5 L (22.0-30.0) sec Sodium 136 L (137-145) mmol/L Chloride 110 H (98-107) mmol/L BUN 44 H (9-20) mg/dL Glucose 114 H (74-99) mg/dL POC Glucose (mg/dL) (70-110) mg/dL Calcium 7.9 L (8.4-10.2) mg/dL Total Protein 4.8 L (6.3-8.2) g/dL Albumin 2.5 L (3.5-5.0) g/dL Crossmatch 07/11/24 07/11/24 07/11/24 Range/Units 11:19 14:34 20:12 WBC 0.9 L* (3.8-10.6) k/uL RBC 1.57 L (4.30-5.90) m/uL Hgb 5.1 L* (13.0-17.5) gm/dL Hct 14.6 L* (39.0-53.0) % RDW (11.5-15.5) % Plt Count 6 L* (150-450) k/uL APTT (22.0-30.0) sec Sodium (137-145) mmol/L Chloride (98-107) mmol/L BUN (9-20) mg/dL Glucose (74-99) mg/dL POC Glucose (mg/dL) 125 H (70-110) mg/dL Calcium (8.4-10.2) mg/dL Total Protein (6.3-8.2) g/dL Albumin (3.5-5.0) g/dL Crossmatch See Detail 07/12/24 07/12/24 Range/Units 03:27 03:27 WBC 0.8 L* (3.8-10.6) k/uL RBC 1.61 L (4.30-5.90) m/uL Hgb 5.1 L* (13.0-17.5) gm/dL Hct 15.1 L* (39.0-53.0) % RDW (11.5-15.5) % Plt Count 33 L D (150-450) k/uL APTT (22.0-30.0) sec Sodium (137-145) mmol/L Chloride 113 H (98-107) mmol/L BUN 39 H (9-20) mg/dL Glucose 118 H (74-99) mg/dL POC Glucose (mg/dL) (70-110) mg/dL Calcium 7.8 L (8.4-10.2) mg/dL Total Protein (6.3-8.2) g/dL Albumin (3.5-5.0) g/dL Crossmatch Assessment and Plan (1) Pancytopenia Current Visit: Yes Status: Acute Priority: High Code(s): D61.818 - OTHER PANCYTOPENIA SNOMED Code(s): 163570306 (2) MDS (myelodysplastic syndrome), high grade Current Visit: Yes Status: Acute Priority: High Code(s): D46.Z - OTHER MYELODYSPLASTIC SYNDROMES SNOMED Code(s): 518141361 Plan: #Pancytopenia -Noted to have marked pancytopenia on admission with WBC 0.9, hemoglobin 3.8, platelets 5000 -He has received a total of 3 units of irradiated packed red blood cells and 2 units of irradiated pheresis platelets with inappropriate response with hemoglobin to 5.1 and platelets 33 -Coagulation studies on admission revealed no evidence of coagulopathy -Clinically, there are no signs of bleeding or infection -Bone marrow biopsy in March 2024 with [facility] noted no evide nce of residual MDS with last 5 days of treatment completed on 06/07/2024 -I suspect his persistent pancytopenia is likely secondary to treatment -Fibrinogen, vitamin B12/methylmalonic acid, folic acid, iron studies,thyroid profile, and hemolysis labs ordered -Transfuse for hemoglobin less than 7 and platelets less than or equal to 10,000 or bleeding #MDS with excess blast 2 -Diagnosed in August 2023 and has been on venetoclax and azacitidine since October 2023 -Repeat bone marrow biopsy in March 2024 revealed complete response to treatment -His clinical course has been complicated by NSTEMI in January 2024 as well as neutropenic fever in June 2024 -He has not received Vidaza since 06/07/2024 and venetoclax since 06/14/2024 -Continue to hold venetoclax -He may require dose or schedule modification such as 5 days of Vidaza instead of 7 days and/or decrease dose of venetoclax -No colony growth stimulating factor should be given at this time due to theoretical concern of exacerbating underlying disease or stimulating transformation into acute leukemia Dominick Simon MD
[2024-07-12] MEDS: FUROSEMIDE 10 MG/ML 2 ML VIAL IV ONE (13:51)
[2024-07-12 18:53] LABS: Iron 189 UG/DL (65-175); Total Iron Binding Capacity 225 UG/DL (228-460)
[2024-07-12 19:07] LABS: MCH 31.3 pg (25.0-35.0); MCHC 34.9 g/dL (31.0-37.0); MCV 89.4 fL (80.0-100.0); Mean Platelet Volume 8.5; RBC 2.18 m/uL (4.30-5.90); RDW 14.7 % (11.5-15.5)
[2024-07-12 19:15] LABS: HCT 19.5 % (39.0-53.0); HGB 6.8 gm/dL (13.0-17.5)
[2024-07-12 19:16] LABS: Platelet Count 28 k/uL (150-450); WBC 0.8 k/uL (3.8-10.6)
--- NOTE | 2024-07-13 10:25 | P.PN ---
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 He also has AML and has been on a combination of venetoclax/Vidaza and received posaconazole and remains on acyclovir. Recently had been having issues with pancytopenia and has a chronic anemia baseline of around 7. He was having increasing shortness of breath and was seen and [facility]. Hemoglobin reported at 2.6. He was transferred here for further treatment. White count 0.9. Hemoglobin 3.8. Platelets 5000. Sodium 136. Potassium 4.0. Bicarb 22. BUN 44. Creatinine 0.83. Glucose 114. Chest x-ray revealed no acute pulmonary process. Two units of irradiated packed red blood cells have been ordered. He was transferred to the intensive care unit for further monitoring. He is currently sitting up in bed. Awake and alert in no acute distress. He is quite pale. He is maintaining good O2 saturations in the high 90s on room air. He is afebrile. Hemodynamically stable. No shortness of breath at rest. No other complaints. Today on 07/12/2024, remains in the ICU, patient received so far 3 units of packed RBCs and 2 units of platelets, he is to receive 2 more units of packed RBCs today. Clinically the patient is doing well, does not seem to be in any distress. WBC count today is 0.8 hemoglobin is 5.1 platelets are 33,000's basic metabolic profile and renal profile are normal. The patient is seen today July 13, 2024 in follow-up on the regular medical floor. He was transferred out of the ICU yesterday. He is currently awake and alert in no acute distress. States he is feeling better today. Maintaining good O2 saturations in the 90s on room air. He has been afebrile. Hemodynamically stable. He is status post 6 units of packed red blood cells and 2 units of platelets this admission. Today's labs are pending. Objective - Vital Signs Vital signs: Vital Signs Temp 97.7 F 07/13/24 07:41 Pulse 77 07/13/24 07:41 Resp 16 07/13/24 07:41 BP 100/57 07/13/24 07:41 Pulse Ox 97 07/13/24 07:41 FiO2 Intake & Output 07/12/24 07/13/24 07/13/24 18:59 06:59 18:59 Intake Total 845 0 Output Total 2400 350 Balance -1555 -350 Intake: IV 225 Sodium Chloride 0.9% 1, 225 000 ml @ 75 mls/hr IV . [id number] [facility] Rx#:[id number] Blood Product 620 0 Rc Irr As1 Unit 0 [id number] Rc Irr As1 Unit 310 [id number] Rc Irr As1 Unit 310 [id number] Output: Urine 2400 350 Other: Voiding Method Urinal Urinal - Exam GENERAL EXAM: Alert, pleasant 74-year-old male, on room air, comfortable in no apparent distress. HEAD: Normocephalic. EYES: Normal reaction of pupils, equal size. NOSE: Clear with pink turbinates. THROAT: No erythema or exudates. NECK: No masses, no JVD. CHEST: No chest wall deformity. LUNGS: Equal air entry with no crackles, wheeze, rhonchi or dullness. CVS: S1 and S2 normal with no audible murmur, regular rhythm. ABDOMEN: No hepatosplenomegaly, normal bowel sounds, no guarding or rigidity. SPINE: No scoliosis or deformity SKIN: No rashes CENTRAL NERVOUS SYSTEM: No focal deficits, tone is normal in all 4 extremities. EXTREMITIES: There is no peripheral edema. No clubbing, no cyanosis. Peripheral pulses are intact. - Labs CBC & Chem 7: 07/12/24 18:45 07/12/24 03:27 Labs: Abnormal Lab Results - Last 24 Hours (Table) 07/11/24 07/12/24 07/12/24 Range/Units 11:19 09:56 18:45 WBC 0.8 L* (3.8-10.6) k/uL RBC 2.18 L (4.30-5.90) m/uL Hgb 6.8 L* D (13.0-17.5) gm/dL Hct 19.5 L* (39.0-53.0) % Plt Count 28 L (150-450) k/uL Iron 189 H (65-175) UG/DL TIBC 225 L (228-460) UG/DL % Saturation 84.00 H (15.00-50.00) Transferrin 161.0 L (204.0-354.0) mg/dL Ferritin 835.0 H (22.0-322.0) ng/mL Crossmatch See Detail Assessment and Plan Assessment: Acute pancytopenia in a patient with a known history of myelodysplastic syndrome, high-grade and received chemotherapy of venetoclax/Vidaza. Has received 6 units of irradiated packed red blood cells and 2 units of platelets this admission thus far History of stage III esophageal adenocarcinoma post resection with gastric wall and subsequent chemoradiation therapy History of acute myocardial infarction in December 2023, treated medically History of coronary artery disease with previous stent placement Benign prostatic hyperplasia Plan: The patient was seen and evaluated Medications reviewed CBC pending for today Has received 6 units of irradiated packed red blood cells 2 units of platelets Currently stable and on room air Home once cleared by medical oncology I have personally seen and examined the patient, performed the documentation and the assessment and plan as written. Number of minutes spent on the visit: 10 Dictation was produced using [employer] dictation software. Please excuse any grammatical, word or spelling errors.
[2024-07-13 11:52] LABS: HCT 20.3 % (39.0-53.0); MCH 31.2 pg (25.0-35.0); MCHC 34.5 g/dL (31.0-37.0); MCV 90.4 fL (80.0-100.0); Mean Platelet Volume 9.2; RBC 2.24 m/uL (4.30-5.90); RDW 14.6 % (11.5-15.5)
[2024-07-13 12:15] LABS: WBC 0.8 k/uL (3.8-10.6)
[2024-07-13 12:18] LABS: Platelet Count 21 k/uL (150-450)
--- NOTE | 2024-07-13 22:15 | P.PN ---
Subjective This is a pleasant 74 years old male with past medical history of AML. He follow-up with his oncologist josesito Borden whom he last saw him about 2 weeks ago. Patient is s/p 6 or 7 cycles of chemotherapy as per patient and at bedside, his last cycle of therapy was on May 30, 2024. He presents to [facility] with lightheadedness for 2 to 3 days associated with exertional dyspnea He denies shortness of breath at rest, no chest pain or abdominal pain. No other GI/GI symptoms. No fever or chills. No headache dizziness weakness or numbness Patient feels generally weak He denies smoking alcohol or illicit drugs. On admission his WBC is 0.9, hemoglobin 3.8 and hematocrit 10.9. Platelet count is not present in our labs but reviewing the [facility] it was 4K. At [facility] WBC was 0.7 and hemoglobin 3.6. Glucose 124, creatinine 0.8, BUN 41, chloride 112, bicarb is 21, sodium 141, potassium 3.8 Liver enzymes not elevated and bilirubin 0.3 No imaging studies. 07/12 Patient feels better and stronger No more lightheaded He has good appetite Currently staying in bed but feels he can move. Patient asked to ask for help otherwise Afebrile and vital stable His WBC 0.8, he hemoglobin improved to 5.1 and platelet count improved to 33. He is status post 2 days of irradiated blood. He is continued on normal saline at 75 mL/h 07/13 Patient generalized weakness is improving His pallor is improving No other new complaints WBC is 0.8, hemoglobin improved to 7.0 count still low at 21K. She is on normal sinus 75 mL/h No subcutaneous heparin Objective - Vital Signs Vital signs: Vital Signs Temp 97.7 F 07/13/24 07:41 Pulse 77 07/13/24 07:41 Resp 16 07/13/24 07:41 BP 100/57 07/13/24 07:41 Pulse Ox 97 07/13/24 07:41 FiO2 Intake & Output 07/12/24 07/13/24 07/13/24 18:59 06:59 18:59 Intake Total 845 0 Output Total 2400 350 Balance -1555 -350 Intake: IV 225 Sodium Chloride 0.9% 1, 225 000 ml @ 75 mls/hr IV . [id number] [facility] Rx#:[id number] Blood Product 620 0 Rc Irr As1 Unit 0 [id number] Rc Irr As1 Unit 310 [id number] Rc Irr As1 Unit 310 [id number] Output: Urine 2400 350 Other: Voiding Method Urinal Urinal - Exam GENERAL: The patient is alert and oriented x3, not in any acute distress. Well developed, well nourished. HEENT: Pupils are round and equally reacting to light. EOMI. No scleral icterus. No conjunctival pallor. Normocephalic, atraumatic. No pharyngeal erythema. No thyromegaly. CARDIOVASCULAR: S1 and S2 present. No murmurs, rubs, or gallops. PULMONARY: Chest is clear to auscultation, no wheezing , no crackles. ABDOMEN: Soft, nontender, nondistended, normoactive bowel sounds. No palpable organomegaly. MUSCULOSKELETAL: No joint swelling or deformity. EXTREMITIES: No cyanosis, clubbing, or pedal edema. NEUROLOGICAL: Gross neurological examination did not reveal any focal deficits. SKIN: No rashes. no petechiae. - Labs CBC & Chem 7: 07/13/24 11:24 07/12/24 03:27 Labs: Abnormal Lab Results - Last 24 Hours (Table) 07/11/24 07/12/24 07/12/24 Range/Units 11:19 09:56 18:45 WBC 0.8 L* (3.8-10.6) k/uL RBC 2.18 L (4.30-5.90) m/uL Hgb 6.8 L* D (13.0-17.5) gm/dL Hct 19.5 L* (39.0-53.0) % Plt Count 28 L (150-450) k/uL Iron 189 H (65-175) UG/DL TIBC 225 L (228-460) UG/DL % Saturation 84.00 H (15.00-50.00) Transferrin 161.0 L (204.0-354.0) mg/dL Ferritin 835.0 H (22.0-322.0) ng/mL Crossmatch See Detail 07/13/24 Range/Units 11:24 WBC 0.8 L* (3.8-10.6) k/uL RBC 2.24 L (4.30-5.90) m/uL Hgb 7.0 L (13.0-17.5) gm/dL Hct 20.3 L (39.0-53.0) % Plt Count 21 L (150-450) k/uL Iron (65-175) UG/DL TIBC (228-460) UG/DL % Saturation (15.00-50.00) Transferrin (204.0-354.0) mg/dL Ferritin (22.0-322.0) ng/mL Crossmatch Assessment and Plan Assessment: Severe anemia and thrombocytopenia, requiring blood transfusion AML, s/p chemotherapy 6-7 cycle last 1 was on 05/30/2024 Benign prostatic hypertrophy Coronary artery disease status post stent Plan: Patient is a status post blood and platelet transfusion on 07/11 Monitor hemoglobin and platelet count Hematology/oncology consult Further recommendation based on clinical course GI prophylaxis: Pepcid DVT prophylaxis: Mechanical, no anticoagulation because of severe anemia and thrombocytopenia Prognosis is guarded
[2024-07-14 09:41] LABS: Immature Platelet Fraction 1.6 % (1.1-6.1); MCH 30.4 pg (27.0-32.0); MCHC 33.1 g/dL (32.0-37.0); MCV 91.8 FL (80.0-97.0); Mean Platelet Volume 11.5 FL (9.5-12.2); NRBC Per 100 WBC 0 X 10*3/uL (0.00-0.01); RBC 1.71 X 10*6/uL (4.40-5.60); RDW 14.5 % (11.5-14.5)
[2024-07-14 10:23] LABS: Basophils # (A) 0 X 10*3/uL (0.00-0.10); Basophils % (A) 0 %; Eosinophils # (A) 0 X 10*3/uL (0.04-0.35); Eosinophils % (A) 0 %; HCT 15.7 % (39.6-50.0); HGB 5.2 g/dL (13.0-17.0); Lymphocytes # (A) 0.56 X 10*3/uL (0.90-5.00); Lymphocytes % (A) 68.3 %; Monocytes # (A) 0.14 X 10*3/uL (0.20-1.00); Monocytes % (A) 17.1 %; Neutrophils # (A) 0.11 X 10*3/uL (1.80-7.70); Neutrophils % (A) 13.4 %; Platelet Count 14 X 10*3/uL (140-440); WBC 0.82 X 10*3/uL (4.50-10.00)
--- NOTE | 2024-07-14 12:07 | P.PN ---
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 He also has AML and has been on a combination of venetoclax/Vidaza and received posaconazole and remains on acyclovir. Recently had been having issues with pancytopenia and has a chronic anemia baseline of around 7. He was having increasing shortness of breath and was seen and [facility]. Hemoglobin reported at 2.6. He was transferred here for further treatment. White count 0.9. Hemoglobin 3.8. Platelets 5000. Sodium 136. Potassium 4.0. Bicarb 22. BUN 44. Creatinine 0.83. Glucose 114. Chest x-ray revealed no acute pulmonary process. Two units of irradiated packed red blood cells have been ordered. He was transferred to the intensive care unit for further monitoring. He is currently sitting up in bed. Awake and alert in no acute distress. He is quite pale. He is maintaining good O2 saturations in the high 90s on room air. He is afebrile. Hemodynamically stable. No shortness of breath at rest. No other complaints. Today on 07/12/2024, remains in the ICU, patient received so far 3 units of packed RBCs and 2 units of platelets, he is to receive 2 more units of packed RBCs today. Clinically the patient is doing well, does not seem to be in any distress. WBC count today is 0.8 hemoglobin is 5.1 platelets are 33,000's basic metabolic profile and renal profile are normal. The patient is seen today July 13, 2024 in follow-up on the regular medical floor. He was transferred out of the ICU yesterday. He is currently awake and alert in no acute distress. States he is feeling better today. Maintaining good O2 saturations in the 90s on room air. He has been afebrile. Hemodynamically stable. He is status post 6 units of packed red blood cells and 2 units of platelets this admission. Today's labs are pending. The patient is seen today July 14, 2024 in follow-up on the regular medical floor. He is currently sitting up in bed. Awake and alert in no acute distress. Denies any shortness of breath, cough or congestion. No chest discomfort. No dizziness or lightheadedness. Maintaining good O2 saturations in the upper 90s on room air. He has been afebrile. Hemodynamically stable. W nicol count 0.82. Hemoglobin 5.2. Platelets 14,000. He is status post 6 units of packed red blood cells and 2 units of platelets this admission. 2 more units of packed red blood cells ordered today. Objective - Vital Signs Vital signs: Vital Signs Temp 98.5 F 07/14/24 11:22 Pulse 77 07/14/24 11:22 Resp 16 07/14/24 11:22 BP 103/59 07/14/24 11:22 Pulse Ox 97 07/14/24 11:22 FiO2 Intake & Output 07/13/24 07/14/24 07/14/24 18:59 06:59 18:59 Intake Total 900 1115 0 Balance 900 1115 0 Intake: IV 525 Sodium Chloride 0.9% 1, 525 000 ml @ 75 mls/hr IV . [id number] [facility] Rx#:[id number] Oral 900 590 Blood Product 0 Unit 0 Other: # Voids 2 - Exam GENERAL EXAM: Alert, pleasant, pale 74-year-old male, on room air, in no apparent distress. HEAD: Normocephalic. EYES: Normal reaction of pupils, equal size. NOSE: Clear with pink turbinates. THROAT: No erythema or exudates. NECK: No masses, no JVD. CHEST: No chest wall deformity. LUNGS: Equal air entry with no crackles, wheeze, rhonchi or dullness. CVS: S1 and S2 normal with no audible murmur, regular rhythm. ABDOMEN: No hepatosplenomegaly, normal bowel sounds, no guarding or rigidity. SPINE: No scoliosis or deformity SKIN: No rashes CENTRAL NERVOUS SYSTEM: No focal deficits, tone is normal in all 4 extremities. EXTREMITIES: There is no peripheral edema. No clubbing, no cyanosis. Peripheral pulses are intact. - Labs CBC & Chem 7: 07/14/24 06:07 07/12/24 03:27 Labs: Abnormal Lab Results - Last 24 Hours (Table) 07/11/24 07/13/24 07/14/24 Range/Units 11:19 11:24 06:07 WBC 0.8 L* 0.82 A* (3.8-10.6) k/uL RBC 2.24 L 1.71 L (4.30-5.90) m/uL Hgb 7.0 L 5.2 A* (13.0-17.5) gm/dL Hct 20.3 L 15.7 A* (39.0-53.0) % Plt Count 21 L 14 A* (150-450) k/uL Neutrophils # 0.11 A* (1.80-7.70) X 10*3/uL Lymphocytes # 0.56 L (0.90-5.00) X 10*3/uL Monocytes # 0.14 L (0.20-1.00) X 10*3/uL Eosinophils # 0 L (0.04-0.35) X 10*3/uL Crossmatch See Detail Assessment and Plan Assessment: Acute pancytopenia in a patient with a known history of myelodysplastic syndrome , high-grade and received chemotherapy of venetoclax/Vidaza. Has received 6 units of irradiated packed red blood cells and 2 units of platelets this admission thus far. Current labs reveal a white count of 0.82. Hemoglobin 5.2 and platelets of 14,000. To receive 2 more units of packed red blood cells today History of stage III esophageal adenocarcinoma post resection with gastric wall and subsequent chemoradiation therapy History of acute myocardial infarction in December 2023, treated medically History of coronary artery disease with previous stent placement Benign prostatic hyperplasia Plan: The patient was seen and evaluated Medications and labs reviewed Currently stable and on room air 2 more units of packed red blood cells ordered for today Home once cleared by medical oncology I have personally seen and examined the patient, performed the documentation and the assessment and plan as written. Number of minutes spent on the visit: 10 Dictation was produced using [employer] software. Please excuse any grammatical, word or spelling errors.
--- NOTE | 2024-07-14 20:11 | P.PN ---
Subjective This is a pleasant 74 years old male with past medical history of AML. He follow-up with his oncologist josesito Borden whom he last saw him about 2 weeks ago. Patient is s/p 6 or 7 cycles of chemotherapy as per patient and at bedside, his last cycle of therapy was on May 30, 2024. He presents to [facility] with lightheadedness for 2 to 3 days associated with exertional dyspnea He denies shortness of breath at rest, no chest pain or abdominal pain. No other GI/GI symptoms. No fever or chills. No headache dizziness weakness or numbness Patient feels generally weak He denies smoking alcohol or illicit drugs. On admission his WBC is 0.9, hemoglobin 3.8 and hematocrit 10.9. Platelet count is not present in our labs but reviewing the [facility] it was 4K. At [facility] WBC was 0.7 and hemoglobin 3.6. Glucose 124, creatinine 0.8, BUN 41, chloride 112, bicarb is 21, sodium 141, potassium 3.8 Liver enzymes not elevated and bilirubin 0.3 No imaging studies. 07/12 Patient feels better and stronger No more lightheaded He has good appetite Currently staying in bed but feels he can move. Patient asked to ask for help otherwise Afebrile and vital stable His WBC 0.8, he hemoglobin improved to 5.1 and platelet count improved to 33. He is status post 2 days of irradiated blood. He is continued on normal saline at 75 mL/h 07/13 Patient generalized weakness is improving His pallor is improving No other new complaints WBC is 0.8, hemoglobin improved to 7.0 count still low at 21K. She is on normal sinus 75 mL/h No subcutaneous heparin 07/14 pt is fully awake no chest pain or dyspnea he is getting blood transfusion low platelet and hemoglobin count at 5.2 today Objective - Vital Signs Vital signs: Vital Signs Temp 98.9 F 07/14/24 19:51 Pulse 81 07/14/24 19:51 Resp 12 07/14/24 19:51 BP 104/61 07/14/24 19:51 Pulse Ox 99 07/14/24 19:51 FiO2 Intake & Output 07/14/24 07/14/24 07/15/24 06:59 18:59 06:59 Intake Total 1115 1700 Balance 1115 1700 Intake: IV 525 Sodium Chloride 0.9% 1, 525 000 ml @ 75 mls/hr IV . [id number] [facility] Rx#:[id number] Oral 590 1080 Blood Product 620 Rc Irr As1 Unit 310 [id number] Rc Irr As1 Unit 310 [id number] Other: # Voids 2 2 - Exam GENERAL: The patient is alert and oriented x3, not in any acute distress. Well developed, well nourished. HEENT: Pupils are round and equally reacting to light. EOMI. No scleral icterus. No conjunctival pallor. Normocephalic, atraumatic. No pharyngeal erythema. No thyromegaly. CARDIOVASCULAR: S1 and S2 present. No murmurs, rubs, or gallops. PULMONARY: Chest is clear to auscultation, no wheezing , no crackles. ABDOMEN: Soft, nontender, nondistended, normoactive bowel sounds. No palpable organomegaly. MUSCULOSKELETAL: No joint swelling or deformity. EXTREMITIES: No cyanosis, clubbing, or pedal edema. NEUROLOGICAL: Gross neurological examination did not reveal any focal deficits. SKIN: No rashes. no petechiae. - Labs CBC & Chem 7: 07/14/24 06:07 07/12/24 03:27 Labs: Abnormal Lab Results - Last 24 Hours (Table) 07/11/24 07/14/24 Range/Units 11:19 06:07 WBC 0.82 A* (4.50-10.00) X 10*3/uL RBC 1.71 L (4.40-5.60) X 10*6/uL Hgb 5.2 A* (13.0-17.0) g/dL Hct 15.7 A* (39.6-50.0) % Plt Count 14 A* (140-440) X 10*3/uL Neutrophils # 0.11 A* (1.80-7.70) X 10*3/uL Lymphocytes # 0.56 L (0.90-5.00) X 10*3/uL Monocytes # 0.14 L (0.20-1.00) X 10*3/uL Eosinophils # 0 L (0.04-0.35) X 10*3/uL Crossmatch See Detail Assessment and Plan Assessment: Severe anemia and thrombocytopenia, requiring blood transfusion Myelodysplastic syndrome s/p chemotherapy Pancytopenia Benign prostatic hypertrophy Coronary artery disease status post stent Plan: Patient is a status post blood and platelet transfusion on 07/11 and 07/14 , 2 units Monitor hemoglobin and platelet count Hematology/oncology consult Further recommendation based on clinical course GI prophylaxis: Pepcid DVT prophylaxis: Mechanical, no anticoagulation because of severe anemia and thrombocytopenia Prognosis is guarded
--- NOTE | 2024-07-14 20:58 | P.PN ---
Subjective Progress Note Date: 07/14/24 Principal diagnosis: pancytopenia, symptomatic anemia In f/u today pt denies F, oral irritation, N,V, cough, chest pain, abd pain, acute changes in bowel or bladder. He feels overall well. Objective - Vital Signs Vital signs: Vital Signs Temp 98.7 F 07/14/24 11:02 Pulse 77 07/14/24 11:02 Resp 16 07/14/24 11:02 BP 98/57 07/14/24 11:02 Pulse Ox 98 07/14/24 11:02 FiO2 Intake & Output 07/13/24 07/14/24 07/14/24 18:59 06:59 18:59 Intake Total 900 1115 0 Balance 900 1115 0 Intake: IV 525 Sodium Chloride 0.9% 1, 525 000 ml @ 75 mls/hr IV . [id number] Rx#:[id number] Oral 900 590 Blood Product 0 Unit 0 Other: # Voids 2 - Constitutional General appearance: Present: average body habitus, cooperative, no acute distress - EENT Eyes: Present: anicteric sclerae, EOMI ENT: Present: hearing grossly normal, normal oropharynx - Respiratory Details: resp even and unlabored - Cardiovascular Details: skin warm, well perfused - Peripheral edema leg Peripheral Edema: bilateral: None - Integumentary Integumentary: Present: pale - Neurologic Neurologic: Present: CNII-XII intact - Musculoskeletal Musculoskeletal: Present: strength equal bilaterally - Psychiatric Psychiatric: Present: A&O x's 3, appropriate affect, intact judgment & insight - Labs CBC & Chem 7: 07/14/24 06:07 07/12/24 03:27 Labs: Abnormal Lab Results - Last 24 Hours (Table) 07/11/24 07/13/24 07/14/24 Range/Units 11:19 11:24 06:07 WBC 0.8 L* 0.82 A* (3.8-10.6) k/uL RBC 2.24 L 1.71 L (4.30-5.90) m/uL Hgb 7.0 L 5.2 A* (13.0-17.5) gm/dL Hct 20.3 L 15.7 A* (39.0-53.0) % Plt Count 21 L 14 A* (150-450) k/uL Neutrophils # 0.11 A* (1.80-7.70) X 10*3/uL Lymphocytes # 0.56 L (0.90-5.00) X 10*3/uL Monocytes # 0.14 L (0.20-1.00) X 10*3/uL Eosinophils # 0 L (0.04-0.35) X 10*3/uL Crossmatch See Detail Assessment and Plan (1) Pancytopenia Current Visit: Yes Status: Acute Priority: High Code(s): D61.818 - OTHER PANCYTOPENIA SNOMED Code(s): 856747767 (2) MDS (myelodysplastic syndrome), high grade Current Visit: Yes Status: Acute Priority: High Code(s): D46.Z - OTHER MYELODYSPLASTIC SYNDROMES SNOMED Code(s): 967482314 Plan: Pancytopenia -Noted to have marked pancytopenia on admission with WBC 0.9, hemoglobin 3.8, platelets 5000 -Patient has received 6 units of PRBCs with no significant response in hemoglobin. Hemoglobin today 5.2. 2 additional units of PRBCs have been ordered. -Platelet counts are 14,000 today. They were 5000 on admit. He is status post 2 units of single donor platelets, not expected response. -Clinically, there are no signs of bleeding or infection -Fibrinogen normal, vitamin B12and folic acid normal, iron studies normal, thyroid profile normal, and hemolysis neg. -Cont to transfuse for hemoglobin less than 7 and platelets less than or equal to 10,000 or bleeding -No colony growth stimulating factor should be given at this time due to theoretical concern of exacerbating underlying disease or stimulating transfor mation into acute leukemia (see below) MDS with excess blast 2 -Diagnosed in August 2023 and has been on venetoclax and azacitidine since October 2023 -Repeat bone marrow biopsy in March 2024 revealed complete response to treatment -His clinical course complicated by NSTEMI in January 2024 as well as neutropenic fever in June 2024 -He has not received Vidaza since 06/07/2024 and venetoclax since 06/14/2024 -Continue to hold venetoclax In March patient had BM Bx with no evidence of residual MDS. Patient has not received treatment with Vidaza since 06/07 and venetoclax since 06/14. With a worsening of counts-despite being off treatment- and lack of response to transfusions, concern is possibly that patient is transforming to acute leukemia. May have to consider bone marrow biopsy. Patient reports that this has been mentioned to him by [facility] as well. Will possibly plan for bone marrow outpt or at [facility] Doctor attests: I performed a history and physical examination of this patient, developed impression and plan of care. Discussed with dictator. I agree with dictators note, documented as a scribe.
[2024-07-15 10:32] LABS: Basophils # (A) 0 X 10*3/uL (0.00-0.10); Basophils % (A) 0 %; Crenated RBC 2+ (None Seen); Eosinophils # (A) 0 X 10*3/uL (0.04-0.35); Eosinophils % (A) 0 %; HCT 17.8 % (39.6-50.0); Immature Platelet Fraction 1.8 % (1.1-6.1); Lymphocytes # (A) 0.53 X 10*3/uL (0.90-5.00); Lymphocytes % (A) 59.6 %; MCHC 33.7 g/dL (32.0-37.0); Mean Platelet Volume 9.7 FL (9.5-12.2); Monocytes # (A) 0.21 X 10*3/uL (0.20-1.00); Monocytes % (A) 23.6 %; NRBC Per 100 WBC 0 X 10*3/uL (0.00-0.01); Neutrophils # (A) 0.12 X 10*3/uL (1.80-7.70); Neutrophils % (A) 13.4 %; Platelet Count 12 X 10*3/uL (140-440); RDW 15.5 % (11.5-14.5); WBC 0.89 X 10*3/uL (4.50-10.00)
--- NOTE | 2024-07-15 12:52 | P.PN ---
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 He also has AML and has been on a combination of venetoclax/Vidaza and received posaconazole and remains on acyclovir. Recently had been having issues with pancytopenia and has a chronic anemia baseline of around 7. He was having increasing shortness of breath and was seen and [facility]. Hemoglobin reported at 2.6. He was transferred here for further treatment. White count 0.9. Hemoglobin 3.8. Platelets 5000. Sodium 136. Potassium 4.0. Bicarb 22. BUN 44. Creatinine 0.83. Glucose 114. Chest x-ray revealed no acute pulmonary process. Two units of irradiated packed red blood cells have been ordered. He was transferred to the intensive care unit for further monitoring. He is currently sitting up in bed. Awake and alert in no acute distress. He is quite pale. He is maintaining good O2 saturations in the high 90s on room air. He is afebrile. Hemodynamically stable. No shortness of breath at rest. No other complaints. Today on 07/12/2024, remains in the ICU, patient received so far 3 units of packed RBCs and 2 units of platelets, he is to receive 2 more units of packed RBCs today. Clinically the patient is doing well, does not seem to be in any distress. WBC count today is 0.8 hemoglobin is 5.1 platelets are 33,000's basic metabolic profile and renal profile are normal. The patient is seen today July 13, 2024 in follow-up on the regular medical floor. He was transferred out of the ICU yesterday. He is currently awake and alert in no acute distress. States he is feeling better today. Maintaining good O2 saturations in the 90s on room air. He has been afebrile. Hemodynamically stable. He is status post 6 units of packed red blood cells and 2 units of platelets this admission. Today's labs are pending. The patient is seen today July 14, 2024 in follow-up on the regular medical floor. He is currently sitting up in bed. Awake and alert in no acute distress. Denies any shortness of breath, cough or congestion. No chest discomfort. No dizziness or lightheadedness. Maintaining good O2 saturations in the upper 90s on room air. He has been afebrile. Hemodynamically stable. W nicol count 0.82. Hemoglobin 5.2. Platelets 14,000. He is status post 6 units of packed red blood cells and 2 units of platelets this admission. 2 more units of packed red blood cells ordered today. The patient is seen today July 15, 2024 in follow-up on the regular medical floor. He is up ambulating in his room. Awake and alert in no acute distress. Maintaining good O2 saturations in the 90s on room air. He did receive 2 more units of packed red blood cells yesterday for a total of 8 thus far. Current hemoglobin 6.0. Platelets 12,000. White count 0.89. No active bleeding. Objective - Vital Signs Vital signs: Vital Signs Temp 97.7 F 07/15/24 07:37 Pulse 77 07/15/24 07:37 Resp 17 07/15/24 07:37 BP 99/57 07/15/24 07:37 Pulse Ox 95 07/15/24 07:37 FiO2 Intake & Output 07/14/24 07/15/24 07/15/24 18:59 06:59 18:59 Intake Total 1700 540 Output Total 0 Balance 1700 540 Intake: Oral 1080 540 Blood Product 620 Rc Irr As1 Unit 310 [id number] Rc Irr As1 Unit 310 [id number] Output: Stool 0 Other: Voiding Method Urinal # Voids 2 1 - Exam GENERAL EXAM: Alert, pale 74-year-old male, ambulating in his room, on room air, in no apparent distress. HEAD: Normocephalic. EYES: Normal reaction of pupils, equal size. NOSE: Clear with pink turbinates. THROAT: No erythema or exudates. NECK: No masses, no JVD. CHEST: No chest wall deformity. LUNGS: Equal air entry with no crackles, wheeze, rhonchi or dullness. CVS: S1 and S2 normal with no audible murmur, regular rhythm. ABDOMEN: No hepatosplenomegaly, normal bowel sounds, no guarding or rigidity. SPINE: No scoliosis or deformity SKIN: No rashes CENTRAL NERVOUS SYSTEM: No focal deficits, tone is normal in all 4 extremities. EXTREMITIES: There is no peripheral edema. No clubbing, no cyanosis. Angela pheral pulses are intact. - Labs CBC & Chem 7: 07/15/24 04:00 07/12/24 03:27 Labs: Abnormal Lab Results - Last 24 Hours (Table) 07/11/24 07/15/24 Range/Units 11:19 04:00 WBC 0.89 A* (4.50-10.00) X 10*3/uL RBC 2.00 L (4.40-5.60) X 10*6/uL Hgb 6.0 A* (13.0-17.0) g/dL Hct 17.8 A* (39.6-50.0) % RDW 15.5 H (11.5-14.5) % Plt Count 12 A* (140-440) X 10*3/uL Neutrophils # 0.12 A* (1.80-7.70) X 10*3/uL Lymphocytes # 0.53 L (0.90-5.00) X 10*3/uL Eosinophils # 0 L (0.04-0.35) X 10*3/uL Crenated Cell 2+ A (None Seen) Crossmatch See Detail Assessment and Plan Assessment: Acute pancytopenia in a patient with a known history of myelodysplastic syndrome, high-grade and received chemotherapy of venetoclax/Vidaza. Has received 8 units of irradiated packed red blood cells and 2 units of platelets this admission thus far. Current labs reveal a white count of 0.89. Hemoglobin 6.0 and platelets of 12,000. No signs of active bleeding History of stage III esophageal adenocarcinoma post resection with gastric wall and subsequent chemoradiation therapy History of acute myocardial infarction in December 2023, treated medically History of coronary artery disease with previous stent placement Benign prostatic hyperplasia Plan: The patient was seen and evaluated Medications and labs reviewed Currently stable and on room air Received 2 more units of packed red blood cells yesterday May need outpatient bone marrow biopsy Home once cleared by oncology I have personally seen and examined the patient, performed the documentation and the assessment and plan as written. Number of minutes spent on the visit: 10 Dictation was produced using [email or web address] software. Please excuse any grammatical, word or spelling errors.
--- NOTE | 2024-07-15 15:50 | P.PN ---
Subjective Progress Note Date: 07/15/24 Pt reports overall feeling well. Denies bowel changes, acute bleeding episodes, n/v/d, oral pain/lesions, chills. Pt afebrile, HDS. Hgb 6.0, plt 12, WBC 0.89. 1 unit PRBCs ordered Objective - Vital Signs Vital signs: Vital Signs Temp 98.7 F 07/15/24 12:47 Pulse 80 07/15/24 12:47 Resp 16 07/15/24 12:47 BP 98/54 07/15/24 12:47 Pulse Ox 96 07/15/24 12:47 FiO2 Intake & Output 07/14/24 07/15/24 07/15/24 18:59 06:59 18:59 Intake Total 1700 540 Output Total 0 Balance 1700 540 Intake: Oral 1080 540 Blood Product 620 Rc Irr As1 Unit 310 [id number] Rc Irr As1 Unit 310 [id number] Output: Stool 0 Other: Voiding Method Urinal # Voids 2 1 - Constitutional General appearance: Present: no acute distress - EENT Eyes: Present: anicteric sclerae, EOMI ENT: Present: hearing grossly normal - Respiratory Details: breathing is even and unlabored - Cardiovascular Details: skin warm and dry - Gastrointestinal General gastrointestinal: Present: soft. Absent: tenderness - Integumentary Integumentary: Present: pale. Absent: cyanotic - Musculoskeletal Musculoskeletal: Present: generalized weakness - Psychiatric Psychiatric: Present: A&O x's 3 - Labs CBC & Chem 7: 07/15/24 04:00 07/12/24 03:27 Labs: Abnormal Lab Results - Last 24 Hours (Table) 07/11/24 07/15/24 07/15/24 Range/Units 11:19 04:00 12:35 WBC 0.89 A* (4.50-10.00) X 10*3/uL RBC 2.00 L (4.40-5.60) X 10*6/uL Hgb 6.0 A* (13.0-17.0) g/dL Hct 17.8 A* (39.6-50.0) % RDW 15.5 H (11.5-14.5) % Plt Count 12 A* (140-440) X 10*3/uL Neutrophils # 0.12 A* (1.80-7.70) X 10*3/uL Lymphocytes # 0.53 L (0.90-5.00) X 10*3/uL Eosinophils # 0 L (0.04-0.35) X 10*3/uL Crenated Cell 2+ A (None Seen) Crossmatch See Detail See Detail Assessment and Plan (1) MDS (myelodysplastic syndrome), high grade Current Visit: Yes Status: Acute Priority: High Code(s): D46.Z - OTHER MYELODYSPLASTIC SYNDROMES SNOMED Code(s): 411506964 (2) Pancytopenia Current Visit: Yes Status: Acute Priority: High Code(s): D61.818 - OTHER PANCYTOPENIA SNOMED Code(s): 992694603 Plan: Pancytopenia -Noted to have marked pancytopenia on admission with WBC 0.9, hemoglobin 3.8, platelets 5000 -Patient has received 8 units of PRBCs with no significant response in hemoglobin. Hemoglobin today 6.0. 1 additional unit of PRBCs have been ordered. -Platelet counts are 12,000 today. They were 5000 on admit. He is status post 2 units of single donor platelets, not expected response. -Clinically, there are no signs of bleeding or infection -Fibrinogen normal, vitamin B12and folic acid normal, iron studies normal, thyroid profile normal, and hemolysis neg. -Cont to transfuse for hemoglobin less than 7 and platelets less than or equal to 10,000 or if symptomatic -No colony growth stimulating factor should be given at this time due to theoretical concern of exacerbating underlying disease or stimulating transformation into acute leukemia (see below) MDS with excess blast 2 -Diagnosed in August 2023 and has been on venetoclax and azacitidine since October 2023 -Repeat bone marrow biopsy in March 2024 revealed complete response to treatment -His clinical course complicated by NSTEMI in January 2024 as well as neutropenic fever in June 2024 -He has not received Vidaza since 06/07/2024 and venetoclax since 06/14/2024 -Continue to hold venetoclax In March patient had BM Bx with no evidence of residual MDS. Patient has not received treatment with Vidaza since 06/07 and venetoclax since 06/14. With a worsening of counts-despite being off treatment- and lack of response to transfusions, concern is possibly that patient is transforming to acute leukemia. At this time, recommending repeat bone marrow biopsy. Unfortunately, this was unable to be scheduled today or early next week due to scheduling conflicts with endo dept. Message was also left at [facility], but at time of dictation, have not heard back. Will speak to patient further about transferring to [facility], as he is established there with Dr. Kaufman. If patient is agreeable to the same will speak with admitting team and initiate transfer to [facility] Doctor attests: I performed a history and physical examination of this patient, developed impression and plan of care. Discussed with dictator. I agree with dictators note, documented as a scribe.
--- NOTE | 2024-07-15 18:21 | P.PN ---
Subjective This is a pleasant 74 years old male with past medical history of AML. He follow-up with his oncologist josesito Borden whom he last saw him about 2 weeks ago. Patient is s/p 6 or 7 cycles of chemotherapy as per patient and at bedside, his last cycle of therapy was on May 30, 2024. He presents to [facility] with lightheadedness for 2 to 3 days associated with exertional dyspnea He denies shortness of breath at rest, no chest pain or abdominal pain. No other GI/GI symptoms. No fever or chills. No headache dizziness weakness or numbness Patient feels generally weak He denies smoking alcohol or illicit drugs. On admission his WBC is 0.9, hemoglobin 3.8 and hematocrit 10.9. Platelet count is not present in our labs but reviewing the [facility] it was 4K. At [facility] WBC was 0.7 and hemoglobin 3.6. Glucose 124, creatinine 0.8, BUN 41, chloride 112, bicarb is 21, sodium 141, potassium 3.8 Liver enzymes not elevated and bilirubin 0.3 No imaging studies. 07/12 Patient feels better and stronger No more lightheaded He has good appetite Currently staying in bed but feels he can move. Patient asked to ask for help otherwise Afebrile and vital stable His WBC 0.8, he hemoglobin improved to 5.1 and platelet count improved to 33. He is status post 2 days of irradiated blood. He is continued on normal saline at 75 mL/h 07/13 Patient generalized weakness is improving His pallor is improving No other new complaints WBC is 0.8, hemoglobin improved to 7.0 count still low at 21K. She is on normal sinus 75 mL/h No subcutaneous heparin 07/14 pt is fully awake no chest pain or dyspnea he is getting blood transfusion low platelet and hemoglobin count at 5.2 today 07/15 Patient has persistent pancytopenia resistant to transfusion, he received 8 units of blood transfusion since admission and his hemoglobin is still 6.0 today without evidence of bleeding. Platelet count trending down to 12,000 despite platelet transfusion and WBC 0.8. I discussed the case with Dr. Garcia, there is a concerns for transformation to AML, patient will need bone marrow biopsy which is not available in this facility during today or this coming week. Therefore patient is may benefit from transfer to his oncologist placed Dr. Kaufman at [facility]. I called the transfer center a few of them at [phone] Was busy several times, I left a message to call back pending response Another unit of blood transfusion is ordered today Objective - Vital Signs Vital signs: Vital Signs Temp 97.7 F 07/15/24 07:37 Pulse 77 07/15/24 07:37 Resp 17 07/15/24 07:37 BP 99/57 07/15/24 07:37 Pulse Ox 95 07/15/24 07:37 FiO2 Intake & Output 07/14/24 07/15/24 07/15/24 18:59 06:59 18:59 Intake Total 1700 540 Output Total 0 Balance 1700 540 Intake: Oral 1080 540 Blood Product 620 Rc Irr As1 Unit 310 [id number] Rc Irr As1 Unit 310 [id number] Output: Stool 0 Other: Voiding Method Urinal # Voids 2 1 - Exam GENERAL: The patient is alert and oriented x3, not in any acute distress. Well developed, well nourished. HEENT: Pupils are round and equally reacting to light. EOMI. No scleral icterus. No conjunctival pallor. Normocephalic, atraumatic. No pharyngeal erythema. No thyromegaly. CARDIOVASCULAR: S1 and S2 present. No murmurs, rubs, or gallops. PULMONARY: Chest is clear to auscultation, no wheezing , no crackles. ABDOMEN: Soft, nontender, nondistended, normoactive bowel sounds. No palpable organomegaly. MUSCULOSKELETAL: No joint swelling or deformity. EXTREMITIES: No cyanosis, clubbing, or pedal edema. NEUROLOGICAL: Gross neurological examination did not reveal any focal deficits. SKIN: No rashes. no petechiae. - Labs CBC & Chem 7: 07/15/24 04:00 07/12/24 03:27 Labs: Abnormal Lab Results - Last 24 Hours (Table) 07/11/24 07/15/24 Range/Units 11:19 04:00 WBC 0.89 A* (4.50-10.00) X 10*3/uL RBC 2.00 L (4.40-5.60) X 10*6/uL Hgb 6.0 A* (13.0-17.0) g/dL Hct 17.8 A* (39.6-50.0) % RDW 15.5 H (11.5-14.5) % Plt Count 12 A* (140-440) X 10*3/uL Neutrophils # 0.12 A* (1.80-7.70) X 10*3/uL Lymphocytes # 0.53 L (0.90-5.00) X 10*3/uL Eosinophils # 0 L (0.04-0.35) X 10*3/uL Crenated Cell 2+ A (None Seen) Crossmatch See Detail Assessment and Plan Assessment: Severe anemia and thrombocytopenia, requiring blood transfusion Myelodysplastic syndrome s/p chemotherapy Pancytopenia Benign prostatic hypertrophy Coronary artery disease status post stent Plan: Patient is a status post blood and platelet transfusion on 07/11 and 07/14 , and 07/15 Monitor hemoglobin and platelet count Hematology/oncology consult Per hematology/oncology team patient is need to be transferred to his oncologist Dr. Kaufman at [facility] for bone marrow biopsy. I called transfer center as above pending response Further recommendation based on clinical course GI prophylaxis: Pepcid DVT prophylaxis: Mechanical, no anticoagulation because of severe anemia and thrombocytopenia Prognosis is guarded
[2024-07-16 09:47] LABS: BUN/Creat Ratio 49.14 Ratio (12.00-20.00); Blood Urea Nitrogen 34.4 mg/dL (9.0-27.0); Calcium 7.7 mg/dL (8.7-10.3); Carbon Dioxide 21.8 mmol/L (21.6-31.8); Chloride 107 mmol/L (96-109); Glucose 114 mg/dL (70-110); Potassium 4.1 mmol/L (3.5-5.5); Sodium 137 mmol/L (135-145)
[2024-07-16 10:10] LABS: Basophils # (A) 0 X 10*3/uL (0.00-0.10); Basophils % (A) 0 %; Eosinophils # (A) 0 X 10*3/uL (0.04-0.35); Eosinophils % (A) 0 %; HCT 16.7 % (39.6-50.0); HGB 5.5 g/dL (13.0-17.0); Immature Platelet Fraction 1.8 % (1.1-6.1); Lymphocytes # (A) 0.64 X 10*3/uL (0.90-5.00); Lymphocytes % (A) 67.4 %; MCH 28.9 pg (27.0-32.0); MCHC 32.9 g/dL (32.0-37.0); MCV 87.9 FL (80.0-97.0); Mean Platelet Volume 11.2 FL (9.5-12.2); Monocytes # (A) 0.18 X 10*3/uL (0.20-1.00); Monocytes % (A) 18.9 %; NRBC Per 100 WBC 0 X 10*3/uL (0.00-0.01); Neutrophils # (A) 0.11 X 10*3/uL (1.80-7.70); Neutrophils % (A) 11.6 %; Platelet Count 8 X 10*3/uL (140-440); RBC Morphology Normal (Normal); RDW 14.4 % (11.5-14.5); WBC 0.95 X 10*3/uL (4.50-10.00)
--- NOTE | 2024-07-16 13:40 | P.PN ---
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 He also has AML and has been on a combination of venetoclax/Vidaza and received posaconazole and remains on acyclovir. Recently had been having issues with pancytopenia and has a chronic anemia baseline of around 7. He was having increasing shortness of breath and was seen and [facility]. Hemoglobin reported at 2.6. He was transferred here for further treatment. White count 0.9. Hemoglobin 3.8. Platelets 5000. Sodium 136. Potassium 4.0. Bicarb 22. BUN 44. Creatinine 0.83. Glucose 114. Chest x-ray revealed no acute pulmonary process. Two units of irradiated packed red blood cells have been ordered. He was transferred to the intensive care unit for further monitoring. He is currently sitting up in bed. Awake and alert in no acute distress. He is quite pale. He is maintaining good O2 saturations in the high 90s on room air. He is afebrile. Hemodynamically stable. No shortness of breath at rest. No other complaints. Today on 07/12/2024, remains in the ICU, patient received so far 3 units of packed RBCs and 2 units of platelets, he is to receive 2 more units of packed RBCs today. Clinically the patient is doing well, does not seem to be in any distress. WBC count today is 0.8 hemoglobin is 5.1 platelets are 33,000's basic metabolic profile and renal profile are normal. The patient is seen today July 13, 2024 in follow-up on the regular medical floor. He was transferred out of the ICU yesterday. He is currently awake and alert in no acute distress. States he is feeling better today. Maintaining good O2 saturations in the 90s on room air. He has been afebrile. Hemodynamically stable. He is status post 6 units of packed red blood cells and 2 units of platelets this admission. Today's labs are pending. The patient is seen today July 14, 2024 in follow-up on the regular medical floor. He is currently sitting up in bed. Awake and alert in no acute distress. Denies any shortness of breath, cough or congestion. No chest discomfort. No dizziness or lightheadedness. Maintaining good O2 saturations in the upper 90s on room air. He has been afebrile. Hemodynamically stable. W nicol count 0.82. Hemoglobin 5.2. Platelets 14,000. He is status post 6 units of packed red blood cells and 2 units of platelets this admission. 2 more units of packed red blood cells ordered today. The patient is seen today July 15, 2024 in follow-up on the regular medical floor. He is up ambulating in his room. Awake and alert in no acute distress. Maintaining good O2 saturations in the 90s on room air. He did receive 2 more units of packed red blood cells yesterday for a total of 8 thus far. Current hemoglobin 6.0. Platelets 12,000. White count 0.89. No active bleeding. The patient is seen today July 16, 2024 in follow-up on the regular medical floor. He is currently sitting up at the bedside having breakfast. Awake and alert in no acute distress. Denies any worsening shortness of breath, cough or congestion. Maintaining good O2 saturations in the 90s on room air. He has received 9 units of packed red blood cells so far this admission. Today's hemoglobin however is 5.5. Platelets 8000. White count 0.95. Sodium 137. Potassium 4.1. Bicarb 22. BUN 34. Creatinine 0.7. He remains on normal saline at 75 mL/h. Continued on acyclovir. Objective - Vital Signs Vital signs: Vital Signs Temp 98.7 F 07/16/24 11:36 Pulse 79 07/16/24 11:26 Resp 16 07/16/24 11:36 BP 94/56 07/16/24 11:36 Pulse Ox 98 07/16/24 11:36 FiO2 Intake & Output 07/15/24 07/16/24 07/16/24 18:59 06:59 18:59 Intake Total 1320 1720 0 Output Total 640 200 Balance 1320 1080 -200 Intake: IV 900 Sodium Chloride 0.9% 1, 900 000 ml @ 75 mls/hr IV . [id number] [facility] Rx#:[id number] Oral 1320 200 Blood Product 620 0 Unit 0 Rc Irr As1 Unit 310 [id number] Output: Urine 640 200 Other: # Voids 3 - Exam GENERAL EXAM: Alert, pale 74-year-old male, sitting up having breakfast, on room air, in no apparent distress. HEAD: Normocephalic. EYES: Normal reaction of pupils, equal size. NOSE: Clear with pink turbinates. THROAT: No erythema or exudates. NECK: No masses, no JVD. CHEST: No chest wall deformity. LUNGS: Equal air entry with no crackles, wheeze, rhonchi or dullness. CVS: S1 and S2 normal with no audible murmur, regular rhythm. ABDOMEN: No hepatosplenomegaly, normal bowel sounds, no guarding or rigidity. SPINE: No scoliosis or deformity SKIN: No rashes CENTRAL NERVOUS SYSTEM: No focal deficits, tone is normal in all 4 extremities. EXTREMITIES: There is no peripheral edema. No clubbing, no cyanosis. Peripheral pulses are intact. - Labs CBC & Chem 7: 07/16/24 05:33 07/16/24 05:33 Labs: Abnormal Lab Results - Last 24 Hours (Table) 07/15/24 07/16/24 07/16/24 Range/Units 12:35 05:33 05:33 WBC 0.95 A* (4.50-10.00) X 10*3/uL RBC 1.90 L (4.40-5.60) X 10*6/uL Hgb 5.5 A* (13.0-17.0) g/dL Hct 16.7 A* (39.6-50.0) % Plt Count 8 A* (140-440) X 10*3/uL Neutrophils # 0.11 A* (1.80-7.70) X 10*3/uL Lymphocytes # 0.64 L (0.90-5.00) X 10*3/uL Monocytes # 0.18 L (0.20-1.00) X 10*3/uL Eosinophils # 0 L (0.04-0.35) X 10*3/uL BUN 34.4 H (9.0-27.0) mg/dL BUN/Creatinine Ratio 49.14 H (12.00-20.00) Ratio Glucose 114 H (70-110) mg/dL Calcium 7.7 L (8.7-10.3) mg/dL Crossmatch See Detail Assessment and Plan Assessment: Acute pancytopenia in a patient with a known history of myelodysplastic syndrome, high-grade and received chemotherapy of venetoclax/Vidaza. Has received 9 units of irradiated packed red blood cells and 2 units of platelets this admission thus far. Current labs reveal a white count of 0.95. Hemoglobin 5.5 and platelets of 8,000. No signs of active bleeding. No improvement in the patient's pancytopenia. May be transforming to acute leukemia History of stage III esophageal adenocarcinoma post resection with gastric wall and subsequent chemoradiation therapy History of acute myocardial infarction in December 2023, treated medically History of coronary artery disease with previous stent placement Benign prostatic hyperplasia Plan: The patient was seen and evaluated Medications and labs reviewed Currently stable and on room air Receiving 2 more units of packed red blood cells today There is concern of possibly transforming to acute leukemia The patient is being considered for transfer to his team at [facility] Will await for further recommendations from medical oncology This patient was seen independently by the pulmonary nurse practitioner addressing pulmonary issues I have personally seen and examined the patient, performed the documentation and the assessment and plan as written. Number of minutes spent on the visit: 25 Dictation was produced using [employer] dictation software. Please excuse any grammatical, word or spelling errors.
[2024-07-16] MEDS: FUROSEMIDE 10 MG/ML 2 ML VIAL IV ONE (14:02)
--- NOTE | 2024-07-16 15:13 | P.PN ---
Subjective Progress Note Date: 07/16/24 Principal diagnosis: MDS-EB 2 -Afebrile, no acute events overnight -Notes persistent fatigue with weakness. He is interested in ambulating -He denies any new signs or symptoms Objective - Vital Signs Vital signs: Vital Signs Temp 97.9 F 07/16/24 14:43 Pulse 92 07/16/24 14:43 Resp 16 07/16/24 14:43 BP 97/59 07/16/24 14:43 Pulse Ox 100 07/16/24 14:43 FiO2 Intake & Output 07/15/24 07/16/24 07/16/24 18:59 06:59 18:59 Intake Total 1320 1720 310 Output Total 640 200 Balance 1320 1080 110 Intake: IV 900 Sodium Chloride 0.9% 1, 900 000 ml @ 75 mls/hr IV . [id number] [facility] Rx#:[id number] Oral 1320 200 Blood Product 620 310 Rc Irr As1 Unit 310 [id number] Rc Irr As1 Unit 0 [id number] Rc Irr As1 Unit 310 [id number] Output: Urine 640 200 Other: # Voids 3 - Constitutional General appearance: Present: cooperative, no acute distress - EENT EENT Comment(s): Conjunctival pallor Eyes: Present: EOMI - Respiratory Details: Nonlabored breathing - Cardiovascular Details: Warm and well-perfused - Gastrointestinal General gastrointestinal: Present: soft. Absent: distended - Integumentary Integumentary: Present: pale - Neurologic Neurologic: Present: CNII-XII intact. Absent: focal deficits - Labs CBC & Chem 7: 07/16/24 05:33 07/16/24 05:33 Labs: Abnormal Lab Results - Last 24 Hours (Table) 07/15/24 07/16/24 07/16/24 Range/Units 12:35 05:33 05:33 WBC 0.95 A* (4.50-10.00) X 10*3/uL RBC 1.90 L (4.40-5.60) X 10*6/uL Hgb 5.5 A* (13.0-17.0) g/dL Hct 16.7 A* (39.6-50.0) % Plt Count 8 A* (140-440) X 10*3/uL Neutrophils # 0.11 A* (1.80-7.70) X 10*3/uL Lymphocytes # 0.64 L (0.90-5.00) X 10*3/uL Monocytes # 0.18 L (0.20-1.00) X 10*3/uL Eosinophils # 0 L (0.04-0.35) X 10*3/uL BUN 34.4 H (9.0-27.0) mg/dL BUN/Creatinine Ratio 49.14 H (12.00-20.00) Ratio Glucose 114 H (70-110) mg/dL Calcium 7.7 L (8.7-10.3) mg/dL Crossmatch See Detail Assessment and Plan (1) Pancytopenia Current Visit: Yes Status: Acute Priority: High Code(s): D61.818 - OTHER PANCYTOPENIA SNOMED Code(s): 056881602 (2) MDS (myelodysplastic syndrome), high grade Current Visit: Yes Status: Acute Priority: High Code(s): D46.Z - OTHER MYELODYSPLASTIC SYNDROMES SNOMED Code(s): 525260898 Plan: Pancytopenia -Noted to have marked pancytopenia on admission with WBC 0.9, hemoglobin 3.8, platelets 5000 -Patient has received 9 units of PRBCs with no significant response in hemoglobin. Hemoglobin today 5.5. 2 additional units of PRBCs have been ordered. -Platelet counts are 8,000 today. They were 5000 on admit. He is status post 2 units of single donor platelets, not expected response. 1 additional unit ordered today -Clinically, there are no signs of bleeding or infection -Fibrinogen normal, vitamin B12and folic acid normal, iron studies normal, thyroid profile normal, and hemolysis negative -There is a concern that he could have AML that is refractory to transfusions/treatment -His case was discussed with the primary team as well as his primary snowboarding instructor at [facility] Dr. Kaufman -He will attempt to arrange bone marrow biopsy at the [facility] next week as we do not have instrument and control technician available next week at our facility to perform this procedure -He may need to be transferred inpatient to [facility] as opposed to being discharged due to his transfusion requirements as well as weakness. Plan is to discuss his case further with Dr. Kaufman early next week to see if in patient transfer is required vs discharge followed by [facility] outpatient. I do believe the former would be safer (inpatient transfer) -Cont to transfuse for hemoglobin less than 7 and platelets less than or equal to 10,000 or if symptomatic -No colony growth stimulating factor should be given at this time due to theoretical concern of exacerbating underlying disease or stimulating acute leukemia MDS with excess blast 2 -Diagnosed in August 2023 and has been on venetoclax and azacitidine since October 2023 -Repeat bone marrow biopsy in March 2024 revealed complete response to treatment -His clinical course complicated by NSTEMI in January 2024 as well as neutropenic fever in June 2024 -He has not received Vidaza since 06/07/2024 and venetoclax since 06/14/2024 -Continue to hold venetoclax -Given grade 4 neutropenia, home prophylactic posaconazole ordered today. Continue prophylactic acyclovir Dominick Simon MD
[2024-07-16] MEDS: POSACONAZOLE 100 MG PO SCH (17:19)
--- NOTE | 2024-07-16 17:29 | P.PN ---
Subjective Progress Note Date: 07/16/24 Interval History: This is a pleasant 74 years old male with past medical history of AML. He follow-up with his oncologist josesito Borden whom he last saw him about 2 weeks ago. Patient is s/p 6 or 7 cycles of chemotherapy as per patient and at bedside, his last cycle of therapy was on May 30, 2024. He presents to [facility] with lightheadedness for 2 to 3 days associated with exertional dyspnea He denies shortness of breath at rest, no chest pain or abdominal pain. No other GI/GI symptoms. No fever or chills. No headache dizziness weakness or numbness Patient feels generally weak He denies smoking alcohol or illicit drugs. On admission his WBC is 0.9, hemoglobin 3.8 and hematocrit 10.9. Platelet count is not present in our labs but reviewing the [facility] it was 4K. At [facility] WBC was 0.7 and hemoglobin 3.6. Glucose 124, creatinine 0.8, BUN 41, chloride 112, bicarb is 21, sodium 141, potassium 3.8 Liver enzymes not elevated and bilirubin 0.3 No imaging studies. 07/12 Patient feels better and stronger No more lightheaded He has good appetite Currently staying in bed but feels he can move. Patient asked to ask for help otherwise Afebrile and vital stable His WBC 0.8, he hemoglobin improved to 5.1 and platelet count improved to 33. He is status post 2 days of irradiated blood. He is continued on normal saline at 75 mL/h 07/13 Patient generalized weakness is improving His pallor is improving No other new complaints WBC is 0.8, hemoglobin improved to 7.0 count still low at 21K. She is on normal sinus 75 mL/h No subcutaneous heparin 07/14 pt is fully awake no chest pain or dyspnea he is getting blood transfusion low platelet and hemoglobin count at 5.2 today 07/15 Patient has persistent pancytopenia resistant to transfusion, he received 8 units of blood transfusion since admission and his hemoglobin is still 6.0 today without evidence of bleeding. Platelet count trending down to 12,000 despite platelet transfusion and WBC 0.8. I discussed the case with Dr. Garcia, there is a concerns for transformation to AML, patient will need bone marrow biopsy which is not available in this facility during today or this coming week. Therefore patient is may benefit from transfer to his oncologist placed Dr. Kaufman at [facility]. I called the transfer center a few of them at [phone] Was busy several times, I left a message to call back 07/16/patient was seen and examined today. at bedside. No issues overnight. WBCs 0.95, hemoglobin 5.5, platelets 8000 today. Neutrophils 0.11. 2 additional units of packed RBCs, 1 unit platelets ordered. Hematology following. Called [facility] transfer line, awaiting callback from admitting doctor. Assessment and plan: Severe anemia and thrombocytopenia, requiring blood transfusion-multiple Myelodysplastic syndrome s/p chemotherapy--diagnosed in August 2023 Pancytopenia Benign prostatic hypertrophy Coronary artery disease status post stent MDS: -Diagnosed in August 2023 and has been on venetoclax and azacitidine since October 2023 -Repeat bone marrow biopsy in March 2024 revealed complete response to treatment -His clinical course complicated by NSTEMI in January 2024 as well as neutropenic fever in June 2024 -He has not received Vidaza since 06/07/2024 and venetoclax since 06/14/2024 -Continue to hold venetoclax -Given grade 4 neutropenia, home prophylactic posaconazole ordered today. Continue prophylactic acyclovir Plan: Noted to have marked pancytopenia on admission with WBC 0.9, hemoglobin 3.8, platelet 5000, received 9 units of packed RBCs so far, 2 additional units ordered 07/16, Status post 2 units of platelets, plus additional 1 unit 07/16 so far. Fibrinogen, vitamin B12, folic acid, iron studies, thyroid profile, hemolysis negative. No sign or symptom of active bleed. Monitor hemoglobin and platelet count Hematology/oncology consulted--bone marrow biopsy at [facility], transfuse for hemoglobin less than 7, platelet less than 10,000. Discussed with [facility] transfer line, awaiting callback from admitting doctor for transfer. Follows Dr. Kaufman at [facility] DVT prophylaxis: SCD Monitor vital signs and labs Labs and medication were reviewed. Continue same treatment. Further recommendations as per clinical course of the patient PHYSICAL EXAMINATION: GENERAL: The patient is A&O x3, NAD HEENT: EOMI, Sclerae anicteric, Moist Mucous membranes Neck: Supple, Non tender, No JVD PULMONARY: Equal breath souds B/L, No wheezing, No crackles. CARDIOVASCULAR: S1, S2 present. No murmurs, rubs, or gallops. ABDOMEN: Soft, nontender, nondistended, normoactive bowel sounds. No guarding or rebound tenderness. MUSCULOSKELETAL: No edema, No cyanosis. No clubbing. Normal ROM. Intact peripheral pulses. NEUROLOGICAL: CN 2-12 grossly intact. No FND Skin: No Rash REVIEW OF SYSTEMS: CONSTITUTIONAL: No fever or chills. CARDIOVASCULAR: No chest pain, palpitations or syncope. PULMONARY: No shortness of breath, no cough, sore throat. GASTROINTESTINAL: No nausea, vomiting, diarrhea, abdominal pain. : No Dysuria, urgency, frequency. Extremities: No edema. NEUROLOGICAL: No headaches, no weakness, or numbness Dictation was produced using [employer] dictation software. please excuse any grammatical, word or spelling errors. Objective - Vital Signs Vital signs: Vital Signs Temp 97.8 F 07/16/24 14:45 Pulse 85 07/16/24 14:45 Resp 16 07/16/24 14:45 BP 110/66 07/16/24 14:45 Pulse Ox 98 07/16/24 14:45 FiO2 Intake & Output 07/15/24 07/16/24 07/16/24 18:59 06:59 18:59 Intake Total 1320 1720 310 Output Total 640 200 Balance 1320 1080 110 Intake: IV 900 Sodium Chloride 0.9% 1, 900 000 ml @ 75 mls/hr IV . [id number] VERN Rx#:[id number] Oral 1320 200 Blood Product 620 310 Rc Irr As1 Unit 310 [id number] Rc Irr As1 Unit 0 [id number] Rc Irr As1 Unit 310 [id number] Output: Urine 640 200 Other: # Voids 3 - Labs CBC & Chem 7: 07/16/24 05:33 07/16/24 05:33 Labs: Abnormal Lab Results - Last 24 Hours (Table) 07/15/24 07/16/24 07/16/24 Range/Units 12:35 05:33 05:33 WBC 0.95 A* (4.50-10.00) X 10*3/uL RBC 1.90 L (4.40-5.60) X 10*6/uL Hgb 5.5 A* (13.0-17.0) g/dL Hct 16.7 A* (39.6-50.0) % Plt Count 8 A* (140-440) X 10*3/uL Neutrophils # 0.11 A* (1.80-7.70) X 10*3/uL Lymphocytes # 0.64 L (0.90-5.00) X 10*3/uL Monocytes # 0.18 L (0.20-1.00) X 10*3/uL Eosinophils # 0 L (0.04-0.35) X 10*3/uL BUN 34.4 H (9.0-27.0) mg/dL BUN/Creatinine Ratio 49.14 H (12.00-20.00) Ratio Glucose 114 H (70-110) mg/dL Calcium 7.7 L (8.7-10.3) mg/dL Crossmatch See Detail
[2024-07-16] MEDS: POSACONAZOLE PO SCH (17:49)
--- NOTE | 2024-07-16 17:57 | P.EN ---
Patient was discussed with [facility] admitting team, transfer to [facility] accepted by [facility] admitting team after discussion with hematology.
[2024-07-17 01:18] LABS: MCH 30.9 pg (25.0-35.0); MCHC 35.3 g/dL (31.0-37.0); MCV 87.4 fL (80.0-100.0); Mean Platelet Volume 10.5; RBC 2.26 m/uL (4.30-5.90); RDW 14.2 % (11.5-15.5)
[2024-07-17 01:19] LABS: HCT 19.8 % (39.0-53.0)
[2024-07-17 01:20] LABS: WBC 1.2 k/uL (3.8-10.6)
[2024-07-17 01:22] LABS: Platelet Count 19 k/uL (150-450)
[2024-07-17 02:00] LABS: Neutrophils % (M) 32 %
[2024-07-17 02:02] LABS: Anisocytosis (M) Present; Eosinophils # (M) 0.01 k/uL (0-0.7); Hypochromasia (M) Present; Lymphocytes # (M) 0.62 k/uL (1.0-4.8); Monocytes # (M) 0.08 k/uL (0-1.0); Neutrophils # (M) 0.38 k/uL (1.3-7.7); Nucleated Red Blood Cells 0 /100 WBC (0-0); Total Cells Counted 100
[2024-07-17 08:29] LABS: MCH 31.6 pg (25.0-35.0); MCV 87.6 fL (80.0-100.0); Mean Platelet Volume 8.9; RBC 1.99 m/uL (4.30-5.90); RDW 14.3 % (11.5-15.5)
[2024-07-17 08:37] LABS: Platelet Count 16 k/uL (150-450); WBC 0.9 k/uL (3.8-10.6)
[2024-07-17 08:40] LABS: HCT 17.4 % (39.0-53.0); HGB 6.3 gm/dL (13.0-17.5)
[2024-07-17 08:56] LABS: Poikilocytosis (M) Present
[2024-07-17 11:42] VITALS: RESP 16
--- NOTE | 2024-07-17 14:11 | P.PN ---
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 He also has AML and has been on a combination of venetocl ax/Vidaza and received posaconazole and remains on acyclovir. Recently had been having issues with pancytopenia and has a chronic anemia baseline of around 7. He was having increasing shortness of breath and was seen and [facility]. Hemoglobin reported at 2.6. He was transferred here for further treatment. White count 0.9. Hemoglobin 3.8. Platelets 5000. Sodium 136. Potassium 4.0. Bicarb 22. BUN 44. Creatinine 0.83. Glucose 114. Chest x-ray revealed no acute pulmonary process. Two units of irradiated packed red blood cells have been ordered. He was transferred to the intensive care unit for further monitoring. He is currently sitting up in bed. Awake and alert in no acute distress. He is quite pale. He is maintaining good O2 saturations in the high 90s on room air. He is afebrile. Hemodynamically stable. No shortness of breath at rest. No other complaints. Today on 07/12/2024, remains in the ICU, patient received so far 3 units of packed RBCs and 2 units of platelets, he is to receive 2 more units of packed RBCs today. Clinically the patient is doing well, does not seem to be in any distress. WBC count today is 0.8 hemoglobin is 5.1 platelets are 33,000's basic metabolic profile and renal profile are normal. Seen today on 07/17/24, patient is basically the same. Received so far a total of 11 units of packed RBCs and 3 units of platelets, hemoglobin remains low, and the patient may need more blood transfusion. Apparently the admitting physician discussed his condition with the transfer team at the [facility], patient has been accepted, and the plans are to transfer the patient to [facility] sometime later today hemoglobin today is 6.3 WBC 0.9. Platelets are 16,000 Objective - Vital Signs Vital signs: Vital Signs Temp 98.5 F 07/17/24 11:41 Pulse 87 07/17/24 11:41 Resp 16 07/17/24 11:41 BP 95/58 07/17/24 11:41 Pulse Ox 98 07/17/24 11:41 FiO2 Intake & Output 07/16/24 07/17/24 07/17/24 18:59 06:59 18:59 Intake Total 1400 250 0 Output Total 200 Balance 1200 250 0 Weight 82.7 kg Intake: Oral 780 Blood Product 620 250 0 Platelet Pheresis Pas 250 Psoralen Unit [id number] Rc Irr As1 Unit 0 [id number] Rc Irr As1 Unit 310 [id number] Rc Irr As1 Unit 310 [id number] Output: Urine 200 Other: Voiding Method Toilet Toilet # Voids 2 2 2 - Exam GENERAL: Revealed 74-year-old white male in no distress, extremely pleasant HEENT: Pupils are round and equally reacting to light. EOMI. No scleral icterus. No conjunctival pallor. Normocephalic, atraumatic. No pharyngeal erythema. No thyromegaly. CARDIOVASCULAR: S1 and S2 present. No murmurs, rubs, or gallops. PULMONARY: Symmetrical chest expansion clear throughout no crackles rhonchi or wheezes ABDOMEN: Soft, nontender, nondistended, normoactive bowel sounds. No palpable organomegaly. MUSCULOSKELETAL: No joint swelling or deformity. EXTREMITIES: No cyanosis, clubbing, or pedal edema. NEUROLOGICAL: Alert oriented x 3 no gross focal deficit SKIN: No rashes. no petechiae. - Labs CBC & Chem 7: 07/17/24 07:11 07/16/24 05:33 Labs: Abnormal Lab Results - Last 24 Hours (Table) 07/15/24 07/17/24 07/17/24 Range/Units 12:35 00:44 07:11 WBC 1.2 L* 0.9 L* (3.8-10.6) k/uL RBC 2.26 L 1.99 L (4.30-5.90) m/uL Hgb 7.0 L 6.3 L* (13.0-17.5) gm/dL Hct 19.8 L* 17.4 L* (39.0-53.0) % Plt Count 19 L* 16 L* (150-450) k/uL Blast Cells % 8 H* % Neutrophils # (Manual) 0.38 L* (1.3-7.7) k/uL Lymphocytes # (Manual) 0.62 L (1.0-4.8) k/uL Blast Cells # (Man) 0.10 H (0) k/uL Crossmatch See Detail Assessment and Plan Assessment: Impression: Acute pancytopenia in a patient with a known history of AML receiving chemotherapy, previously on venetoclax/Vidaza History of esophageal adenocarcinoma post resection with gastric wall and subsequent chemoradiation therapy History of acute myocardial infarction in December 2023, treated medically History of coronary artery disease with previous stent placement Benign prostatic hyperplasia Plan: Agree with transfer plans to [facility] Present supportive care measures Continue present medications and continue to monitor daily CBCs and daily labs Will continue to follow as needed Time with Patient: Less than 30
--- NOTE | 2024-07-17 15:26 | P.PN ---
Subjective Progress Note Date: 07/17/24 Interval History: This is a pleasant 74 years old male with past medical history of AML. He follow-up with his oncologist josesito Borden whom he last saw him about 2 weeks ago. Patient is s/p 6 or 7 cycles of chemotherapy as per patient and at bedside, his last cycle of therapy was on May 30, 2024. He presents to [facility] with lightheadedness for 2 to 3 days associated with exertional dyspnea He denies shortness of breath at rest, no chest pain or abdominal pain. No other GI/GI symptoms. No fever or chills. No headache dizziness weakness or numbness Patient feels generally weak He denies smoking alcohol or illicit drugs. On admission his WBC is 0.9, hemoglobin 3.8 and hematocrit 10.9. Platelet count is not present in our labs but reviewing the [facility] it was 4K. At [facility] WBC was 0.7 and hemoglobin 3.6. Glucose 124, creatinine 0.8, BUN 41, chloride 112, bicarb is 21, sodium 141, potassium 3.8 Liver enzymes not elevated and bilirubin 0.3 No imaging studies. 07/12 Patient feels better and stronger No more lightheaded He has good appetite Currently staying in bed but feels he can move. Patient asked to ask for help otherwise Afebrile and vital stable His WBC 0.8, he hemoglobin improved to 5.1 and platelet count improved to 33. He is status post 2 days of irradiated blood. He is continued on normal saline at 75 mL/h 07/13 Patient generalized weakness is improving His pallor is improving No other new complaints WBC is 0.8, hemoglobin improved to 7.0 count still low at 21K. She is on normal sinus 75 mL/h No subcutaneous heparin 07/14 pt is fully awake no chest pain or dyspnea he is getting blood transfusion low platelet and hemoglobin count at 5.2 today 07/15 Patient has persistent pancytopenia resistant to transfusion, he received 8 units of blood transfusion since admission and his hemoglobin is still 6.0 today without evidence of bleeding. Platelet count trending down to 12,000 despite platelet transfusion and WBC 0.8. I discussed the case with Dr. Garcia, there is a concerns for transformation to AML, patient will need bone marrow biopsy which is not available in this facility during today or this coming week. Therefore patient is may benefit from transfer to his oncologist placed Dr. Kaufman at [facility]. I called the transfer center a few of them at [phone] Was busy several times, I left a message to call back 07/16/patient was seen and examined today. at bedside. No issues overnight. WBCs 0.95, hemoglobin 5.5, platelets 8000 today. Neutrophils 0.11. 2 additional units of packed RBCs, 1 unit platelets ordered. Hematology following. Called [facility] transfer line, awaiting callback from admitting doctor. 07/17--patient was seen and examined today, no issues overnight. Hemoglobin dropped to 6.7, platelet 12,000. 1 more unit of packed RBCs ordered, total 11 units so far, 3 units of platelets. Patient accepted to [facility], awaiting transfer. Assessment and plan: Severe anemia and thrombocytopenia, requiring blood transfusion-multiple Myelodysplastic syndrome s/p chemotherapy--diagnosed in August 2023 Pancytopenia Benign prostatic hypertrophy Coronary artery disease status post stent MDS: -Diagnosed in August 2023 and has been on venetoclax and azacitidine since October 2023 -Repeat bone marrow biopsy in March 2024 revealed complete response to treatment -His clinical course complicated by NSTEMI in January 2024 as well as neutropenic fever in June 2024 -He has not received Vidaza since 06/07/2024 and venetoclax since 06/14/2024 -Continue to hold venetoclax -Given grade 4 neutropenia, home prophylactic posaconazole ordered today. Continue prophylactic acyclovir Plan: Noted to have marked pancytopenia on admission with WBC 0.9, hemoglobin 3.8, platelet 5000, received 9 units of packed RBCs so far, 2 additional units ordered 07/16, Status post 2 units of platelets, plus additional 1 unit 07/16 so far. Fibrinogen, vitamin B12, folic acid, iron studies, thyroid profile, hemolysis negative. No sign or symptom of active bleed. Monitor hemoglobin and platelet count Hematology/oncology consulted--bone marrow biopsy at [facility], transfuse for hemoglobin less than 7, platelet less than 10,000. Discussed with [facility] transfer line, patient accepted for transfer, awaiting bed. DVT prophylaxis: SCD Monitor vital signs and labs Labs and medication were reviewed. Continue same treatment. Further recommendations as per clinical course of the patient PHYSICAL EXAMINATION: GENERAL: The patient is A&O x3, NAD HEENT: EOMI, Sclerae anicteric, Moist Mucous membranes Neck: Supple, Non tender, No JVD PULMONARY: Equal breath souds B/L, No wheezing, No crackles. CARDIOVASCULAR: S1, S2 present. No murmurs, rubs, or gallops. ABDOMEN: Soft, nontender, nondistended, normoactive bowel sounds. No guarding or rebound tenderness. MUSCULOSKELETAL: No edema, No cyanosis. No clubbing. Normal ROM. Intact peripheral pulses. NEUROLOGICAL: CN 2-12 grossly intact. No FND Skin: No Rash REVIEW OF SYSTEMS: CONSTITUTIONAL: No fever or chills. CARDIOVASCULAR: No chest pain, palpitations or syncope. PULMONARY: No shortness of breath, no cough, sore throat. GASTROINTESTINAL: No nausea, vomiting, diarrhea, abdominal pain. : No Dysuria, urgency, frequency. Extremities: No edema. NEUROLOGICAL: No headaches, no weakness, or numbness Dictation was produced using [employer] dictation software. please excuse any grammatical, word or spelling errors. Objective - Vital Signs Vital signs: Vital Signs Temp 98.3 F 07/17/24 14:18 Pulse 90 07/17/24 14:18 Resp 16 07/17/24 11:41 BP 99/57 07/17/24 14:18 Pulse Ox 97 07/17/24 14:18 FiO2 Intake & Output 07/16/24 07/17/24 07/17/24 18:59 06:59 18:59 Intake Total 1400 250 0 Output Total 200 Balance 1200 250 0 Weight 82.7 kg Intake: Oral 780 Blood Product 620 250 0 Platelet Pheresis Pas 250 Psoralen Unit [id number] Rc Irr As1 Unit 0 [id number] Rc Irr As1 Unit 310 [id number] Rc Irr As1 Unit 310 [id number] Output: Urine 200 Other: Voiding Method Toilet Toilet # Voids 2 2 2 - Labs CBC & Chem 7: 07/17/24 07:11 07/16/24 05:33 Labs: Abnormal Lab Results - Last 24 Hours (Table) 07/15/24 07/17/24 07/17/24 Range/Units 12:35 00:44 07:11 WBC 1.2 L* 0.9 L* (3.8-10.6) k/uL RBC 2.26 L 1.99 L (4.30-5.90) m/uL Hgb 7.0 L 6.3 L* (13.0-17.5) gm/dL Hct 19.8 L* 17.4 L* (39.0-53.0) % Plt Count 19 L* 16 L* (150-450) k/uL Blast Cells % 8 H* % Neutrophils # (Manual) 0.38 L* (1.3-7.7) k/uL Lymphocytes # (Manual) 0.62 L (1.0-4.8) k/uL Blast Cells # (Man) 0.10 H (0) k/uL Crossmatch See Detail
[2024-07-17 17:30] VITALS: BP 96/58; PULSE 93; TEMP 98.7
--- NOTE | 2024-07-18 16:37 | P.DS ---
Providers Date of admission: 07/11/24 11:53 Expected date of discharge: 07/17/24 Attending physician: Solis Hatfield MD Consults: 07/11/24 11:52 Consult Physician Routine Consulting Provider: Dominick Simon Consult Reason/Comments: Symptomatic anemia, pancytopenia, MDS Do you want consulting provider notified?: Already Contacted 07/11/24 14:36 Consult Physician Routine Consulting Provider: Panda Quiroz Consult Reason/Comments: ICU admit low hgb Do you want consulting provider notified?: Already Contacted Primary care physician: Igor Lisa MD Hospital Course: Discharge diagnoses: Severe anemia and thrombocytopenia, requiring blood transfusion-multiple Myelodysplastic syndrome s/p chemotherapy--diagnosed in August 2023 Pancytopenia Benign prostatic hypertrophy Coronary artery disease status post stent MDS: -Diagnosed in August 2023 and has been on venetoclax and azacitidine since October 2023 -Repeat bone marrow biopsy in March 2024 revealed complete response to treatment -His clinical course complicated by NSTEMI in January 2024 as well as neutropenic fever in June 2024 -He has not received Vidaza since 06/07/2024 and venetoclax since 06/14/2024 -Continue to hold venetoclax -Given grade 4 neutropenia, home prophylactic posaconazole ordered today. Continue prophylactic acyclovir Plan: Noted to have marked pancytopenia on admission with WBC 0.9, hemoglobin 3.8, platelet 5000, received 9 units of packed RBCs so far, 2 additional units ordered 07/16, Status post 2 units of platelets, plus additional 1 unit 07/16 so far. Fibrinogen, vitamin B12, folic acid, iron studies, thyroid profile, hemolysis negative. No sign or symptom of active bleed. Monitor hemoglobin and platelet count Hematology/oncology consulted--bone marrow biopsy at [facility], transfuse for hemoglobin less than 7, platelet less than 10,000. Discussed with [facility] transfer line, patient accepted for transfer, patient transferred to [facility] on 07/17/2024 Hospital course: This is a pleasant 74 years old male with past medical history of AML. He follow-up with his oncologist josesito Borden whom he last saw him about 2 weeks ago. Patient is s/p 6 or 7 cycles of chemotherapy as per patient and at bedside, his last cycle of therapy was on May 30, 2024. He presents to [facility] with lightheadedness for 2 to 3 days associated with exertional dyspnea He denies shortness of breath at rest, no chest pain or abdominal pain. No other GI/GI symptoms. No fever or chills. No headache dizziness weakness or numbness Patient feels generally weak He denies smoking alcohol or illicit drugs. On admission his WBC is 0.9, hemoglobin 3.8 and hematocrit 10.9. Platelet count is not present in our labs but reviewing the [facility] it was 4K. At [facility] WBC was 0.7 and hemoglobin 3.6. Glucose 124, creatinine 0.8, BUN 41, chloride 112, bicarb is 21, sodium 141, potassium 3.8 Liver enzymes not elevated and bilirubin 0.3 No imaging studies. 07/12 Patient feels better and stronger No more lightheaded He has good appetite Currently staying in bed but feels he can move. Patient asked to ask for help otherwise Afebrile and vital stable His WBC 0.8, he hemoglobin improved to 5.1 and platelet count improved to 33. He is status post 2 days of irradiated blood. He is continued on normal saline at 75 mL/h 07/13 Patient generalized weakness is improving His pallor is improving No other new complaints WBC is 0.8, hemoglobin improved to 7.0 count still low at 21K. She is on normal sinus 75 mL/h No subcutaneous heparin 07/14 pt is fully awake no chest pain or dyspnea he is getting blood transfusion low platelet and hemoglobin count at 5.2 today 07/15 Patient has persistent pancytopenia resistant to transfusion, he received 8 units of blood transfusion since admission and his hemoglobin is still 6.0 today without evidence of bleeding. Platelet count trending down to 12,000 despite platelet transfusion and WBC 0.8. I discussed the case with Dr. Garcia, there is a concerns for transformation to AML, patient will need bone marrow biopsy which is not available in this facility during today or this coming week. Therefore patient is may benefit from transfer to his oncologist placed Dr. Kaufman at [facility]. I called the transfer center a few of them at [phone] Was busy several times, I left a message to call back 07/16/patient was seen and examined today. at bedside. No issues overnight. WBCs 0.95, hemoglobin 5.5, platelets 8000 today. Neutrophils 0.11. 2 additional units of packed RBCs, 1 unit platelets ordered. Hematology following. Called [facility] transfer line, awaiting callback from admitting doctor. 07/17--patient was seen and examined today, no issues overnight. Hemoglobin dropped to 6.7, platelet 12,000. 1 more unit of packed RBCs ordered, total 11 units so far, 3 units of platelets. Patient accepted to [facility], transfer to [facility]. PHYSICAL EXAMINATION: GENERAL: The patient is A&O x3, NAD HEENT: EOMI, Sclerae anicteric, Moist Mucous membranes Neck: Supple, Non tender, No JVD PULMONARY: Equal breath souds B/L, No wheezing, No crackles. CARDIOVASCULAR: S1, S2 present. No murmurs, rubs, or gallops. ABDOMEN: Soft, nontender, nondistended, normoactive bowel sounds. No guarding or rebound tenderness. MUSCULOSKELETAL: No edema, No cyanosis. No clubbing. Normal ROM. Intact peripheral pulses. NEUROLOGICAL: CN 2-12 grossly intact. No FND SKIN: No rashes. Dictation was produced using [employer] dictation software. please excuse any grammatical, word or spelling errors. Patient Condition at Discharge: Fair Plan - Discharge Summary Discharge Rx Participant: No New Discharge Prescriptions: No Action Tamsulosin [Flomax] 0.4 mg PO DAILY Pantoprazole [Protonix] 40 mg PO BID Loratadine [Claritin] 10 mg PO DAILY Nitroglycerin Sl Tabs [Nitrostat] 0.4 mg SUBLINGUAL Q5M PRN #30 tab PRN Reason: Chest Pain Potassium Chloride ER [K-Dur 10] 10 meq PO DAILY Ondansetron [Zofran] 4 mg PO Q4H PRN PRN Reason: Nausea Fluticasone Nasal [place] [Flonase Nasal [place]] 2 spr EA NOSTRIL DAILY Posaconazole 300 mg PO W/BRKFST Acyclovir [Zovirax] 400 mg PO BID Vit C/E/Zn/Coppr/Lutein/Zeaxan [Preservision Areds 2 Softgel] 1 cap PO BID Multivit-Min/FA/Lycopen/Lutein [Centrum Silver Tablet] 1 tab PO DAILY Discharge Medication List Acyclovir [Zovirax] 400 mg PO BID 01/01/24 [History] Fluticasone Nasal [place] [Flonase Nasal [place]] 2 spr EA NOSTRIL DAILY 01/01/24 [History] Loratadine [Claritin] 10 mg PO DAILY 01/01/24 [History] Ondansetron [Zofran] 4 mg PO Q4H PRN 01/01/24 [History] Pantoprazole [Protonix] 40 mg PO BID 01/01/24 [History] Posaconazole 300 mg PO W/BRKFST 01/01/24 [History] Tamsulosin [Flomax] 0.4 mg PO DAILY 01/01/24 [History] Nitroglycerin Sl Tabs [Nitrostat] 0.4 mg SUBLINGUAL Q5M PRN #30 tab 01/05/24 [Rx] Potassium Chloride ER [K-Dur 10] 10 meq PO DAILY 06/27/24 [History] Vit C/E/Zn/Coppr/Lutein/Zeaxan [Preservision Areds 2 Softgel] 1 cap PO BID 06/27/24 [History] Multivit-Min/FA/Lycopen/Lutein [Centrum Silver Tablet] 1 tab PO DAILY 07/11/24 [History] Follow up Appointment(s)/Referral(s): Igor Lisa MD [Primary Care Provider] - 1-2 days Discharge Disposition: TRANSFER TO SHORT TERM HOSP
== END 2024-07-17 17:44 | disposition short-term general hospital (02) | DRG 809 ==
LOC: EC 10:57 → 3SCARD 11:53 → 2SICU 12:55 → 5NMEDONC 07-12 20:22 → 3SCARD 07-16 18:27
PROVIDERS: ADMIT Internal Medicine; ATTEND Internal Medicine
PROC: 30233N1 Transfusion of Nonautologous Red Blood Cells into Peripheral Vein, Percutaneous Approach (ICD-10-PCS; principal; 2024-07-11)
PROC: 30233R1 Transfusion of Nonautologous Platelets into Peripheral Vein, Percutaneous Approach (ICD-10-PCS; 2024-07-11)
PROC: 6A550Z2 Pheresis of Platelets, Single (ICD-10-PCS; 2024-07-11)
DX: D61.810 Antineoplastic chemotherapy induced pancytopenia (principal); C92.00 Acute myeloblastic leukemia, not having achieved remission; T45.1X5A Adverse effect of antineoplastic and immunosuppressive drugs, initial encounter; D46.Z Other myelodysplastic syndromes; I25.10 Atherosclerotic heart disease of native coronary artery without angina pectoris; N40.0 Benign prostatic hyperplasia without lower urinary tract symptoms; I25.2 Old myocardial infarction; Z95.5 Presence of coronary angioplasty implant and graft; Z79.899 Other long term (current) drug therapy; Z85.01 Personal history of malignant neoplasm of esophagus
CPT/HCPCS: 36415; 71046; 80048; 80053; 82607; 82728; 82746; 83010; 83540; 83550; 83615; 83921; 84443; 85025; 85027; 85045; 85384; 85610; 85730; 86850; 86900; 86901; 86920; 93005; 99291

== ENCOUNTER 2024-12-01 15:59 | Inpatient (IN) | payer MEDICARE ==
--- NOTE | 2024-12-01 16:15 | ED ---
General Adult HPI - General Stated complaint: Abn Labs - History of Present Illness Initial comments: Patient is a pleasant 74-year-old gentleman past medical history AML, esophageal cancer presenting today for generalized weakness and shortness of breath. He was transferred from [facility] where he was discovered to have a hemoglobin of 5.2. Patient's last transfusion was about 2 weeks ago. He currently denies any fevers, chills, cough productive of sputum or cough, congestion, abdominal pain, nausea, vomiting, melena, hematochezia. States he did have a few episodes of diarrhea on Thursday. Also endorses lightheadedness and generalized weakness. Patient's oncologist are Dr. Stallings and Dr. Kaufman. Of note patient was recently mated to [facility] discharged on 11/25/2024. He was started on a new immunomodulators that he did for 4 days and began having his current symptoms so he stopped that and began taking Decadron. He did contact Dr. Kaufman, his oncologist through [facility], to let him know he was discontinuing his immunomodulator. - Related Data Home Medications Medication Instructions Recorded Confirmed Acyclovir [Zovirax] 400 mg PO BID 01/01/24 12/01/24 Fluticasone Nasal [place] [Flonase 2 spr EA NOSTRIL DAILY 01/01/24 12/01/24 Nasal [place]] Loratadine [Claritin] 10 mg PO DAILY 01/01/24 12/01/24 Pantoprazole [Protonix] 40 mg PO DAILY 01/01/24 12/01/24 Tamsulosin [Flomax] 0.4 mg PO DAILY 01/01/24 12/01/24 Potassium Chloride ER [K-Dur 10] 10 meq PO DAILY 06/27/24 12/01/24 Multivit-Min/FA/Lycopen/Lutein 1 tab PO DAILY 07/11/24 12/01/24 [Centrum Silver Tablet] Prochlorperazine [Compazine] 10 mg PO Q6H PRN 08/26/24 12/01/24 Sulfamethox-Tmp 800-160Mg [Bactrim 1 tab PO MOWEFR 08/26/24 12/01/24 DS 800-160 mg] polyethylene glycoL 3350 [Miralax] 17 gm PO BID PRN 08/26/24 12/01/24 Metoprolol Succinate [Metoprolol 25 mg PO DAILY 12/01/24 12/01/24 Succinate ER] Posaconazole [Noxafil] 300 mg PO DAILY 12/01/24 12/01/24 dexAMETHasone [Decadron] 4 mg PO DAILY 12/01/24 12/01/24 guaiFENesin [Mucinex] 1,200 mg PO BID 12/01/24 12/01/24 Previous Rx's Medication Instructions Recorded Nitroglycerin Sl Tabs [Nitrostat] 0.4 mg SUBLINGUAL Q5M PRN #30 tab 01/05/24 Allergies Allergy/AdvReac Type Severity Reaction Status Date / Time No Known Allergies Allergy Verified 12/01/24 20:14 Review of Systems ROS Statement: Those systems with pertinent positive or pertinent negative responses have been documented in the HPI. ROS Other: All systems not noted in ROS Statement are negative. Past Medical History Past Medical History: Cancer, Prostate Disorder Additional Past Medical History / Comment(s): esophageal cancer, leukemia History of Any Multi-Drug Resistant Organisms: None Reported Past Surgical History: Heart Catheterization With Stent, Hernia Repair Additional Past Surgical History / Comment(s): gastric pull-through surgery Past Anesthesia/Blood Transfusion Reactions: No Reported Reaction Smoking Status: Never smoker General Exam - General Exam Comments Initial Comments: PE: CONSTITUTIONAL: [no apparent distress, well appearing ill-appearing] SKIN: [warm, dry, no jaundice, hives or petechiae, generalized pallor,] EYES:[ pupils are equally round, extraocular movements intact without nystagmus, pale conjunctiva, non-icteric sclera] HENT: [normocephalic, atraumatic, moist mucus membranes, oropharynx clear without exudates] NECK: , [Full range of motion, normal appearance] PULMONARY: [clear to auscultation without wheezes, rhonchi, or rales, normal excursion, no accessory muscle use and no stridor] CARDIOVASCULAR:[ regular rate, rhythm, normal S1 and S2. No appreciated murmurs, rubs or gallops. Strong radial pulses with intact distal perfusion. No lower extremity edema] GASTROINTESTINAL: [soft, active bowel sounds throughout, non-tender, non-distend ed, no palpable masses, no rebound or guarding. No hepatosplenomegaly] GENITOURINARY: MUSCULOSKELETAL: [Extremities have no gross deformity, no edema, redness, or swelling. No calf swelling ] NEUROLOGIC: [_a/o x 3, GCS 15, normal mentation and speech. Moves all extremities x 4 without motor or sensory deficit] PSYCHIATRIC:[ _normal mood and affect, thought process is clear and linear] Course Vital Signs 12/01/24 12/01/24 12/01/24 16:07 18:30 19:00 Temperature 98.2 F Pulse Rate 97 101 H 90 Respiratory 20 18 20 Rate Blood Pressure 110/61 96/60 102/60 O2 Sat by Pulse 97 98 98 Oximetry 12/01/24 12/01/24 12/01/24 19:52 20:05 21:19 Temperature 98.5 F 98.2 F Pulse Rate 95 94 99 Respiratory 20 20 18 Rate Blood Pressure 82/40 104/56 103/50 O2 Sat by Pulse 98 98 98 Oximetry 12/02/24 12/02/24 12/02/24 00:09 00:22 01:00 Temperature 97.8 F 79.8 F L Pulse Rate 86 87 86 Respiratory 18 18 18 Rate Blood Pressure 97/62 99/57 103/60 O2 Sat by Pulse 97 97 97 Oximetry 12/02/24 12/02/24 12/02/24 02:00 02:11 04:00 Temperature 97.9 F 98.2 F Pulse Rate 80 80 89 Respiratory 18 18 16 Rate Blood Pressure 101/56 101/56 106/59 O2 Sat by Pulse 97 95 Oximetry 12/02/24 09:49 Temperature Pulse Rate 82 Respiratory 16 Rate Blood Pressure 93/57 O2 Sat by Pulse 97 Oximetry EKG Findings - EKG Comments: EKG Findings:: Atrial fibrillation, rate 98 bpm intervals within acceptable limits, no significant ST elevations or depressions, no ischemic changes normal axis Medical Decision Making - Medical Decision Making Was pt. sent in by a medical professional or institution (, PA, [employer], urgent care, hospital, or chcf...) When possible be specific Patient was transferred from [facility] Did you speak to anyone other than the patient for history (EMS, parent, family, police, friend...)? What history was obtained from this source @Spoke with patient's son, at bedside, who assisted in providing history regarding patient's recent admission at [facility], patient stopped taking his immunomodulator after 4 days and started on Decadron Did you review nursing and triage notes (agree or disagree)? Why? @ -I reviewed nursing and triage notes Were old charts reviewed (outside hosp., previous admission, EMS record, old EKG, old radiological studies, urgent care reports/EKG's, chcf records)? Report findings @ -Medical records reviewed-discharge summary from 07/11/2024, patient been admitted for pancytopenia, during that admission received 10 9 units RBCs, 2 additional units, no active bleeding noted, due to persistent anemia patient required transfer to [facility] for bone marrow biopsy Differential Diagnosis (chest pain, altered mental status, abdominal pain women, abdominal pain men, vaginal bleeding, weakness, fever, dyspnea, syncope, headache, dizziness, GI bleed, back pain, seizure, CVA, palpatations, mental health, musculoskeletal)? @Differential diagnosis remains broad however top considerations include anemia 2/2 AML, lab error, medication side effect, kidney dysfunction, anemia of chronic disease, GI bleed, this is not an all inclusive list, Of note, pt denies symptoms of GI bleed/dark/tarry or bloody stools, so do not feel further workup for GI bleed indicated at this time EKG interpreted by me (3pts min.). @ -As above X-rays interpreted by me (1pt min.). @Personally reviewed chest x-ray I see no evidence of consolidations or pleural effusions I agree with radiologist interpretation CT interpreted by me (1pt min.). @ -None done U/S interpreted by me (1pt. min.). @ -None done What testing was considered but not performed or refused? (CT, X-rays, U/S, lab s)? Why? @ -None What meds were considered but not given or refused? Why? @ -None Did you discuss the management of the patient with other professionals (professionals i.e. , PA, [employer], lab, RT, psych nurse, psychiatric social worker supervisor, second floor operator, teacher, corrections officer, dependency case manager)? Give summary @ -No Was smoking cessation discussed for >3mins.? @ -No Was critical care preformed (if so, how long)? @ -No Were there social determinants of health that impacted care today? How? (Homelessness, low income, unemployed, alcoholism, drug addiction, transportation, low edu. Level, literacy, decrease access to med. care, halfway, rehab)? @ -No Was there de-escalation of care discussed even if they declined (Discuss DNR or withdrawal of care, Hospice)? @ -No What co-morbidities impacted this encounter? (DM, HTN, Smoking, COPD, CAD, Cancer, CVA, ARF, Chemo, Hep., AIDS, mental health diagnosis, sleep apnea, morbid obesity)? @AmL, esophageal cancer Was patient admitted / discharged? Hospital course, mention meds given and route, prescriptions, significant lab abnormalities, going to OR and other pertinent info. @ -admission-This is a pleasant 74-year-old gentleman presenting today for anemia noted on outpatient labs, hemoglobin of 5.2 at [facility], associated generalized weakness and shortness of breath. Patient seen and assessed on arrival, he is chronically ill appearing, nontoxic, with generalized pallor. Will recheck hgb level prior to administering blood products, additionally will check CBC, CMP, coags, troponin, BNP given patient's shortness of breath though I suspect shortness of breath is secondary to anemia, chest x- ray. Anticipate admission, patient agreeable with POC. Personally reviewed blood work, this significant for white blood cell count of 20.97 however patient denies infectious symptoms. I did discuss this with patient and and they state that this is normal, for the patient, secondary to the medications he is currently on for his cancer, hemoglobin 4.8, 2 units PRBCs were ordered, updated patient like to findings and plan for admission, they are agreeable plan of care, case was discussed with ANIVAL Salgado, who kindly accepts pt for admission. Undiagnosed new problem with uncertain prognosis? @ -No Drug Therapy requiring intensive monitoring for toxicity (Heparin, Nitro, Insulin, Cardizem)? @ -No Were any procedures done? @ -No Diagnosis/symptom? @ acute on chronic symptomtomatic anemia Acute, or Chronic, or Acute on Chronic? @ acute on chronic Uncomplicated (without systemic symptoms) or Complicated (systemic symptoms)? @ complicated Side effects of treatment? @ -No Exacerbation, Progression, or Severe Exacerbation? @ -No Poses a threat to life or bodily function? How? (Chest pain, [place], [place], pneumonia, PE, COPD, DKA, ARF, appy, cholecystitis, CVA, Diverticulitis, Homicidal, Suicidal, threat to staff... and all critical care pts) @ yes if left untreated could lead to end organ damage - Lab Data Result diagrams: 12/05/24 06:44 12/05/24 06:44 Lab Results 12/01/24 12/01/24 12/01/24 Range/Units 17:50 17:50 17:50 WBC 20.97 H (4.50-10.00) 10*3/uL RBC 1.59 L (4.40-5.60) 10*6/uL Hgb 4.8 L* (13.0-17.0) g/dL Hct 14.0 L* (39.6-50.0) % MCV 88.1 (80.0-97.0) fL MCH 30.2 (27.0-32.0) pg MCHC 34.3 (32.0-37.0) g/dL Plt Count 48 L (140-440) 10*3/uL Immature Gran % (Auto) 6.6 % Neutrophils % (Manual) 29 % Band Neuts % (Manual) 3 % Lymphocytes % (Manual) 5 % Monocytes % (Manual) 2 % Myelocytes % 2 % Blast Cells % 60 H* % Immature Gran # 1.38 H (0.00-0.04) 10*3/uL Neutrophils # (Manual) 6.71 (1.3-7.7) k/uL Lymphocytes # (Manual) 1.05 (1.0-4.8) k/uL Monocytes # (Manual) 0.42 (0-1.0) k/uL Myelocytes # (Manual) 0.42 H (0) k/uL Blast Cells # (Man) 12.58 H (0) k/uL Nucleated RBCs 4 H (0-0) /100 WBC Manual Slide Review Performed Pathologist Review See comment A Large Platelets Present Immature Plt Fraction 55.1 H (1.1-6.1) % Polychromasia Present PT 11.8 (10.0-12.5) sec INR 1.1 (<1.2) APTT 16.8 L (22.0-30.0) sec Sodium 134 L (137-145) mmol/L Potassium 4.3 (3.5-5.1) mmol/L Chloride 102 (98-107) mmol/L Carbon Dioxide 23 (22-30) mmol/L Anion Gap 9 mmol/L BUN 51 H (9-20) mg/dL Creatinine 0.78 (0.66-1.25) mg/dL Est GFR (CKD-EPI)AfAm >90 (>60 ml/min/1.73 sqM) Est GFR (CKD-EPI)NonAf 88 (>60 ml/min/1.73 sqM) Glucose 146 H (74-99) mg/dL Calcium 8.7 (8.4-10.2) mg/dL Total Bilirubin 0.3 (0.2-1.3) mg/dL AST 29 (17-59) U/L ALT 29 (4-49) U/L Alkaline Phosphatase 66 (38-126) U/L Troponin I (0.000-0.034) ng/mL NT-Pro-B Natriuret Pep 548 pg/mL Total Protein 5.0 L (6.3-8.2) g/dL Albumin 3.0 L (3.5-5.0) g/dL Blood Type Blood Type Recheck Bld Type Recheck Status Antibody Screen Crossmatch Spec Expiration Date 12/01/24 12/01/24 Range/Units 17:50 17:50 WBC (4.50-10.00) 10*3/uL RBC (4.40-5.60) 10*6/uL Hgb (13.0-17.0) g/dL Hct (39.6-50.0) % MCV (80.0-97.0) fL MCH (27.0-32.0) pg MCHC (32.0-37.0) g/dL Plt Count (140-440) 10*3/uL Immature Gran % (Auto) % Neutrophils % (Manual) % Band Neuts % (Manual) % Lymphocytes % (Manual) % Monocytes % (Manual) % Myelocytes % % Blast Cells % % Immature Gran # (0.00-0.04) 10*3/uL Neutrophils # (Manual) (1.3-7.7) k/uL Lymphocytes # (Manual) (1.0-4.8) k/uL Monocytes # (Manual) (0-1.0) k/uL Myelocytes # (Manual) (0) k/uL Blast Cells # (Man) (0) k/uL Nucleated RBCs (0-0) /100 WBC Manual Slide Review Pathologist Review Large Platelets Immature Plt Fraction (1.1-6.1) % Polychromasia PT (10.0-12.5) sec INR (<1.2) APTT (22.0-30.0) sec Sodium (137-145) mmol/L Potassium (3.5-5.1) mmol/L Chloride (98-107) mmol/L Carbon Dioxide (22-30) mmol/L Anion Gap mmol/L BUN (9-20) mg/dL Creatinine (0.66-1.25) mg/dL Est GFR (CKD-EPI)AfAm (>60 ml/min/1.73 sqM) Est GFR (CKD-EPI)NonAf (>60 ml/min/1.73 sqM) Glucose (74-99) mg/dL Calcium (8.4-10.2) mg/dL Total Bilirubin (0.2-1.3) mg/dL AST (17-59) U/L ALT (4-49) U/L Alkaline Phosphatase (38-126) U/L Troponin I <0.012 (0.000-0.034) ng/mL NT-Pro-B Natriuret Pep pg/mL Total Protein (6.3-8.2) g/dL Albumin (3.5-5.0) g/dL Blood Type O Positive Blood Type Recheck O Pos Bld Type Recheck Status No Antibody Screen NEGATIVE Crossmatch See Detail Spec Expiration Date 12/04/20242349 Disposition Clinical Impression: Symptomatic anemia Disposition: ADMITTED IP TO THIS [facility] Condition: Stable
--- NOTE | 2024-12-01 17:28 | XR ---
EXAMINATION TYPE: XR chest 2V DATE OF EXAM: 12/01/2024 5:24 PM COMPARISON: Chest radiographs from 07/11/2024, CTA chest 06/27/2024 TECHNIQUE: XR chest 2V Frontal and lateral views of the chest. CLINICAL INDICATION:Male, 74 years old with history of shortness of breath, anemic, recent L. pneumo; FINDINGS: Lungs/Pleura: There is no evidence of pleural effusion, focal consolidation, or pneumothorax. Chroni c elevation of the left hemidiaphragm. Pulmonary vascularity: Unremarkable. Heart/mediastinum: Cardiomediastinal silhouette is unremarkable. Musculoskeletal: Multiple level degenerative disc disease changes seen throughout the spine. Other findings: Esophagectomy with gastric pull-through is better appreciated on prior CT. IMPRESSION: No acute cardiopulmonary disease/process. [facility], , 12/01/2024 5:26 PM
[2024-12-01 18:13] LABS: ALT 29 U/L (4-49); AST 29 U/L (17-59); African American GFR (CKD) >90 (>60 ml/min/1.73 sqM); Alkaline Phosphatase 66 U/L (38-126); Anion Gap 9 mmol/L; Blood Urea Nitrogen 51 mg/dL (9-20); Calcium 8.7 mg/dL (8.4-10.2); Carbon Dioxide 23 mmol/L (22-30); Chloride 102 mmol/L (98-107); Glucose 146 mg/dL (74-99); Non-African American GFR(CKD) 88 (>60 ml/min/1.73 sqM); Potassium 4.3 mmol/L (3.5-5.1); Sodium 134 mmol/L (137-145); Total Bilirubin 0.3 mg/dL (0.2-1.3)
[2024-12-01 18:22] LABS: NT-Pro-B-Type Natriuretic Pept 548 pg/mL
[2024-12-01 18:33] LABS: Immature Platelet Fraction 55.1 % (1.1-6.1); MCH 30.2 pg (27.0-32.0); MCHC 34.3 g/dL (32.0-37.0); MCV 88.1 fL (80.0-97.0); RBC 1.59 10*6/uL (4.40-5.60); RDW 23.1 % (11.5-14.5); WBC 20.97 10*3/uL (4.50-10.00)
[2024-12-01 18:44] LABS: INR 1.1 (<1.2); Prothrombin Time 11.8 sec (10.0-12.5)
[2024-12-01 18:47] LABS: Partial Thromboplastin Time 16.8 sec (22.0-30.0)
[2024-12-01 18:49] LABS: HGB 4.8 g/dL (13.0-17.0)
[2024-12-01 19:29] LABS: Band Neutrophils % 3 %; Blast Cells # (M) 12.58 k/uL (0); Large Platelets Present; Lymphocytes # (M) 1.05 k/uL (1.0-4.8); Monocytes # (M) 0.42 k/uL (0-1.0); Myelocytes # (M) 0.42 k/uL (0); Myelocytes % 2 %; Neutrophils # (M) 6.71 k/uL (1.3-7.7); Neutrophils % (M) 29 %; Nucleated Red Blood Cells 4 /100 WBC (0-0); Polychromasia Present; Total Cells Counted 200
[2024-12-01 19:31] LABS: Platelet Count 48 10*3/uL (140-440)
[2024-12-01] MEDS ORDERED: HYDROcodone/APAP 5-325MG 1 EACH TAB PO PRN (20:49)
[2024-12-01] MEDS ORDERED: ONDANSETRON 4 MG/2 ML VIAL IVP PRN (20:49)
[2024-12-01] MEDS ORDERED: ACETAMINOPHEN TAB 325 MG TAB PO PRN (20:49)
[2024-12-01] MEDS ORDERED: MAG HYDROX/AL HYDROX/SIMETH 30 ML CUP PO PRN (20:49)
[2024-12-01] MEDS ORDERED: MORPHINE SULFATE 4 MG/ML SYRINGE IV PRN (20:49)
[2024-12-01] MEDS ORDERED: NALOXONE 0.4 MG/ML 1 ML VIAL IV PRN (20:49)
[2024-12-01] MEDS ORDERED: CALCIUM CARBONATE 500 MG CHEWABLE PO PRN (20:49)
[2024-12-01] MEDS ORDERED: NITROGLYCERIN SL TABS 0.4 MG TAB SUBLINGUAL PRN (21:11)
[2024-12-01] MEDS ORDERED: polyethylene glycoL 3350 17 GM POWD.PACK PO PRN (21:11)
[2024-12-01] MEDS ORDERED: PROCHLORPERAZINE 10 MG TAB PO PRN (21:11)
[2024-12-01] MEDS: FAMOTIDINE 20 MG TAB PO SCH (21:18)
[2024-12-01] MEDS: ACYCLOVIR 200 MG CAP PO SCH (21:48)
[2024-12-02 06:49] LABS: Immature Platelet Fraction 55.9 % (1.1-6.1); MCH 30.5 pg (27.0-32.0); MCHC 34.8 g/dL (32.0-37.0); MCV 87.7 fL (80.0-97.0); Platelet Count 39 10*3/uL (140-440); RBC 2.03 10*6/uL (4.40-5.60); RDW 19.5 % (11.5-14.5); WBC 19.61 10*3/uL (4.50-10.00)
[2024-12-02 06:51] LABS: HCT 17.8 % (39.6-50.0); HGB 6.2 g/dL (13.0-17.0)
[2024-12-02 07:32] LABS: Band Neutrophils % 5 %; Lymphocytes # (M) 3.73 k/uL (1.0-4.8); Monocytes # (M) 0.78 k/uL (0-1.0); Neutrophils % (M) 19 %
[2024-12-02 07:33] LABS: Anisocytosis (M) Present; Blast Cells # (M) 10.39 k/uL (0); Nucleated Red Blood Cells 0 /100 WBC (0-0); Polychromasia Present; Total Cells Counted 100
[2024-12-02] MEDS: PANTOPRAZOLE 40 MG TABLET PO SCH (07:50)
[2024-12-02] MEDS ORDERED: POSACONAZOLE 100 MG PO SCH (09:00)
[2024-12-02] MEDS: TAMSULOSIN 0.4 MG CAP.ER.24H PO SCH (09:41)
[2024-12-02] MEDS: SULFAMETHOX-TMP 800-160MG 1 EACH TAB PO SCH (09:43)
[2024-12-02] MEDS: POTASSIUM CHLORIDE ER 10 MEQ TAB.ER.PRT PO SCH (09:43)
[2024-12-02] MEDS: guaiFENesin 600 MG TABLET.ER PO SCH (09:44)
[2024-12-02] MEDS: dexAMETHasone 4 MG TAB PO SCH (09:44)
[2024-12-02] MEDS: LORATADINE 10 MG TAB PO SCH (09:45)
[2024-12-02] MEDS: MULTIVITAMINS, THERA 1 EACH TAB PO SCH (09:45)
[2024-12-02] MEDS: METOPROLOL SUCCINATE (ER) 25 MG TAB.ER.24H PO SCH (09:47)
[2024-12-02] MEDS: FLUTICASONE NASAL 50MCG/SPRAY 16GM BTL EA NOSTRIL SCH (11:16)
[2024-12-02] MEDS ORDERED: DEXTROSE 50% SYRINGE 50 ML IVP PRN ×2 (11:36)
--- NOTE | 2024-12-02 11:38 | P.HPIM ---
History of Present Illness H&P Date: 12/02/24 Patient is a 74-year-old male with history of AML currently undergoing treatment at [facility], history of severe symptomatic anemia with multiple transfusions in the past, history of pancytopenia and MDS presented to ER with a history of generalized weakness and shortness of breath. Patient is a transfer from [facility] where he initially presented with the symptoms blood work revealed very low hemoglobin of 5.2. Patient was transferred for further care to [facility] where he received 2 units of irradiated packed RBC. His hemoglobin improved to 6.2. Patient reports that he is feeling little bit better although still feeling weak with mild shortness of breath. He denies any fever, chills, nausea, vomiting, chest pain, active bleeding, bloody or tarry colored stools. Patient also reportedly had a left-sided atelectasis couple months ago when he was in [place]. Initial laboratory evaluation shows WBC 20.97, hemoglobin 4.8, hematocrit 14.0, sodium 134, BUN 51, creatinine 0.78, glucose 146, albumin 3.0, repeat lab work shows hemoglobin 6.2, hematocrit 17.8, platelet count 39, blast cells 53,. Chest x-ray shows no acute cardiopulmonary process. EKG shows sinus rhythm with occasional supraventricular premature complexes with ventricular rate of 98 bpm, [place] interval 152 ms, QRS duration 106 ms, QTc [address] or T wave changes noted. Review of systems: Pertinent positives and negatives as discussed in HPI, a complete review of systems was performed and all other systems are negative. Physical examination: Vital signs reviewed General: non toxic, no distress, appears at stated age, normal weight Derm: no unusual rashes/lesions, warm Head: atraumatic, normocephalic, symmetric Eyes: EOMI, no lid lag, anicteric sclera, pupils equal round reactive to light ENT: Nose and ears atraumatic Neck: No cervical lymphadenopathy, trachea midline, supple Mouth: no lip lesion, mucus membranes moist Cardiovascular: S1S2 reg, no murmur, positive dorsalis pedis pulse bilateral, no edema Lungs: CTA bilateral, no rhonchi, no rales, no accessory muscle use Abdominal: soft, nontender to palpation, no guarding Ext: muscle strength 5 out of 5 in all 4 extremities grossly, no gross muscle atrophy, no contractures, Neuro: CN II-XI grossly intact, no gross focal neuro deficits Psych: Alert, oriented, appropriate affect Assessment/Plan: Labs and images Initial laboratory evaluation shows WBC 20.97, hemoglobin 4.8, hematocrit 14.0, sodium 134, BUN 51, creatinine 0.78, glucose 146, albumin 3.0, repeat lab work shows hemoglobin 6.2, hematocrit 17.8, platelet count 39, blast cells 53,. Chest x-ray shows no acute cardiopulmonary process. EKG shows sinus rhythm with occasional supraventricular premature complexes with ventricular rate of 98 bpm, [place] interval 152 ms, QRS duration 106 ms, QTc [address] or T wave changes noted. Active: #Severe symptomatic anemia in the setting of AML #Bicytopenia #History of multiple blood transfusion in the past #Generalized weakness Patient is status post 2 units of irradiated packed RBC Order 1 unit of irradiated packed RBC Monitor APTT Repeat CBC in the afternoon Transfusion with irradiated packed RBC if hemoglobin less than 7 Transfusion with platelets if less than 10,000 or active bleeding with counts less than 50,000 Consult oncology Resume prophylactic antibiotic and antiviral medication Consult PT/OT #Hyperglycemia Short acting sliding scale insulin Monitor for hypoglycemia #BPH Resume Flomax Chronic conditions: Resume home medications DVT prophylaxis: SCDs GI prophylaxis: Protonix 40 mg p.o. daily F: None E: Replete as needed N: Regular diet A: Ambulatory at baseline The patient is admitted with an anticipated more than than 2 midnight stay for evaluation of severe symptomatic anemia CODE STATUS: Full code Discussed with: Patient Anticipated discharge place: Pending clinical course Dictation was produced using [employer] dictation software. Please excuse any grammatical, word or spelling errors. Past Medical History Past Medical History: Cancer, Prostate Disorder Additional Past Medical History / Comment(s): esophageal cancer, leukemia History of Any Multi-Drug Resistant Organisms: None Reported Past Surgical History: Heart Catheterization With Stent, Hernia Repair Additional Past Surgical History / Comment(s): gastric pull-through surgery Past Anesthesia/Blood Transfusion Reactions: No Reported Reaction Smoking Status: Never smoker Medications and Allergies Home Medications Medication Instructions Recorded Confirmed Type Acyclovir [Zovirax] 400 mg PO BID 01/01/24 12/01/24 History Fluticasone Nasal [place] [Flonase 2 spr EA NOSTRIL DAILY 01/01/24 12/01/24 History Nasal [place]] Loratadine [Claritin] 10 mg PO DAILY 01/01/24 12/01/24 History Pantoprazole [Protonix] 40 mg PO DAILY 01/01/24 12/01/24 History Tamsulosin [Flomax] 0.4 mg PO DAILY 01/01/24 12/01/24 History Nitroglycerin Sl Tabs [Nitrostat] 0.4 mg SUBLINGUAL Q5M PRN #30 tab 01/05/24 12/01/24 Rx Potassium Chloride ER [K-Dur 10] 10 meq PO DAILY 06/27/24 12/01/24 History Multivit-Min/FA/Lycopen/Lutein 1 tab PO DAILY 07/11/24 12/01/24 History [Centrum Silver Tablet] Prochlorperazine [Compazine] 10 mg PO Q6H PRN 08/26/24 12/01/24 History Sulfamethox-Tmp 800-160Mg [Bactrim 1 tab PO MOWEFR 08/26/24 12/01/24 History DS 800-160 mg] polyethylene glycoL 3350 [Miralax] 17 gm PO BID PRN 08/26/24 12/01/24 History Metoprolol Succinate [Metoprolol 25 mg PO DAILY 12/01/24 12/01/24 History Succinate ER] Posaconazole [Noxafil] 300 mg PO DAILY 12/01/24 12/01/24 History dexAMETHasone [Decadron] 4 mg PO DAILY 12/01/24 12/01/24 History guaiFENesin [Mucinex] 1,200 mg PO BID 12/01/24 12/01/24 History Allergies Allergy/AdvReac Type Severity Reaction Status Date / Time No Known Allergies Allergy Verified 12/01/24 20:14 Physical Exam Vitals: Vital Signs Temp Pulse Resp BP Pulse Ox 12/02/24 04:00 98.2 F 89 16 106/59 95 12/02/24 02:11 97.9 F 80 18 101/56 12/02/24 02:00 80 18 101/56 97 12/02/24 01:00 86 18 103/60 97 12/02/24 00:22 79.8 F L 87 18 99/57 97 12/02/24 00:09 97.8 F 86 18 97/62 97 12/01/24 21:19 99 18 103/50 98 12/01/24 20:05 98.2 F 94 20 104/56 98 12/01/24 19:52 98.5 F 95 20 82/40 98 12/01/24 19:00 90 20 102/60 98 12/01/24 18:30 101 H 18 96/60 98 12/01/24 16:07 98.2 F 97 20 110/61 97 Intake and Output 12/01/24 12/02/24 12/02/24 22:59 06:59 14:59 Intake Total 310 310 Balance 310 310 Intake: Blood Product 310 310 Rc Irr As1 Unit 310 [id number] Rc Irr As1 Unit 310 [id number] Other: Weight 79.379 kg Results CBC & Chem 7: 12/05/24 06:44 12/05/24 06:44 Labs: Abnormal Lab Results - Last 24 Hours (Table) 12/01/24 12/01/24 12/01/24 Range/Units 17:50 17:50 17:50 WBC 20.97 H (4.50-10.00) 10*3/uL RBC 1.59 L (4.40-5.60) 10*6/uL Hgb 4.8 L* (13.0-17.0) g/dL Hct 14.0 L* (39.6-50.0) % Plt Count (140-440) 10*3/uL Blast Cells % % Immature Gran # 1.38 H (0.00-0.04) 10*3/uL Blast Cells # (Man) (0) k/uL Immature Plt Fraction 55.1 H (1.1-6.1) % APTT 16.8 L (22.0-30.0) sec Sodium 134 L (137-145) mmol/L BUN 51 H (9-20) mg/dL Glucose 146 H (74-99) mg/dL Total Protein 5.0 L (6.3-8.2) g/dL Albumin 3.0 L (3.5-5.0) g/dL Crossmatch 12/01/24 12/02/24 Range/Units 17:50 05:57 WBC 19.61 H (4.50-10.00) 10*3/uL RBC 2.03 L (4.40-5.60) 10*6/uL Hgb 6.2 L* (13.0-17.0) g/dL Hct 17.8 L* (39.6-50.0) % Plt Count 39 L (140-440) 10*3/uL Blast Cells % 53 H* % Immature Gran # 1.34 H (0.00-0.04) 10*3/uL Blast Cells # (Man) 10.39 H (0) k/uL Immature Plt Fraction 55.9 H (1.1-6.1) % APTT (22.0-30.0) sec Sodium (137-145) mmol/L BUN (9-20) mg/dL Glucose (74-99) mg/dL Total Protein (6.3-8.2) g/dL Albumin (3.5-5.0) g/dL Crossmatch See Detail Assessment and Plan Assessment: Attestation Attestation/ [employer] Note: Attestation to History and physical, Participation (I saw and evaluated the patient with the Resident, and I reviewed and discussed the patient with the Resident and agree with the Resident's findings and plans as documented above., management reviewed and discussed), I agree with findings & plan, Provider Signature (KUSHAL THOMAS, JEREMY Severino Time with Patient: Greater than 30
[2024-12-02] MEDS: INSULIN LISPRO (HumaLOG) 100 UNIT/ML 10 mL VL SQ SCH (12:38)
[2024-12-02 14:45] LABS: HCT 20.9 % (39.6-50.0); HGB 7.2 g/dL (13.0-17.0); Immature Platelet Fraction 56.7 % (1.1-6.1); MCH 30.5 pg (27.0-32.0); MCHC 34.4 g/dL (32.0-37.0); MCV 88.6 fL (80.0-97.0); RBC 2.36 10*6/uL (4.40-5.60); RDW 19.2 % (11.5-14.5); WBC 21.37 10*3/uL (4.50-10.00)
[2024-12-02 14:47] LABS: Platelet Count 37 10*3/uL (140-440)
[2024-12-02 16:43] LABS: Glucose,Whole Blood 131 mg/dL (70-110)
[2024-12-02 20:44] LABS: Glucose,Whole Blood 133 mg/dL (70-110)
--- NOTE | 2024-12-02 21:15 | P.CONS ---
History of Present Illness - Reason for Consult Consult date: 12/02/24 AML Requesting physician: Tara Estrada - Chief Complaint SOB - History of Present Illness Mr. 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 He was then referred to [facility] and was started on salvage treatment with FLAG and had CR. He then was found to have relapsed disease in October 2024 and was started on Ivosidenib. He was transferred from [facility] for anemia, with hgb of 5.2. He has been experiencing SOB which caused him to present to the ER for further evaluation. Upon arrival to [facility], CBC showed hemoglobin 4.8. Patient was transfused 2 units PRBCs with repeat hemoglobin 6.2. WBC 19.6, platelets 53,000. Blast cells noted at 53%. 3rd unit PRBCs ordered. Patient was recently admitted at [facility] for atrial fibrillation was discharged last Thursday. 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 Upon disch arge patient restarted Ivosidenib last Thursday and took his last dose on Thursday. Patient is currently following with Dr. Kaufman at [facility]. He also reports he recently had stent placement in bronchi, concern for recurrence of esophageal cancer. He was referred to rad onc but missed f/u due to ho spitalization. At today's visit patient is reporting he is feeling improved since blood transfusions. Patient is afebrile, HDS. Review of Systems 10 point ROS is negative except as stated in the HPI Past Medical History Past Medical History: Cancer, Prostate Disorder Additional Past Medical History / Comment(s): esophageal cancer, leukemia History of Any Multi-Drug Resistant Organisms: None Reported Past Surgical History: Heart Catheterization With Stent, Hernia Repair Additional Past Surgical History / Comment(s): gastric pull-through surgery Past Anesthesia/Blood Transfusion Reactions: No Reported Reaction Smoking Status: Never smoker Medications and Allergies Home Medications Medication Instructions Recorded Confirmed Type Acyclovir [Zovirax] 400 mg PO BID 01/01/24 12/01/24 History Fluticasone Nasal [place] [Flonase 2 spr EA NOSTRIL DAILY 01/01/24 12/01/24 History Nasal [place]] Loratadine [Claritin] 10 mg PO DAILY 01/01/24 12/01/24 History Pantoprazole [Protonix] 40 mg PO DAILY 01/01/24 12/01/24 History Tamsulosin [Flomax] 0.4 mg PO DAILY 01/01/24 12/01/24 History Nitroglycerin Sl Tabs [Nitrostat] 0.4 mg SUBLINGUAL Q5M PRN #30 tab 01/05/24 12/01/24 Rx Potassium Chloride ER [K-Dur 10] 10 meq PO DAILY 06/27/24 12/01/24 History Multivit-Min/FA/Lycopen/Lutein 1 tab PO DAILY 07/11/24 12/01/24 History [Centrum Silver Tablet] Prochlorperazine [Compazine] 10 mg PO Q6H PRN 08/26/24 12/01/24 History Sulfamethox-Tmp 800-160Mg [Bactrim 1 tab PO MOWEFR 08/26/24 12/01/24 History DS 800-160 mg] polyethylene glycoL 3350 [Miralax] 17 gm PO BID PRN 08/26/24 12/01/24 History Metoprolol Succinate [Metoprolol 25 mg PO DAILY 12/01/24 12/01/24 History Succinate ER] Posaconazole [Noxafil] 300 mg PO DAILY 12/01/24 12/01/24 History dexAMETHasone [Decadron] 4 mg PO DAILY 12/01/24 12/01/24 History guaiFENesin [Mucinex] 1,200 mg PO BID 12/01/24 12/01/24 History Allergies Allergy/AdvReac Type Severity Reaction Status Date / Time No Known Allergies Allergy Verified 12/01/24 20:14 Physical Exam Vitals: Vital Signs Temp Pulse Resp BP Pulse Ox 12/02/24 09:49 82 16 93/57 97 12/02/24 04:00 98.2 F 89 16 106/59 95 12/02/24 02:11 97.9 F 80 18 101/56 12/02/24 02:00 80 18 101/56 97 12/02/24 01:00 86 18 103/60 97 12/02/24 00:22 79.8 F L 87 18 99/57 97 12/02/24 00:09 97.8 F 86 18 97/62 97 12/01/24 21:19 99 18 103/50 98 12/01/24 20:05 98.2 F 94 20 104/56 98 12/01/24 19:52 98.5 F 95 20 82/40 98 12/01/24 19:00 90 20 102/60 98 12/01/24 18:30 101 H 18 96/60 98 12/01/24 16:07 98.2 F 97 20 110/61 97 Intake and Output 12/01/24 12/02/24 12/02/24 22:59 06:59 14:59 Intake Total 310 310 Balance 310 310 Intake: Blood Product 310 310 Rc Irr As1 Unit 310 [id number] Rc Irr As1 Unit 310 [id number] Other: Weight 79.379 kg - Constitutional General appearance: no acute distress - EENT Eyes: anicteric sclerae, EOMI ENT: hearing grossly normal - Respiratory breathing is even and unlabored Respiratory: bilateral: CTA - Cardiovascular skin warm and dry Rhythm: regular - Gastrointestinal General gastrointestinal: soft, no tenderness - Integumentary Integumentary: no cyanotic, pale - Neurologic Neurologic: CNII-XII intact - Musculoskeletal Musculoskeletal: generalized weakness - Psychiatric Psychiatric: A&O x's 3 Results CBC & Chem 7: 12/02/24 14:10 12/01/24 17:50 Labs: Abnormal Lab Results - Last 24 Hours (Table) 12/01/24 12/01/24 12/01/24 Range/Units 17:50 17:50 17:50 WBC 20.97 H (4.50-10.00) 10*3/uL RBC 1.59 L (4.40-5.60) 10*6/uL Hgb 4.8 L* (13.0-17.0) g/dL Hct 14.0 L* (39.6-50.0) % Plt Count (140-440) 10*3/uL Blast Cells % % Immature Gran # 1.38 H (0.00-0.04) 10*3/uL Blast Cells # (Man) (0) k/uL Immature Plt Fraction 55.1 H (1.1-6.1) % APTT 16.8 L (22.0-30.0) sec Sodium 134 L (137-145) mmol/L BUN 51 H (9-20) mg/dL Glucose 146 H (74-99) mg/dL Total Protein 5.0 L (6.3-8.2) g/dL Albumin 3.0 L (3.5-5.0) g/dL Crossmatch 12/01/24 12/02/24 Range/Units 17:50 05:57 WBC 19.61 H (4.50-10.00) 10*3/uL RBC 2.03 L (4.40-5.60) 10*6/uL Hgb 6.2 L* (13.0-17.0) g/dL Hct 17.8 L* (39.6-50.0) % Plt Count 39 L (140-440) 10*3/uL Blast Cells % 53 H* % Immature Gran # 1.34 H (0.00-0.04) 10*3/uL Blast Cells # (Man) 10.39 H (0) k/uL Immature Plt Fraction 55.9 H (1.1-6.1) % APTT (22.0-30.0) sec Sodium (137-145) mmol/L BUN (9-20) mg/dL Glucose (74-99) mg/dL Total Protein (6.3-8.2) g/dL Albumin (3.5-5.0) g/dL Crossmatch See Detail Chest x-ray: report reviewed Assessment and Plan (1) AML (acute myeloblastic leukemia) Current Visit: Yes Status: Acute Code(s): C92.00 - ACUTE MYELOBLASTIC LEUKEMIA, NOT HAVING ACHIEVED REMISSION SNOMED Code(s): 91196524 (2) Symptomatic anemia Current Visit: Yes Status: Acute Code(s): D64.9 - ANEMIA, UNSPECIFIED SNOMED Code(s): 950360620 Plan: AML, anemia: Patient presented to the ER for SOB and generalized weakness -Oncology history as dictated in the HPI -History of MDS, 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 He was then referred to [facility], and followed with Dr. Kaufman, and was started on salvage treatment with FLAG and had CR. He then was found to have relapsed disease in October 2024 and was started on Ivosidenib. Patient was recently admitted at [facility] for atrial fibrillation was discharged last Thursday. 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 Upon discharge patient restarted Ivosiden ib last Thursday and took his last dose on Thursday. Recent stent placement of bronchi at [facility], concern for recurrence of esophageal cancer. Pt was scheduled with rad onc to evaluate for palliative RT but missed appt due to hospitalization. -He was transferred from [facility] for anemia, with hgb of 5.2. Upon arrival CBC showed hemoglobin 4.8. Patient was transfused 2 units PRBCs with repeat hemoglobin 6.2. WBC 19.6, platelets 53,000. Blast cells noted at 53%. 3rd unit PRBCs ordered today - Repeat CBC in the morning, if stable pt can be discharged from oncology standpoint -Will need to reschedule appt with Rad onc. Hold Ivosidenib for now. Will need to discuss further with his oncologist, Dr. Kaufman, may need dose reduction. Pt and spouse did express today, pt may stop treatment. -F/u with Dr. Kaufman upon discharge to further discuss treatment/goals of care Doctor attests: I performed a history and physical examination of this patient, developed impression and plan of care. Discussed with dictator. I agree with dictators note, documented as a scribe.
[2024-12-03 06:09] LABS: Glucose,Whole Blood 133 mg/dL (70-110)
[2024-12-03 08:38] LABS: MCH 30.5 pg (27.0-32.0); MCHC 34.4 g/dL (32.0-37.0); MCV 88.6 fL (80.0-97.0); RDW 18.4 % (11.5-14.5); WBC 15.48 10*3/uL (4.50-10.00)
[2024-12-03 08:48] LABS: HCT 19.5 % (39.6-50.0); HGB 6.7 g/dL (13.0-17.0)
[2024-12-03 10:14] LABS: Band Neutrophils % 1 %; Blast Cells # (M) 12.07 k/uL (0); Lymphocytes # (M) 1.39 k/uL (1.0-4.8); Metamyelocytes # (M) 0.15 k/uL (0); Metamyelocytes % 1 %; Monocytes # (M) 0.15 k/uL (0-1.0); Myelocytes # (M) 0.46 k/uL (0); Myelocytes % 3 %; Neutrophils # (M) 1.39 k/uL (1.3-7.7); Neutrophils % (M) 8 %; Nucleated Red Blood Cells 0 /100 WBC (0-0); Total Cells Counted 200
[2024-12-03 10:15] LABS: Anisocytosis (M) Present
[2024-12-03 10:25] LABS: Platelet Count 8 10*3/uL (140-440)
[2024-12-03 11:25] LABS: Glucose,Whole Blood 126 mg/dL (70-110)
--- NOTE | 2024-12-03 13:29 | P.PN ---
Subjective Progress Note Date: 12/03/24 Patient is a 74-year-old male with history of AML currently undergoing treatment at [facility] and [facility], history of severe symptomatic anemia with multiple transfusions in the past, history of pancytopenia and MDS presented to ER for generalized weakness and shortness of breath. Patient is a transfer from [facility] where he initially presented with these symptoms blood work revealed very low hemoglobin of 5.2. Patient was transferred for further care to [facility] where he received 2 units of irradiated packed RBC. His hemoglobin improved to 6.2. Patient reports that he is feeling little bit better although still feeling weak with mild shortness of breath. He denies any fever, chills, nausea, vomiting, chest pain, active bleeding, bloody or tarry colored stools. Patient also reportedly had a left-sided atelectasis couple months ago when he was in [place]. Initial laboratory evaluation shows WBC 20.97, hemoglobin 4.8, hematocrit 14.0, sodium 134, BUN 51, creatinine 0.78, glucose 146, albumin 3.0, repeat lab work shows hemoglobin 6.2, hematocrit 17.8, platelet count 39, blast cells 53,. Chest x-ray shows no acute cardiopulmonary process. EKG shows sinus rhythm with occasional supraventricular premature complexes with ventricular rate of 98 bpm, [place] interval 152 ms, QRS duration 106 ms, QTc [address] or T wave changes noted. 12/03/2024 Patient seen and examined at the bedside. Hemoglobin 6.7 and platelet count 8. Patient currently feeling fatigued and short of breath. 1 unit of irradiated packed RBC and 1 unit of irradiated platelet has been ordered. Will repeat blood work in the afternoon. Discussed hospice care. Physical examination: Vital signs reviewed General: non toxic, no distress, appears at stated age, normal weight Derm: no unusual rashes/lesions, warm Head: atraumatic, normocephalic, symmetric Eyes: EOMI, no lid lag, anicteric sclera, pupils equal round reactive to light ENT: Nose and ears atraumatic Neck: No cervical lymphadenopathy, trachea midline, supple Mouth: no lip lesion, mucus membranes moist Cardiovascular: S1S2 reg, no murmur, positive dorsalis pedis pulse bilateral, no edema Lungs: CTA bilateral, no rhonchi, no rales, no accessory muscle use Abdominal: soft, nontender to palpation, no guarding Ext: muscle strength 5 out of 5 in all 4 extremities grossly, no gross muscle atrophy, no contractures, Neuro: CN II-XI grossly intact, no gross focal neuro deficits Psych: Alert, oriented, appropriate affect Assessment/Plan: Active: #Severe symptomatic anemia in the setting of AML #History of MDS, 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 #Bicytopenia #History of multiple blood transfusion in the past #Generalized weakness Patient is status post 3 units of irradiated packed RBC Order 1 unit of irradiated packed RBC and 1 unit of irradiated platelet Monitor APTT Repeat CBC in the afternoon Transfusion with irradiated packed RBC if hemoglobin less than 7 Transfusion with platelets if less than 10,000 or active bleeding with counts less than 50,000 Consult oncology Resume prophylactic antibiotic and antiviral medication PT/OT on board #Hyperglycemia Short acting sliding scale insulin Monitor for hypoglycemia #BPH Resume Flomax Chronic conditions: Resume home medications DVT prophylaxis: SCDs GI prophylaxis: Protonix 40 mg p.o. daily F: None E: Replete as needed N: Regular diet A: Ambulatory at baseline CODE STATUS: Full code Discussed with: Patient Anticipated discharge place: Pending clinical course Dictation was produced using [employer] dictation software. Please excuse any grammatical, word or spelling errors. Objective - Vital Signs Vital signs: Vital Signs Temp 97.6 F 12/03/24 03:36 Pulse 85 12/03/24 03:36 Resp 16 12/03/24 03:36 BP 93/53 12/03/24 03:36 Pulse Ox 94 L 12/03/24 08:06 FiO2 Intake & Output 12/02/24 12/03/24 12/03/24 18:59 06:59 18:59 Intake Total 1100 Output Total 250 Balance 1100 -250 Weight 79.379 kg 79 kg Intake: Oral 480 Blood Product 620 Rc Irr As1 Unit 310 [id number] Output: Urine 250 - Labs CBC & Chem 7: 12/05/24 06:44 12/05/24 06:44 Labs: Abnormal Lab Results - Last 24 Hours (Table) 12/01/24 12/01/24 12/02/24 Range/Units 17:50 17:50 14:10 WBC 20.97 H 21.37 H (4.50-10.00) 10*3/uL RBC 1.59 L 2.36 L (4.40-5.60) 10*6/uL Hgb 4.8 L* 7.2 L (13.0-17.0) g/dL Hct 14.0 L* 20.9 L (39.6-50.0) % Plt Count 48 L 37 L (140-440) 10*3/uL Blast Cells % 60 H* % Immature Gran # 1.38 H (0.00-0.04) 10*3/uL Myelocytes # (Manual) 0.42 H (0) k/uL Blast Cells # (Man) 12.58 H (0) k/uL Nucleated RBCs 4 H (0-0) /100 WBC Pathologist Review See comment A Immature Plt Fraction 55.1 H 56.7 H (1.1-6.1) % POC Glucose (mg/dL) (70-110) mg/dL Crossmatch See Detail 12/02/24 12/02/24 12/03/24 Range/Units 16:42 20:42 06:07 WBC (4.50-10.00) 10*3/uL RBC (4.40-5.60) 10*6/uL Hgb (13.0-17.0) g/dL Hct (39.6-50.0) % Plt Count (140-440) 10*3/uL Blast Cells % % Immature Gran # (0.00-0.04) 10*3/uL Myelocytes # (Manual) (0) k/uL Blast Cells # (Man) (0) k/uL Nucleated RBCs (0-0) /100 WBC Pathologist Review Immature Plt Fraction (1.1-6.1) % POC Glucose (mg/dL) 131 H 133 H 133 H (70-110) mg/dL Crossmatch Assessment and Plan Assessment: Attestation Attestation/ Chronic Disease Epidemiologist Note: Attestation to Progress Note, Participation (I saw and evaluated the patient with the Resident, and I reviewed and discussed the patient with the Resident and agree with the Resident's findings and plans as documented above., management reviewed and discussed), I agree with findings & plan, Provider Signature (KUSHAL THOMAS, JEREMY Severino
--- NOTE | 2024-12-03 16:01 | P.PN ---
Subjective Progress Note Date: 12/03/24 Principal diagnosis: AML - Afebrile, no acute events overnight - Hemoglobin noted to be 6.7 today from 7.2 yesterday along with platelets of 8 - He received 1 unit of packed red blood cells this morning and is awaiting 1 unit of pheresis platelets - Today, he notes he would like to proceed with hospice Objective - Vital Signs Vital signs: Vital Signs Temp 97.8 F 12/03/24 15:36 Pulse 80 12/03/24 15:36 Resp 14 12/03/24 15:36 BP 96/60 12/03/24 15:36 Pulse Ox 93 L 12/03/24 15:36 FiO2 Intake & Output 12/02/24 12/03/24 12/03/24 18:59 06:59 18:59 Intake Total 1100 546 Output Total 250 225 Balance 1100 -250 321 Weight 79.379 kg 79 kg Intake: Oral 480 236 Blood Product 620 310 Platelet Pheresis Pas 0 Psoralen Unit [id number] Rc Irr As1 Unit 310 [id number] Rc Irr As1 Unit 310 [id number] Output: Urine 250 225 Other: # Voids 1 - Constitutional General appearance: Present: cooperative, no acute distress - Respiratory Details: Nonlabored breathing - Cardiovascular Details: Warm and well-perfused - Integumentary Integumentary: Present: pale - Neurologic Neurologic: Present: CNII-XII intact. Absent: focal deficits - Psychiatric Psychiatric: Present: A&O x's 3 - Labs CBC & Chem 7: 12/03/24 07:59 12/01/24 17:50 Labs: Abnormal Lab Results - Last 24 Hours (Table) 12/01/24 12/02/24 12/02/24 Range/Units 17:50 16:42 20:42 WBC (4.50-10.00) 10*3/uL RBC (4.40-5.60) 10*6/uL Hgb (13.0-17.0) g/dL Hct (39.6-50.0) % Plt Count (140-440) 10*3/uL Blast Cells % % Immature Gran # (0.00-0.04) 10*3/uL Metamyelocytes # (Man) (0) k/uL Myelocytes # (Manual) (0) k/uL Blast Cells # (Man) (0) k/uL POC Glucose (mg/dL) 131 H 133 H (70-110) mg/dL Hemoglobin A1c (<=6.0) % Crossmatch See Detail 12/03/24 12/03/24 12/03/24 Range/Units 06:07 07:59 07:59 WBC 15.48 H (4.50-10.00) 10*3/uL RBC 2.20 L (4.40-5.60) 10*6/uL Hgb 6.7 L* (13.0-17.0) g/dL Hct 19.5 L* (39.6-50.0) % Plt Count 8 L* D (140-440) 10*3/uL Blast Cells % 78 H* % Immature Gran # 1.18 H (0.00-0.04) 10*3/uL Metamyelocytes # (Man) 0.15 H (0) k/uL Myelocytes # (Manual) 0.46 H (0) k/uL Blast Cells # (Man) 12.07 H (0) k/uL POC Glucose (mg/dL) 133 H (70-110) mg/dL Hemoglobin A1c 6.2 H (<=6.0) % Crossmatch 12/03/24 Range/Units 11:23 WBC (4.50-10.00) 10*3/uL RBC (4.40-5.60) 10*6/uL Hgb (13.0-17.0) g/dL Hct (39.6-50.0) % Plt Count (140-440) 10*3/uL Blast Cells % % Immature Gran # (0.00-0.04) 10*3/uL Metamyelocytes # (Man) (0) k/uL Myelocytes # (Manual) (0) k/uL Blast Cells # (Man) (0) k/uL POC Glucose (mg/dL) 126 H (70-110) mg/dL Hemoglobin A1c (<=6.0) % Crossmatch Assessment and Plan (1) Local recurrence of cancer of esophagus Current Visit: Yes Status: Acute Code(s): C15.9 - MALIGNANT NEOPLASM OF ESOPHAGUS, UNSPECIFIED SNOMED Code(s): 449917906 (2) AML (acute myeloblastic leukemia) Current Visit: Yes Status: Acute Code(s): C92.00 - ACUTE MYELOBLASTIC LEUKEMIA, NOT HAVING ACHIEVED REMISSION SNOMED Code(s): 33549234 (3) Symptomatic anemia Current Visit: Yes Status: Acute Code(s): D64.9 - ANEMIA, UNSPECIFIED SNOMED Code(s): 236290024 Plan: #AML, symptomatic anemia #Recurrent localized esophageal cancer Patient presented to the ER for SOB and generalized weakness -Oncology history as dictated in the HPI -History of MDS, 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 He was then referred to [facility], and followed with Dr. Kaufman, and was started on salvage treatment with FLAG and had CR. He then was found to have relapsed disease in October 2024 and was started on Ivosidenib. Patient was recently admitted at [facility] for atrial fibrillation was discharged last Thursday. 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 Upon discharge patient restarted Ivosidenib last Thursday and took his last dose on Thursday. Recent stent placement of bronchi at [facility], concern for recurrence of esophageal cancer. Pt was scheduled with rad onc to evaluate for palliative RT but missed appt due to hospitalization -He received 2 units of packed red blood cells with hemoglobin trending up to 7.2 with blasts noted at 53% and platelets of 53 -Hemoglobin is slightly trending down this morning and received 1 unit packed red blood cells along with platelets at 8 with platelet transfusion pending -On today's visit, he notes he is more definitive with regards to wanting to pursue hospice -Given the recurrence of his AML that appears to be progressive in addition to recurrent esophageal cancer, I do believe this is more than reasonable -We did discuss that we could start to arrange for hospice here in the hospital, which he and his were in agreement with -Consult to hospice has been placed -We remain available if additional questions or concerns arise Dominick Simon MD
[2024-12-03 16:31] LABS: Glucose,Whole Blood 152 mg/dL (70-110)
[2024-12-03 16:53] LABS: HCT 20.6 % (39.6-50.0); HGB 7.4 g/dL (13.0-17.0); Immature Platelet Fraction 43.6 % (1.1-6.1); MCH 31.2 pg (27.0-32.0); MCHC 35.9 g/dL (32.0-37.0); MCV 86.9 fL (80.0-97.0); RBC 2.37 10*6/uL (4.40-5.60); RDW 16.4 % (11.5-14.5); WBC 15.24 10*3/uL (4.50-10.00)
[2024-12-03 16:57] LABS: Platelet Count 25 10*3/uL (140-440)
[2024-12-03 17:49] LABS: Band Neutrophils % 1 %; Blast Cells # (M) 10.52 k/uL (0); Lymphocytes # (M) 1.22 k/uL (1.0-4.8); Metamyelocytes % 2 %; Monocytes # (M) 0.46 k/uL (0-1.0); Myelocytes # (M) 0.15 k/uL (0); Myelocytes % 1 %; Neutrophils # (M) 2.74 k/uL (1.3-7.7); Neutrophils % (M) 17 %; Nucleated Red Blood Cells 4 /100 WBC (0-0); Total Cells Counted 200
[2024-12-03 17:51] LABS: Anisocytosis (M) Present; Ovalocytes Present; Poikilocytosis (M) Present; Polychromasia Present
[2024-12-04 05:54] LABS: Glucose,Whole Blood 129 mg/dL (70-110)
[2024-12-04 09:23] LABS: Immature Platelet Fraction 38.3 % (1.1-6.1); MCH 30.6 pg (27.0-32.0); MCHC 34.9 g/dL (32.0-37.0); MCV 87.8 fL (80.0-97.0); RBC 2.22 10*6/uL (4.40-5.60); RDW 16.9 % (11.5-14.5); WBC 13.97 10*3/uL (4.50-10.00)
[2024-12-04 09:26] LABS: HGB 6.8 g/dL (13.0-17.0); Platelet Count 23 10*3/uL (140-440)
[2024-12-04 09:27] LABS: HCT 19.5 % (39.6-50.0)
[2024-12-04 10:23] LABS: Blast Cells # (M) 9.92 k/uL (0); Metamyelocytes # (M) 0.14 k/uL (0); Metamyelocytes % 1 %; Monocytes # (M) 0.56 k/uL (0-1.0); Myelocytes # (M) 0.14 k/uL (0); Myelocytes % 1 %; Neutrophils % (M) 10 %; Nucleated Red Blood Cells 0 /100 WBC (0-0); Total Cells Counted 200
[2024-12-04 10:26] LABS: Anisocytosis (M) Present
[2024-12-04 10:27] LABS: Ovalocytes Present
[2024-12-04 11:30] LABS: Glucose,Whole Blood 134 mg/dL (70-110)
[2024-12-04 16:48] LABS: Glucose,Whole Blood 134 mg/dL (70-110)
--- NOTE | 2024-12-04 22:34 | P.PN ---
Subjective Progress Note Date: 12/04/24 Patient is a 74-year-old male with history of AML currently undergoing treatment at [facility], history of severe symptomatic anemia with multiple transfusions in the past, history of pancytopenia and MDS presented to ER for generalized weakness and shortness of breath. Patient is a transfer from [facility] where he initially presented with these symptoms blood work revealed very low hemoglobin of 5.2. Patient was transferred for further care to [facility] where he received 2 units of irradiated packed RBC. His hemoglobin improved to 6.2. Patient reports that he is feeling little bit better although still feeling weak with mild shortness of breath. He denies any fever, chills, nausea, vomiting, chest pain, active bleeding, bloody or tarry colored stools. Patient also reportedly had a left-sided atelectasis couple months ago when he was in [place]. Initial laboratory evaluation shows WBC 20.97, hemoglobin 4.8, hematocrit 14.0, sodium 134, BUN 51, creatinine 0.78, glucose 146, albumin 3.0, repeat lab work shows hemoglobin 6.2, hematocrit 17.8, platelet count 39, blast cells 53,. Chest x-ray shows no acute cardiopulmonary process. EKG shows sinus rhythm with occasional supraventricular premature complexes with ventricular rate of 98 bpm, OK interval 152 ms, QRS duration 106 ms, QTc [address] or T wave changes noted. 12/03/2024 Patient seen and examined at the bedside. Hemoglobin 6.7 and platelet count 8. Patient currently feeling fatigued and short of breath. 1 unit of irradiated packed RBC and 1 unit of irradiated platelet has been ordered. Will repeat blood work in the afternoon. Discussed hospice care. 12/04/2024 Patient is resting in bed. Awake alert and oriented. No complaints of chest pain or shortness of breath. No nausea or vomiting. Tolerating oral diet. Laboratory data showed WBC 13.9 hemoglobin 6.8 and platelets 23,000. Blood sugar is controlled. Patient is being transfused with 1 unit of irradiated PRBC. Patient does not want to pursue any further radiation or chemotherapy. Anticipate discharge home in the next 24 hours Physical examination: Vital signs reviewed General: non toxic, no distress, appears at stated age, normal weight Derm: no unusual rashes/lesions, warm Head: atraumatic, normocephalic, symmetric Eyes: EOMI, no lid lag, anicteric sclera, pupils equal round reactive to light ENT: Nose and ears atraumatic Neck: No cervical lymphadenopathy, trachea midline, supple Mouth: no lip lesion, mucus membranes moist Cardiovascular: S1S2 reg, no murmur, positive dorsalis pedis pulse bilateral, no edema Lungs: CTA bilateral, no rhonchi, no rales, no accessory muscle use Abdominal: soft, nontender to palpation, no guarding Ext: muscle strength 5 out of 5 in all 4 extremities grossly, no gross muscle atrophy, no contractures, Neuro: CN II-XI grossly intact, no gross focal neuro deficits Psych: Alert, oriented, appropriate affect Assessment/Plan: Active: #Severe symptomatic anemia in the setting of AML #History of MDS, 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 #Bicytopenia #History of multiple blood transfusion in the past #Generalized weakness Patient is status post 3 units of irradiated packed RBC Order 1 unit of irradiated packed RBC and 1 unit of irradiated platelet Monitor APTT Repeat CBC in the afternoon Transfusion with irradiated packed RBC if hemoglobin less than 7 Transfusion with platelets if less than 10,000 or active bleeding with counts less than 50,000 Consult oncology Resume prophylactic antibiotic and antiviral medication PT/OT on board #Hyperglycemia Short acting sliding scale insulin Monitor for hypoglycemia #BPH Resume Flomax Chronic conditions: Resume home medications DVT prophylaxis: SCDs GI prophylaxis: Protonix 40 mg p.o. daily F: None E: Replete as needed N: Regular diet A: Ambulatory at baseline CODE STATUS: Full code Discussed with: Patient Anticipated discharge place: Pending clinical course Dictation was produced using [employer] dictation software. Please excuse any grammatical, word or spelling errors. Objective - Vital Signs Vital signs: Vital Signs Temp 98.1 F 12/04/24 20:00 Pulse 83 12/04/24 20:00 Resp 14 12/04/24 20:00 BP 99/60 12/04/24 20:00 Pulse Ox 95 12/04/24 20:00 FiO2 Intake & Output 12/04/24 12/04/24 12/05/24 06:59 18:59 06:59 Intake Total 1870 Output Total 400 600 Balance -400 1270 Weight 79.1 kg Intake: Oral 1560 Blood Product 310 Rc Irr As1 Unit 310 [id number] Output: Urine 400 600 - Labs CBC & Chem 7: 12/04/24 08:22 12/01/24 17:50 Labs: Abnormal Lab Results - Last 24 Hours (Table) 12/01/24 12/04/24 12/04/24 Range/Units 17:50 05:52 08:22 WBC 13.97 H (4.50-10.00) 10*3/uL RBC 2.22 L (4.40-5.60) 10*6/uL Hgb 6.8 L* (13.0-17.0) g/dL Hct 19.5 L* (39.6-50.0) % Plt Count 23 L (140-440) 10*3/uL Blast Cells % 71 H* % Immature Gran # 1.50 H (0.00-0.04) 10*3/uL Metamyelocytes # (Man) 0.14 H (0) k/uL Myelocytes # (Manual) 0.14 H (0) k/uL Blast Cells # (Man) 9.92 H (0) k/uL Immature Plt Fraction 38.3 H (1.1-6.1) % POC Glucose (mg/dL) 129 H (70-110) mg/dL Crossmatch See Detail 12/04/24 12/04/24 Range/Units 11:29 16:42 WBC (4.50-10.00) 10*3/uL RBC (4.40-5.60) 10*6/uL Hgb (13.0-17.0) g/dL Hct (39.6-50.0) % Plt Count (140-440) 10*3/uL Blast Cells % % Immature Gran # (0.00-0.04) 10*3/uL Metamyelocytes # (Man) (0) k/uL Myelocytes # (Manual) (0) k/uL Blast Cells # (Man) (0) k/uL Immature Plt Fraction (1.1-6.1) % POC Glucose (mg/dL) 134 H 134 H (70-110) mg/dL Crossmatch
[2024-12-04 23:17] VITALS: TEMP 97.8
[2024-12-05 08:18] LABS: African American GFR (CKD) >90 (>60 ml/min/1.73 sqM); Anion Gap 6 mmol/L; Blood Urea Nitrogen 35 mg/dL (9-20); Calcium 8.2 mg/dL (8.4-10.2); Carbon Dioxide 23 mmol/L (22-30); Chloride 103 mmol/L (98-107); Glucose 111 mg/dL (74-99); Non-African American GFR(CKD) >90 (>60 ml/min/1.73 sqM); Sodium 132 mmol/L (137-145)
[2024-12-05 08:34] LABS: HCT 22.7 % (39.6-50.0); HGB 8.1 g/dL (13.0-17.0); MCH 31.2 pg (27.0-32.0); MCHC 35.7 g/dL (32.0-37.0); MCV 87.3 fL (80.0-97.0); WBC 14.68 10*3/uL (4.50-10.00)
[2024-12-05 08:37] LABS: Platelet Count 26 10*3/uL (140-440)
[2024-12-05 09:17] VITALS: BP 89/56; PULSE 104; RESP 18
[2024-12-05 09:43] LABS: Lymphocytes # (M) 2.94 k/uL (1.0-4.8); Monocytes # (M) 0.44 k/uL (0-1.0); Neutrophils # (M) 1.47 k/uL (1.3-7.7); Neutrophils % (M) 10 %
[2024-12-05 09:44] LABS: Blast Cells # (M) 9.84 k/uL (0); Nucleated Red Blood Cells 0 /100 WBC (0-0); Total Cells Counted 100
[2024-12-05] MEDS: LORazepam 0.5 MG TAB PO PRN (12:20)
--- NOTE | 2024-12-05 12:50 | P.DS ---
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 Patient is a transfer from [facility] where he initially presented with these symptoms blood work revealed very low hemoglobin of 5.2. Patient was transferred for further care to [facility] where he received 2 units of irradiated packed RBC. His hemoglobin improved to 6.2. Patient reports that he is feeling little bit better although still feeling weak with mild shortness of breath. He denies any fever, chills, nausea, vomiting, chest pain, active bleeding, bloody or tarry colored stools. Patient also reportedly had a left-sided atelectasis couple months ago when he was in [place]. Initial laboratory evaluation shows WBC 20.97, hemoglobin 4.8, hematocrit 14.0, sodium 134, BUN 51, creatinine 0.78, glucose 146, albumin 3.0, repeat lab work shows hemoglobin 6.2, hematocrit 17.8, platelet count 39, blast cells 53,. Chest x-ray shows no acute cardiopulmonary process. EKG shows sinus rhythm with occasional supraventricular premature complexes with ventricular rate of 98 bpm, DE interval 152 ms, QRS duration 106 ms, QTc [address] or T wave changes noted. 12/03/2024 Patient seen and examined at the bedside. Hemoglobin 6.7 and platelet count 8. Patient currently feeling fatigued and short of breath. 1 unit of irradiated packed RBC and 1 unit of irradiated platelet has been ordered. Will repeat blood work in the afternoon. Discussed hospice care. 12/04/2024 Patient is resting in bed. Awake alert and oriented. No complaints of chest pa in or shortness of breath. No nausea or vomiting. Tolerating oral diet. Laboratory data showed WBC 13.9 hemoglobin 6.8 and platelets 23,000. Blood sugar is controlled. Patient is being transfused with 1 unit of irradiated PRBC. Patient does not want to pursue any further radiation or chemotherapy. 12/05/2024 Patient is resting comfortably in the bed. Hemoglobin today is 8.1, platelet count is 26, BUN 35, creatinine 0.60. Patient will pursue hospice care at home. Family as well as patient is in agreement. Case was discussed with oncology. Patient is otherwise hemodynamically stable. Discharge disposition: Hospice at home Vital signs reviewed. Gen: in no apparent distress, resting comfortably in bed Eyes: PERRLA, EOMI, no scleral injection or icterus HENT: normocephalic, atraumatic, good hearing acuity, moist mucous membranes Neck: full range of motion Resp: CTAB, no rales, rhonchi, or wheezes CVS: normal S1 and S2, no murmurs, rubs or gallops, no edema GI: soft, NTTP, ND, no hepatosplenomegaly : no suprapubic tenderness, no CVAT, weems catheter [is/not] present MSK: no clubbing, no cyanosis, no noted contractures of extremities Skin: no noted rashes, petechiae; temperature of skin is appropriate Neuro: moving all extremities without signs of weakness, CN II-XII intact Psych: cooperative, euthymic mood, insight and judgment intact Dictation was produced using [employer] dictation software. Please excuse any grammatical, word or spelling errors. Attestation I have seen and examined this patient with my resident , discussed the same with the resident/SIVA, and agree with the dictator's assessment and plan as written Dr. Solomon baker Patient Condition at Discharge: Stable Plan - Discharge Summary Discharge Rx Participant: No New Discharge Prescriptions: Continue Tamsulosin [Flomax] 0.4 mg PO DAILY Pantoprazole [Protonix] 40 mg PO DAILY Loratadine [Claritin] 10 mg PO DAILY Nitroglycerin Sl Tabs [Nitrostat] 0.4 mg SUBLINGUAL Q5M PRN #30 tab PRN Reason: Chest Pain Potassium Chloride ER [K-Dur 10] 10 meq PO DAILY polyethylene glycoL 3350 [Miralax] 17 gm PO BID PRN PRN Reason: Constipation Prochlorperazine [Compazine] 10 mg PO Q6H PRN PRN Reason: Nausea guaiFENesin [Mucinex] 1,200 mg PO BID dexAMETHasone [Decadron] 4 mg PO DAILY Fluticasone Nasal [place] [Flonase Nasal [place]] 2 spr EA NOSTRIL DAILY Acyclovir [Zovirax] 400 mg PO BID Multivit-Min/FA/Lycopen/Lutein [Centrum Silver Tablet] 1 tab PO DAILY Sulfamethox-Tmp 800-160Mg [Bactrim DS 800-160 mg] 1 tab PO MOWEFR Metoprolol Succinate [Metoprolol Succinate ER] 25 mg PO DAILY Posaconazole [Noxafil] 300 mg PO DAILY Discharge Medication List Acyclovir [Zovirax] 400 mg PO BID 01/01/24 [History] Fluticasone Nasal [place] [Flonase Nasal [place]] 2 spr EA NOSTRIL DAILY 01/01/24 [History] Loratadine [Claritin] 10 mg PO DAILY 01/01/24 [History] Pantoprazole [Protonix] 40 mg PO DAILY 01/01/24 [History] Tamsulosin [Flomax] 0.4 mg PO DAILY 01/01/24 [History] Nitroglycerin Sl Tabs [Nitrostat] 0.4 mg SUBLINGUAL Q5M PRN #30 tab 01/05/24 [Rx] Potassium Chloride ER [K-Dur 10] 10 meq PO DAILY 06/27/24 [History] Multivit-Min/FA/Lycopen/Lutein [Centrum Silver Tablet] 1 tab PO DAILY 07/11/24 [History] Prochlorperazine [Compazine] 10 mg PO Q6H PRN 08/26/24 [History] Sulfamethox-Tmp 800-160Mg [Bactrim DS 800-160 mg] 1 tab PO MOWEFR 08/26/24 [History] polyethylene glycoL 3350 [Miralax] 17 gm PO BID PRN 08/26/24 [History] Metoprolol Succinate [Metoprolol Succinate ER] 25 mg PO DAILY 12/01/24 [History] Posaconazole [Noxafil] 300 mg PO DAILY 12/01/24 [History] dexAMETHasone [Decadron] 4 mg PO DAILY 12/01/24 [History] guaiFENesin [Mucinex] 1,200 mg PO BID 12/01/24 [History] Follow up Appointment(s)/Referral(s): None,Stated [REFERRING] - 1-2 days Home Care,[facility] [NON-STAFF] - 1-2 Days Activity/Diet/Wound Care/Special Instructions: Patient going home on hospice care. [facility] will resume care at home. Home care will take care of all medication orders. Discharge Disposition: HOME WITH HOSPICE
== END 2024-12-05 12:40 | disposition hospice, home (50) | DRG 835 ==
LOC: EC 15:59 → 3SCARD 20:51
PROVIDERS: ADMIT Hospitalist; ATTEND Hospitalist
PROC: 30233N1 Transfusion of Nonautologous Red Blood Cells into Peripheral Vein, Percutaneous Approach (ICD-10-PCS; principal; 2024-12-01)
PROC: 6A550Z2 Pheresis of Platelets, Single (ICD-10-PCS; 2024-12-03)
PROC: 30233R1 Transfusion of Nonautologous Platelets into Peripheral Vein, Percutaneous Approach (ICD-10-PCS; 2024-12-03)
DX: C92.00 Acute myeloblastic leukemia, not having achieved remission (principal); C15.9 Malignant neoplasm of esophagus, unspecified; D63.0 Anemia in neoplastic disease; I48.91 Unspecified atrial fibrillation; I49.1 Atrial premature depolarization; R73.9 Hyperglycemia, unspecified; N40.0 Benign prostatic hyperplasia without lower urinary tract symptoms; Z79.899 Other long term (current) drug therapy; Z92.21 Personal history of antineoplastic chemotherapy; Z92.3 Personal history of irradiation
CPT/HCPCS: 36415; 71046; 80048; 80053; 83036; 83880; 84484; 85025; 85027; 85610; 85730; 86850; 86900; 86901; 86920; 93005; 94760; 99285